=== PATIENT | female | born 1945 | race Caucasian/White ===

== ENCOUNTER → 2017-08-26 | Outpatient (CLI) | payer OTHER, MEDICARE ==
[~2017-08-26] MED LIST: ALT5 PO; CRG125 PO; CYM/30 PO; DYZ PO; GLIP-197 PO; KFL/250 PO; MULTCHW PO; OXYC-57 PO; PRLSR20 PO; ROSU20TA PO
== END | disposition home or self-care (01) ==
LOC: C.LABSPEC 17:23
PROVIDERS: ATTEND Podiatrist Foot & Ankle Surgery
DX: L97.509 Non-pressure chronic ulcer of other part of unspecified foot with unspecified severity (principal)

== ENCOUNTER → 2017-09-03 | Outpatient (CLI) | payer OTHER, MEDICARE ==
[~2017-09-03] MED LIST changes: +GADAVIST IV PRN
--- NOTE | 2017-09-03 09:59 | DIAGNOSTIC IMAGING REPORT ---
RIGHT FOREFOOT MRI WITH AND WITHOUT INTRAVENOUS CONTRAST HISTORY: Right foot pain. 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 COMPARISON STUDY: Right foot radiograph 05/24/2015. FINDINGS: There is metallic artifact obscuring the second toe. Metallic fusion hardware seen at the first metatarsal metatarsal joint. 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 There is also plantar subluxation of the proximal phalanx in relation to the first metatarsal of approximately 8 mm. This is likely chronic. No marrow or surrounding soft tissue edema to suggest an acute process. This results in proximal displacement of the sesamoid bones at the head of the first metatarsal. There is also mild osteoarthritis at the second MTP joint. There is also dorsal subluxation of the middle phalanx and relation to the proximal phalanx of the third toe of approximately 3 mm. Skin thickening and mild edema along the plantar surface of the second toe at the PIP joint. There is also a 5 mm T2 hyperintense focus within the skin at the plantar surface of the PIP joint. This could represent a small skin blisters/bursa or possibly an abscess. At the head of the proximal phalanx of the second toe there is marrow edema with subtle decreased T1 signal with faint enhancement. There is mild cortical regularity along the plantar surface of the head of the proximal phalanx of the second toe. No fractures identified within the forefoot. IMPRESSION: 1. Abnormal appearance to the head of the proximal phalanx of the third toe as described above with associated skin thickening/edema and a 5 mm soft tissue cystic focus along the plantar surface. Therefore, this raises the possibility of an early osteomyelitis of the proximal phalanx of the third toe. The 5 mm soft tissue cystic focus may represent a small skin blister/bursa or possibly an abscess. 2. There is 3 mm of dorsal subluxation at the PIP joint of the third toe and 8 mm of plantar subluxation at the interphalangeal joint of the first toe. This is likely chronic. No acute fractures identified. Electronically signed by: Nixon Mcleod M.D. 09/03/2017 9:58 AM Dictated Date/Time: 09/03/2017 9:47 AM
== END | disposition home or self-care (01) ==
LOC: C.MRI 07:52
PROVIDERS: ATTEND Podiatrist Foot & Ankle Surgery
DX: L03.115 Cellulitis of right lower limb (principal); L97.515 Non-pressure chronic ulcer of other part of right foot with muscle involvement without evidence of necrosis; S92.811A Other fracture of right foot, initial encounter for closed fracture; X58.XXXA Exposure to other specified factors, initial encounter; M79.9 Soft tissue disorder, unspecified; S93.144A Subluxation of metatarsophalangeal joint of right lesser toe(s), initial encounter; S93.141A Subluxation of metatarsophalangeal joint of right great toe, initial encounter

== ENCOUNTER 2023-09-23 12:18 | Inpatient (IN) ==
[2023-09-23] MEDS: SODIUM CHLORIDE 0.9% 1,000 ML IV STA (12:30)
--- NOTE | 2023-09-23 12:41 | Emergency Department Note ---
Impression & Plan Acute GI bleeding, Melena, Acute confusion, RAFAEL (acute kidney injury), Anemia requiring transfusions ED Provider Note HISTORY OF PRESENT ILLNESS: Patient is a 78-year-old female presenting with confusion. provides most of history. He reports that they just got back from traveling to [place] for a family wedding. States the patient has been progressively more confused over the last 10 days. Patient was recently admitted to the hospital and had a follow-up with her primary care provider today at [facility]. She was very confused at the clinic and was very pale and they sent her to the emergency department for further evaluation. Patient reports for the last 3 to 4 days she has had dark tarry stool. reports has been having diarrhea. Patient is alert but very confused and is not answering questions appropriately. is unsure if she is on a blood thinner. No reported fevers. No chest pain or shortness of breath. ROS: as above PHYSICAL EXAM: Constitutional: Patient appears in no acute distress. HENT: Head: Normocephalic and atraumatic. Eyes: EOMI, PERRL Mouth/Throat: Mucous membranes moist. Neck: Trachea midline. Neck supple. Cardiovascular: Tachycardic with regular rhythm. No murmurs, rubs or gallops. Intact distal pulses. Pulmonary/Chest: No respiratory distress. Breath sounds clear and equal bilaterally. No wheezes or rales. Abdominal: Abdomen soft, no tenderness, rebound or guarding. Rectal: Chaperoned by nursing staff. Asif melena on glove. Hemoccult positive. Musculoskeletal: No edema, tenderness or deformity noted. Skin: Warm and dry. No rash, erythema, pallor or cyanosis Psychiatric: Appropriate mood and affect for situation. Neurological: Alert, but confused to place and time. CN II-XII grossly intact, moving all extremities equally and fully. MDM: - Vitals signs showed hypotension and tachycardia. IV access obtained. Patient given 1L NS. - History obtained via patient's , given patient's confusion. History as above. - Chronic conditions affecting care: HTN; HLD; GERD; DM-2 - Differential diagnoses include, but are not limited to: bleeding gastric ulcer; gastritis; diverticular bleed; sepsis; UTI - Order placed for continuous cardiac monitoring. At this time, monitor showed rate of 100 bpm with normal sinus rhythm, per my interpretation. - External medical records reviewed. Gastroenterology visit note dated 01/22/2023 was reviewed. Patient does have a known history of gastric ulcers. She had an endoscopy in January 2023. She was diagnosed with PUD and erosive gastritis. - EKG interpreted by myself showed normal sinus rhythm. Rate 81 bpm. QT 420. No acute ischemic changes. - Given 40 mg IV protonix and 20 mg IV pepcid. - Laboratory workup interpreted by myself showed leukocytosis (WBC 17.49); anemia (Hgb 8.1 - was 13.0 five days ago); hypokalemia (K 3.2); elevated BUN (37); RAFAEL (Cr 1.16); hyperglycemia (glucose 255); normal procalcitonin; normal lipase - CXR negative for pneumonia, per my interpretation - Patient had a hemoglobin of 13.0 five days ago. Given her asif melena on examination, hypotension and 5 g hemoglobin drop, packed red blood cells were ordered. Patient was consented for blood. 3 units of packed red blood cells was ordered, with due to transfusion now. - Discussed case with gastroenterology on-call, Dr. Abad at 1341. Recommended medical optimization and plan for EGD tomorrow. - Discussion was had with rn case mgr about patient's case and need for admission - Hospitalist consulted for admission - Patient admitted to [facility] service for further evaluation and management. I have personally spent 64 minutes of critical care time in the direct management of this patient. This includes bedside care, interpretation of diagnostic studies, and testing, discussion with consultants, patient, and family members, and other required patient management activities. This 64 minutes is in excess of all separately billable procedures. ASSESSMENT AND PLAN: Diagnosis: upper GI bleed; melena; confusion; RAFAEL; anemia requiring transfusions Plan: Admit Past Med/Surg History Problem List (Updated 09/23/23 @ 13:47 by Alexa Mistry MD) Anemia requiring transfusions (Acute) RAFAEL (acute kidney injury) (Acute) Acute confusion (Acute) Melena (Acute) Acute GI bleeding (Acute) Decreased oral intake (Acute) Memory loss of unknown cause (Acute) Gastric ulcer Anemia Encounter for pre-operative examination Chronic pain syndrome Dyslipidemia HTN (hypertension) Type 2 diabetes mellitus GERD (gastroesophageal reflux disease) Medical History Anemia Back problem Colovesical fistula DM type 2 (diabetes mellitus, type 2) History of gout HLD (hyperlipidemia) HTN (hypertension) Obesity Poor historian Recurrent UTI Surgical History History of bowel resection History of History of colonoscopy with polypectomy History of hysterectomy Hx of cataract surgery Personal history of spine surgery Family History Mother Diabetes Father Heart disease Social History Smoking Status: Never smoker Second Hand Exposure: No; Do You Dip or Chew Tobacco: No; Hx Alcohol Use: No Hx Substance Use: No Preferred Language: Greenlandic Communication Ability: Effective Visual Impairment: No Limitations Hearing Ability: Hard of Hearing Obstetrical Anesthesiologist Required: No Beliefs That Will Affect Care: None marital status: Current Living Situation: Spouse How many Children do You have: 3 Feels Safe at Home: Yes Assistive Devices: Walker Allergies Allergies Allergy/AdvReac Type Severity Reaction Status Date / Time tramadol AdvReac Intermediate NAUSEA Verified 01/22/23 13:02 Home Meds Home Medications Medication Instructions Recorded Confirmed carvedilol 12.5 mg PO BID ##0 11/17/08 01/22/23 triamterene-hydrochlorothiazid 1 cap PO BID ##0 11/17/08 01/22/23 rosuvastatin 20 mg PO HS #0 tabs 01/24/12 01/22/23 MULTIPLE VITAMINS W/ MINERALS 1 tab PO QAM ##0 04/25/15 01/22/23 (CENTRUM SILVER) duloxetine 30 mg PO QAM #0 caps 04/25/15 01/22/23 glipizide 1 tab PO QAM #0 tabs 04/25/15 01/22/23 hydrocodone 5 mg-acetaminophen 325 1 tab PO Q8H PRN Pain 11/26/22 01/22/23 mg tablet Previous Rx's Medication Instructions Recorded pantoprazole 40 mg tablet,delayed 40 mg PO BID #180 tabs 07/21/23 release Results & Data (ED) Vital Signs Vital Signs - 24 hr 09/23/23 12:20 09/23/23 13:44 Temperature 36.8 C Temperature Source Temporal Artery Scan Pulse Rate 99 H 88 Respiratory Rate 16 Respiratory Effort / Characteristics Non-Labored Spontaneous Respiratory Depth Normal Blood Pressure 64/40 L Blood Pressure Mean 48 Pulse Oximetry 100 Oxygen Delivery Method Room Air Sepsis Recent Fever Within 48 Hours No Sepsis New/Unexplained Change in Mental Status N/A Sepsis Action Taken by Nursing No Action Required Laboratory Data 09/23/23 12:30 09/23/23 12:30 Lab Results 09/23/23 09/23/23 09/23/23 Range/Units 12:29 12:30 12:36 WBC 17.49 H (4.8-10.8) K/ul RBC 3.03 L (4.20-5.40) M/uL Hgb 8.1 L (12.0-16.0) g/dl POC Hgb 8.5 L (12.0-16.0) g/dl Hct 25.1 L (37.0-47.0) % POC Hct 25 L (37-47) % MCV 82.8 (80.0-100.0) fL MCH 26.7 (25.0-34.0) pg MCHC 32.3 (32.0-36.0) g/dL RDW Std Deviation 45.5 (36.4-46.3) fL RDW Coeff of Francisco 15.3 H (11.5-14.5) % Plt Count 574 H (130-400) K/uL MPV 9.8 (9.4-12.4) fL Immature Gran % (Auto) 0.9 % Neut % (Auto) 71.2 % Lymph % (Auto) 20.8 % [place] % (Auto) 6.5 % Eos % (Auto) 0.3 % Baso % (Auto) 0.3 % Neut # (Auto) 12.45 H (1.40-6.50) K/uL Lymph # (Auto) 3.64 H (1.20-3.40) K/uL [place] # (Auto) 1.13 H (0.11-0.59) K/uL Eos # (Auto) 0.06 (0.00-0.50) K/uL Baso # (Auto) 0.06 (0.00-0.20) K/uL Immature Gran # (Auto) 0.15 (0.01-0.20) K/uL PT 10.9 (9.0-12.0) Seconds INR 1.0 (0.9-1.1) POC Sodium 138 (135-144) mmol/L Sodium 138 (136-145) mmol/L POC Potassium 3.1 L (3.3-5.0) mmol/L Potassium 3.2 L (3.5-5.1) mmol/L POC Chloride 103 (101-112) mmol/L Chloride 102 (98-107) mmol/L Carbon Dioxide 26 (21-32) mmol/L POC Total CO2 24 (24-31) mmol/L Anion Gap 10 (3-11) POC Anion Gap 15.0 L (16-25) mmol/L POC BUN 30 H (7-18) mg/dl BUN 37 H (6-23) mg/dl Creatinine 1.16 (0.6-1.2) mg/dl POC Creatinine 1.1 (0.6-1.3) mg/dl Est Cr Clr Drug Dosing Not Reportable Est GFR ( Amer) 52.6 ml/min Est GFR (Non-Af Amer) 45.4 ml/min BUN/Creatinine Ratio 31.9 H (10-20) Glucose 255 H (70-99(Fasting)) mg/dl POC Glucose (other) 241 H (70-99) mg/dl Calcium 9.3 (8.6-10.3) mg/dl POC Ioniz Calcium Cele 1.18 (1.12-1.32) mmol/l Magnesium 1.8 (1.7-2.4) mg/dl Total Bilirubin 0.3 (0.2-1.0) mg/dl AST 13 (13-39) U/L ALT 9 (7-52) U/L Alkaline Phosphatase 21 L (34-104) U/L Troponin I High Sens 10.2 (0-14) pg/ml Total Protein 6.2 (6.0-8.3) gm/dl Albumin 3.9 (3.4-5.0) gm/dl Globulin 2.3 L (2.5-4.0) gm/dl Albumin/Globulin Ratio 1.7 (0.9-2) Lipase 57 (11-82) U/L Procalcitonin 0.03 (0-0.5) ng/ml Blood Type O Positive Antibody Screen POSITIVE A Crossmatch See Detail Administered Medications Discontinued Medications Sodium Chloride (Nss) 1,000 mls @ 999 mls/hr IV .Q1H1M STA Stop: 09/23/23 13:36 Last Admin: 09/23/23 12:30 Dose: 999 mls/hr Documented By: AM Famotidine (Pepcid 20mg Iv Push) 20 mg in 5 mls @ 2.5 mls/min IV NOW STA Stop: 09/23/23 12:38 Last Admin: 09/23/23 13:38 Dose: 2.5 mls/min Documented By: AM Imaging Data Radiologist's Impression: Chest X-Ray 09/23/23 12:36 XR chest 1V portable CLINICAL HISTORY: Chest pain, nonspecific TECHNIQUE: Single frontal radiograph of the chest was obtained. Comparison: Comparison is made to chest radiograph 11/20/2022 FINDINGS: No lines and tubes are seen. Calcified aortic knob is seen. The lungs are clear. No evidence of pleural effusion or pneumothorax. IMPRESSION: No acute chest disease. ACT 112: Negative or not required by law. Electronically signed by: Jimbo Crowe M.D. 09/23/2023 1:15 PM Discharge Plan Visit Data Chief Complaint: Altered Mental Status Stated Complaint: AMS ED Provider: Alexa Mistry Discharge Problem: Acute GI bleeding, Melena, Acute confusion, RAFAEL (acute kidney injury), Anemia requiring transfusions Forms Stand Alone Forms: My [facility] Prescriptions Prescriptions: No Action carvedilol 12.5 mg tablet 12.5 mg PO BID cilostazol 50 mg tablet 50 mg PO BID hydrocodone-acetaminophen 5-325 mg tablet 1 tab PO TID PRN (Reason: Severe Pain (Scale Score 7-10)) hydrochlorothiazide 25 mg tablet 25 mg PO DAILY ramipril 5 mg capsule 5 mg PO DAILY glipizide 5 mg tablet 5 mg PO DAILY rosuvastatin 20 mg tablet 20 mg PO DAILY duloxetine 60 mg capsule,delayed release(DR/EC) 60 mg PO DAILY Referrals Referrals: Jian Escalante MD [Primary Care Provider] -
[2023-09-23 12:49] LABS: iSTAT Creatinine 1.1 mg/dl (0.6-1.3); iSTAT Hemoglobin 8.5 g/dl (12.0-16.0); iSTAT Ionized Calcium 1.18 mmol/l (1.12-1.32); iSTAT Potassium 3.1 mmol/L (3.3-5.0)
[2023-09-23 13:04] LABS: Basophils # (auto) 0.06 K/uL (0.00-0.20); Basophils % (auto) 0.3 %; Eosinophils # (auto) 0.06 K/uL (0.00-0.50); Eosinophils % (auto) 0.3 %; Hematocrit (blood only) 25.1 % (37.0-47.0); Hemoglobin 8.1 g/dl (12.0-16.0); Immature Granulocytes # (auto) 0.15 K/uL (0.01-0.20); Immature Granulocytes % (auto) 0.9 %; Lymphocytes # (auto) 3.64 K/uL (1.20-3.40); Lymphocytes % (auto) 20.8 %; Mean Corpuscular Hemoglobin 26.7 pg (25.0-34.0); Mean Corpuscular Hgb Conc 32.3 g/dL (32.0-36.0); Mean Corpuscular Volume 82.8 fL (80.0-100.0); Mean Platelet Volume 9.8 fL (9.4-12.4); Monocytes # (auto) 1.13 K/uL (0.11-0.59); Monocytes % (auto) 6.5 %; Neutrophils # (auto) 12.45 K/uL (1.40-6.50); Neutrophils % (auto) 71.2 %; Platelet Count 574 K/uL (130-400); RDW Coefficient of Variation 15.3 % (11.5-14.5); RDW Standard Deviation 45.5 fL (36.4-46.3); Red Blood Count 3.03 M/uL (4.20-5.40); White Blood Count 17.49 K/ul (4.8-10.8)
[2023-09-23 13:06] LABS: Alanine Aminotransferase 9 U/L (7-52); Albumin Globulin Ratio 1.7 (0.9-2); Albumin Level 3.9 gm/dl (3.4-5.0); Alkaline Phosphatase 21 U/L (34-104); Anion Gap 10 (3-11); Aspartate Aminotransferase 13 U/L (13-39); BUN Creatinine Ratio 31.9 (10-20); Bilirubin,Total 0.3 mg/dl (0.2-1.0); Blood Urea Nitrogen 37 mg/dl (6-23); Calcium 9.3 mg/dl (8.6-10.3); Carbon Dioxide 26 mmol/L (21-32); Chloride 102 mmol/L (98-107); Est GFR (African American) 52.6 ml/min; Est GFR (Non-African American) 45.4 ml/min; Globulin 2.3 gm/dl (2.5-4.0); Glucose 255 mg/dl (70-99(Fasting)); Lipase 57 U/L (11-82); Magnesium 1.8 mg/dl (1.7-2.4); Potassium 3.2 mmol/L (3.5-5.1); Sodium 138 mmol/L (136-145); Total Protein 6.2 gm/dl (6.0-8.3)
[2023-09-23] MEDS ORDERED: SODIUM CHLORIDE 0.9% 250 ML IV PRN (13:08)
[2023-09-23 13:12] LABS: Troponin I High Sensitivity 10.2 pg/ml (0-14)
--- NOTE | 2023-09-23 13:17 | XRay Report ---
XR chest 1V portable CLINICAL HISTORY: Chest pain, nonspecific TECHNIQUE: Single frontal radiograph of the chest was obtained. Comparison: Comparison is made to chest radiograph 11/20/2022 FINDINGS: No lines and tubes are seen. Calcified aortic knob is seen. The lungs are clear. No evidence of pleur al effusion or pneumothorax. IMPRESSION: No acute chest disease. ACT 112: Negative or not required by law. Electronically signed by: Jimbo Crowe M.D. 09/23/2023 1:15 PM
[2023-09-23 13:27] LABS: Prothrombin Time 10.9 Seconds (9.0-12.0)
[2023-09-23] MEDS: FAMOTIDINE 20MG IV PUSH 20 MG/5 ML SYR IV STA (13:38)
--- NOTE | 2023-09-23 13:50 | Gastrointestinal Consultation ---
Date of Consultation September 23, 2023 Assessment & Plan (1) Acute GI bleeding: (2) Melena: Plan Patient is a 78 y.o. female with a history of gastric ulcer and GIB admitted with confusion, melena and acute blood loss anemia in the setting of discontinuation of PPI. 1. NPO for now. 2. Continue PPI ggt at 8 mg/hr. 3. EGD with Dr. Abad tomorrow for further evaluation in light of symptomatic anemia and history of PUD. 4. Continue supportive care with fluids and blood transfusion if needed per protocol. 5. Further recommendations will be made pending results of testing. Thank you for allowing us to participate in the care of this patient. If you have any questions or concerns, please do not hesitate to contact us. Supervising Physician Co-Signing Physician Notes Agree with LIS Keys as above Interviewed and examined patient and agree with above Abd: Soft, NT, ND, +BS Continue current therapy and supportive care Proceed with EGD tomorrow AM History of Present Illness Reason for Consultation: UGIB Requesting Physician: Sigrid Clinton PA-C Attending Physician: Dr. Mistry History of Present Illness Patient is a 78 y.o. female with a history of symptomatic anemia and melena status post EGD and colonoscopy in January of 2023. She was found to have 2 gastric, clean-based ulcers at that time. Patient was encouraged to remain on Pantoprazole 40 mg BID x 6 weeks, then daily thereafter. From review of records, it appears the PPI was discontinued months ago per her 's report due to confusion in regard to her medications. GI has been consulted after the patient presented to the ER with acute blood loss anemia, melena and confusion. Patient has just returned from a trip to [place], [place] for a wedding and had become weak. PCP had recommended ER evaluation. Mentation has improved. Hemoglobin on 09/17 was normal at 13 and on arrival, 8.1. Allergies Allergy/AdvReac Type Severity Reaction Status Date / Time tramadol AdvReac Intermediate NAUSEA Verified 09/23/23 14:01 metformin AdvReac Nausea Verified 09/23/23 14:02 Home Medications Medication Instructions Recorded Confirmed Type carvedilol 12.5 mg tablet 12.5 mg PO BID 09/23/23 09/23/23 History cilostazol 50 mg tablet 50 mg PO BID 09/23/23 09/23/23 History duloxetine 60 mg capsule,delayed 60 mg PO DAILY 09/23/23 09/23/23 History release glipizide 5 mg tablet 5 mg PO DAILY 09/23/23 09/23/23 History hydrochlorothiazide 25 mg tablet 25 mg PO DAILY 09/23/23 09/23/23 History hydrocodone 5 mg-acetaminophen 325 1 tab PO TID PRN Severe Pain 09/23/23 09/23/23 History mg tablet (Scale Score 7-10) ramipril 5 mg capsule 5 mg PO DAILY 09/23/23 09/23/23 History rosuvastatin 20 mg tablet 20 mg PO DAILY 09/23/23 09/23/23 History Patient History Medical History HTN (hypertension) History of gout Back problem DM type 2 (diabetes mellitus, type 2) Poor historian HLD (hyperlipidemia) Recurrent UTI Obesity Colovesical fistula hx Surgical History History of bowel resection sigmoid resection for a colo-vesical fistula per record History of colonoscopy with polypectomy History of hysterectomy History of Personal history of spine surgery Hx of cataract surgery Family History Mother Diabetes Father Heart disease Social History Smoking Status: Never smoker Second Hand Exposure: No; Do You Dip or Chew Tobacco: No; Hx Alcohol Use: No Hx Substance Use: No Preferred Language: Azerbaijani Communication Ability: Effective Visual Impairment: No Limitations Hearing Ability: Hard of Hearing Aeronautical Design Engineer Required: No Beliefs That Will Affect Care: None marital status: Current Living Situation: Spouse How many Children do You have: 3 Feels Safe at Home: Yes Assistive Devices: Walker Review of Systems Constitutional: as per Subjective / HPI Respiratory: no cough and no dyspnea Cardiovascular: no chest pain and no palpitations Gastrointestinal: as per Subjective / HPI Physical Exam Constitutional: WD/WN, vitals as above Respiratory: normal respiratory effort, lungs clear to auscultation Cardiovascular: RRR, no murmur, no edema Gastrointestinal (Abdomen): normal bowel sounds, soft, nontender, no hepatosplenomegaly Psychiatric: A+Ox3, euthymic affect Results & Data Vital Signs (Past 12 Hours) Vital Signs Temp Pulse Resp BP Pulse Ox O2 Del Method 09/23/23 13:44 88 09/23/23 12:20 36.8 C 99 H 16 64/40 L 100 Room Air Diagnostic Findings Laboratory Results WBC 17.49 K/ul (4.8-10.8) H 09/23/23 12:30 RBC 3.03 M/uL (4.20-5.40) L 09/23/23 12:30 Hgb 8.1 g/dl (12.0-16.0) L 09/23/23 12:30 POC Hgb 8.5 g/dl (12.0-16.0) L 09/23/23 12:36 Hct 25.1 % (37.0-47.0) L 09/23/23 12:30 POC Hct 25 % (37-47) L 09/23/23 12:36 MCV 82.8 fL (80.0-100.0) 09/23/23 12:30 MCH 26.7 pg (25.0-34.0) 09/23/23 12:30 MCHC 32.3 g/dL (32.0-36.0) 09/23/23 12:30 RDW Std Deviation 45.5 fL (36.4-46.3) 09/23/23 12:30 RDW Coeff of Francisco 15.3 % (11.5-14.5) H 09/23/23 12:30 Plt Count 574 K/uL (130-400) H 09/23/23 12:30 MPV 9.8 fL (9.4-12.4) 09/23/23 12:30 Immature Gran % (Auto) 0.9 % 09/23/23 12:30 Neut % (Auto) 71.2 % 09/23/23 12:30 Lymph % (Auto) 20.8 % 09/23/23 12:30 [place] % (Auto) 6.5 % 09/23/23 12:30 Eos % (Auto) 0.3 % 09/23/23 12:30 Baso % (Auto) 0.3 % 09/23/23 12:30 Neut # (Auto) 12.45 K/uL (1.40-6.50) H 09/23/23 12:30 Lymph # (Auto) 3.64 K/uL (1.20-3.40) H 09/23/23 12:30 [place] # (Auto) 1.13 K/uL (0.11-0.59) H 09/23/23 12:30 Eos # (Auto) 0.06 K/uL (0.00-0.50) 09/23/23 12:30 Baso # (Auto) 0.06 K/uL (0.00-0.20) 09/23/23 12:30 Immature Gran # (Auto) 0.15 K/uL (0.01-0.20) 09/23/23 12:30 PT 10.9 Seconds (9.0-12.0) 09/23/23 12:30 INR 1.0 (0.9-1.1) 09/23/23 12:30 POC Sodium 138 mmol/L (135-144) 09/23/23 12:36 Sodium 138 mmol/L (136-145) 09/23/23 12:30 POC Potassium 3.1 mmol/L (3.3-5.0) L 09/23/23 12:36 Potassium 3.2 mmol/L (3.5-5.1) L 09/23/23 12:30 POC Chloride 103 mmol/L (101-112) 09/23/23 12:36 Chloride 102 mmol/L (98-107) 09/23/23 12:30 Carbon Dioxide 26 mmol/L (21-32) 09/23/23 12:30 POC Total CO2 24 mmol/L (24-31) 09/23/23 12:36 Anion Gap 10 (3-11) 09/23/23 12:30 POC Anion Gap 15.0 mmol/L (16-25) L 09/23/23 12:36 POC BUN 30 mg/dl (7-18) H 09/23/23 12:36 BUN 37 mg/dl (6-23) H 09/23/23 12:30 Creatinine 1.16 mg/dl (0.6-1.2) 09/23/23 12:30 POC Creatinine 1.1 mg/dl (0.6-1.3) 09/23/23 12:36 Est Cr Clr Drug Dosing Not Reportable 09/23/23 12:30 Est GFR ( Amer) 52.6 ml/min 09/23/23 12:30 Est GFR (Non-Af Amer) 45.4 ml/min 09/23/23 12:30 BUN/Creatinine Ratio 31.9 (10-20) H 09/23/23 12:30 Glucose 255 mg/dl (70-99(Fasting)) H 09/23/23 12:30 POC Glucose (other) 241 mg/dl (70-99) H 09/23/23 12:36 Calcium 9.3 mg/dl (8.6-10.3) 09/23/23 12:30 POC Ioniz Calcium Cele 1.18 mmol/l (1.12-1.32) 09/23/23 12:36 Magnesium 1.8 mg/dl (1.7-2.4) 09/23/23 12:30 Total Bilirubin 0.3 mg/dl (0.2-1.0) 09/23/23 12:30 AST 13 U/L (13-39) 09/23/23 12:30 ALT 9 U/L (7-52) 09/23/23 12:30 Alkaline Phosphatase 21 U/L (34-104) L 09/23/23 12:30 Troponin I High Sens 10.2 pg/ml (0-14) 09/23/23 12:30 Total Protein 6.2 gm/dl (6.0-8.3) 09/23/23 12:30 Albumin 3.9 gm/dl (3.4-5.0) 09/23/23 12:30 Globulin 2.3 gm/dl (2.5-4.0) L 09/23/23 12:30 Albumin/Globulin Ratio 1.7 (0.9-2) 09/23/23 12:30 Lipase 57 U/L (11-82) 09/23/23 12:30 Procalcitonin 0.03 ng/ml (0-0.5) 09/23/23 12:30 Blood Type O Positive 09/23/23 12:29 Antibody Screen POSITIVE A 09/23/23 12:29 Crossmatch See Detail 09/23/23 12:29 Impressions Chest X-Ray 09/23/23 12:36 XR chest 1V portable CLINICAL HISTORY: Chest pain, nonspecific TECHNIQUE: Single frontal radiograph of the chest was obtained. Comparison: Comparison is made to chest radiograph 11/20/2022 FINDINGS: No lines and tubes are seen. Calcified aortic knob is seen. The lungs are clear. No evidence of pleural effusion or pneumothorax. IMPRESSION: No acute chest disease. ACT 112: Negative or not required by law. Electronically signed by: Jimbo Crowe M.D. 09/23/2023 1:15 PM PG Care Time/CCT Total # of Minutes Spent Total Time Spent with Patient: Total time spent is greater than 50% in coordination of care (as documented) at patient's floor/unit and/or counseling patient: Coding Level of Care Code 45527 INT INP/OBS CARE 3/75MIN Diagnoses Acute GI bleeding K92.2 Melena K92.1
--- NOTE | 2023-09-23 14:19 | History & Physical Report ---
Date of Service September 23, 2023 Assessment & Plan (1) Acute GI bleeding: (2) Melena: (3) Acute confusion: (4) Anemia requiring transfusions: (5) Type 2 diabetes mellitus: (6) HTN (hypertension): (7) Dyslipidemia: (8) Hypokalemia: Plan This is a 78 year old female Who has a significant past medical history of T2DM, HTN, HLD, GERD, bilateral lower extremity claudication, lumbar spinal stenosis, chronic pain syndrome who presents to ED secondary to referral of PCP in setting of increased confusion. Acute GI bleeding Melena Anemia requiring transfusion admit to tele Hemoglobin 8.1 today, was at 13 - 5 days ago In ED she was typed and crossed for 2 units, she will be transfused due to suspected blood loss Uncertain how long melena is been present Consult GI Keep n.p.o. PPI bolus and drip initiated in ED Plan for endoscopy tomorrow Repeat hemoglobin posttransfusion, cbc, cmp, mag in a.m. Intermittent underlying confusion This has been reported by family and has been ongoing for the last several weeks Previous urinalysis have been negative She does have elevated white blood cell count but I suspect this is likely reactive Question if underlying dementia She is not encephalopathic repeat UA anticipate it may improve with transfusion Hypokalemia replete HTN bp on lower side will hold TEAM PHYSICIAN meds including ramipril, HCTZ and coreg resume as able HLD chronic, stable Total Chol 300 09/09 on statin, will hold while NPO T2DM last a1c 8.5 in August currently on glipizide, will hold given age and risk of hypoglycemia she may benefit from januvia or injectable would discuss with PCP Lantus/novolog per protocol DVT ppx: SCDS FULL CODE PCP: Ava Dispo: Med tele Pt was seen and examined in collaboration with Dr. Knapp, please see addendum A total of 55 minutes was spent coordinating, documenting, and providing care for this patient excluding time spent in the performance of separately billed services. This included personally viewing all current laboratories and imaging studies, medication reconciliation, outpatient chart review, and discussion with specialists. History of Present Illness Chief Complaint: referred by PCP. Primary Care Provider: Jian Escalante MD This is a 78 year old female Who has a significant past medical history of T2DM, HTN, HLD, GERD, bilateral lower extremity claudication, lumbar spinal stenosis, chronic pain syndrome who presents to ED secondary to referral of PCP in setting of increased confusion. Her is at bedside who elicits majority of history. He reports her memory has been getting persistently worse. He reports 10 days ago they were in [place] and she was completely out of it. With the altitude it seemed even worse. She has not been eating and drinking well. She has a prior hx of UTI so family thought maybe that was contributing to her memory. reports he honestly didn't even know what she was to bed taking medication mckee so he called her PCP to obtain her medication list. For the last 10 days he has been doing her medications. He just realized she was to be taken pantoprazole and it appears she has not for the last 2 months. She was seen by PCP today who referred her to ER due to worsening memory loss and appearing very pale. Of significance patient was seen in ED on 09/18/2023 for similar complaints and increased confusion. Her urinalysis was negative for infection and head CT was negative. Her potassium was a bit low and therefore this was repleted. She was discharged home with . She had a ER follow-up with PCP today and was referred in the ED. Of significance patient did have a EGD and colonoscopy in January 2023. EGD revealed nonbleeding gastric ulcer and colonoscopy did reveal some polyps which were removed. She was since prescribed pantoprazole 40 mg twice daily with eventually it to be decreased to daily. She has been not been doing this for the last 2 months. Allergies Allergy/AdvReac Type Severity Reaction Status Date / Time tramadol AdvReac Intermediate NAUSEA Verified 09/23/23 14:01 metformin AdvReac Nausea Verified 09/23/23 14:02 Home Medications Medication Instructions Recorded Confirmed Type carvedilol 12.5 mg tablet 12.5 mg PO BID 09/23/23 09/23/23 History cilostazol 50 mg tablet 50 mg PO BID 09/23/23 09/23/23 History duloxetine 60 mg capsule,delayed 60 mg PO DAILY 09/23/23 09/23/23 History release glipizide 5 mg tablet 5 mg PO DAILY 09/23/23 09/23/23 History hydrochlorothiazide 25 mg tablet 25 mg PO DAILY 09/23/23 09/23/23 History hydrocodone 5 mg-acetaminophen 325 1 tab PO TID PRN Severe Pain 09/23/23 09/23/23 History mg tablet (Scale Score 7-10) ramipril 5 mg capsule 5 mg PO DAILY 09/23/23 09/23/23 History rosuvastatin 20 mg tablet 20 mg PO DAILY 09/23/23 09/23/23 History Past Med/Surg History Problem List (Updated 09/23/23 @ 17:49 by Sigrid Clinton PA-C) Hypokalemia Anemia requiring transfusions (Acute) RAFAEL (acute kidney injury) (Acute) Acute confusion (Acute) Melena (Acute) Acute GI bleeding (Acute) Decreased oral intake (Acute) Memory loss of unknown cause (Acute) Gastric ulcer Anemia Encounter for pre-operative examination Chronic pain syndrome Dyslipidemia HTN (hypertension) Type 2 diabetes mellitus GERD (gastroesophageal reflux disease) Medical History HTN (hypertension) History of gout Back problem DM type 2 (diabetes mellitus, type 2) Poor historian HLD (hyperlipidemia) Recurrent UTI Obesity Colovesical fistula hx Surgical History History of bowel resection sigmoid resection for a colo-vesical fistula per record History of colonoscopy with polypectomy History of hysterectomy History of Personal history of spine surgery Hx of cataract surgery Family History Mother Diabetes Father Heart disease Social History Smoking Status: Never smoker Second Hand Exposure: No; Do You Dip or Chew Tobacco: No; Hx Alcohol Use: No Hx Substance Use: No Preferred Language: Malay Communication Ability: Effective Visual Impairment: No Limitations Hearing Ability: Hard of Hearing Web Ui Developer Required: No Beliefs That Will Affect Care: None marital status: Current Living Situation: Spouse How many Children do You have: 3 Feels Safe at Home: Yes Assistive Devices: Walker Review of Systems Review of Systems: All systems reviewed & are unremarkable except as noted in HPI & below Physical Exam Physical Exam: please refer to Dr. Knapp addendum for physical exam findings. Results & Data Results & Data Vital Signs (Past 12 Hours) Vital Signs Temp Pulse Pulse Resp BP BP Pulse Ox 09/23/23 14:01 98 09/23/23 13:51 88 14 98 09/23/23 13:45 113/61 09/23/23 13:44 88 09/23/23 13:39 88 15 98 09/23/23 13:37 94/63 L 09/23/23 13:30 86 19 99 09/23/23 13:08 88 14 108/69 97 09/23/23 12:36 12 91/49 L 96 09/23/23 12:20 82 12 85/47 L 97 09/23/23 12:20 98 09/23/23 12:20 36.8 C 99 H 16 64/40 L 100 O2 Del Method O2 Flow Rate 09/23/23 14:01 Room Air 09/23/23 13:51 09/23/23 13:45 09/23/23 13:44 09/23/23 13:39 09/23/23 13:37 09/23/23 13:30 09/23/23 13:08 Room Air 09/23/23 12:36 09/23/23 12:20 09/23/23 12:20 Room Air 0 09/23/23 12:20 Room Air Diagnostic Findings Chest X-Ray 09/23/23 12:36 XR chest 1V portable CLINICAL HISTORY: Chest pain, nonspecific TECHNIQUE: Single frontal radiograph of the chest was obtained. Comparison: Comparison is made to chest radiograph 11/20/2022 FINDINGS: No lines and tubes are seen. Calcified aortic knob is seen. The lungs are clear. No evidence of pleural effusion or pneumothorax. IMPRESSION: No acute chest disease. ACT 112: Negative or not required by law. Electronically signed by: Jimbo Crowe M.D. 09/23/2023 1:15 PM Medications Administered Medication List Pantoprazole Sodium 40 mg/ (Dextrose) 100 mls @ 20 mls/hr IV Q5H MICKEY Stop: 10/23/23 13:44 Last Admin: 09/23/23 15:36 Dose: 8 mg/hr, 20 mls/hr Documented By: NAW Discontinued Medications Sodium Chloride (Nss) 1,000 mls @ 999 mls/hr IV .Q1H1M STA Stop: 09/23/23 13:36 Last Infusion: 09/23/23 13:53 Dose: Infused Documented By: Admin: 09/23/23 12:30 Dose: 999 mls/hr Documented By: AM Pantoprazole Sodium 40 mg/ (Syringe) 10 mls @ 5 mls/min IV NOW ONE Stop: 09/23/23 12:38 Last Admin: 09/23/23 15:33 Dose: 5 mls/min Documented By: OLLIE Famotidine (Pepcid 20mg Iv Push) 20 mg in 5 mls @ 2.5 mls/min IV NOW STA Stop: 09/23/23 12:38 Last Admin: 09/23/23 13:38 Dose: 2.5 mls/min Documented By: LYNNE COVID-19 Results Results COVID-19 Adm Lab Results: RBC 3.03 M/uL (4.20-5.40) L 09/23/23 WBC 17.49 K/ul (4.8-10.8) H 09/23/23 Hgb 8.1 g/dl (12.0-16.0) L 09/23/23 Hct 25.1 % (37.0-47.0) L 09/23/23 Plt Count 574 K/uL (130-400) H 09/23/23 Neutrophils (%) (Auto) 71.2 % 09/23/23 Lymphocytes (%) (Auto) 20.8 % 09/23/23 Monocytes # (Auto) 1.13 K/uL (0.11-0.59) H 09/23/23 Eosinophils # (Auto) 0.06 K/uL (0.00-0.50) 09/23/23 Immature Granulocyte % (Auto) 0.9 % 09/23/23 Neutrophils # (Auto) 12.45 K/uL (1.40-6.50) H 09/23/23 Lymphocytes # (Auto) 3.64 K/uL (1.20-3.40) H 09/23/23 Monocytes # (Auto) 1.13 K/uL (0.11-0.59) H 09/23/23 Eosinophils # (Auto) 0.06 K/uL (0.00-0.50) 09/23/23 Basophils # (Auto) 0.06 K/uL (0.00-0.20) 09/23/23 Immature Granulocyte # (Auto) 0.15 K/uL (0.01-0.20) 4 Na 138 mmol/L (136-145) 09/23/23 K 3.2 mmol/L (3.5-5.1) L 09/23/23 Cl 102 mmol/L (98-107) 09/23/23 CO2 26 mmol/L (21-32) 09/23/23 Anion Gap 10 (3-11) 09/23/23 BUN 37 mg/dl (6-23) H 09/23/23 Creatinine 1.16 mg/dl (0.6-1.2) 09/23/23 BUN/Creatinine Ratio 31.9 (10-20) H 09/23/23 Glucose Level 255 mg/dl (70-99(Fasting)) H 09/23/23 Ca 9.3 mg/dl (8.6-10.3) 09/23/23 Total Bilirubin 0.3 mg/dl (0.2-1.0) 09/23/23 AST/SGOT 13 U/L (13-39) 09/23/23 ALT/SGPT 9 U/L (7-52) 09/23/23 Alkaline Phosphatase 21 U/L (34-104) L 09/23/23 Total Protein 6.2 gm/dl (6.0-8.3) 09/23/23 Albumin 3.9 gm/dl (3.4-5.0) 09/23/23 Globulin 2.3 gm/dl (2.5-4.0) L 09/23/23 Albumin/Globulin Ratio 1.7 (0.9-2) 09/23/23 Procalcitonin 0.03 ng/ml (0-0.5) 09/23/23 INR 1.0 (0.9-1.1) 09/23/23 Chest X-Ray 09/23/23 Code Status & VTE Plan Code Status FULL CODE VTE Prophylaxis Plan VTE Prophylaxis will be ordered: Yes Supervising Physician Co-Signing Physician Notes I have seen and discussed the case with the collaborating advanced practitioner. I agree with the above H&P. I have reviewed and confirmed the patients medical history, the findings on physical examination, and the patients diagnosis and treatment plan with Mary Beth YOUNGBLOOD and agree with the information documented. In short, Ms. Amin is a 78 year old woman with T2DM, HTN, HLD, GERD, bilateral lower extremity claudication, lumbar spinal stenosis, chronic pain syndrome, prior UGIB who is admitted for acute on chronic anemia and acute encephalopathy likely secondary to anemia. Patient AO2-3. Reports ?1 week melena. Has not been taking pantoprazole. GENERAL APPEARANCE: AxOx2-3, pleasant, no distress HEENT: NC, AT. MMM. EOMI, conjunctival pallor oropharynx clear. NECK: Supple without lymphadenopathy. No stiffness or restricted ROM. HEART: Normal rate and regular rhythm, normal S1/S1, no m/r/g LUNGS: CTAB, moving air well. No crackles or wheezes are heard. ABDOMEN: Soft, nontender, nondistended with good bowel sounds heard. BACK: No CVAT, no obvious deformity. EXTREMITIES: Without cyanosis, clubbing or edema. NEUROLOGICAL: Grossly nonfocal. Alert and oriented, moving all 4 extremities. CN not formally tested but appear grossly intact. Skin: Warm and dry without any rash. : #UGIB #Acute on chronic anemia s/p 2 U PRBC NPO PPI drip GI consut -possible EGD in am Rest of plan as above I spent a total of35 minutes coordinating, documenting, and providing care for this patient excluding time spent in the performance of separately billed services. All of the aforementioned completed outside of collaborating with the assigned advanced practitioner for a full treatment plan. I have reviewed the advanced practitioner's documentation, and I agree with, and take responsibility for the plan of care
[2023-09-23] MEDS: PANTOprazole 40 MG in SYRINGE 0 ML IV ONE (15:33)
[2023-09-23] MEDS: PANTOprazole 40 MG in DEXTROSE 5% MINI-B 100 ML IV SCH (15:36)
[2023-09-23] MEDS ORDERED: DEXTROSE 50% 50 ML SYRINGE IV PRN (16:47)
[2023-09-23] MEDS ORDERED: GLUCOSE 40% GEL 15 GM TUBE PO PRN (16:47)
[2023-09-23] MEDS ORDERED: ONDANSETRON INJ 2 MG/ML 2 ML VIAL IV PRN (16:47)
[2023-09-23] MEDS ORDERED: CARBOHYDRATES FOR HYPOGLYCEMIA PO PRN (16:47)
[2023-09-23] MEDS ORDERED: GLUCAGON FOR INJ 1 MG VIAL SQ PRN (16:47)
[2023-09-23] MEDS ORDERED: ACETAMINOPHEN 325 MG TAB PO PRN (16:47)
[2023-09-23] MEDS ORDERED: GLUCOSE 10 TAB/TUBE PO PRN (16:47)
[2023-09-23] MEDS: POTASSIUM CHLORIDE / WTR 10 MEQ/100 ML PLCT IV SCH (18:30)
[2023-09-23] MEDS: INSULIN ASPART PER UNIT CHARGE SC SCH (18:30)
[2023-09-23 20:19] LABS: Appearance Urine Clear (Clear); Bilirubin Urine Negative (Negative); Blood Urine Negative (Negative); Color Urine Yellow; Glucose Urine UA Negative (Negative); Ketones Urine Negative (Negative); Leukocyte Esterase Urine Negative (Negative); Nitrite Urine Negative (Negative); Protein Urine Negative (Negative); Specific Gravity Urine 1.013 (1.000-1.030); Urobilinogen Urine Negative (Negative); pH Urine 5.5 (4.5-7.5)
[2023-09-23] MEDS: LANTUS PER UNIT CHARGE SQ SCH (20:57)
[2023-09-23] MEDS: OLANZapine 10 MG/2.1 ML SDV IM STA ×2 (21:58→23:47)
[2023-09-24 00:06] LABS: Hematocrit (blood only) 29.8 % (37.0-47.0); Hemoglobin 9.8 g/dl (12.0-16.0)
[2023-09-24] MEDS: LORazepam 1 MG/1 ML SYR ED Inj Use ONE (00:38)
[2023-09-24] MEDS: LORazepam 0.25 MG in SYRINGE 0.125 ML IV STA (01:00)
[2023-09-24] MEDS: LABETALOL HCL IV 5 MG/ML 20ML IV STA (01:11)
[2023-09-24 04:19] LABS: Basophils # (auto) 0.05 K/uL (0.00-0.20); Basophils % (auto) 0.3 %; Eosinophils # (auto) 0.14 K/uL (0.00-0.50); Eosinophils % (auto) 0.8 %; Hematocrit (blood only) 28.5 % (37.0-47.0); Hemoglobin 9.7 g/dl (12.0-16.0); Immature Granulocytes # (auto) 0.09 K/uL (0.01-0.20); Immature Granulocytes % (auto) 0.5 %; Lymphocytes # (auto) 4.75 K/uL (1.20-3.40); Lymphocytes % (auto) 28.3 %; Mean Corpuscular Hemoglobin 28.2 pg (25.0-34.0); Mean Corpuscular Volume 82.8 fL (80.0-100.0); Mean Platelet Volume 9.3 fL (9.4-12.4); Monocytes # (auto) 1.51 K/uL (0.11-0.59); Neutrophils # (auto) 10.27 K/uL (1.40-6.50); Neutrophils % (auto) 61.1 %; Platelet Count 457 K/uL (130-400); RDW Coefficient of Variation 14.7 % (11.5-14.5); RDW Standard Deviation 43.7 fL (36.4-46.3); Red Blood Count 3.44 M/uL (4.20-5.40); White Blood Count 16.81 K/ul (4.8-10.8)
[2023-09-24 07:21] LABS: Albumin Globulin Ratio 1.5 (0.9-2); Albumin Level 3.4 gm/dl (3.4-5.0); BUN Creatinine Ratio 23.3 (10-20); Bilirubin,Total 0.7 mg/dl (0.2-1.0); Calcium 8.9 mg/dl (8.6-10.3); Creatinine Clr Calc Pharmacy 49.8 ml/min; Est GFR (African American) 92.1 ml/min; Est GFR (Non-African American) 79.4 ml/min; Globulin 2.3 gm/dl (2.5-4.0); Magnesium 1.7 mg/dl (1.7-2.4); Potassium 3.2 mmol/L (3.5-5.1); Total Protein 5.7 gm/dl (6.0-8.3)
[2023-09-24] MEDS ORDERED: LABETALOL HCL IV 5 MG/ML 20ML IV PRN (07:57)
--- NOTE | 2023-09-24 08:15 | Anesthesiology Consultation ---
Date of Service September 24, 2023 Assessment & Plan Chart Review Chart Review: Acceptable Risk for Surgery, Patient NOT seen in Pre Admission Testing and temporary data entry clerk initiated Consults Requested none Proposed Anesthesia Anesthesia Type: MAC History Surgery Operation Date: 09/24/23 16:45 Proposed Procedures p Esophagogastroduodenoscopy Dr Pollo Davidson Case, DO Height/Weight Height: 4 ft 8 in Weight: 67.8 kg Allergies Allergy/AdvReac Type Severity Reaction Status Date / Time tramadol AdvReac Intermediate NAUSEA Verified 09/23/23 14:01 metformin AdvReac Nausea Verified 09/23/23 14:02 Medications Home Medications Medication Instructions Recorded Confirmed Last Taken carvedilol 12.5 mg tablet 12.5 mg PO BID 09/23/23 09/23/23 Unknown cilostazol 50 mg tablet 50 mg PO BID 09/23/23 09/23/23 Unknown duloxetine 60 mg capsule,delayed 60 mg PO DAILY 09/23/23 09/23/23 Unknown release glipizide 5 mg tablet 5 mg PO DAILY 09/23/23 09/23/23 Unknown hydrochlorothiazide 25 mg tablet 25 mg PO DAILY 09/23/23 09/23/23 Unknown hydrocodone 5 mg-acetaminophen 325 1 tab PO TID PRN Severe Pain 09/23/23 09/23/23 Unknown mg tablet (Scale Score 7-10) ramipril 5 mg capsule 5 mg PO DAILY 09/23/23 09/23/23 Unknown rosuvastatin 20 mg tablet 20 mg PO DAILY 09/23/23 09/23/23 Unknown Active Medications Generic Name Dose Route Start Last Admin Trade Name Freq PRN Reason Stop Dose Admin Pantoprazole Sodium 40 mg/ 100 mls @ 20 mls/hr 09/23/23 13:45 09/24/23 04:38 Dextrose IV 10/23/23 13:44 8 mg/hr Q5H MICKEY 20 mls/hr Administration 8 MG/HR Insulin Aspart 0 units 09/23/23 17:00 09/24/23 05:26 Insulin Aspart Per Unit Charge SC 10/23/23 16:59 Not Given Q6 MICKEY Insulin Glargine 0 units 09/23/23 21:00 09/23/23 20:57 Lantus Per Unit Charge SQ 10/23/23 20:59 Not Given BID [facility] Protocol Past Medical History Medical History HTN (hypertension) History of gout Back problem DM type 2 (diabetes mellitus, type 2) Poor historian HLD (hyperlipidemia) Recurrent UTI Obesity Colovesical fistula hx Past Family History Family History Mother Diabetes Father Heart disease Past Surgical History Surgical History History of bowel resection sigmoid resection for a colo-vesical fistula per record History of colonoscopy with polypectomy History of hysterectomy History of Personal history of spine surgery Hx of cataract surgery Social History Smoking Status: Never smoker Do You Dip or Chew Tobacco: No Hx Alcohol Use: No Hx Substance Use: No substance use type: does not use Physical Exam Vital Signs Last Vital Signs Temp 36.8 C 09/23/23 22:35 Pulse 100 H 09/24/23 07:12 Resp 14 09/24/23 06:03 BP 144/68 H 09/24/23 04:09 Pulse Ox 95 09/24/23 06:03 O2 Del Method Room Air 09/24/23 06:03 O2 Flow Rate 0 09/23/23 12:20 Testing Laboratory Results 09/24/23 03:57 09/24/23 06:19 PT 10.9 Seconds (9.0-12.0) 09/23/23 12:30 INR 1.0 (0.9-1.1) 09/23/23 12:30 Urine Color Yellow 09/23/23 Unknown Urine Appearance Clear (Clear) 09/23/23 Unknown Urine pH 5.5 (4.5-7.5) 09/23/23 Unknown Ur Specific [place] 1.013 (1.000-1.030) 09/23/23 Unknown Urine Protein Negative (Negative) 09/23/23 Unknown Urine Glucose (UA) Negative (Negative) 09/23/23 Unknown Urine Ketones Negative (Negative) 09/23/23 Unknown Urine Nitrite Negative (Negative) 09/23/23 Unknown Ur Leukocyte Esterase Negative (Negative) 09/23/23 Unknown Blood Type O Positive 09/23/23 12:29 Antibody Screen POSITIVE A 09/23/23 12:29 09/24/23 09/24/23 09/23/23 05:23 00:31 20:56 POC Glucose 124 H 167 H 121 H Electrocardiogram Date: 09/18/23 Test Reason : Blood Pressure : / mmHG Vent. Rate : 083 BPM Atrial Rate : 083 BPM P-R Int : 138 ms QRS Dur : 088 ms QT Int : 380 ms P-R-T Axes : 052 -33 126 degrees QTc Int : 446 ms Sinus rhythm Premature atrial complexes Left axis deviation Left ventricular hypertrophy with repolarization abnormality ( R in aVL , Centre product ) Abnormal ECG When compared with ECG of 20-NOV-2022 18:18, Premature atrial complexes are now Present Confirmed by Elias Beck ([id number]) on 09/20/2023 6:30:15 AM Chest X-Ray Date: 09/23/23 XR chest 1V portable CLINICAL HISTORY: Chest pain, nonspecific TECHNIQUE: Single frontal radiograph of the chest was obtained. Comparison: Comparison is made to chest radiograph 11/20/2022 FINDINGS: No lines and tubes are seen. Calcified aortic knob is seen. The lungs are clear. No evidence of pleural effusion or pneumothorax. IMPRESSION: No acute chest disease.
[2023-09-24] MEDS: SODIUM CHLORIDE 0.9% 500 ML IV SCH (08:29)
--- NOTE | 2023-09-24 08:38 | History & Physical Bridge Note ---
Date of Service September 24, 2023 History & Physical Bridge Note I have examined the patient, reviewed the History & Physical and in the interval since the performance of the History & Physical I have noted the following changes of clinical significance: Patient is confused this morning. Consent for EGD is being provided by her . H&H remains stable. Continues PPI ggt. PE: Patient is cooperative. Tachycardic. Regular rhythm. Lungs CTA bilaterally. Abdomen soft, normal bowel sounds. Soft mitt restraints in place. A/P: Patient is a 78 y.o. female with a history of gastric ulcer and GIB admitted with confusion, melena and acute blood loss anemia in the setting of discontinuation of PPI. -NPO. -Proceed with diagnostic EGD. -Continue PPI ggt. -Further recommendations pending results of testing. Supervising Physician Co-Signing Physician Notes Agree with LIS Keys as above Patient more confused than yesterday Abd: Soft, NT, ND, +BS Continue current therapy and supportive care Proceed with EGD now.
--- NOTE | 2023-09-24 09:50 | Electrocardiogram Report ---
Test Reason : Blood Pressure : / mmHG Vent. Rate : 081 BPM Atrial Rate : 081 BPM P-R Int : 150 ms QRS Dur : 086 ms QT Int : 420 ms P-R-T Axes : 041 -23 120 degrees QTc Int : 487 ms Normal sinus rhythm Left ventricular hypertrophy with repolarization abnormality Poor R wave progression, consider anterior PR vs. lead placement vs. LVH Nonspecific ST abnormality Abnormal ECG When compared with ECG of 18-SEP-2023 11:39, Premature atrial complexes are no longer Present Confirmed by Mukund Ortega ([id number]) on 09/24/2023 9:49:58 AM Referred By: Jian Escalante Confirmed By:Fermin Ortega
[2023-09-24] MEDS: LORazepam 0.5 MG in SYRINGE 0.25 ML IV ONE (09:52)
[2023-09-24] MEDS: LACTATED RINGER'S 1,000 ML IV ONE (10:01)
--- NOTE | 2023-09-24 10:37 | Anesthesiology Progress Note ---
Date of Service September 24, 2023 Anesthesia Post Procedure Vital Signs Vital Signs: Temp Pulse Pulse Resp BP BP Pulse Ox 09/24/23 09:31 93 H 14 137/74 98 09/24/23 09:22 89 14 125/79 97 09/24/23 09:08 87 14 94/53 L 93 09/24/23 08:40 37.1 C 92 H 16 162/72 H 99 09/24/23 07:12 100 H 09/24/23 06:03 108 H 14 95 09/24/23 05:24 107 H 25 H 96 09/24/23 04:21 88 19 90 09/24/23 04:09 107 H 28 H 144/68 H 96 09/24/23 04:00 97 H 14 94 09/24/23 03:00 100 H 22 96 09/24/23 02:12 100 H 23 94 09/24/23 01:18 114 H 17 93 09/24/23 01:00 115 H 24 130/74 93 09/24/23 00:06 127 H 28 H 100 09/23/23 23:42 174 H 09/23/23 23:06 94 H 22 09/23/23 22:35 36.8 C 103 H 20 137/97 97 09/23/23 21:45 36.9 C 103 H 18 169/76 H 09/23/23 21:15 36.8 C 105 H 22 132/78 09/23/23 21:00 36.8 C 100 H 18 158/84 H 98 09/23/23 20:40 36.6 C 108 H 20 170/106 H 96 09/23/23 19:54 96 H 21 93 09/23/23 19:21 96 H 17 95 09/23/23 18:45 96 H 14 09/23/23 18:42 106 H 25 H 09/23/23 18:18 98 H 22 09/23/23 18:06 94 H 13 09/23/23 18:00 124/60 09/23/23 17:45 19 09/23/23 17:33 107 H 23 09/23/23 17:15 36.7 C 101 H 18 106/69 98 09/23/23 17:00 92 H 16 111/58 L 09/23/23 16:45 101 H 39 H 98/55 L 09/23/23 16:45 36.7 C 98 H 18 98/55 L 98 09/23/23 16:30 36.8 C 91 H 18 91/55 L 96 09/23/23 16:11 36.7 C 86 15 88/53 L 97 09/23/23 15:45 107/53 L 09/23/23 15:00 96 H 18 101/47 L 95 09/23/23 14:01 98 09/23/23 13:51 88 14 98 09/23/23 13:45 113/61 09/23/23 13:44 88 09/23/23 13:39 88 15 98 09/23/23 13:37 94/63 L 09/23/23 13:30 86 19 99 09/23/23 13:08 88 14 108/69 97 09/23/23 12:36 12 91/49 L 96 09/23/23 12:20 82 12 85/47 L 97 09/23/23 12:20 98 09/23/23 12:20 36.8 C 99 H 16 64/40 L 100 O2 Del Method O2 Flow Rate 09/24/23 09:31 Room Air 09/24/23 09:22 Room Air 09/24/23 09:08 Room Air 09/24/23 08:40 Room Air 09/24/23 07:12 09/24/23 06:03 Room Air 09/24/23 05:24 09/24/23 04:21 09/24/23 04:09 Room Air 09/24/23 04:00 Room Air 09/24/23 03:00 Room Air 09/24/23 02:12 Room Air 09/24/23 01:18 09/24/23 01:00 Room Air 09/24/23 00:06 09/23/23 23:42 09/23/23 23:06 09/23/23 22:35 09/23/23 21:45 09/23/23 21:15 09/23/23 21:00 09/23/23 20:40 09/23/23 19:54 Nasal Cannula 09/23/23 19:21 09/23/23 18:45 09/23/23 18:42 09/23/23 18:18 09/23/23 18:06 09/23/23 18:00 09/23/23 17:45 09/23/23 17:33 09/23/23 17:15 09/23/23 17:00 09/23/23 16:45 09/23/23 16:45 09/23/23 16:30 09/23/23 16:11 09/23/23 15:45 09/23/23 15:00 09/23/23 14:01 Room Air 09/23/23 13:51 09/23/23 13:45 09/23/23 13:44 09/23/23 13:39 09/23/23 13:37 09/23/23 13:30 09/23/23 13:08 Room Air 09/23/23 12:36 09/23/23 12:20 09/23/23 12:20 Room Air 0 09/23/23 12:20 Room Air Transfer of Care Handoff Completed per policy Notes Mental Status: alert / awake / arousable and participated in evaluation Patient Amnestic to Procedure: Yes Nausea / Vomiting: adequately controlled Pain: adequately controlled Airway Patency, RR, SpO2: stable & adequate BP & HR: stable & adequate Hydration State: stable & adequate Anesthetic Complications: no major complications apparent
--- NOTE | 2023-09-24 11:00 | CT Scan Report ---
CT head/brain wo con CLINICAL HISTORY: 78 years-old Female with Altered Mental Status. Acutely altered mental status TECHNIQUE: Multiple axial CT images of the head were obtained without contrast. A dose lowering tech nique was utilized adhering to the principles of ALARA. CT DOSE: 547.75 mGy.cm COMPARISON: 09/18/2023 FINDINGS: No acute intracranial hemorrhage, midline shift, intracranial mass, hydrocephalus, territorial ischem ia or abnormal extra-axial collection. Involutional changes with white matter hypodensities suggestiv e of chronic microvascular ischemic disease. The calvarium is intact. Prior bilateral lens repair. The paranasal sinuses, mastoid air cells, and m iddle ear cavities are clear. IMPRESSION: No acute intracranial abnormality. ACT 112: Negative or not required by law. The above report was generated using voice recognition software. It may contain grammatical, syntax o r spelling errors. Electronically signed by: Kan Escobedo M.D. 09/24/2023 10:59 AM
[2023-09-24 11:28] LABS: Appearance Urine Clear (Clear); Bilirubin Urine Negative (Negative); Blood Urine Negative (Negative); Color Urine Yellow; Glucose Urine UA Negative (Negative); Ketones Urine Negative (Negative); Leukocyte Esterase Urine Negative (Negative); Nitrite Urine Negative (Negative); Protein Urine Negative (Negative); Specific Gravity Urine 1.007 (1.000-1.030); Urobilinogen Urine Negative (Negative); pH Urine 5.5 (4.5-7.5)
[2023-09-24] MEDS: POTASSIUM CHLORIDE / WTR 10 MEQ/100 ML PLCT IV SCH (11:54)
--- NOTE | 2023-09-24 13:27 | Neurology Consultation ---
Date of Consultation September 24, 2023 Assessment & Plan (1) Acute anoxic encephalopathy: Suspect this is related to acute blood loss anemia, and changes in the environment, hospital related encephalopathy with agitation. Recommend. Using Zyprexa 2.5 mg twice daily for now, can give an additional dose at night for agitation.. Continue duloxetine. At current dose. Can start donepezil 5 mg at bedtime Continue to reorient, Delirium precautions, Given lack of focality to her exam, MRI can be attempted when the patient is more coherent and is able to tolerate it, this can be done as an outpatient. Continue supportive care and (2) Memory loss of unknown cause: Will need a follow-up evaluation of the memory and cognition clinic as an outpatient. Recheck vitamin B12 and folate (3) Encephalopathy acute: Telehealth Consultation Telehealth Information Telehealth Information: I performed this visit using a real-time telehealth connection between my location and the patients location ([facility]). After connecting through interactive tele-video, patient was identified by name and date of and/or wristband check.Patient (or authorized healthcare bilingual sales representative) was informed that this was a telemedicine visit and it was being conducted confidentially over secure lines. My office door was closed and no one else was present in the room with me.Patient (or authorized healthcare bilingual sales representative) provided consent to proceed with the visit, expressed an understanding of privacy and security of the telemedicine visit, and gave permission to have a hospital bilingual sales representative in the room in order to assist with the visit and to conduct portions of the visit, as needed. I informed the patient (or authorized healthcare bilingual sales representative) that I reviewed their record and presented the opportunity for them to ask any questions regarding the visit today. The patient agreed to participate. History of Present Illness Reason for Consultation: confusion agitation Requesting Physician: Edil Enriquez MD Attending Physician: Edil Enriquez MD History of Present Illness Annie Amin is s a 78-year-old female patient with PMH of gastric ulcers, HTN, depression, DM, HLP, who has been evaluated in the memory and cognition clinic in 2019 for reports of occasional confusion and losing track of time. The patient is described by her to be fairly independent in her ADLs until recently, over the past 4 to 5 months he has been noticing occasional confusion. A month ago they left out of town to [place], where she was severely confused. After coming back she was not able to take care of her medications and he has been getting her medications not knowing that she should be on a proton pump inhibitor. He reports prior confusion about a year ago in the setting of a UTI. The patient was found to be anemic in ED. Received blood transfusion, underwent an EGD that showed ulcers. She is described by the nurse to be restless and agitated this morning, at night she needed a one-to-one sitter. Per the her confusion increased the second day after coming to the hospital, she is noted to be in mittens. The patient denies any headaches, she reports chronic knee pains, she denies any focal weakness or numbness. Allergies Allergy/AdvReac Type Severity Reaction Status Date / Time tramadol AdvReac Intermediate NAUSEA Verified 09/23/23 14:01 metformin AdvReac Nausea Verified 09/23/23 14:02 Home Medications Medication Instructions Recorded Confirmed Type carvedilol 12.5 mg tablet 12.5 mg PO BID 09/23/23 09/23/23 History cilostazol 50 mg tablet 50 mg PO BID 09/23/23 09/23/23 History duloxetine 60 mg capsule,delayed 60 mg PO DAILY 09/23/23 09/23/23 History release glipizide 5 mg tablet 5 mg PO DAILY 09/23/23 09/23/23 History hydrochlorothiazide 25 mg tablet 25 mg PO DAILY 09/23/23 09/23/23 History hydrocodone 5 mg-acetaminophen 325 1 tab PO TID PRN Severe Pain 09/23/23 09/23/23 History mg tablet (Scale Score 7-10) ramipril 5 mg capsule 5 mg PO DAILY 09/23/23 09/23/23 History rosuvastatin 20 mg tablet 20 mg PO DAILY 09/23/23 09/23/23 History Patient History Medical History HTN (hypertension) History of gout Back problem DM type 2 (diabetes mellitus, type 2) Poor historian HLD (hyperlipidemia) Recurrent UTI Obesity Colovesical fistula hx Surgical History History of bowel resection sigmoid resection for a colo-vesical fistula per record History of colonoscopy with polypectomy History of hysterectomy History of Personal history of spine surgery Hx of cataract surgery Family History Mother Diabetes Father Heart disease Social History Smoking Status: Never smoker Second Hand Exposure: No; Do You Dip or Chew Tobacco: No; Hx Alcohol Use: No Hx Substance Use: No Preferred Language: Spanish Communication Ability: Effective Visual Impairment: No Limitations Hearing Ability: Hard of Hearing Tracing Lathe Set Up Operator Required: No Beliefs That Will Affect Care: None marital status: Current Living Situation: Spouse How many Children do You have: 3 Feels Safe at Home: Yes Assistive Devices: Walker Review of Systems Unable to reliably obtain from the patient, negative except for the HPI per the . Physical Exam General Constitutional: Appearance normally developed Head and face: normocephalic and atraumatic Eyes: no ptosis, no anisocoria, and no dysconjugate gaze Respiratory: normal effort Cardiovascular: regular rhythm and regular rate Abdomen: non distended Skin: no rashes, lesions, or ulcers noted Psychiatric: normal judgement and insight, normal mood, and normal affect NEUROLOGIC EXAMINATION: Mental status :Oriented to self, knows her , does not know the nurse, does not know the time, she has difficulty recounting the events of this encounter, reports that she is confused, does not have a normal concentration, she is not aphasic and has a normal language Cranial Nerves: CN 2 - no visual defect on confrontation and pupils round, equal, reactive to light CN 3, 4, 6 - extra-ocular movements intact and no nystagmus CN 5 - facial sensation intact CN 7 - no facial asymmetry CN 8 - intact hearing CN 9, 10 - palate symmetric, normal gag CN 11 - good shoulder shrug CN 12 - tongue midline MOTOR: Strength was at least antigravity throughout, Pronator drift was absent and There were no abnormal movements SENSATION: intact and symmetric to pinprick, light touch, vibration and joint position GAIT: deferred COORDINATION:did not contribute REFLEXES: cannot assess over telemedicine Results & Data Vital Signs (Past 12 Hours) Vital Signs Temp Pulse Pulse Resp BP BP Pulse Ox 09/24/23 10:26 94 H 09/24/23 09:31 93 H 14 137/74 98 09/24/23 09:22 89 14 125/79 97 09/24/23 09:08 87 14 94/53 L 93 09/24/23 08:40 37.1 C 92 H 16 162/72 H 99 09/24/23 07:12 100 H 09/24/23 06:03 108 H 14 95 09/24/23 05:24 107 H 25 H 96 09/24/23 04:21 88 19 90 09/24/23 04:09 107 H 28 H 144/68 H 96 09/24/23 04:00 97 H 14 94 09/24/23 03:00 100 H 22 96 09/24/23 02:12 100 H 23 94 O2 Del Method 09/24/23 10:26 09/24/23 09:31 Room Air 09/24/23 09:22 Room Air 09/24/23 09:08 Room Air 09/24/23 08:40 Room Air 09/24/23 07:12 09/24/23 06:03 Room Air 09/24/23 05:24 09/24/23 04:21 09/24/23 04:09 Room Air 09/24/23 04:00 Room Air 09/24/23 03:00 Room Air 09/24/23 02:12 Room Air Laboratory Results Laboratory Results - last 24 hr 09/23/23 09/23/23 09/23/23 12:29 18:16 20:56 WBC RBC Hgb Hct MCV MCH MCHC RDW Std Deviation RDW Coeff of Francisco Plt Count MPV Immature Gran % (Auto) Neut % (Auto) Lymph % (Auto) Granite % (Auto) Eos % (Auto) Baso % (Auto) Neut # (Auto) Lymph # (Auto) Granite # (Auto) Eos # (Auto) Baso # (Auto) Immature Gran # (Auto) Sodium Potassium Chloride Carbon Dioxide Anion Gap BUN Creatinine Est Cr Clr Drug Dosing Est GFR ( Amer) Est GFR (Non-Af Amer) BUN/Creatinine Ratio Glucose POC Glucose 155 H 121 H Calcium Magnesium Total Bilirubin AST ALT Alkaline Phosphatase Total Protein Albumin Globulin Albumin/Globulin Ratio Urine Color Urine Appearance Urine pH Ur Specific [place] Urine Protein Urine Glucose (UA) Urine Ketones Urine Blood Urine Nitrite Urine Bilirubin Urine Urobilinogen Ur Leukocyte Esterase Blood Type O Positive Antibody Screen POSITIVE A Antibody Identification Anti-K Antibody ID Comment Antigen Identification K Antigen - NEGATIVE Crossmatch See Detail 09/23/23 09/23/23 09/24/23 22:50 Unknown 00:31 WBC RBC Hgb 9.8 L Hct 29.8 L MCV MCH MCHC RDW Std Deviation RDW Coeff of Francisco Plt Count MPV Immature Gran % (Auto) Neut % (Auto) Lymph % (Auto) Granite % (Auto) Eos % (Auto) Baso % (Auto) Neut # (Auto) Lymph # (Auto) Granite # (Auto) Eos # (Auto) Baso # (Auto) Immature Gran # (Auto) Sodium Potassium Chloride Carbon Dioxide Anion Gap BUN Creatinine Est Cr Clr Drug Dosing Est GFR ( Amer) Est GFR (Non-Af Amer) BUN/Creatinine Ratio Glucose POC Glucose 167 H Calcium Magnesium Total Bilirubin AST ALT Alkaline Phosphatase Total Protein Albumin Globulin Albumin/Globulin Ratio Urine Color Yellow Urine Appearance Clear Urine pH 5.5 Ur Specific [place] 1.013 Urine Protein Negative Urine Glucose (UA) Negative Urine Ketones Negative Urine Blood Negative Urine Nitrite Negative Urine Bilirubin Negative Urine Urobilinogen Negative Ur Leukocyte Esterase Negative Blood Type Antibody Screen Antibody Identification Antibody ID Comment Antigen Identification Crossmatch 09/24/23 09/24/23 09/24/23 03:57 05:23 06:19 WBC 16.81 H RBC 3.44 L Hgb 9.7 L Hct 28.5 L MCV 82.8 MCH 28.2 MCHC 34.0 RDW Std Deviation 43.7 RDW Coeff of Francisco 14.7 H Plt Count 457 H MPV 9.3 L Immature Gran % (Auto) 0.5 Neut % (Auto) 61.1 Lymph % (Auto) 28.3 Granite % (Auto) 9.0 Eos % (Auto) 0.8 Baso % (Auto) 0.3 Neut # (Auto) 10.27 H Lymph # (Auto) 4.75 H Granite # (Auto) 1.51 H Eos # (Auto) 0.14 Baso # (Auto) 0.05 Immature Gran # (Auto) 0.09 Sodium 143 Potassium 3.2 L Chloride 111 H Carbon Dioxide 24 Anion Gap 8 BUN 17 D Creatinine 0.73 D Est Cr Clr Drug Dosing 49.8 Est GFR ( Amer) 92.1 Est GFR (Non-Af Amer) 79.4 BUN/Creatinine Ratio 23.3 H Glucose 140 H POC Glucose 124 H Calcium 8.9 Magnesium 1.7 Total Bilirubin 0.7 AST 17 ALT 10 Alkaline Phosphatase 20 L Total Protein 5.7 L Albumin 3.4 Globulin 2.3 L Albumin/Globulin Ratio 1.5 Urine Color Urine Appearance Urine pH Ur Specific [place] Urine Protein Urine Glucose (UA) Urine Ketones Urine Blood Urine Nitrite Urine Bilirubin Urine Urobilinogen Ur Leukocyte Esterase Blood Type Antibody Screen Antibody Identification Antibody ID Comment Antigen Identification Crossmatch 09/24/23 09/24/23 10:35 11:57 WBC RBC Hgb Hct MCV MCH MCHC RDW Std Deviation RDW Coeff of Francisco Plt Count MPV Immature Gran % (Auto) Neut % (Auto) Lymph % (Auto) Granite % (Auto) Eos % (Auto) Baso % (Auto) Neut # (Auto) Lymph # (Auto) Granite # (Auto) Eos # (Auto) Baso # (Auto) Immature Gran # (Auto) Sodium Potassium Chloride Carbon Dioxide Anion Gap BUN Creatinine Est Cr Clr Drug Dosing Est GFR ( Amer) Est GFR (Non-Af Amer) BUN/Creatinine Ratio Glucose POC Glucose 139 H Calcium Magnesium Total Bilirubin AST ALT Alkaline Phosphatase Total Protein Albumin Globulin Albumin/Globulin Ratio Urine Color Yellow Urine Appearance Clear Urine pH 5.5 Ur Specific [place] 1.007 Urine Protein Negative Urine Glucose (UA) Negative Urine Ketones Negative Urine Blood Negative Urine Nitrite Negative Urine Bilirubin Negative Urine Urobilinogen Negative Ur Leukocyte Esterase Negative Blood Type Antibody Screen Antibody Identification Antibody ID Comment Antigen Identification Crossmatch Diagnostic Findings Head CT 09/24/23 08:11 CT head/brain wo con CLINICAL HISTORY: 78 years-old Female with Altered Mental Status. Acutely altered mental status TECHNIQUE: Multiple axial CT images of the head were obtained without contrast. A dose lowering technique was utilized adhering to the principles of ALARA. CT DOSE: 547.75 mGy.cm COMPARISON: 09/18/2023 FINDINGS: No acute intracranial hemorrhage, midline shift, intracranial mass, hydrocephalus, territorial ischemia or abnormal extra-axial collection. Involutional changes with white matter hypodensities suggestive of chronic microvascular ischemic disease. The calvarium is intact. Prior bilateral lens repair. The paranasal sinuses, mastoid air cells, and middle ear cavities are clear. IMPRESSION: No acute intracranial abnormality. ACT 112: Negative or not required by law. The above report was generated using voice recognition software. It may contain grammatical, syntax or spelling errors. Electronically signed by: Kan Escobedo M.D. 09/24/2023 10:59 AM Medications Administered Home Medications Medication Instructions Recorded Confirmed Last Taken carvedilol 12.5 mg tablet 12.5 mg PO BID 09/23/23 09/23/23 Unknown cilostazol 50 mg tablet 50 mg PO BID 09/23/23 09/23/23 Unknown duloxetine 60 mg capsule,delayed 60 mg PO DAILY 09/23/23 09/23/23 Unknown release glipizide 5 mg tablet 5 mg PO DAILY 09/23/23 09/23/23 Unknown hydrochlorothiazide 25 mg tablet 25 mg PO DAILY 09/23/23 09/23/23 Unknown hydrocodone 5 mg-acetaminophen 325 1 tab PO TID PRN Severe Pain 09/23/23 09/23/23 Unknown mg tablet (Scale Score 7-10) ramipril 5 mg capsule 5 mg PO DAILY 09/23/23 09/23/23 Unknown rosuvastatin 20 mg tablet 20 mg PO DAILY 09/23/23 09/23/23 Unknown Active Medications Generic Name Dose Route Start Last Admin Trade Name Freq PRN Reason Stop Dose Admin Pantoprazole Sodium 40 mg/ 100 mls @ 20 mls/hr 09/23/23 13:45 09/24/23 10:01 Dextrose IV 10/23/23 13:44 8 mg/hr Q5H MICKEY 20 mls/hr Administration 8 MG/HR Sodium Chloride 500 mls @ 15 mls/hr 09/24/23 07:30 09/24/23 08:29 Nss IV 09/25/23 07:29 15 mls/hr .Q24H MICKEY Administration Lactated Ringer's 1,000 mls @ 60 mls/hr 09/24/23 08:02 09/24/23 10:01 Lr IV 09/25/23 00:41 60 mls/hr .[id number] ONE Administration Insulin Aspart 0 units 09/23/23 17:00 09/24/23 13:05 Insulin Aspart Per Unit Charge SC 10/23/23 16:59 Not Given Q6 MICKEY Insulin Glargine 0 units 09/23/23 21:00 09/23/23 20:57 Lantus Per Unit Charge SQ 10/23/23 20:59 Not Given BID [facility] Protocol
[2023-09-24] MEDS: OLANZapine 10 MG/2.1 ML SDV IM PRN (13:37)
[2023-09-24 14:21] LABS: Base Excess VBG -0.1 mEq/L; HCO3 VBG 24 mmol/L; Oxygen Saturation VBG 73.6 %; PCO2 VBG 36 mmHg (38-50); PO2 VBG 41 mmHg; pH VBG 7.43 (7.36-7.41)
--- NOTE | 2023-09-24 19:18 | Hospitalist Progress Note ---
Date of Service September 24, 2023 Assessment & Plan (1) Acute GI bleeding: (2) Melena: (3) Acute confusion: (4) Anemia requiring transfusions: (5) Type 2 diabetes mellitus: (6) HTN (hypertension): (7) Dyslipidemia: (8) Hypokalemia: Plan This is a 78 year old female Who has a significant past medical history of T2DM, HTN, HLD, GERD, bilateral lower extremity claudication, lumbar spinal stenosis, chronic pain syndrome who presents to ED secondary to referral of PCP in setting of increased confusion. Acute GI bleeding Melena Acute blood loss anemia --S/P EGD: Normal esophagus, small hiatal hernia, gastritis characterized by erosions, nonbleeding gastric ulcers with no stigmata of bleeding. --S/P 2units PRBCs Continue IV Protonix Clear liquid diet today Appreciate GI input Follow-up pathology results Avoid anticoagulation Monitor H&H and transfuse as needed Intermittent underlying confusion This has been reported by family and has been ongoing for the last several weeks Possible acute anoxic encephalopathy --CT Head:No acute intracranial abnormality. --UA not suggestive of UTI --Blood cultures pending Normal TSH, B12 levels No hypercarbia on VBG Continue duloxetine Started on donepezil Reorient frequently to minimize delirium Appreciate neurology input Zyprexa as needed for agitation Will consider MRI brain events patient more cooperative Folate levels pending Hypokalemia replete and monitor Urinary retention English catheter placed for now Needs voiding trial as able HTN BP relatively low Hold HCTZ, lisinopril for now Continue Coreg Monitor BP HLD chronic, stable Total Chol 300 / Continue statin T2DM last a1c 8.5 in August currently on glipizide, will hold Lantus/novolog per protocol Monitor BGs DVT Px: SCDs Re: GI bleed Code Status FULL CODE Admission and Anticipated Discharge Date Admission Date: September 23, 2023 Subjective Patient is seen and examined at bedside Pleasantly confused Denies any chest pain, shortness of breath Reports having some epigastric discomfort Had EGD earlier today Poor historian Review of Systems Review of Systems: Other Physical Exam Physical Exam: Physical Exam: Vitals signs as noted above General Appearance:Moderately built and nourished, no apparent distress Head: normocephalic, Atraumatic Eyes: normal inspection, EOMI Neck: supple, Trachea midline Respiratory/Chest: Normal breath sounds, CTA, No accessory muscle use Cardiovascular: S1, S2, No murmur Abdomen/GI:Soft, Non tender, Bowel sounds present Extremities/Musculoskeletal:normal inspection, no edema Neurologic/Psych:AAOX1, grossly no focal neurological deficits, follows simple commands, pleasantly confused Skin: normal color, warm Results & Data Results & Data Vital Signs (Past 12 Hours) Vital Signs Temp Pulse Pulse Resp BP Pulse Ox O2 Del Method 09/24/23 15:50 36.9 C 118 H 19 152/75 H 96 Room Air 09/24/23 15:12 113 H 09/24/23 10:30 Room Air 09/24/23 10:26 94 H 09/24/23 09:31 93 H 14 137/74 98 Room Air 09/24/23 09:22 89 14 125/79 97 Room Air 09/24/23 09:08 87 14 94/53 L 93 Room Air 09/24/23 08:40 37.1 C 92 H 16 162/72 H 99 Room Air 09/24/23 07:12 100 H Laboratory Results Short CBC 09/23/23 09/24/23 Range/Units 22:50 03:57 WBC 16.81 H (4.8-10.8) K/ul Hgb 9.8 L 9.7 L (12.0-16.0) g/dl Hct 29.8 L 28.5 L (37.0-47.0) % Plt Count 457 H (130-400) K/uL BMP 09/24/23 09/24/23 06:19 14:12 Sodium 143 Potassium 3.2 L 3.6 Chloride 111 H Carbon Dioxide 24 BUN 17 D Creatinine 0.73 D Glucose 140 H Calcium 8.9 Liver Function 09/24/23 Range/Units 06:19 Total Bilirubin 0.7 (0.2-1.0) mg/dl AST 17 (13-39) U/L ALT 10 (7-52) U/L Alkaline Phosphatase 20 L (34-104) U/L Albumin 3.4 (3.4-5.0) gm/dl Urine 09/23/23 09/24/23 Range/Units Unknown 10:35 Urine Color Yellow Yellow Urine Appearance Clear Clear (Clear) Urine pH 5.5 5.5 (4.5-7.5) Ur Specific [place] 1.013 1.007 (1.000-1.030) Urine Protein Negative Negative (Negative) Urine Glucose (UA) Negative Negative (Negative)
[2023-09-24] MEDS: LIDOCAINE 2% 2 ML VIAL/AMP(20MG/ML) INFIL ONE (19:47)
[2023-09-24] MEDS: PROPOFOL IV EMULSION 10 MG/ML 20 ML VIAL IV ONE (19:48)
[2023-09-24 20:52] LABS: Hematocrit (blood only) 30.1 % (37.0-47.0); Hemoglobin 10.1 g/dl (12.0-16.0)
[2023-09-24] MEDS: cilostazoL 100 MG TAB PO SCH (21:53)
[2023-09-24] MEDS: ROSUVASTATIN CALCIUM 20 MG TAB PO SCH (21:54)
[2023-09-24] MEDS: MELATONIN 3 MG TAB PO PRN (21:54)
[2023-09-24] MEDS: INSULIN ASPART PER UNIT CHARGE SC SCH (21:55)
[2023-09-24] MEDS: DONEPEZIL HCL 5 MG TAB PO SCH (21:56)
[2023-09-25 06:59] LABS: Hematocrit (blood only) 29.3 % (37.0-47.0); Hemoglobin 9.5 g/dl (12.0-16.0); Mean Corpuscular Hemoglobin 27.4 pg (25.0-34.0); Mean Corpuscular Hgb Conc 32.4 g/dL (32.0-36.0); Mean Corpuscular Volume 84.4 fL (80.0-100.0); Mean Platelet Volume 9.3 fL (9.4-12.4); Platelet Count 468 K/uL (130-400); RDW Coefficient of Variation 15.7 % (11.5-14.5); Red Blood Count 3.47 M/uL (4.20-5.40); White Blood Count 13.01 K/ul (4.8-10.8)
[2023-09-25 07:22] LABS: BUN Creatinine Ratio 13.3 (10-20); Calcium 8.8 mg/dl (8.6-10.3); Creatinine Clr Calc Pharmacy 47.3 ml/min; Est GFR (African American) 89.1 ml/min; Est GFR (Non-African American) 76.9 ml/min; Magnesium 1.7 mg/dl (1.7-2.4); Potassium 3.6 mmol/L (3.5-5.1)
[2023-09-25] MEDS: DULoxetine HCL 60 MG CAP PO SCH (08:38)
[2023-09-25] MEDS ORDERED: ENALAPRIL MALEATE 10 MG TAB PO SCH (09:00)
--- NOTE | 2023-09-25 09:36 | Gastroenterology Progress Note ---
Date of Service September 25, 2023 Assessment & Plan (1) Acute GI bleeding: (2) Melena: (3) Gastric ulcer: Plan Patient is a 78 y.o. female with a history of gastric ulcer and GIB admitted with confusion, melena and acute blood loss anemia in the setting of discontinuation of PPI with findings of gastric ulcers. 1. Advance diet as tolerated. 2. Stop Protonix ggt. 3. Start Pantoprazole 40 mg BID x 6 weeks, then daily indefinitely. 4. Continue supportive care per primary team. Admission and Anticipated Discharge Date Admission Date: September 23, 2023 Subjective Patient is on a 1:1 observation. She is alert and oriented to person and place. Cooperative. Denies any abdominal pain. EGD with non-bleeding gastric ulcers and erosive gastritis. Continues PPI ggt. Review of Systems Constitutional: no problem reported Gastrointestinal: as per Subjective / HPI Physical Exam Constitutional: well developed and well nourished; no acute distress Respiratory: normal respiratory effort, lungs clear to auscultation Cardiovascular: Rate/Rhythm: regular rate and regular rhythm Gastrointestinal (Abdomen): Inspection/Auscultation: normal bowel sounds Percussion/Palpation: abdomen soft; abdomen nontender Psychiatric: Orientation: alert, oriented to person, oriented to place and cooperative Results & Data Results & Data Vital Signs (Past 12 Hours) Vital Signs Temp Pulse Pulse Resp BP Pulse Ox O2 Del Method 09/25/23 07:48 36.4 C L 94 H 19 141/91 H 98 Room Air 09/25/23 03:21 36.4 C L 83 18 121/59 L 93 Room Air 09/25/23 00:00 137/97 09/24/23 22:35 36.4 C L 96 H 20 157/97 H 94 Room Air 09/24/23 22:00 99 H Laboratory Results Abnormal lab results 09/24/23 09/24/23 09/24/23 Range/Units 11:57 14:12 16:23 WBC (4.8-10.8) K/ul RBC (4.20-5.40) M/uL Hgb (12.0-16.0) g/dl Hct (37.0-47.0) % RDW Std Deviation (36.4-46.3) fL RDW Coeff of Francisco (11.5-14.5) % Plt Count (130-400) K/uL MPV (9.4-12.4) fL VBG pH 7.43 H (7.36-7.41) VBG pCO2 36 L (38-50) mmHg Chloride (98-107) mmol/L Glucose (70-99(Fasting)) mg/dl POC Glucose 139 H 152 H (70-99) mg/dl 09/24/23 09/24/23 09/25/23 Range/Units 19:54 20:17 06:26 WBC 13.01 H (4.8-10.8) K/ul RBC 3.47 L (4.20-5.40) M/uL Hgb 10.1 L 9.5 L (12.0-16.0) g/dl Hct 30.1 L 29.3 L (37.0-47.0) % RDW Std Deviation 47.0 H (36.4-46.3) fL RDW Coeff of Francisco 15.7 H (11.5-14.5) % Plt Count 468 H (130-400) K/uL MPV 9.3 L (9.4-12.4) fL VBG pH (7.36-7.41) VBG pCO2 (38-50) mmHg Chloride 109 H (98-107) mmol/L Glucose 157 H (70-99(Fasting)) mg/dl POC Glucose 133 H (70-99) mg/dl 09/25/23 Range/Units 07:06 WBC (4.8-10.8) K/ul RBC (4.20-5.40) M/uL Hgb (12.0-16.0) g/dl Hct (37.0-47.0) % RDW Std Deviation (36.4-46.3) fL RDW Coeff of Francisco (11.5-14.5) % Plt Count (130-400) K/uL MPV (9.4-12.4) fL VBG pH (7.36-7.41) VBG pCO2 (38-50) mmHg Chloride (98-107) mmol/L Glucose (70-99(Fasting)) mg/dl POC Glucose 147 H (70-99) mg/dl PG Care Time/CCT Total # of Minutes Spent Total Time Spent with Patient: Total time spent is greater than 50% in coordination of care (as documented) at patient's floor/unit and/or counseling patient: Coding Level of Care Code 24735 SUB INP/OBS CARE 350MIN Diagnoses Acute GI bleeding K92.2 Melena K92.1 Gastric ulcer K25.9
[2023-09-25] MEDS: GADOBUTROL 65ML VIAL IV ONE (12:18)
--- NOTE | 2023-09-25 12:34 | Magnetic Resonance Report ---
MR brain wo/w con CLINICAL HISTORY: Altered mental status TECHNIQUE: Multiplanar and multisequence MR images of the brain were obtained prior to and following administration of gadolinium contrast. Comparison: Comparison is made to CT head 09/24/2023 FINDINGS: No abnormal restricted diffusion is identified. Foci of T2 and FLAIR hyperintensity are noted in the paraventricular areas consistent with chronic small vessel ischemic disease. Ex vacuo ventriculomegal y and sulcal enlargement is noted compatible with diffuse volume loss. No mass or abnormal enhancemen t is seen. There is no mass effect or midline shift. There is no evidence of acute intraparenchymal h emorrhage. No extra axial fluid collections are seen. The corpus callosum, pituitary gland, and cereb ellar tonsils appear grossly unremarkable. Flow voids of the major intracranial arterial vessels are identified. The imaged portions of the para nasal sinuses, mastoid air cells, and orbits are unremarkable. IMPRESSION: Chronic volume loss and age related white matter changes without evidence of acute abnormality. ACT 112: Negative or not required by law. Electronically signed by: Jimbo Crowe M.D. 09/25/2023 12:32 PM
--- NOTE | 2023-09-25 12:48 | GI REPORT ---
[facility] Patient: TRAY CASTILLO : 1945 Sex at : Female Age: 78 Years Procedure: Upper GI endoscopy Date: 09/24/2023 Attending Physician: DO Jolly Goodwin MD: Jian Escalante; Edil Enriquez Md Indications: - Melena - Acute post hemorrhagic anemia Medications: - Monitored Anesthesia Care Complications: - No immediate complications. Estimated Blood Loss: - Estimated blood loss: none. Procedure: - Prior to the procedure, a History and Physical was performed, and patient medications and allergies were reviewed. The patient's tolerance of previous anesthesia was also reviewed. The risks and benefits of the procedure and the sedation options and risks were discussed with the patient. All questions were answered, and informed consent was obtained. Prior Anticoagulants: The patient has taken no anticoagulant or antiplatelet agents. ASA Grade Assessment: III - A patient with severe systemic disease. After reviewing the risks and benefits, the patient was deemed in satisfactory condition to undergo the procedure. - The egd scope was introduced through the mouth and advanced to the second part of the duodenum. - The upper GI endoscopy was accomplished without difficulty. - The patient tolerated the procedure well. Findings: - The examined esophagus was normal. - A small hiatal hernia was present. - Localized severe inflammation characterized by erosions was found in the gastric antrum. Biopsies were taken with a cold forceps for histology. - Few non-bleeding cratered gastric ulcers with no stigmata of bleeding were found in the gastric antrum. The largest lesion was 5 mm in largest dimension. - The examined duodenum was normal. Impression: - Normal esophagus. - Small hiatal hernia. - Gastritis, characterized by erosions. Biopsied. - Non-bleeding gastric ulcers with no stigmata of bleeding. - Normal examined duodenum. Recommendation: - [facility]. - Clear liquid diet. - Continue present medications. - Await pathology results. Procedure Code(s): - 96757, Esophagogastroduodenoscopy, flexible, transoral; with biopsy, single or multiple Diagnosis Code(s): - K92.1, Melena (includes Hematochezia) - D62, Acute posthemorrhagic anemia - K44.9, Diaphragmatic hernia without obstruction or gangrene - K29.70, Gastritis, unspecified, without bleeding - K25.9, Gastric ulcer, unspecified as acute or chronic, without hemorrhage or perforation CPT(R) - 2023 copyright [employer]. All Rights Reserved. The CPT codes, CCI edits and ICD codes generated are intended as suggestions and were generated based on input data. These codes are preliminary and upon stage producer review may be revised to meet current compliance and payer requirements. The provider is responsible for the final determination of appropriate codes, and modifiers. Dr. Parker Case This document has been electronically signed. Note Initiated:09/24/2023 Note Completed:09/24/2023 9:08 AM \\[email or web address]\[email or web address]\Results\[email or web address]\[id number]
[2023-09-25] MEDS: carvediloL 12.5 MG TAB PO SCH (12:58)
[2023-09-25] MEDS: SODIUM CHLORIDE 0.9% 500 ML IV ONE (15:32)
--- NOTE | 2023-09-25 16:16 | Hospitalist Progress Note ---
Date of Service September 25, 2023 Assessment & Plan (1) Acute GI bleeding: (2) Melena: (3) Acute confusion: (4) Anemia requiring transfusions: (5) Type 2 diabetes mellitus: (6) HTN (hypertension): (7) Dyslipidemia: (8) Hypokalemia: Plan This is a 78 year old female Who has a significant past medical history of T2DM, HTN, HLD, GERD, bilateral lower extremity claudication, lumbar spinal stenosis, chronic pain syndrome who presents to ED secondary to referral of PCP in setting of increased confusion. Acute GI bleeding Melena Acute blood loss anemia --S/P EGD: Normal esophagus, small hiatal hernia, gastritis characterized by erosions, nonbleeding gastric ulcers with no stigmata of bleeding. --S/P 2units PRBCs --Pathology: Focal active gastritis, negative for H. pylori --Patient was not taking Protonix as prescribed likely due to forgetfulness Continue IV Protonix>> transition to Protonix 40 mg twice daily Advance diet as tolerated Appreciate GI input Avoid anticoagulation Monitor H&H and transfuse as needed Intermittent underlying confusion This has been reported by family and has been ongoing for the last several weeks Possible acute anoxic encephalopathy --CT Head:No acute intracranial abnormality. --MRI Brain:Chronic volume loss and age related white matter changes without evidence of acute abnormality. --UA not suggestive of UTI --Blood cultures: Negative to date Normal TSH, B12, [place] mental status slowly improving ia, Folate levels No hypercarbia on VBG Continue duloxetine Started on donepezil, melatonin Reorient frequently to minimize delirium Appreciate neurology input Zyprexa as needed for agitation Mental status slowly improving Hypokalemia replete and monitor Urinary retention English catheter placed for now Needs voiding trial as able HTN BP relatively low Hold HCTZ, lisinopril for now Continue Coreg with holding parameters Monitor BP HLD chronic, stable Total Chol 300 09/09 Continue statin T2DM last a1c 8.5 in August currently on glipizide, will hold Lantus/novolog per protocol Monitor BGs DVT Px: SCDs Re: GI bleed Code Status FULL CODE Disposition PT OT prior to discharge Admission and Anticipated Discharge Date Admission Date: September 23, 2023 Subjective Patient is seen and examined at bedside Slept better overnight Large brown BM today per RN Mental status better this afternoon Discussed with patient's family at bedside Patient states feeling tired but otherwise no complaints Denies any abdominal pain today Review of Systems Review of Systems: Other Physical Exam Physical Exam: Physical Exam: Vitals signs as noted above General Appearance:Moderately built and nourished, no apparent distress Head: normocephalic, Atraumatic Eyes: normal inspection, EOMI Neck: supple, Trachea midline Respiratory/Chest: Normal breath sounds, CTA, No accessory muscle use Cardiovascular: S1, S2, No murmur Abdomen/GI:Soft, Non tender, Bowel sounds present Extremities/Musculoskeletal:normal inspection, no edema Neurologic/Psych:AAOX1, grossly no focal neurological deficits, follows simple commands, pleasantly confused Skin: normal color, warm Results & Data Results & Data Vital Signs (Past 12 Hours) Vital Signs Temp Pulse Pulse Resp BP Pulse Ox O2 Del Method 09/25/23 15:02 36.5 C 80 18 87/52 L 97 Room Air 09/25/23 12:50 104 H 95/53 L 09/25/23 10:47 36.4 C L 83 15 109/59 L 96 Room Air 09/25/23 08:00 72 09/25/23 07:48 36.4 C L 94 H 19 141/91 H 98 Room Air Laboratory Results Short CBC 09/24/23 09/25/23 Range/Units 20:17 06:26 WBC 13.01 H (4.8-10.8) K/ul Hgb 10.1 L 9.5 L (12.0-16.0) g/dl Hct 30.1 L 29.3 L (37.0-47.0) % Plt Count 468 H (130-400) K/uL BMP 09/25/23 06:26 Sodium 142 Potassium 3.6 Chloride 109 H Carbon Dioxide 27 BUN 10 Creatinine 0.75 Glucose 157 H Calcium 8.8
[2023-09-25] MEDS ORDERED: carvediloL 12.5 MG TAB PO SCH (19:15)
[2023-09-25] MEDS: PANTOprazole 40 MG TAB PO SCH (21:13)
[2023-09-26] MEDS ORDERED: OLANZapine 10 MG/2.1 ML SDV IM PRN (04:37)
[2023-09-26] MEDS: OLANZapine 10 MG/2.1 ML SDV IM STA (04:42)
[2023-09-26] MEDS ORDERED: PROMETHAZINE HCL 6.25 MG in SODIUM CHLORIDE 0.9% 50 ML IV PRN (05:24)
[2023-09-26] MEDS: ZIPRASIDONE 20 MG/ML SDV IM STA (05:40)
[2023-09-26 06:20] LABS: Hematocrit (blood only) 30.1 % (37.0-47.0); Hemoglobin 9.8 g/dl (12.0-16.0); Mean Corpuscular Hemoglobin 27.9 pg (25.0-34.0); Mean Corpuscular Hgb Conc 32.6 g/dL (32.0-36.0); Mean Corpuscular Volume 85.8 fL (80.0-100.0); Mean Platelet Volume 9.3 fL (9.4-12.4); Platelet Count 495 K/uL (130-400); RDW Coefficient of Variation 15.3 % (11.5-14.5); RDW Standard Deviation 47.5 fL (36.4-46.3); Red Blood Count 3.51 M/uL (4.20-5.40); White Blood Count 14.56 K/ul (4.8-10.8)
[2023-09-26 06:35] LABS: BUN Creatinine Ratio 14.5 (10-20); Calcium 9.2 mg/dl (8.6-10.3); Creatinine Clr Calc Pharmacy 42.1 ml/min; Est GFR (African American) 78.8 ml/min; Magnesium 1.7 mg/dl (1.7-2.4); Potassium 3.5 mmol/L (3.5-5.1)
[2023-09-26 14:49] LABS: Appearance Urine Clear (Clear); Bacteria Urine Automated 1+ (None Seen); Bilirubin Urine Negative (Negative); Blood Urine 3+ (Negative); Color Urine Yellow; Epithelial Cell Urine Auto 0-2 /hpf (0-2); Glucose Urine UA Negative (Negative); Ketones Urine Negative (Negative); Leukocyte Esterase Urine 2+ (Negative); Nitrite Urine Negative (Negative); Protein Urine Negative (Negative); RBC Urine Automated 0-2 /hpf (0-2); Specific Gravity Urine 1.007 (1.000-1.030); Urobilinogen Urine Negative (Negative); WBC Urine Automated 21-50 /hpf (0-5); pH Urine 5.5 (4.5-7.5)
[2023-09-26 15:41] LABS: A calco-baum cmplx NotReported Not Detected (NotDetected); Bact fragilis Not Reported Not Detected (NotDetected); Blood Culture Id Panel PCR Panel Negative (NotDetected); C auris Not Reported Not Detected (NotDetected); Calbicans Not Reported Not Detected (NotDetected); Candida glabrata Not Reported Not Detected (NotDetected); Candida krusei Not Reported Not Detected (NotDetected); Cneoformans/gatti Not Reported Not Detected (NotDetected); Cparapsilosis Not Reported Not Detected (NotDetected); E cloacae compx Not Reported Not Detected (NotDetected); Efaecalis Not Reported Not Detected (NotDetected); Efaecium Not Reported Not Detected (NotDetected); Enterobacterales Not Reported Not Detected (NotDetected); Escherichia coli Not Reported Not Detected (NotDetected); H influenzae Not Reported Not Detected (NotDetected); K aerogenes Not Reported Not Detected (NotDetected); Koxytoca Not Reported Not Detected (NotDetected); Kpneumoniae grp Not Reported Not Detected (NotDetected); Lmonocyt Not Reported Not Detected (NotDetected); N meningitidis Not Reported Not Detected (NotDetected); P aeruginosa Not Reported Not Detected (NotDetected); Proteus spp Not Reported Not Detected (NotDetected); Salmonella spp Not Reported Not Detected (NotDetected); Smarcescens Not Reported Not Detected (NotDetected); Staph lugdunensis Not Reported Not Detected (NotDetected); Staph spp. Not Reported Not Detected (NotDetected); Staphaureus Not Reported Not Detected (NotDetected); Staphepi Not Reported Not Detected (NotDetected); Stenmaltophilia Not Reported Not Detected (NotDetected); Strep agal(GrpB) Not Reported Not Detected (NotDetected); Strep pneum Not Reported Not Detected (NotDetected); Strep pyog (GrpA) Not Reported Not Detected (NotDetected); Strep spp Not Reported Not Detected (NotDetected)
[2023-09-26] MEDS: cefTRIAXone SODIUM 1,000 MG/50 ML BAG IV SCH (16:34)
--- NOTE | 2023-09-26 16:53 | Hospitalist Progress Note ---
Date of Service September 26, 2023 Assessment & Plan (1) Acute GI bleeding: (2) Melena: (3) Acute confusion: (4) Anemia requiring transfusions: (5) Type 2 diabetes mellitus: (6) HTN (hypertension): (7) Dyslipidemia: (8) Hypokalemia: Plan This is a 78 year old female Who has a significant past medical history of T2DM, HTN, HLD, GERD, bilateral lower extremity claudication, lumbar spinal stenosis, chronic pain syndrome who presents to ED secondary to referral of PCP in setting of increased confusion. Acute GI bleeding Melena Acute blood loss anemia --S/P EGD: Normal esophagus, small hiatal hernia, gastritis characterized by erosions, nonbleeding gastric ulcers with no stigmata of bleeding. --S/P 2units PRBCs --Pathology: Focal active gastritis, negative for H. pylori --Patient was not taking Protonix as prescribed likely due to forgetfulness Continue IV Protonix>> transition to Protonix 40 mg twice daily Appreciate GI input Avoid anticoagulation Monitor H&H and transfuse as needed Hb stable Intermittent underlying confusion This has been reported by family and has been ongoing for the last several weeks Possible acute anoxic encephalopathy --CT Head:No acute intracranial abnormality. --MRI Brain:Chronic volume loss and age related white matter changes without evidence of acute abnormality. --Initial UA not suggestive of UTI --Blood cultures: Negative to date Normal TSH, B12, [place] mental status slowly improving ia, Folate levels No hypercarbia on VBG Continue duloxetine Started on donepezil, melatonin Reorient frequently to minimize delirium Appreciate neurology input Zyprexa as needed for agitation Mental status slowly improving Abnormal urine analysis R/O UTI Abnormal blood cultures: 04/17: Gram-positive bacilli ? Contamination Urine culture pending Will repeat blood cultures tomorrow Empirically started on Rocephin Hypokalemia replete and monitor Urinary retention Discontinue English catheter today Voiding trial Bladder scan as needed HTN BP Variable Hold HCTZ, lisinopril for now Continue Coreg Monitor BP HLD chronic, stable Total Chol 300 09/09 Continue statin T2DM last a1c 8.5 in August currently on glipizide, will hold Lantus/novolog per protocol Monitor BGs DVT Px: SCDs Re: GI bleed Code Status FULL CODE Disposition PT OT prior to discharge Admission and Anticipated Discharge Date Admission Date: September 23, 2023 Subjective Patient is seen and examined at bedside Intermittently confused per RN Poorly slept overnight Sitter at bedside Patient offers no new complaints today Abnormal urine culture noted today Patient denies any chest pain, dyspnea Review of Systems Review of Systems: All systems reviewed & are unremarkable except as noted in Subjective Physical Exam Physical Exam: Physical Exam: Vitals signs as noted above General Appearance:Moderately built and nourished, no apparent distress Head: normocephalic, Atraumatic Eyes: normal inspection, EOMI Neck: supple, Trachea midline Respiratory/Chest: Normal breath sounds, CTA, No accessory muscle use Cardiovascular: S1, S2, No murmur Abdomen/GI:Soft, Non tender, Bowel sounds present Extremities/Musculoskeletal:normal inspection, no edema Neurologic/Psych:AAOX1, grossly no focal neurological deficits, follows simple commands, pleasantly confused Skin: normal color, warm Results & Data Results & Data Vital Signs (Past 12 Hours) Vital Signs Temp Pulse Pulse Resp BP Pulse Ox O2 Del Method 09/26/23 15:33 90 17 127/52 L 94 Room Air 09/26/23 14:45 109 H 09/26/23 10:01 66 09/26/23 07:07 36.7 C 86 17 153/80 H 99 Room Air Laboratory Results Short CBC 09/26/23 Range/Units 05:15 WBC 14.56 H (4.8-10.8) K/ul Hgb 9.8 L (12.0-16.0) g/dl Hct 30.1 L (37.0-47.0) % Plt Count 495 H (130-400) K/uL BMP 09/26/23 05:15 Sodium 145 Potassium 3.5 Chloride 112 H Carbon Dioxide 25 BUN 12 Creatinine 0.83 Glucose 162 H Calcium 9.2 Urine 09/26/23 Range/Units 13:28 Urine Color Yellow Urine Appearance Clear (Clear) Urine pH 5.5 (4.5-7.5) Ur Specific [place] 1.007 (1.000-1.030) Urine Protein Negative (Negative) Urine Glucose (UA) Negative (Negative)
[2023-09-27 06:46] LABS: Mean Corpuscular Hemoglobin 27.6 pg (25.0-34.0); Mean Corpuscular Hgb Conc 32.1 g/dL (32.0-36.0); Mean Corpuscular Volume 85.9 fL (80.0-100.0); Mean Platelet Volume 9.1 fL (9.4-12.4); Platelet Count 502 K/uL (130-400); RDW Coefficient of Variation 15.3 % (11.5-14.5); RDW Standard Deviation 47.8 fL (36.4-46.3); Red Blood Count 3.26 M/uL (4.20-5.40); White Blood Count 13.91 K/ul (4.8-10.8)
[2023-09-27 07:14] LABS: BUN Creatinine Ratio 16.8 (10-20); Calcium 9.3 mg/dl (8.6-10.3); Creatinine Clr Calc Pharmacy 36.7 ml/min; Est GFR (Non-African American) 57.8 ml/min; Potassium 3.5 mmol/L (3.5-5.1)
--- NOTE | 2023-09-27 14:28 | Hospitalist Progress Note ---
Date of Service September 27, 2023 Assessment & Plan (1) Acute GI bleeding: (2) Melena: (3) Acute confusion: (4) Anemia requiring transfusions: (5) Type 2 diabetes mellitus: (6) HTN (hypertension): (7) Dyslipidemia: (8) Hypokalemia: Plan This is a 78 year old female Who has a significant past medical history of T2DM, HTN, HLD, GERD, bilateral lower extremity claudication, lumbar spinal stenosis, chronic pain syndrome who presents to ED secondary to referral of PCP in setting of increased confusion. Acute GI bleeding Melena Acute blood loss anemia --S/P EGD: Normal esophagus, small hiatal hernia, gastritis characterized by erosions, nonbleeding gastric ulcers with no stigmata of bleeding. --S/P 2units PRBCs --Pathology: Focal active gastritis, negative for H. pylori --Patient was not taking Protonix as prescribed likely due to forgetfulness Continue IV Protonix>> transition to Protonix 40 mg twice daily Appreciate GI input Avoid anticoagulation Monitor H&H and transfuse as needed Intermittent underlying confusion This has been reported by family and has been ongoing for the last several weeks Possible acute anoxic encephalopathy --CT Head:No acute intracranial abnormality. --MRI Brain:Chronic volume loss and age related white matter changes without evidence of acute abnormality. --Initial UA not suggestive of UTI --Blood cultures: Negative to date Normal TSH, B12, [place] mental status slowly improving ia, Folate levels No hypercarbia on VBG Continue duloxetine Started on donepezil, melatonin Reorient frequently to minimize delirium Appreciate neurology input Zyprexa as needed for agitation Mental status slowly improving Abnormal urine analysis R/O UTI Abnormal blood cultures: 04/17: Bacillus species likely Contamination Blood PCR negative Urine culture growing gram-negative MRSA Repeat blood cultures pending Continue IV Rocephin for now Hypokalemia replete and monitor Urinary retention continue voiding trial Bladder scan as needed Monitor HTN BP Variable Hold HCTZ, lisinopril for now Continue Coreg Monitor BP HLD chronic, stable Total Chol 300 09/09 Continue statin T2DM last a1c 8.5 in August currently on glipizide, will hold Lantus/novolog per protocol Monitor BGs DVT Px: SCDs Re: GI bleed Code Status FULL CODE Disposition PT OT prior to discharge Admission and Anticipated Discharge Date Admission Date: September 23, 2023 Subjective Patient is seen and examined at bedside Drowsy during my encounter Slept better overnight Sitter at bedside No bleeding issues as per staff Denies any chest pain, dyspnea, abd pain Offers no other complaints Review of Systems Review of Systems: All systems reviewed & are unremarkable except as noted in Subjective Physical Exam Physical Exam: Physical Exam: Vitals signs as noted above General Appearance:Moderately built and nourished, no apparent distress Head: normocephalic, Atraumatic Eyes: normal inspection, EOMI Neck: supple, Trachea midline Respiratory/Chest: Normal breath sounds, CTA, No accessory muscle use Cardiovascular: S1, S2, No murmur Abdomen/GI:Soft, Non tender, Bowel sounds present Extremities/Musculoskeletal:normal inspection, no edema Neurologic/Psych:AAOX1, grossly no focal neurological deficits, follows simple commands Skin: normal color, warm Results & Data Results & Data Vital Signs (Past 12 Hours) Vital Signs Temp Pulse Pulse Resp BP Pulse Ox O2 Del Method 09/27/23 11:01 36.6 C 62 14 110/60 91 Room Air 09/27/23 08:00 36.5 C 09/27/23 07:13 72 17 111/52 L 93 Room Air 09/27/23 07:00 74 Laboratory Results Short CBC 09/27/23 Range/Units 06:15 WBC 13.91 H (4.8-10.8) K/ul Hgb 9.0 L (12.0-16.0) g/dl Hct 28.0 L (37.0-47.0) % Plt Count 502 H (130-400) K/uL BMP 09/27/23 06:15 Sodium 142 Potassium 3.5 Chloride 108 H Carbon Dioxide 26 BUN 16 Creatinine 0.95 Glucose 160 H Calcium 9.3 Urine 09/26/23 Range/Units 13:28 Urine Color Yellow Urine Appearance Clear (Clear) Urine pH 5.5 (4.5-7.5) Ur Specific [place] 1.007 (1.000-1.030) Urine Protein Negative (Negative) Urine Glucose (UA) Negative (Negative)
[2023-09-28 06:29] LABS: Hematocrit (blood only) 26.1 % (37.0-47.0); Hemoglobin 8.5 g/dl (12.0-16.0); Mean Corpuscular Hemoglobin 27.4 pg (25.0-34.0); Mean Corpuscular Hgb Conc 32.6 g/dL (32.0-36.0); Mean Corpuscular Volume 84.2 fL (80.0-100.0); Mean Platelet Volume 9.4 fL (9.4-12.4); Platelet Count 486 K/uL (130-400); RDW Coefficient of Variation 14.9 % (11.5-14.5); RDW Standard Deviation 45.3 fL (36.4-46.3); White Blood Count 11.17 K/ul (4.8-10.8)
[2023-09-28 06:44] LABS: BUN Creatinine Ratio 20.5 (10-20); Calcium 8.7 mg/dl (8.6-10.3); Creatinine Clr Calc Pharmacy 47.9 ml/min; Est GFR (African American) 92.1 ml/min; Est GFR (Non-African American) 79.4 ml/min; Potassium 3.3 mmol/L (3.5-5.1)
[2023-09-28] MEDS: POTASSIUM CHLORIDE CRTAB 20 MEQ TABCR PO ONE (10:30)
--- NOTE | 2023-09-28 14:31 | Hospitalist Progress Note ---
Date of Service September 28, 2023 Assessment & Plan (1) Acute GI bleeding: (2) Melena: (3) Acute confusion: (4) Anemia requiring transfusions: (5) Type 2 diabetes mellitus: (6) HTN (hypertension): (7) Dyslipidemia: (8) Hypokalemia: Plan This is a 78 year old female Who has a significant past medical history of T2DM, HTN, HLD, GERD, bilateral lower extremity claudication, lumbar spinal stenosis, chronic pain syndrome who presents to ED secondary to referral of PCP in setting of increased confusion. Acute GI bleeding Melena Acute blood loss anemia --S/P EGD: Normal esophagus, small hiatal hernia, gastritis characterized by erosions, nonbleeding gastric ulcers with no stigmata of bleeding. --S/P 2units PRBCs --Pathology: Focal active gastritis, negative for H. pylori --Patient was not taking Protonix as prescribed likely due to forgetfulness Continue IV Protonix>> transition to Protonix 40 mg twice daily Appreciate GI input Avoid anticoagulation Monitor H&H and transfuse as needed Hb 8.5 today Acute metabolic Encephalopathy ? Anoxic Encephalopathy UTI Reported by family and has been ongoing for the last several weeks DD: Dementia --CT Head:No acute intracranial abnormality. --MRI Brain:Chronic volume loss and age related white matter changes without evidence of acute abnormality. --Initial UA not suggestive of UTI --Blood cultures: Negative to date Normal TSH, B12, [place] mental status slowly improving ia, Folate levels No hypercarbia on VBG Continue duloxetine Started on donepezil, melatonin Reorient frequently to minimize delirium Appreciate neurology input Zyprexa as needed for agitation Mental status continues to improve Continue treatment for UTI UTI Urine culture growing E. coli Blood cultures negative to date Continue Rocephin Hypokalemia replete and monitor Urinary retention continue voiding trial Bladder scan as needed Monitor HTN BP Variable Hold HCTZ, ROMANA for now Continue Coreg Monitor BP HLD chronic, stable Total Chol 300 09/09 Continue statin T2DM last a1c 8.5 in August currently on glipizide, will hold Lantus/novolog per protocol Monitor BGs DVT Px: SCDs Re: GI bleed Code Status FULL CODE Disposition PT OT prior to discharge Admission and Anticipated Discharge Date Admission Date: September 23, 2023 Subjective Patient is seen and examined at bedside More alert, awake today Discussed with patient's family at bedside Patient offers no new complaints Mental status seem near baseline Denies any chest pain, dyspnea, abd pain Review of Systems Review of Systems: All systems reviewed & are unremarkable except as noted in Subjective Physical Exam Physical Exam: Physical Exam: Vitals signs as noted above General Appearance:Moderately built and nourished, no apparent distress Head: normocephalic, Atraumatic Eyes: normal inspection, EOMI Neck: supple, Trachea midline Respiratory/Chest: Normal breath sounds, CTA, No accessory muscle use Cardiovascular: S1, S2, No murmur Abdomen/GI:Soft, Non tender, Bowel sounds present Extremities/Musculoskeletal:normal inspection, no edema Neurologic/Psych:AAOX1, grossly no focal neurological deficits, follows simple commands Skin: normal color, warm Results & Data Results & Data Laboratory Results Short CBC 09/28/23 Range/Units 05:31 WBC 11.17 H (4.8-10.8) K/ul Hgb 8.5 L (12.0-16.0) g/dl Hct 26.1 L (37.0-47.0) % Plt Count 486 H (130-400) K/uL BMP 09/28/23 05:31 Sodium 142 Potassium 3.3 L Chloride 111 H Carbon Dioxide 24 BUN 15 Creatinine 0.73 Glucose 139 H Calcium 8.7
[2023-09-29 06:24] LABS: Hematocrit (blood only) 25.4 % (37.0-47.0); Hemoglobin 8.2 g/dl (12.0-16.0)
[2023-09-29] MEDS: POTASSIUM CHLORIDE CRTAB 20 MEQ TABCR PO ONE (08:01)
[2023-09-29] MEDS: CEFDINIR 300 MG CAP PO SCH (10:30)
[2023-09-29] MEDS: hydroCHLOROthiazide 25 MG TAB PO SCH (10:30)
--- NOTE | 2023-09-29 16:22 | Hospitalist Progress Note ---
Date of Service September 29, 2023 Assessment & Plan (1) Acute GI bleeding: (2) Melena: (3) Acute confusion: (4) Anemia requiring transfusions: (5) Type 2 diabetes mellitus: (6) HTN (hypertension): (7) Dyslipidemia: (8) Hypokalemia: Plan This is a 78 year old female Who has a significant past medical history of T2DM, HTN, HLD, GERD, bilateral lower extremity claudication, lumbar spinal stenosis, chronic pain syndrome who presents to ED secondary to referral of PCP in setting of increased confusion. Acute GI bleeding Melena Acute blood loss anemia --S/P EGD: Normal esophagus, small hiatal hernia, gastritis characterized by erosions, nonbleeding gastric ulcers with no stigmata of bleeding. --S/P 2units PRBCs --Pathology: Focal active gastritis, negative for H. pylori --Patient was not taking Protonix as prescribed likely due to forgetfulness Continue IV Protonix>> transition to Protonix 40 mg twice daily Appreciate GI input Avoid anticoagulation Transfuse PRBCs as needed Hb 8.2 today Noted downward trend in hemoglobin Will consider CT abdomen if hemoglobin continues to drop No obvious bleeding issues currently Monitor CBC Acute metabolic Encephalopathy Likely multifactorial ? Anoxic Encephalopathy UTI Reported by family and has been ongoing for the last several weeks DD: Dementia --CT Head:No acute intracranial abnormality. --MRI Brain:Chronic volume loss and age related white matter changes without evidence of acute abnormality. --Initial UA not suggestive of UTI --Blood cultures: Negative to date Normal TSH, B12, [place] mental status slowly improving ia, Folate levels No hypercarbia on VBG Continue duloxetine Started on donepezil, melatonin Reorient frequently to minimize delirium Appreciate neurology input Zyprexa as needed for agitation Mental status continues to improve Continue treatment for UTI UTI Urine culture growing E. coli Blood cultures negative to date Continue Rocephin>> transition to cefdinir Hypokalemia replete and monitor Urinary retention continue voiding trial Bladder scan as needed Monitor HTN BP Variable hold ROMANA for now Continue Coreg Monitor BP HLD chronic, stable Total Chol 300 09/09 Continue statin T2DM last a1c 8.5 in August currently on glipizide, will hold Lantus/novolog per protocol Monitor BGs DVT Px: SCDs Re: GI bleed Code Status FULL CODE Disposition PT OT prior to discharge Admission and Anticipated Discharge Date Admission Date: September 23, 2023 Subjective Patient is seen and examined at bedside Offers no new complaints Sitter at bedside Denies any bleeding issues Mental status seem to be back to baseline Denies any chest pain, dyspnea, abd pain Review of Systems Review of Systems: All systems reviewed & are unremarkable except as noted in Subjective Physical Exam Physical Exam: Physical Exam: Vitals signs as noted above General Appearance:Moderately built and nourished, no apparent distress Head: normocephalic, Atraumatic Eyes: normal inspection, EOMI Neck: supple, Trachea midline Respiratory/Chest: Normal breath sounds, CTA, No accessory muscle use Cardiovascular: S1, S2, No murmur Abdomen/GI:Soft, Non tender, Bowel sounds present Extremities/Musculoskeletal:normal inspection, no edema Neurologic/Psych:AAOX1, grossly no focal neurological deficits, follows simple commands Skin: normal color, warm Results & Data Results & Data Vital Signs (Past 12 Hours) Vital Signs Temp Pulse Pulse Resp BP Pulse Ox O2 Del Method 09/29/23 14:32 36.6 C 76 20 123/77 97 Room Air 09/29/23 10:47 36.7 C 75 16 122/66 95 Room Air 09/29/23 07:20 36.7 C 69 18 125/69 97 Room Air 09/29/23 07:00 90 Laboratory Results Short CBC 09/29/23 Range/Units 05:58 Hgb 8.2 L (12.0-16.0) g/dl Hct 25.4 L (37.0-47.0) %
[2023-09-30 05:59] LABS: Hemoglobin 8.9 g/dl (12.0-16.0); Mean Corpuscular Hemoglobin 27.5 pg (25.0-34.0); Mean Corpuscular Volume 83.3 fL (80.0-100.0); Platelet Count 531 K/uL (130-400); RDW Coefficient of Variation 14.5 % (11.5-14.5); RDW Standard Deviation 43.9 fL (36.4-46.3); Red Blood Count 3.24 M/uL (4.20-5.40); White Blood Count 12.19 K/ul (4.8-10.8)
[2023-09-30 06:15] LABS: Calcium 8.8 mg/dl (8.6-10.3); Creatinine Clr Calc Pharmacy 50.9 ml/min; Est GFR (African American) 96.9 ml/min; Est GFR (Non-African American) 83.6 ml/min; Potassium 3.5 mmol/L (3.5-5.1)
--- NOTE | 2023-09-30 12:11 | Hospitalist Progress Note ---
Date of Service September 30, 2023 Assessment & Plan (1) Acute GI bleeding: (2) Melena: (3) Acute confusion: (4) Anemia requiring transfusions: (5) Type 2 diabetes mellitus: (6) HTN (hypertension): (7) Dyslipidemia: (8) Hypokalemia: Plan This is a 78 year old female Who has a significant past medical history of T2DM, HTN, HLD, GERD, bilateral lower extremity claudication, lumbar spinal stenosis, chronic pain syndrome who presents to ED secondary to referral of PCP in setting of increased confusion. Acute GI bleeding Melena Acute blood loss anemia --S/P EGD: Normal esophagus, small hiatal hernia, gastritis characterized by erosions, nonbleeding gastric ulcers with no stigmata of bleeding. --S/P 2units PRBCs --Pathology: Focal active gastritis, negative for H. pylori --Patient was not taking Protonix as prescribed likely due to forgetfulness Continue IV Protonix>> transition to Protonix 40 mg twice daily Appreciate GI input Avoid anticoagulation Transfuse PRBCs as needed Hb 8.9 today Advised to follow-up with GI on discharge Plan to be discharged home today Acute metabolic Encephalopathy Likely multifactorial ? Anoxic Encephalopathy UTI Reported by family and has been ongoing for the last several weeks DD: Dementia --CT Head:No acute intracranial abnormality. --MRI Brain:Chronic volume loss and age related white matter changes without evidence of acute abnormality. --Initial UA not suggestive of UTI --Blood cultures: Negative to date Normal TSH, B12, [place]y mental status slowly improving ia, Folate levels No hypercarbia on VBG Continue duloxetine Started on donepezil, melatonin Reorient frequently to minimize delirium Appreciate neurology input Zyprexa as needed for agitation Mental status continues to improve Continue treatment for UTI UTI Urine culture growing E. coli Blood cultures negative to date Continue Rocephin>> transition to cefdinir Continue current antibiotic to complete the course Hypokalemia replete and monitor Urinary retention continue voiding trial Bladder scan as needed Monitor HTN BP Variable hold ROMANA for now Continue Coreg Monitor BP HLD chronic, stable Total Chol 300 09/09 Continue statin T2DM last a1c 8.5 in August currently on glipizide, will hold Lantus/novolog per protocol Monitor BGs DVT Px: SCDs Re: GI bleed Code Status FULL CODE Disposition Home with home health Admission and Anticipated Discharge Date Admission Date: September 23, 2023 Subjective Patient is seen and examined at bedside Doing well today Denies any bleeding issues Denies any chest pain, dyspnea, abd pain Discussed with patient's family at bedside Plan to be discharged home today Review of Systems Review of Systems: All systems reviewed & are unremarkable except as noted in Subjective Physical Exam Physical Exam: Physical Exam: Vitals signs as noted above General Appearance:Moderately built and nourished, no apparent distress Head: normocephalic, Atraumatic Eyes: normal inspection, EOMI Neck: supple, Trachea midline Respiratory/Chest: Normal breath sounds, CTA, No accessory muscle use Cardiovascular: S1, S2, No murmur Abdomen/GI:Soft, Non tender, Bowel sounds present Extremities/Musculoskeletal:normal inspection, no edema Neurologic/Psych:AAOX1, grossly no focal neurological deficits, follows simple commands Skin: normal color, warm Results & Data Results & Data Vital Signs (Past 12 Hours) Vital Signs Temp Pulse Resp BP Pulse Ox O2 Del Method 09/30/23 11:10 36.4 C L 78 16 125/60 97 Room Air 09/30/23 07:06 36.8 C 84 18 134/83 95 Room Air 09/30/23 03:07 36.6 C 82 16 145/76 H 94 Room Air Laboratory Results Short CBC 09/30/23 Range/Units 05:23 WBC 12.19 H (4.8-10.8) K/ul Hgb 8.9 L (12.0-16.0) g/dl Hct 27.0 L (37.0-47.0) % Plt Count 531 H (130-400) K/uL BMP 09/30/23 05:23 Sodium 139 Potassium 3.5 Chloride 106 Carbon Dioxide 27 BUN 14 Creatinine 0.70 Glucose 159 H Calcium 8.8
--- NOTE | 2023-09-30 12:19 | Discharge Summary ---
Date of Service September 30, 2023 Admission HPI Per Admitting Provider This is a 78 year old female Who has a significant past medical history of T2DM, HTN, HLD, GERD, bilateral lower extremity claudication, lumbar spinal stenosis, chronic pain syndrome who presents to ED secondary to referral of PCP in setting of increased confusion. Her is at bedside who elicits majority of history. He reports her memory has been getting persistently worse. He reports 10 days ago they were in [place] and she was completely out of it. With the altitude it seemed even worse. She has not been eating and drinking well. She has a prior hx of UTI so family thought maybe that was contributing to her memory. reports he honestly didn't even know what she was to bed taking medication mckee so he called her PCP to obtain her medication list. For the last 10 days he has been doing her medica tions. He just realized she was to be taken pantoprazole and it appears she has not for the last 2 months. She was seen by PCP today who referred her to ER due to worsening memory loss and appearing very pale. Of significance patient was seen in ED on 09/18/2023 for similar complaints and increased confusion. Her urinalysis was negative for infection and head CT was negative. Her potassium was a bit low and therefore this was repleted. She was discharged home with . She had a ER follow-up with PCP today and was referred in the ED. Of significance patient did have a EGD and colonoscopy in January 2023. EGD revealed nonbleeding gastric ulcer and colonoscopy did reveal some polyps which were removed. She was since prescribed pantoprazole 40 mg twice daily with eventually it to be decreased to daily. She has been not been doing this for the last 2 months. Admission Exam Per Admitting Provider GENERAL APPEARANCE: AxOx2-3, pleasant, no distress HEENT: NC, AT. MMM. EOMI, conjunctival pallor oropharynx clear. NECK: Supple without lymphadenopathy. No stiffness or restricted ROM. HEART: Normal rate and regular rhythm, normal S1/S1, no m/r/g LUNGS: CTAB, moving air well. No crackles or wheezes are heard. ABDOMEN: Soft, nontender, nondistended with good bowel sounds heard. BACK: No CVAT, no obvious deformity. EXTREMITIES: Without cyanosis, clubbing or edema. NEUROLOGICAL: Grossly nonfocal. Alert and oriented, moving all 4 extremities. CN not formally tested but appear grossly intact. Skin: Warm and dry without any rash. : Principal Diagnosis Acute GI bleeding Acute blood loss anemia Acute metabolic Encephalopathy Urinary tract infection Discharge Data Allergies Allergy/AdvReac Type Severity Reaction Status Date / Time tramadol AdvReac Intermediate NAUSEA Verified 09/23/23 14:01 metformin AdvReac Nausea Verified 09/23/23 14:02 Consultations 09/23/23 13:41 ED Decision to Admit Stat 09/23/23 13:44 Consult Gastroenterology Routine 09/23/23 13:47 Consult Gastroenterology Routine 09/24/23 10:49 Consult Neurology Routine Procedures Performed Operation Date: 09/24/23 16:45 Actual Procedures p EGD Biopsy Cytology - Keith Davidson Case, DO Ordered Studies 09/24/23 08:11 CT head/brain wo con Urgent 09/25/23 10:18 MRI Brain [MR brain wo/w con] Urgent Laboratory Results WBC 12.19 K/ul (4.8-10.8) H 09/30/23 05:23 RBC 3.24 M/uL (4.20-5.40) L 09/30/23 05:23 Hgb 8.9 g/dl (12.0-16.0) L 09/30/23 05:23 POC Hgb 8.5 g/dl (12.0-16.0) L 09/23/23 12:36 Hct 27.0 % (37.0-47.0) L 09/30/23 05:23 POC Hct 25 % (37-47) L 09/23/23 12:36 MCV 83.3 fL (80.0-100.0) 09/30/23 05:23 MCH 27.5 pg (25.0-34.0) 09/30/23 05:23 MCHC 33.0 g/dL (32.0-36.0) 09/30/23 05:23 RDW Std Deviation 43.9 fL (36.4-46.3) 09/30/23 05:23 RDW Coeff of [place] 14.5 % (11.5-14.5) 09/30/23 05:23 Plt Count 531 K/uL (130-400) H 09/30/23 05:23 MPV 9.0 fL (9.4-12.4) L 09/30/23 05:23 Immature Gran % (Auto) 0.5 % 09/24/23 03:57 Neut % (Auto) 61.1 % 09/24/23 03:57 Lymph % (Auto) 28.3 % 09/24/23 03:57 [place] % (Auto) 9.0 % 09/24/23 03:57 Eos % (Auto) 0.8 % 09/24/23 03:57 Baso % (Auto) 0.3 % 09/24/23 03:57 Neut # (Auto) 10.27 K/uL (1.40-6.50) H 09/24/23 03:57 Lymph # (Auto) 4.75 K/uL (1.20-3.40) H 09/24/23 03:57 [place] # (Auto) 1.51 K/uL (0.11-0.59) H 09/24/23 03:57 Eos # (Auto) 0.14 K/uL (0.00-0.50) 09/24/23 03:57 Baso # (Auto) 0.05 K/uL (0.00-0.20) 09/24/23 03:57 Immature Gran # (Auto) 0.09 K/uL (0.01-0.20) 09/24/23 03:57 PT 10.9 Seconds (9.0-12.0) 09/23/23 12:30 INR 1.0 (0.9-1.1) 09/23/23 12:30 VBG pH 7.43 (7.36-7.41) H 09/24/23 14:12 VBG pCO2 36 mmHg (38-50) L 09/24/23 14:12 VBG pO2 41 mmHg 09/24/23 14:12 VBG HCO3 24 mmol/L 09/24/23 14:12 VBG O2 Saturation 73.6 % 09/24/23 14:12 VBG Base Excess -0.1 mEq/L 09/24/23 14:12 POC Sodium 138 mmol/L (135-144) 09/23/23 12:36 Sodium 139 mmol/L (136-145) 09/30/23 05:23 POC Potassium 3.1 mmol/L (3.3-5.0) L 09/23/23 12:36 Potassium 3.5 mmol/L (3.5-5.1) 09/30/23 05:23 POC Chloride 103 mmol/L (101-112) 09/23/23 12:36 Chloride 106 mmol/L (98-107) 09/30/23 05:23 Carbon Dioxide 27 mmol/L (21-32) 09/30/23 05:23 POC Total CO2 24 mmol/L (24-31) 09/23/23 12:36 Anion Gap 6 (3-11) 09/30/23 05:23 POC Anion Gap 15.0 mmol/L (16-25) L 09/23/23 12:36 POC BUN 30 mg/dl (7-18) H 09/23/23 12:36 BUN 14 mg/dl (6-23) 09/30/23 05:23 Creatinine 0.70 mg/dl (0.6-1.2) 09/30/23 05:23 POC Creatinine 1.1 mg/dl (0.6-1.3) 09/23/23 12:36 Est Cr Clr Drug Dosing 50.9 ml/min 09/30/23 05:23 Est GFR ( Amer) 96.9 ml/min 09/30/23 05:23 Est GFR (Non-Af Amer) 83.6 ml/min 09/30/23 05:23 BUN/Creatinine Ratio 20.0 (10-20) 09/30/23 05:23 Glucose 159 mg/dl (70-99(Fasting)) H 09/30/23 05:23 POC Glucose 146 mg/dl (70-99) H 09/30/23 11:29 POC Glucose (other) 241 mg/dl (70-99) H 09/23/23 12:36 Calcium 8.8 mg/dl (8.6-10.3) 09/30/23 05:23 POC Ioniz Calcium Cele 1.18 mmol/l (1.12-1.32) 09/23/23 12:36 Magnesium 1.7 mg/dl (1.7-2.4) 09/26/23 05:15 Total Bilirubin 0.7 mg/dl (0.2-1.0) 09/24/23 06:19 AST 17 U/L (13-39) 09/24/23 06:19 ALT 10 U/L (7-52) 09/24/23 06:19 Alkaline Phosphatase 20 U/L (34-104) L 09/24/23 06:19 Ammonia 22.0 umol/L (18-72) 09/24/23 14:12 Troponin I High Sens 10.2 pg/ml (0-14) 09/23/23 12:30 Total Protein 5.7 gm/dl (6.0-8.3) L 09/24/23 06:19 Albumin 3.4 gm/dl (3.4-5.0) 09/24/23 06:19 Globulin 2.3 gm/dl (2.5-4.0) L 09/24/23 06:19 Albumin/Globulin Ratio 1.5 (0.9-2) 09/24/23 06:19 Lipase 57 U/L (11-82) 09/23/23 12:30 Vitamin B12 400 pg/ml (180-914) 09/24/23 14:12 Folate 20.37 ng/ml (>5.38) 09/25/23 06:26 Procalcitonin 0.03 ng/ml (0-0.5) 09/23/23 12:30 Urine Color Yellow 09/26/23 13:28 Urine Appearance Clear (Clear) 09/26/23 13:28 Urine pH 5.5 (4.5-7.5) 09/26/23 13:28 Ur Specific [place] 1.007 (1.000-1.030) 09/26/23 13:28 Urine Protein Negative (Negative) 09/26/23 13:28 Urine Glucose (UA) Negative (Negative) 09/26/23 13:28 Urine Ketones Negative (Negative) 09/26/23 13:28 Urine Blood 3+ (Negative) H 09/26/23 13:28 Urine Nitrite Negative (Negative) 09/26/23 13:28 Urine Bilirubin Negative (Negative) 09/26/23 13:28 Urine Urobilinogen Negative (Negative) 09/26/23 13:28 Ur Leukocyte Esterase 2+ (Negative) H 09/26/23 13:28 Urine WBC (Auto) 21-50 /hpf (0-5) H 09/26/23 13:28 Urine RBC (Auto) 0-2 /hpf (0-2) 09/26/23 13:28 U Hyaline Cast (Auto) 3-5 /lpf (0-2) H 09/26/23 13:28 U Epithel Cells (Auto) 0-2 /hpf (0-2) 09/26/23 13:28 Urine Bacteria (Auto) 1+ (None Seen) H 09/26/23 13:28 Bld Cult ID Panel PCR PCR Panel Negative (NotDetected) 09/24/23 11:46 Blood Type O Positive 09/23/23 12:29 Antibody Screen POSITIVE A 09/23/23 12:29 Antibody Identification Anti-K 09/23/23 12:29 Antibody ID Comment 09/23/23 12:29 Antigen Identification K Antigen - NEGATIVE 09/23/23 12:29 Crossmatch See Detail 09/23/23 12:29 Impressions Chest X-Ray 09/23/23 12:36 XR chest 1V portable CLINICAL HISTORY: Chest pain, nonspecific TECHNIQUE: Single frontal radiograph of the chest was obtained. Comparison: Comparison is made to chest radiograph 11/20/2022 FINDINGS: No lines and tubes are seen. Calcified aortic knob is seen. The lungs are clear. No evidence of pleural effusion or pneumothorax. IMPRESSION: No acute chest disease. ACT 112: Negative or not required by law. Electronically signed by: Jimbo Crowe M.D. 09/23/2023 1:[address] 09/24/23 08:11 CT head/brain wo con CLINICAL HISTORY: 78 years-old Female with Altered Mental Status. Acutely altered mental status TECHNIQUE: Multiple axial CT images of the head were obtained without contrast. A dose lowering technique was utilized adhering to the principles of ALARA. CT DOSE: 547.75 mGy.cm COMPARISON: 09/18/2023 FINDINGS: No acute intracranial hemorrhage, midline shift, intracranial mass, hydrocephalus, territorial ischemia or abnormal extra-axial collection. Involutional changes with white matter hypodensities suggestive of chronic microvascular ischemic disease. The calvarium is intact. Prior bilateral lens repair. The paranasal sinuses, mastoid air cells, and middle ear cavities are clear. IMPRESSION: No acute intracranial abnormality. ACT 112: Negative or not required by law. The above report was generated using voice recognition software. It may contain grammatical, syntax or spelling errors. Electronically signed by: Kan Escobedo M.D. 09/24/2023 10:59 AM Brain MRI 09/25/23 10:18 MR brain wo/w con CLINICAL HISTORY: Altered mental status TECHNIQUE: Multiplanar and multisequence MR images of the brain were obtained prior to and following administration of gadolinium contrast. Comparison: Comparison is made to CT head 09/24/2023 FINDINGS: No abnormal restricted diffusion is identified. Foci of T2 and FLAIR hyperintensity are noted in the paraventricular areas consistent with chronic small vessel ischemic disease. Ex vacuo ventriculomegaly and sulcal enlargement is noted compatible with diffuse volume loss. No mass or abnormal enhancement is seen. There is no mass effect or midline shift. There is no evidence of acute intraparenchymal hemorrhage. No extra axial fluid collections are seen. The corpus callosum, pituitary gland, and cerebellar tonsils appear grossly unremarkable. Flow voids of the major intracranial arterial vessels are identified. The imaged portions of the paranasal sinuses, mastoid air cells, and orbits are unremarkable. IMPRESSION: Chronic volume loss and age related white matter changes without evidence of acute abnormality. ACT 112: Negative or not required by law. Electronically signed by: Jimbo Crowe M.D. 09/25/2023 12:32 PM Hospital Course (1) Acute GI bleeding: (2) Melena: (3) Acute confusion: (4) Anemia requiring transfusions: (5) Type 2 diabetes mellitus: (6) HTN (hypertension): (7) Dyslipidemia: (8) Hypokalemia: Plan This is a 78 year old female Who has a significant past medical history of T2DM, HTN, HLD, GERD, bilateral lower extremity claudication, lumbar spinal stenosis, chronic pain syndrome who presents to ED secondary to referral of PCP in setting of increased confusion. Acute GI bleeding Melena Acute blood loss anemia --S/P EGD: Normal esophagus, small hiatal hernia, gastritis characterized by erosions, nonbleeding gastric ulcers with no stigmata of bleeding. --S/P 2units PRBCs --Pathology: Focal active gastritis, negative for H. pylori --Patient was not taking Protonix as prescribed likely due to forgetfulness Continue IV Protonix>> transition to Protonix 40 mg twice daily Appreciate GI input Avoid anticoagulation Transfuse PRBCs as needed Hb 8.9 today Advised to follow-up with GI on discharge Plan to be discharged home today Acute metabolic Encephalopathy Likely multifactorial ? Anoxic Encephalopathy UTI Reported by family and has been ongoing for the last several weeks DD: Dementia --CT Head:No acute intracranial abnormality. --MRI Brain:Chronic volume loss and age related white matter changes without evidence of acute abnormality. --Initial UA not suggestive of UTI --Blood cultures: Negative to date Normal TSH, B12, Adan mental status slowly improving ia, Folate levels No hypercarbia on VBG Continue duloxetine Started on donepezil, melatonin Reorient frequently to minimize delirium Appreciate neurology input Zyprexa as needed for agitation Mental status continues to improve Continue treatment for UTI UTI Urine culture growing E. coli Blood cultures negative to date Continue Rocephin>> transition to cefdinir Continue current antibiotic to complete the course Hypokalemia replete and monitor Urinary retention continue voiding trial Bladder scan as needed Monitor HTN BP Variable hold ROMANA for now Continue Coreg Monitor BP HLD chronic, stable Total Chol 300 09/09 Continue statin T2DM last a1c 8.5 in August currently on glipizide, will hold Lantus/novolog per protocol Monitor BGs DVT Px: SCDs Re: GI bleed Code Status FULL CODE Disposition Home with home health Total Time Total Time Spent Total Time Spent (In Minutes): 50 minutes Discharge Plan Discharge Items Patient Disposition: Home - Home Health Services Reason For Visit: GIB Discharge Diagnosis: Acute GI bleeding Acute blood loss anemia Acute metabolic Encephalopathy Urinary tract infection Activity: Per Instructions section Exercise/Sports: Gradually increase as tolerated Non-emergency contact: Primary Care Provider and Hospital Insurance Representative Call non-emergency contact if: you have any medication questions, your symptoms worsen, your pain is concerning for you and you have a fever Follow-up/Referrals: Jian Escalante MD [Primary Care Provider] - Diet: Carb Consistent or DM2 Addtl Attending Provider Instructions: IF YOU EXPERIENCE ANY OF THE FOLLOWING SYMPTOMS AFTER YOUR PROCEDURE CALL YOUR PRIMARY CARE PHYSICIAN IMMEDIATELY OR SEEK MEDICAL ATTENTION AT YOUR NEAREST EMERGENCY ROOM: 1. SEVERE abdominal pain or bloating 2. FEVER greater than 101.1 degrees within 24 hours after the procedure 3. LARGE AMOUNTS OF BLEEDING greater than 2-3 tablespoons. If you had a polyp/s removed or have hemorrhoids, a small amount of blood from the rectum is to be expected. 4. A localized irritation of the vein may occur at the site of the IV injection. Hot moist packs to the vein applied 4-6 times per day may reduce pain and irritation. A tender lump may develop and remain for several weeks to several months, but goes away eventually. If the area continues to be painful or becomes red and hot to the touch, please contact your primary care provider. For routine questions call [facility] at [phone]. * Avoid the use of alcohol and sedatives for 24 hours. Addtl Social Media Content Manager Provider Instructions: Follow-up with your primary care physician Dr. Escalante in 1 week Follow-up with your ammonia nitrate operator Dr. Abad in 4 to 6 weeks Follow-up with your neurologist Dr. Shayne Duncan in 3-4 weels --- Complete the antibiotic course cefdinir as prescribed for urinary tract infection -- Monitor your blood pressure regularly at home and discuss with your physician for further adjustment of medications as needed Seek immediate medical attention if your symptoms reoccur or worsen Please take all medications as instructed on discharge list below. Please call if you have any questions or problems. You can reach a [facility] hospitalist on duty at [facility] 24 hours a day by calling [phone] Pending Studies at Discharge: No Stand-Alone Forms: My [facility], Smoking Cessation Medications and DC Order Prescriptions: New donepezil 5 mg Tablet 5 mg PO HS Qty: 30 0RF pantoprazole 40 mg Tablet,Delayed Release (Dr/Ec) 40 mg PO BID Qty: 60 1RF cefdinir 300 mg Capsule 300 mg PO BID Qty: 5 0RF Continued carvedilol 12.5 mg tablet 12.5 mg PO BID cilostazol 50 mg tablet 50 mg PO BID hydrochlorothiazide 25 mg tablet 25 mg PO DAILY glipizide 5 mg tablet 5 mg PO DAILY rosuvastatin 20 mg tablet 20 mg PO DAILY duloxetine 60 mg capsule,delayed release(DR/EC) 60 mg PO DAILY Held ramipril 5 mg capsule 5 mg PO DAILY Hold Instructions: Hold until further recommendations from your primary care physician Discontinued hydrocodone-acetaminophen 5-325 mg tablet 1 tab PO TID PRN (Reason: Severe Pain (Scale Score 7-10)) Discharge Orders: Discharge Order (Routine); Ordered 09/30/23 Ordered By: Edil Enriquez Admission Data Admit Date/Time: 09/23/23 13:42 Attending Provider: Edil Enriquez Admit Provider: Marina Knapp Primary Care Provider: Ava,Jian J. Other Providers: Keith Abad; Marina Knapp; Renetta Chapman; Phan Francois; Renetta Ricks; Estevan Zarco; Rakan Pereyra; Vitor Sanchez; Jian Perea; Luba Silva; Fady Pratt; Jose Norwood; Angelita Chase; Mykel Victor; Franchesca Gregg; Sada Fowler; Jian Sanchez; [facility],Home Care Fax
== END 2023-09-30 13:25 | disposition home health service (06) | DRG 377 ==
LOC: ED 12:18 → EDINP 13:42 → SUATTDRO 13:42 → 2E 16:44

== ENCOUNTER 2024-07-14 20:52 | Inpatient (IN) ==
--- NOTE | 2024-07-14 21:37 | Emergency Department Note ---
Impression & Plan Acute confusion ED Provider Note Provider: Grabiel Mueller MD CHIEF COMPLAINT: Altered mental status HISTORY OF PRESENT ILLNESS: Patient is a 79-year-old female past medical history of hypertension, type 2 diabetes, chronic pain, GI bleeds presenting here today with a sudden change in mentation just before 8 PM at home. Was eating and then all of a sudden started to eat with her hands according to family. Almost passed out but did not lose consciousness. No falls. Did have a fall somewhat recently by report with some healing bruising. Has a history of UTIs. Patient self not a great historian family provides additional history. Patient herself thinks it is in the 1970s. She states to me that milk goes and cereal. Does not have slurred speech. Family states that she had a period of confusion a bit similar last summer maybe with a GI bleed possibly requiring transfusion. No recent new meds. Did fall on Friday by family's reports but had imaging due to some left abdominal bruising with primary care that was reassuring. Not on pain meds currently. PAST MEDICAL HISTORY: As noted above MEDICATIONS: Reviewed home medications not on anticoagulants. SOCIAL HISTORY: Resides at home with PHYSICAL EXAM: GENERAL: alert and oriented in no acute distress on stretcher Head: normocephalic and atraumatic EYES: No injection, discharge or icterus. EOMI. NECK: Trachea midline. ENT: Mucous membranes pink and moist. LUNGS: Airway patent. No retractions. Breath sounds clear HEART: Regular rate and rhythm. Mild left chest wall tenderness ABDOMEN: Soft with a slight amount of tenderness to the left abdomen over an area of contusion without guarding. SKIN: Acyanotic, warm, dry, without rashes EXTREMITIES: Without swelling, tenderness or deformity NEUROLOGICAL: No focal deficits moving all extremities but not a good historian and somewhat confused at times. No aphasia. No facial droop or slurred speech. Normal strength and tone in the extremities. Sensation to gross touch normal. EK bpm. Normal sinus rhythm. Left axis. No PVC or PAC. No acute ST segment elevation with some LVH changes and QTc 467. CONTINUOUS CARDIAC MONITORING: was ordered and showed a heart rate of 80s to 90s bpm in normal sinus rhythm GCS 15. Patient's laboratory studies and imaging reviewed. Differential includes Infection, dehydration, metabolic abnormality, hypo/hyperglycemia, electrolyte disturbance, anemia, hypoxia, cardiac sources, intracerebral event, toxicologic, neurologic, traumatic injury, as well as other pathologies. IMPRESSION/MEDICAL DECISION MAKING: Nonfocal on exam. No slurred speech. Does not seem like CVA. CT of the head ordered and did have a recent fall. Not on high risk anticoagulants. Daughters likely provide good amount additional history. She seems just groggy and forgetful and confused in a nonfocal manner. Blood work here without significant anemia. Borderline leukocytosis. Electrolytes without severe abnormality other magnesium 1.6. No significant renal dysfunction. Previously reported to seeing PCP regarding the fall and head imaging. Bit of abdominal wall bruising not severely diffusely tender and I doubt occult intra-abdominal bleeding. Especially in light of the CBC. Also does not seem related to the acute confusion that started suddenly this evening. Straight cath UA ordered to exclude this is etiology. Little bit of reproducible left-sided chest pain without significant rib fractures. Chest x-ray ordered. No troponin elevation and doubt cardiac injury. CK not elevated. No reported drug or alcohol use. Urinalysis without signs of infection. Respiratory viral panel negative. CT of the head again was completed without acute findings noted by report. Patient resting comfortably easily arousable. Discussed with daughters given that she still altered I do not of a clear explanation needs come in for further workup and evaluation. Hospitalist team was consulted. DIAGNOSIS: Acute confusion DISPOSITION: Hospitalist will evaluate Patient was agreeable with this plan. Past Med/Surg History Problem List (Updated 07/14/24 @ 23:22 by Grabiel Mueller M.D.) Acute confusion (Acute) Encephalopathy acute Acute anoxic encephalopathy Hypokalemia Anemia requiring transfusions (Acute) RAFAEL (acute kidney injury) (Acute) Acute confusion (Acute) Melena (Acute) Acute GI bleeding (Acute) Gastric ulcer Anemia Encounter for pre-operative examination Chronic pain syndrome Dyslipidemia HTN (hypertension) Type 2 diabetes mellitus GERD (gastroesophageal reflux disease) Medical History HTN (hypertension) History of gout Back problem DM type 2 (diabetes mellitus, type 2) Poor historian HLD (hyperlipidemia) Recurrent UTI Obesity Colovesical fistula hx Surgical History History of bowel resection sigmoid resection for a colo-vesical fistula per record History of colonoscopy with polypectomy History of hysterectomy History of Personal history of spine surgery Hx of cataract surgery Family History Mother Diabetes Father Heart disease Social History Smoking Status: Unknown if ever smoked Second Hand Exposure: No; Do You Dip or Chew Tobacco: No; Hx Alcohol Use: No Hx Substance Use: No Preferred Language: Czech Communication Ability: Impaired Visual Impairment: No Limitations Hearing Ability: Hard of Hearing Asset Management Analyst Required: No Beliefs That Will Affect Care: None marital status: Current Living Situation: Spouse How many Children do You have: 3 Feels Safe at Home: Yes Assistive Devices: Walker Allergies Allergies Allergy/AdvReac Type Severity Reaction Status Date / Time metformin AdvReac Intermediate NAUSEA/VOMI Verified 07/14/24 23:00 TING tramadol AdvReac Intermediate NAUSEA/VOMI Verified 07/14/24 23:00 TING Home Meds Home Medications Medication Instructions Recorded Confirmed carvedilol 12.5 mg tablet 12.5 mg PO BID 09/23/23 07/14/24 cilostazol 50 mg tablet 50 mg PO BID 09/23/23 07/14/24 duloxetine 60 mg capsule,delayed 60 mg PO DAILY 09/23/23 07/14/24 release glipizide 5 mg tablet 5 mg PO DAILY 09/23/23 07/14/24 hydrochlorothiazide 25 mg tablet 25 mg PO DAILY 09/23/23 07/14/24 rosuvastatin 20 mg tablet 20 mg PO DAILY 09/23/23 07/14/24 doxycycline monohydrate 100 mg 100 mg PO DAILY 07/14/24 07/14/24 capsule ferrous sulfate 325 mg (65 mg 325 mg PO BID 07/14/24 07/14/24 iron) tablet potassium chloride 20 mEq 20 meq PO BID 07/14/24 07/14/24 tablet,extended release(part/cryst) Previous Rx's Medication Instructions Recorded donepezil 5 mg tablet 5 mg PO HS #30 tabs 09/30/23 pantoprazole 40 mg tablet,delayed 40 mg PO BID #60 tabs 09/30/23 release Results & Data (ED) Vital Signs Vital Signs - 24 hr 07/14/24 20:57 07/14/24 21:23 07/14/24 22:00 Temperature 36.8 C Temperature Source Oral Pulse Rate 91 H 94 H Pulse Rate [Apical] 94 H Pulse Rhythm Regular Pulse Strength Normal Respiratory Rate 18 16 Respiratory Effort / Characteristics Non-Labored Spontaneous Respiratory Depth Normal Respiratory Pattern Regular Blood Pressure 157/100 H Blood Pressure [Right Arm] 162/98 H Blood Pressure Mean 119 Blood Pressure Mean [Right Arm] 119 Pulse Oximetry 93 93 Oxygen Delivery Method Room Air Room Air Sepsis Recent Fever Within 48 Hours No Sepsis New/Unexplained Change in Mental Status Yes Sepsis Action Taken by Nursing No Action Required 07/14/24 22:00 Temperature Temperature Source Pulse Rate Pulse Rate [Apical] Pulse Rhythm Pulse Strength Respiratory Rate Respiratory Effort / Characteristics Respiratory Depth Respiratory Pattern Blood Pressure Blood Pressure [Right Arm] Blood Pressure Mean Blood Pressure Mean [Right Arm] Pulse Oximetry 93 Oxygen Delivery Method Room Air Sepsis Recent Fever Within 48 Hours Sepsis New/Unexplained Change in Mental Status Sepsis Action Taken by Nursing Laboratory Data 07/14/24 21:09 07/14/24 21:09 Lab Results 07/14/24 07/14/24 07/14/24 Range/Units 21:09 21:59 22:10 WBC 11.07 H (4.8-10.8) K/ul RBC 5.06 (4.20-5.40) M/uL Hgb 15.9 (12.0-16.0) g/dl Hct 45.9 (37.0-47.0) % MCV 90.7 (80.0-100.0) fL MCH 31.4 (25.0-34.0) pg MCHC 34.6 (32.0-36.0) g/dL RDW Std Deviation 43.9 (36.4-46.3) fL RDW Coeff of [place] 13.2 (11.5-14.5) % Plt Count 284 (130-400) K/uL MPV 9.3 L (9.4-12.4) fL Immature Gran % (Auto) 0.4 % Neut % (Auto) 60.5 % Lymph % (Auto) 29.9 % [place] % (Auto) 7.5 % Eos % (Auto) 1.4 % Baso % (Auto) 0.3 % Neut # (Auto) 6.71 H (1.40-6.50) K/uL Lymph # (Auto) 3.31 (1.20-3.40) K/uL [place] # (Auto) 0.83 H (0.11-0.59) K/uL Eos # (Auto) 0.15 (0.00-0.50) K/uL Baso # (Auto) 0.03 (0.00-0.20) K/uL Immature Gran # (Auto) 0.04 (0.01-0.20) K/uL PT 10.4 (9.0-12.0) Seconds INR 1.0 (0.9-1.1) Sodium 139 (136-145) mmol/L Potassium 3.5 (3.5-5.1) mmol/L Chloride 100 (98-107) mmol/L Carbon Dioxide 32 (21-32) mmol/L Anion Gap 7 (3-11) BUN 12 (6-23) mg/dl Creatinine 0.69 (0.6-1.2) mg/dl Est Cr Clr Drug Dosing 60.5 ml/min eGFR 88.78 BUN/Creatinine Ratio 17.4 (10-20) Glucose 204 H (70-99(Fasting)) mg/dl Calcium 9.9 (8.6-10.3) mg/dl Magnesium 1.6 L (1.7-2.4) mg/dl Total Bilirubin 0.7 (0.2-1.0) mg/dl AST 19 (13-39) U/L ALT 28 (7-52) U/L Alkaline Phosphatase 30 L (34-104) U/L Total Creatine Kinase 42 (26-192) U/L Troponin I High Sens 10.3 (0-14) pg/ml Total Protein 7.2 (6.0-8.3) gm/dl Albumin 4.4 (3.4-5.0) gm/dl Globulin 2.8 (2.5-4.0) gm/dl Albumin/Globulin Ratio 1.6 (0.9-2) TSH 5.202 H (0.300-4.500) uIu/ml Free T4 0.81 (0.61-1.60) ng/dl Urine Color Yellow Urine Appearance Clear (Clear) Urine pH 5.5 (4.5-7.5) Ur Specific [place] 1.018 (1.000-1.030) Urine Protein Negative (Negative) Urine Glucose (UA) 1+ H (Negative) Urine Ketones Negative (Negative) Urine Blood Negative (Negative) Urine Nitrite Negative (Negative) Urine Bilirubin Negative (Negative) Urine Urobilinogen Negative (Negative) Ur Leukocyte Esterase Negative (Negative) Adenovirus (PCR) Not Detected (NotDetected) B. pertussis DNA (PCR) Not Detected (NotDetected) B.parapertussis DNA PCR Not Detected (NotDetected) C. pneumoniae DNA (PCR) Not Detected (NotDetected) Coronavirus OC43 (PCR) Not Detected (NotDetected) Coronavirus HKU1 (PCR) Not Detected (NotDetected) Coronavirus 229E (PCR) Not Detected (NotDetected) SARS-CoV-2 (PCR) Not Detected (NotDetected) Coronavirus NL63 (PCR) Not Detected (NotDetected) Human Metapneumovir PCR Not Detected (NotDetected) Influenza Type A (PCR) Not Detected (NotDetected) Influenza Type B (PCR) Not Detected (NotDetected) M. pneumoniae (PCR) Not Detected (NotDetected) Parainfluenza 1 (PCR) Not Detected (NotDetected) Parainfluenza 2 (PCR) Not Detected (NotDetected) Parainfluenza 3 (PCR) Not Detected (NotDetected) Parainfluenza 4 (PCR) Not Detected (NotDetected) RSV (PCR) Not Detected (NotDetected) Entero/Rhino (PCR) Not Detected (NotDetected) Administered Medications Discontinued Medications Magnesium Sulfate/Dextrose (Magnesium Sulfate / D5w) 1 gm in 100 mls @ 100 mls/hr IV NOW STA Stop: 07/14/24 22:52 Last Admin: 07/14/24 22:07 Dose: 100 mls/hr Documented By: AN Imaging Data Radiologist's Impression: Head CT 07/14/24 21:15 Exam(s): CT HEAD Without Contrast EXAM: CT Head Without Intravenous Contrast CLINICAL HISTORY: Reason for exam: ams. TECHNIQUE: Axial computed tomography images of the head/brain without intravenous contrast. CTDI is 37.69 mGy and DLP is 546.36 mGy-cm. Automated exposure control was utilized for the study. A dose lowering technique was utilized adhering to the principles of ALARA. COMPARISON: Prior brain MRI from October 24, 2024. FINDINGS: Brain: Unremarkable. No hemorrhage. Moderate nonspecific white matter changes. No edema. Ventricles: Moderate ventriculomegaly. Bones/joints: Unremarkable. No acute fracture. Soft tissues: Unremarkable. Sinuses: Unremarkable as visualized. No acute sinusitis. Mastoid air cells: Unremarkable as visualized. No mastoid effusion. IMPRESSION: No evidence of acute intracranial pathology. Electronically signed by: Kristi Samson MD 07/15/24 00:07 AM Discharge Plan Visit Data Chief Complaint: Altered Mental Status Stated Complaint: ams ED Provider: Grabiel Mueller Discharge Problem: Acute confusion Patient Disposition: Being Evaluated by Hospitalist Discharge Instructions Interventions: ED Discharge Assessment Last Done: 07/14/24 23:50
[2024-07-14 21:39] LABS: Basophils # (auto) 0.03 K/uL (0.00-0.20); Basophils % (auto) 0.3 %; Eosinophils # (auto) 0.15 K/uL (0.00-0.50); Eosinophils % (auto) 1.4 %; Hematocrit (blood only) 45.9 % (37.0-47.0); Hemoglobin 15.9 g/dl (12.0-16.0); Immature Granulocytes # (auto) 0.04 K/uL (0.01-0.20); Immature Granulocytes % (auto) 0.4 %; Lymphocytes # (auto) 3.31 K/uL (1.20-3.40); Lymphocytes % (auto) 29.9 %; Mean Corpuscular Hemoglobin 31.4 pg (25.0-34.0); Mean Corpuscular Hgb Conc 34.6 g/dL (32.0-36.0); Mean Corpuscular Volume 90.7 fL (80.0-100.0); Mean Platelet Volume 9.3 fL (9.4-12.4); Monocytes # (auto) 0.83 K/uL (0.11-0.59); Monocytes % (auto) 7.5 %; Neutrophils # (auto) 6.71 K/uL (1.40-6.50); Neutrophils % (auto) 60.5 %; Platelet Count 284 K/uL (130-400); RDW Coefficient of Variation 13.2 % (11.5-14.5); RDW Standard Deviation 43.9 fL (36.4-46.3); Red Blood Count 5.06 M/uL (4.20-5.40); White Blood Count 11.07 K/ul (4.8-10.8)
[2024-07-14 21:43] LABS: Albumin Globulin Ratio 1.6 (0.9-2); Albumin Level 4.4 gm/dl (3.4-5.0); BUN Creatinine Ratio 17.4 (10-20); Bilirubin,Total 0.7 mg/dl (0.2-1.0); Calcium 9.9 mg/dl (8.6-10.3); Creatinine Clr Calc Pharmacy 60.5 ml/min; Globulin 2.8 gm/dl (2.5-4.0); Magnesium 1.6 mg/dl (1.7-2.4); Potassium 3.5 mmol/L (3.5-5.1); Total Protein 7.2 gm/dl (6.0-8.3)
[2024-07-14 21:51] LABS: Troponin I High Sensitivity 10.3 pg/ml (0-14)
[2024-07-14 22:00] LABS: Thyroid Stimulating Hormone 5.202 uIu/ml (0.300-4.500)
[2024-07-14 22:01] LABS: Prothrombin Time 10.4 Seconds (9.0-12.0)
[2024-07-14] MEDS: MAGNESIUM SULFATE / D5W 1 GM/100 ML BAG IV STA (22:07)
[2024-07-14 22:14] LABS: Appearance Urine Clear (Clear); Bilirubin Urine Negative (Negative); Blood Urine Negative (Negative); Color Urine Yellow; Glucose Urine UA 1+ (Negative); Ketones Urine Negative (Negative); Leukocyte Esterase Urine Negative (Negative); Nitrite Urine Negative (Negative); Protein Urine Negative (Negative); Specific Gravity Urine 1.018 (1.000-1.030); Urobilinogen Urine Negative (Negative); pH Urine 5.5 (4.5-7.5)
[2024-07-14 22:36] LABS: T4 Free Thyroxine 0.81 ng/dl (0.61-1.60)
[2024-07-14 23:07] LABS: Adenovirus PCR Not Detected (NotDetected); Bordetella parapertussis PCR Not Detected (NotDetected); Bordetella pertussis PCR Not Detected (NotDetected); Chlamydia pneumoniae PCR Not Detected (NotDetected); Coronavirus 229E PCR Not Detected (NotDetected); Coronavirus CoV-2 (COVID19)PCR Not Detected (NotDetected); Coronavirus HKU1 PCR Not Detected (NotDetected); Coronavirus NL63 PCR Not Detected (NotDetected); Coronavirus OC43PCR Not Detected (NotDetected); Human Metapneumovirus PCR Not Detected (NotDetected); Influenza A PCR Not Detected (NotDetected); Influenza B PCR Not Detected (NotDetected); Mycoplasma pneumoniae PCR Not Detected (NotDetected); Parainfluenza Virus 1 PCR Not Detected (NotDetected); Parainfluenza Virus 2 PCR Not Detected (NotDetected); Parainfluenza Virus 3 PCR Not Detected (NotDetected); Parainfluenza Virus 4 PCR Not Detected (NotDetected); Respiratory Syncytial VirusPCR Not Detected (NotDetected); Rhinovirus/Enterovirus PCR Not Detected (NotDetected)
--- NOTE | 2024-07-14 23:34 | History & Physical Report ---
Date of Service July 14, 2024 Assessment & Plan (1) TIA (transient ischemic attack): Plan: TIA Presenting as strange behavior, transient slurred speech, dyspraxia, confusion History dementia hypertension, elevated secondary to above hyperlipidemia, on statin Rx hx claudication on cilostazol GERD, on PPI DM2 on oral medications, reasonable control as of recent hemoglobin A1c 7.15 March 2024 Facial sores from patient skin picking as per daughter on extended doxycycline Rx. polymyalgia rheumatica as per records, not currently on steroid Rx Iron supplement for anemia post confinement for UGIB last year, anemia resolved OBS Admit to medical telemetry Neurochecks MRI/MRA brain, carotid Dopplers, TTE for stroke workup Aspirin for secondary stroke prevention, permissive hypertension until stroke ruled out Continue statin Rx Neurology consult contingent on workup results Update lipid profile and hemoglobin A1c Basal bolus insulin, ISS BG goal 1 10-1 40, carb count coverage Stop home iron supplement on discharge. DVT prophylaxis per Lovenox subcu. Full code Patient family requesting updates providers. Mr. Rosales Zimmerman (), contact #[phone] Ms. Melina Avila (daughter), contact #[phone]. Text document was generated using [employer] voice recognition software. It may contain grammatical or spelling errors. Kindly contact undersigned for clarification of any documentation item in question. History of Present Illness Chief Complaint: I do not know as per patient Acting strangely as per family Primary Care Provider: Jian Escalante MD History obtained from patient, family, and records. Limited history from patient secondary to dementia. Medical history significant for hypertension, hyperlipidemia, claudication on cilostazol, GERD, DM2 on oral medications, dementia, polymyalgia rheumatic as per records, chronic pain. Last confinement September 2023 for UGIB attributed to gastritis and nonbleeding gastric ulcers on EGD. Hemoglobin 8.9 at time of discharge. Patient discharged on Protonix and iron home medications. Patient seen at PCP's last week for recurrent falls at home while ambulating. Facial trauma resulting from fall. Outpatient CT head negative for bleed. Patient daughter visiting from [place] mentioned rib fractures from fall. Patient /caregiver currently out of town visiting family in [place]. Last night around 8 PM, patient noted to be acting strangely by her daughter. Patient gave daughter two forks for her to eat with. Patient later started eating beans with her hands which daughter found unusual. Patient started scooping food with her right hand. Patient overshooting her mouth with spoon as per daughter. Transient slurred speech noted at home and patient eyes noted to be heavy. Patient denies headache, chest pain, SOB, or cough symptoms. Patient brought to ER for evaluation. Patient has no recollection of events. Medical History as above Surgical History : section, back surgery, hammertoe/foot surgery, hysterectomy, bowel surgery, bladder fistula repair, cataract surgery Family History : Heart disease Personal/Social history : Non-smoker, no EtOH intake, retired livery car driver Allergies Allergy/AdvReac Type Severity Reaction Status Date / Time metformin AdvReac Intermediate NAUSEA/VOMI Verified 07/14/24 23:00 TING tramadol AdvReac Intermediate NAUSEA/VOMI Verified 07/14/24 23:00 TING Home Medications Medication Instructions Recorded Confirmed Type carvedilol 12.5 mg tablet 12.5 mg PO BID 09/23/23 07/14/24 History cilostazol 50 mg tablet 50 mg PO BID 09/23/23 07/14/24 History duloxetine 60 mg capsule,delayed 60 mg PO DAILY 09/23/23 07/14/24 History release glipizide 5 mg tablet 5 mg PO DAILY 09/23/23 07/14/24 History hydrochlorothiazide 25 mg tablet 25 mg PO DAILY 09/23/23 07/14/24 History rosuvastatin 20 mg tablet 20 mg PO DAILY 09/23/23 07/14/24 History donepezil 5 mg tablet 5 mg PO HS #30 tabs 09/30/23 07/14/24 Rx pantoprazole 40 mg tablet,delayed 40 mg PO BID #60 tabs 09/30/23 07/14/24 Rx release doxycycline monohydrate 100 mg 100 mg PO DAILY 07/14/24 07/14/24 History capsule ferrous sulfate 325 mg (65 mg 325 mg PO BID 07/14/24 07/14/24 History iron) tablet potassium chloride 20 mEq 20 meq PO BID 07/14/24 07/14/24 History tablet,extended release(part/cryst) Past Med/Surg History Problem List (Updated 07/15/24 @ 03:29 by Perry Taylor MD) TIA (transient ischemic attack) Acute confusion (Acute) Encephalopathy acute Acute anoxic encephalopathy Hypokalemia Anemia requiring transfusions (Acute) RAFAEL (acute kidney injury) (Acute) Acute confusion (Acute) Melena (Acute) Acute GI bleeding (Acute) Gastric ulcer Anemia Encounter for pre-operative examination Chronic pain syndrome Dyslipidemia HTN (hypertension) Type 2 diabetes mellitus GERD (gastroesophageal reflux disease) Medical History HTN (hypertension) History of gout Back problem DM type 2 (diabetes mellitus, type 2) Poor historian HLD (hyperlipidemia) Recurrent UTI Obesity Colovesical fistula hx Surgical History History of bowel resection sigmoid resection for a colo-vesical fistula per record History of colonoscopy with polypectomy History of hysterectomy History of Personal history of spine surgery Hx of cataract surgery Family History Mother Diabetes Father Heart disease Social History Smoking Status: Never smoker Second Hand Exposure: No; Do You Dip or Chew Tobacco: No; Hx Alcohol Use: Yes Hx Substance Use: No Preferred Language: Lao Communication Ability: Effective Visual Impairment: No Limitations Hearing Ability: Hard of Hearing Producer Director Required: No Beliefs That Will Affect Care: None marital status: Current Living Situation: Spouse How many Children do You have: 3 Feels Safe at Home: Yes Safety Concerns: Feels Safe At This Time Assistive Devices: Denture - Lower and Walker Review of Systems Review of Systems: Could not be reliably obtained secondary to dementia Physical Exam Physical Exam: GENERAL: Demented, comfortable, obese, no respiratory distress SKIN: Normal color, warm HEENT: Healing ulcerated wounds over face, pink palpebral conjunctivae, no ptosis, dry buccal mucosa NECK : Supple, no tenderness CHEST : CTA, no tenderness HEART : RRR, no obvious murmurs ABDOMEN: Some distention, nontender EXTREMITIES : No LE swelling/tenderness, palpable pulses, no other conspicuous deformities noted NEUROLOGIC : Demented, no facial asymmetry, MMTs BUE/BLE 4/5, gait and stance not assessed Results & Data Results & Data Vital Signs (Past 12 Hours) Vital Signs Temp Pulse Pulse Resp BP BP Pulse Ox 07/14/24 22:00 93 07/14/24 22:00 94 H 16 162/98 H 93 07/14/24 21:23 94 H 07/14/24 20:57 36.8 C 91 H 18 157/100 H 93 O2 Del Method 07/14/24 22:00 Room Air 07/14/24 22:00 Room Air 07/14/24 21:23 07/14/24 20:57 Room Air Laboratory Results Laboratory Results WBC 11.07 K/ul (4.8-10.8) H 07/14/24 21:09 RBC 5.06 M/uL (4.20-5.40) 07/14/24 21:09 Hgb 15.9 g/dl (12.0-16.0) 07/14/24 21:09 Hct 45.9 % (37.0-47.0) 07/14/24 21:09 MCV 90.7 fL (80.0-100.0) 07/14/24 21:09 MCH 31.4 pg (25.0-34.0) 07/14/24 21:09 MCHC 34.6 g/dL (32.0-36.0) 07/14/24 21:09 RDW Std Deviation 43.9 fL (36.4-46.3) 07/14/24 21:09 RDW Coeff of [place] 13.2 % (11.5-14.5) 07/14/24 21:09 Plt Count 284 K/uL (130-400) 07/14/24 21:09 MPV 9.3 fL (9.4-12.4) L 07/14/24 21:09 Immature Gran % (Auto) 0.4 % 07/14/24 21:09 Neut % (Auto) 60.5 % 07/14/24 21:09 Lymph % (Auto) 29.9 % 07/14/24 21:09 [place] % (Auto) 7.5 % 07/14/24 21:09 Eos % (Auto) 1.4 % 07/14/24 21:09 Baso % (Auto) 0.3 % 07/14/24 21:09 Neut # (Auto) 6.71 K/uL (1.40-6.50) H 07/14/24 21:09 Lymph # (Auto) 3.31 K/uL (1.20-3.40) 07/14/24 21:09 [place] # (Auto) 0.83 K/uL (0.11-0.59) H 07/14/24 21:09 Eos # (Auto) 0.15 K/uL (0.00-0.50) 07/14/24 21:09 Baso # (Auto) 0.03 K/uL (0.00-0.20) 07/14/24 21:09 Immature Gran # (Auto) 0.04 K/uL (0.01-0.20) 07/14/24 21:09 PT 10.4 Seconds (9.0-12.0) 07/14/24 21:09 INR 1.0 (0.9-1.1) 07/14/24 21:09 Sodium 139 mmol/L (136-145) 07/14/24 21:09 Potassium 3.5 mmol/L (3.5-5.1) 07/14/24 21:09 Chloride 100 mmol/L (98-107) 07/14/24 21:09 Carbon Dioxide 32 mmol/L (21-32) 07/14/24 21:09 Anion Gap 7 (3-11) 07/14/24 21:09 BUN 12 mg/dl (6-23) 07/14/24 21:09 Creatinine 0.69 mg/dl (0.6-1.2) 07/14/24 21:09 Est Cr Clr Drug Dosing 60.5 ml/min 07/14/24 21:09 eGFR 88.78 07/14/24 21:09 BUN/Creatinine Ratio 17.4 (10-20) 07/14/24 21:09 Glucose 204 mg/dl (70-99(Fasting)) H 07/14/24 21:09 Calcium 9.9 mg/dl (8.6-10.3) 07/14/24 21:09 Magnesium 1.6 mg/dl (1.7-2.4) L 07/14/24 21:09 Total Bilirubin 0.7 mg/dl (0.2-1.0) 07/14/24 21:09 AST 19 U/L (13-39) 07/14/24 21:09 ALT 28 U/L (7-52) 07/14/24 21:09 Alkaline Phosphatase 30 U/L (34-104) L 07/14/24 21:09 Total Creatine Kinase 42 U/L (26-192) 07/14/24 21:09 Troponin I High Sens 10.3 pg/ml (0-14) 07/14/24 21:09 Total Protein 7.2 gm/dl (6.0-8.3) 07/14/24 21:09 Albumin 4.4 gm/dl (3.4-5.0) 07/14/24 21:09 Globulin 2.8 gm/dl (2.5-4.0) 07/14/24 21:09 Albumin/Globulin Ratio 1.6 (0.9-2) 07/14/24 21:09 TSH 5.202 uIu/ml (0.300-4.500) H 07/14/24 21:09 Free T4 0.81 ng/dl (0.61-1.60) 07/14/24 21:09 Urine Color Yellow 07/14/24 21:59 Urine Appearance Clear (Clear) 07/14/24 21:59 Urine pH 5.5 (4.5-7.5) 07/14/24 21:59 Ur Specific [place] 1.018 (1.000-1.030) 07/14/24 21:59 Urine Protein Negative (Negative) 07/14/24 21:59 Urine Glucose (UA) 1+ (Negative) H 07/14/24 21:59 Urine Ketones Negative (Negative) 07/14/24 21:59 Urine Blood Negative (Negative) 07/14/24 21:59 Urine Nitrite Negative (Negative) 07/14/24 21:59 Urine Bilirubin Negative (Negative) 07/14/24 21:59 Urine Urobilinogen Negative (Negative) 07/14/24 21:59 Ur Leukocyte Esterase Negative (Negative) 07/14/24 21:59 Adenovirus (PCR) Not Detected (NotDetected) 07/14/24 22:10 B. pertussis DNA (PCR) Not Detected (NotDetected) 07/14/24 22:10 B.parapertussis DNA PCR Not Detected (NotDetected) 07/14/24 22:10 C. pneumoniae DNA (PCR) Not Detected (NotDetected) 07/14/24 22:10 Coronavirus OC43 (PCR) Not Detected (NotDetected) 07/14/24 22:10 Coronavirus HKU1 (PCR) Not Detected (NotDetected) 07/14/24 22:10 Coronavirus 229E (PCR) Not Detected (NotDetected) 07/14/24 22:10 SARS-CoV-2 (PCR) Not Detected (NotDetected) 07/14/24 22:10 Coronavirus NL63 (PCR) Not Detected (NotDetected) 07/14/24 22:10 Human Metapneumovir PCR Not Detected (NotDetected) 07/14/24 22:10 Influenza Type A (PCR) Not Detected (NotDetected) 07/14/24 22:10 Influenza Type B (PCR) Not Detected (NotDetected) 07/14/24 22:10 M. pneumoniae (PCR) Not Detected (NotDetected) 07/14/24 22:10 Parainfluenza 1 (PCR) Not Detected (NotDetected) 07/14/24 22:10 Parainfluenza 2 (PCR) Not Detected (NotDetected) 07/14/24 22:10 Parainfluenza 3 (PCR) Not Detected (NotDetected) 07/14/24 22:10 Parainfluenza 4 (PCR) Not Detected (NotDetected) 07/14/24 22:10 RSV (PCR) Not Detected (NotDetected) 07/14/24 22:10 Entero/Rhino (PCR) Not Detected (NotDetected) 07/14/24 22:10 CT head: No evidence of acute intracranial pathology. Diagnostic Findings EKG as per my interpretation :Rate 100, NSR, LAD, LAFB, LVH, no ischemia
[2024-07-14] MEDS ORDERED: GLUCOSE 40% GEL 15 GM TUBE PO PRN (23:50)
[2024-07-14] MEDS ORDERED: GLUCAGON FOR INJ 1 MG VIAL SQ PRN (23:50)
[2024-07-14] MEDS ORDERED: CARBOHYDRATES FOR HYPOGLYCEMIA PO PRN (23:50)
[2024-07-14] MEDS ORDERED: GLUCOSE 10 TAB/TUBE PO PRN (23:50)
[2024-07-14] MEDS ORDERED: DEXTROSE 50% 50 ML SYRINGE IV PRN (23:50)
[2024-07-15] MEDS ORDERED: PHARMACIST DISCHARGE MED REC CONSULT PRN (00:03)
[2024-07-15] MEDS ORDERED: PROMETHAZINE 6.25 MG/50.25 ML BAG IV PRN (00:04)
--- NOTE | 2024-07-15 00:08 | CT Scan Report ---
Exam(s): CT HEAD Without Contrast EXAM: CT Head Without Intravenous Contrast CLINICAL HISTORY: Reason for exam: ams. TECHNIQUE: Axial computed tomography images of the head/brain without intravenous contrast. CTDI is 37.69 mGy and DLP is 546.36 mGy-cm. Automated exposure control was utilized for the study. A dose lowering technique was utilized adhering to the principles of ALARA. COMPARISON: Prior brain MRI from October 24, 2024. FINDINGS: Brain: Unremarkable. No hemorrhage. Moderate nonspecific white matter changes. No edema. Ventricles: Moderate ventriculomegaly. Bones/joints: Unremarkable. No acute fracture. Soft tissues: Unremarkable. Sinuses: Unremarkable as visualized. No acute sinusitis. Mastoid air cells: Unremarkable as visualized. No mastoid effusion. IMPRESSION: No evidence of acute intracranial pathology. Electronically signed by: Kristi Samson MD 07/15/24 00:07 AM
[2024-07-15] MEDS: INSULIN ASPART PER UNIT CHARGE SC SCH (00:29)
--- NOTE | 2024-07-15 00:37 | XRay Report ---
Exam(s): XR CXR 1 VIEW EXAM: XR Chest, 1 View CLINICAL HISTORY: Reason for exam: ams. TECHNIQUE: Frontal view of the chest. COMPARISON: No relevant prior studies available. FINDINGS: Lungs: Moderate to heavy peribronchial thickening of the central lower lobe bronchi with small patchy opacities at the lung bases. Pleural space: Unremarkable. No pneumothorax. Heart: Unremarkable. No cardiomegaly. Mediastinum: Unremarkable. Normal mediastinal contour. Bones/joints: Unremarkable. No acute fracture. IMPRESSION: Bronchitis with bilateral lower lobe infiltrates. Communications: Verify Receipt Electronically signed by: Kristi Samson MD 07/15/24 00:36 AM
[2024-07-15] MEDS: ASPIRIN CHEW 324 MG PO STA (00:57)
[2024-07-15] MEDS: NSS + 20MEQ KCL 20 MEQ/1,000 ML BAG IV STA (01:57)
--- NOTE | 2024-07-15 03:14 | Magnetic Resonance Report ---
EXAM: MR angio head wo con CLINICAL HISTORY: tia TECHNIQUE: 3-D [id number] imaging of the intracranial circulation was performed without intravenous contrast. COMPARISON: none FINDINGS: There is good opacification of the distal portions of the internal carotid arteries which appear widely patent. There is good opacification of the anterior and middle cerebral artery distributions bilaterally. There is no MRA evidence of intracranial aneurysm or stenosis within the resolution limits of the study. Limited evaluation of the posterior circulation demonstrates patency of the distal vertebral arteries and the basilar artery with visualization of the posterior cerebral arteries bilaterally. Hypoplastic V4 segment of right vertebral artery. IMPRESSION: 1. Essentially unremarkable intracranial MRA Electronically signed by Darrin Hare 07-15-2024 03:13 AM
--- NOTE | 2024-07-15 03:21 | Magnetic Resonance Report ---
EXAM: MR brain wo con CLINICAL HISTORY: tia TECHNIQUE: Multisequential and multiplanar images of the brain were submitted for review without contrast. COMPARISON: MR, 09/25/2023 11:00:30 FRENCH FOLDER FINDINGS: Generalized parenchymal atrophy is appreciated. Scattered foci of increased T2/FLAIR signal abnormality are identified within the bilateral periventricular and subcortical white matter, and are most commonly associated with chronic small vessel ischemic disease. No focal parenchymal lesions are seen. No intracranial hemorrhage, mass effect, midline shift, extra-axial collection, or hydrocephalus is identified. Ventricles, sulci, and basal cisterns are symmetric and normal in size and configuration. Diffusion-weighted sequences show no evidence of acute ischemic infarction. Midline structures including the pituitary gland, corpus callosum, pineal region, and brainstem are unremarkable. The craniovertebral junction is within normal limits. No calvarial abnormalities are identified. The paranasal sinuses and mastoid air cells are clear. Orbital structures are unremarkable. Appropriate flow voids are present in the visualized intracranial vessels. IMPRESSION: 1. No acute ischemia, space occupying mass, or other acute intracranial pathology is demonstrated. 2. Chronic small vessel ischemic disease. 3. Diffuse cerebral atrophy. 4. No interval change. Electronically signed by Darrin Hare 07-15-2024 03:21 AM
[2024-07-15 04:57] LABS: Basophils # (auto) 0.05 K/uL (0.00-0.20); Basophils % (auto) 0.5 %; Eosinophils # (auto) 0.21 K/uL (0.00-0.50); Eosinophils % (auto) 1.9 %; Hematocrit (blood only) 38.9 % (37.0-47.0); Hemoglobin 13.8 g/dl (12.0-16.0); Immature Granulocytes # (auto) 0.04 K/uL (0.01-0.20); Immature Granulocytes % (auto) 0.4 %; Lymphocytes # (auto) 3.39 K/uL (1.20-3.40); Lymphocytes % (auto) 30.9 %; Mean Corpuscular Hgb Conc 35.5 g/dL (32.0-36.0); Mean Corpuscular Volume 90.3 fL (80.0-100.0); Mean Platelet Volume 8.9 fL (9.4-12.4); Monocytes # (auto) 1.13 K/uL (0.11-0.59); Monocytes % (auto) 10.3 %; Neutrophils # (auto) 6.15 K/uL (1.40-6.50); Platelet Count 250 K/uL (130-400); RDW Coefficient of Variation 13.2 % (11.5-14.5); RDW Standard Deviation 43.7 fL (36.4-46.3); Red Blood Count 4.31 M/uL (4.20-5.40); White Blood Count 10.97 K/ul (4.8-10.8)
[2024-07-15 05:14] LABS: BUN Creatinine Ratio 15.9 (10-20); Chol HDL Ratio 2.6 (0-5); Creatinine Clr Calc Pharmacy 54.3 ml/min; Magnesium 1.8 mg/dl (1.7-2.4); Potassium 3.4 mmol/L (3.5-5.1)
[2024-07-15 07:46] LABS: Estimated Average Glucose 194 mg/dl; Hemoglobin A1C 8.4 % (4.5-5.6)
[2024-07-15] MEDS: cilostazoL 100 MG TAB PO SCH (08:42)
[2024-07-15] MEDS: ENOXAPARIN INJ 40 MG/0.4 ML SYR SQ SCH (08:42)
[2024-07-15] MEDS: carvediloL 6.25 MG TAB PO SCH (08:43)
[2024-07-15] MEDS: DULoxetine HCL 60 MG CAP PO SCH (08:43)
[2024-07-15] MEDS: PANTOprazole 40 MG TAB PO SCH (08:43)
[2024-07-15] MEDS: DOXYCYCLINE HYCLATE 100 MG CAP PO SCH (08:43)
[2024-07-15] MEDS: ROSUVASTATIN CALCIUM 20 MG TAB PO SCH (08:43)
--- OUTSIDE RECORDS SUMMARY | 2024-07-15 08:53 | External Medical Summary ---
Author Name Unknown Address Unknown Organization [id number]:[facility] [place] - [address] [address] Laboratory Report Ordering Provider Test Date Status JEFRY,DURA 07/05/2024 12:21:27 Final Normal: <30 mg/g creatinine< br/>High: 30-300 mg/g creatinine
Very High: >300 mg/g creatinine
Nephrotic: >2200 mg/g creatinine Observation Date Value Abnormality Reference (Units ) Status Albumin, Urine 07/05/2024 12:21:27 <1.20 (mg/dL) Final Creatinine, Urine 07/05/2024 12:21:27 93 (mg/dL) Final Albumin/Creatinine [Mass Ratio] in Urine 07/05/2024 12:21:27 <13 <30 (mg/g Creat) Final Performing Location [facility] [place] - [address] [place] [address]
--- OUTSIDE RECORDS SUMMARY | 2024-07-15 08:53 | External Medical Summary | Summary of Care ---
Author Name Unknown Organization [facility] Address [address] [place] [address] Phone [phone] Care Team Providers Care Excavation Laborer Name Role Phone Jian Escalante MD Primary Care Provider [phone] Reason for Visit * Reason Onset Date Comments Follow Up 07/01/2024 Encounter Details Date Type Department Care Team ([facility] Contact Info) Description 07/01/2024 Telephone Family Practice [facility] [address] [place] [address] Leda Baez DO [address] [place] [facility] [place] [address] Follow Up Allergies Active Allergy Reactions Criticality Noted Date Comments Metformin Nausea/vomiting 11/14/2011 Tramadol Nausea/vomiting 11/14/2011 documented as of this encounter (statuses as of 07/07/2024) Medications Glucose Blood (ONETOUCH ULTRA BLUE) STRP Test blood sugars once daily as needed. Dx E11.9 50 Strip 11 0 Active Cilostazol 50 MG Oral Tablet (Pletal) Take 1 Tablet by mouth in the morning and 1 Tablet before bedtime. 180 Tablet 3 4 Active Ferrous Sulfate 325 (65 Fe) MG Oral Tablet (Feosol) Take 1 Tablet by mouth in the morning and 1 Tablet before bedtime. 60 Tablet 11 4 Active Donepezil HCl 5 MG Oral Tablet (Aricept) Take 1 Tablet by mouth at bedtime. 90 Tablet 3 4 Active metroNIDAZOLE 0.75 % External Cream (MetroCream)Reta cations:Perioral dermatitis Apply thin layer to face twice daily 45 g 1 4 Active Pantoprazole Sodium 40 MG Oral Tablet Delayed Release (Protonix) Take 1 Tablet by mouth in the morning. 90 Tablet 3 4 Active Doxycycline Monohydrate 100 MG Oral CapsuleIndicatio ns:Facial rash Take 1 capsule twice daily for 1 month, then decrease to once daily for a month, then stop. 60 Capsule 1 5 Active Carvedilol 12.5 MG Oral Tablet (Coreg)Indicatio ns:HTN, goal below 140/80 TAKE 1 TABLET BY MOUTH IN THE MORNING AND BEFORE BEDTIME 180 Tablet 1 5 Active glipiZIDE 5 MG Oral Tablet (Glucotrol) TAKE 1 TABLET BY MOUTH EVERY DAY IN THE MORNING 90 Tablet 1 5 Active DULoxetine HCl 60 MG Oral Capsule Delayed Release Particles (Cymbalta) Take 1 Capsule by mouth in the morning. Every morning.. 90 Capsule 1 5 Active hydroCHLOROthiaz bev 25 MG Oral Tablet (Hydrodiuril) TAKE 1 TABLET BY MOUTH IN THE MORNING. 90 Tablet 1 5 07/06/19 25 Discontinu ed(Refill) Rosuvastatin Calcium 20 MG Oral Tablet (Crestor)Indicat ions:Dyslipidemi a, goal LDL below 100 TAKE 1 TABLET BY MOUTH IN THE MORNING. IN THE MORNING.. 90 Tablet 1 5 07/06/19 25 Discontinu ed(Refill) documented as of this encounter (statuses as of 07/07/2024) Active Problems Problem Noted Date Diagnosed Date Multiple gastric ulcers 03/15/2024 Mild dementia 10/03/2023 Claudication of both lower extremities 3 Chronic pain syndrome 01/30/2022 Obesity, Class I, BMI 30.0-34.9 (see actual BMI) 07/27/2021 Gastroesophageal reflux disease without esophagi tis 01/31/2021 Spinal stenosis of lumbar re gion with neurogenic claudication 09/30/2017 HTN, goal below 130/80 09/25/2015 Overview: Per HTN Protocol MEDICATION USE AGREEMENT 09/29/2012 Overview (01/05/2015): Managed by [facility]AN[employer]. To view the Medication Usage Agreement, go to Action, Patient Files. Signed 05/17/14 Angela Adan. Dyslipidemia 11/06/2011 Type 2 diabetes mellitus wit h hemoglobin A1c goal of less than 8.0% 11/06/2011 Overview (08/08/2015): ICD-10 update of inactive term documented as of this encounter (statuses as of 07/07/2024) Resolved Problems Problem Noted Date Diagnosed Date Resolved Date Type 2 diabetes mellitus wit h stage 3a chronic kidney disease, without long-term current use of insulin 07/29/2020 08/24/2020 Diabetes mellitus with stage 3 chronic kidney disease 05/25/2018 01/31/2021 Overview: Per CKD protocol #1 Bilateral low back pain without sciatica 12/01/2014 05/25/2018 Backache, unspecified 04/27/20132016 HTN, goal below 140/80 11/06/201109/27 Overview: Per HTN Protocol Intestinovesical fistula 12/01/200805/2011 Long-term current use of steroids 06/14/2008 11/14/2011 BRUIT 04/12/2008 11/28/2011 History of polymyalgia rheumatica 03/17/2008 07/29/2020 documented as of this encounter (statuses as of 07/07/2024) Immunizations Name Administration Dates Next Due COVID-19 mRNA, LNP-s, No Pre serve, 2-Dose Series (Moderna) 05/16/2020,04/18/2020 COVID-19, mRNA, LNP-s, PF, B ooster, 100mcg/0.5mg (Moderna) 02/07/2021 Pneumococcal Conjugate Vacc, 13 Valent (Prevnar) 03/26/2016 Pneumococcal Polysaccharide PPV23 (Pneumovax) ,03/17/2008 Season Influenza, Quad, PF, Adjuvanted, 65+ Yrs, IM (FLUAD) 01/24/2020 Seasonal Influenza Vac., MDV, IM, 0.5 mL (Fluzon e) 01/15/2013,03/17/2008 Seasonal Influenza, PF, 6 M & above, IM , (FluLaval or Fluzone) 01/06/2018,03/28/2017 Seasonal Influenza, Quadrivalent Hd (Fluzone Hd) 01/30/2022,01/31/2021 Seasonal Influenza, Quadrivalent, No Preserve, I M 03/26/2016,05/02/2015 Seasonal Influenza, Trivalen t, Adjuvanted, 65+ YRS, PF, (Fluad) 02/23/2019 TDAP (age 10 and older)(Boostrix) 05/02/2015 Zoster Vaccine Recombinant (Shingrix) 03/20/2022 documented as of this encounter Social History Tobacco Use Types Packs/Day Years Used Date Smoking Tobacco: Never Smokeless Tobacco: Never Alcohol Use Standard Drinks/Week Comments No 0 (1 standard drink = 0.6 oz pur e alcohol) PHQ-2 Answer Date Recorded PHQ Adult Total Score 1 10/24/2020 Hunger Vital Sign Answer Date Recorded Within the past 12 months, y ou worried that your food would run out before you got the money to buy more. Never true 11/25/19 22 Within the past 12 months, t he food you bought just didn't last and you didn't have money to get more. Never true 11/24/2021 Comments No Sex and Gender Information Value Date Recorded Sex Assigned at Female 11/24/2021 2:26 PM EDT Legal Sex Female 5:48 AM EST Gender Identity Female 11/24/2021 2:26 PM EDT Sexual Orientation Straight 11/24/2021 2: 26 PM EDT Occupation Industry Job Start Date Job End Date [employer] K[employer] Not on file Not on file Not on file documented as of this encounter Miscellaneous Notes * Telephone Encounter - Mragarita Cole LPN - 07/05/2024 10:44 AM EDT Addressed in another encounter * Telephone Encounter - Jian Escalante MD - 07/01/2024 7:12 PM EDT Just have them follow up with me. * Telephone Encounter - Leda Baez DO - 07/01/2024 11:35 AM EDT Please call - patient came here to speak about depression. Currently on cymbalta 2 factors - concerned about sleeping a lot which has been occurring for years. Also recently the patient did not want to go visit granddaughter. Because of these events questioning whether or not to change her antidepressant. declines to see psychiatry/therapy. would like you to offer your opinion on whether or not to change the patients antidepressant. Did advise it would be a good idea for annie to participate in a daily activity/routine that could prevent her from sleeping in bed/watching TV all day. documented in this encounter Plan of Treatment Upcoming Encounters Date Type Department Care Team (Late st Contact Info) Description 02/11/2025 9:00 AM EDT Office Visit Neurology [facility] [address] [place] [address] Charlotte Malave DO [address] [place] [address] Health Maintenance Due Date Last Done Comments Adult Wellness Visit 10/24/2021 10/24/2020 Depression Screening 10/24/2021 10/24/2020 Zoster Vaccines (2 of 2) 05/15/2022 03/20/2022 Diabetic Foot Exam 03/12/2024 03/12/2023, 0 10/24/2020, 02/23/2019, Additional history exists COVID-19 Vaccine ( season) 2024 02/21/2024, 02/11/2023, 02/07/2021, Additional history exists HbA1c 09/13/2024 03/15/2024, 05/2 12/2023, 03/12/2023, Additional history exists Diabetic Eye Exam 11/01/2024 10/20/2019, , 02/13/2012 Postponed from 10/19/2020 (Acute Illness) Colonoscopy 01/15/2025 01/15/2023, 09/12, 10/01/2019, Additional history exists DTap/Tdap Vaccines (2 - Td or Tdap) 05/02/2025 05/02/2015 GFR 07/01/2025 07/01/2024, 08/13, 09/04/2022, Additional history exists Albumin/Creatinine Ratio 07/05/2025 025, 09/10/2023, 01/24/2022, Additional history exists DXA Scan 11/21/2026 11/22/2019, 05/2012, 10/13/2012, Additional history exists Pneumococcal Vaccine: 50+ Years Completed 07/03/2017, 03/26/2016, 03/17/2008 RETIRED - COLONOSCOPY-EVERY 2 YRS AGES 18-100 Discontinued 01/15/2023, 10/01/2019, 10/01/2019, Additional history exists Influenza Vaccine (FLU shot) Completed 02/21/2024, 02/21/2024, 02/11/2023, Additional history exists HPV (Gardasil) Vaccine Aged Out No lo nger eligible based on patient's age to complete this topic Hepatitis B Vaccine Aged Out No longe r eligible based on patient's age to complete this topic MENINGOCOCCAL (MENACTRA/MENVEO) Aged Out No longer eligible based on patient's age to complete this topic Meningitis B Vaccine (Bexsero/Trumemba) Aged Out No longer eligible based on patient's age to complete this topic documented as of this encounter Medical Devices Implanted Type Area Project Admin Device Identifier Shelf Expiration Date Model / Serial / Lot Lens Intraoc 22.0 - [id number] - [id number] Implanted:Qty: 1 on 06/02/2018 by Wili Farmer MD at OR [facility] Right: Eye [employer] 12/12/2022 [id number] / [id number] / [id number] documented as of this encounter Visit Diagnoses Diagnosis Mild dementia without behavioral disturbance, psychotic disturbance, mood disturbance, or anxiety, unspecified dementia type (HCC)- Primary Mild episode of recurrent major depressive disorder (HCC) documented in this encounter Care Teams Excavation Laborer Relationship Specialty Start Date End Date Jian Escalante MD [address] [address] PCP - General Family Medicine 07/29/20 documented as of this encounter
--- OUTSIDE RECORDS SUMMARY | 2024-07-15 08:53 | External Medical Summary | Summary of Care ---
Author Name Unknown Organization [facility] Address [address] [place] [address] Phone [phone] Care Team Providers Care Bistro Server Name Role Phone Jian Escalante MD Primary Care Provider [phone] Reason for Visit * Reason Onset Date Comments Follow Up 07/13/2024 Encounter Details Date Type Department Care Team ([facility] Contact Info) Description 07/13/2024 Telephone Dermatology, [facility] [address] [place] [facility] [address] [address] Lita Villanueva PA-C [address] [place] [address] [address] Follow Up Allergies Active Allergy Reactions Criticality Noted Date Comments Metformin Nausea/vomiting 11/14/2011 Tramadol Nausea/vomiting 11/14/2011 documented as of this encounter (statuses as of 07/14/2024) Medications Glucose Blood (23andMeTOUCH ULTRA BLUE) STRP Test blood sugars once [...] Every morning.. 90 Capsule 1 5 Active Potassium Chloride Fara ER 20 MEQ Oral Tablet Extended Release Take 1 Tablet by mouth in the morning and 1 Tablet before bedtime. 60 Tablet 11 5 Active hydroCHLOROthiaz bev 25 MG Oral Tablet (Hydrodiuril) Take 1 Tablet by mouth in the morning. In the morning.. 90 Tablet 3 5 Active Rosuvastatin Calcium 20 MG Oral Tablet (Crestor)Indicat ions:Dyslipidemi a, goal LDL below 100 Take 1 Tablet by mouth in the morning. In the morning.. 90 Tablet 1 5 Active documented as of this encounter (statuses as of 07/14/2024) Active Problems Problem Noted Date Diagnosed Date [...] USE AGREEMENT 09/29/2012 Overview (01/05/2015): Managed by maría elena. To view the Medication Usage Agreement, go to Action, Patient Files. Signed 05/17/14 [address] Dyslipidemia 11/06/2011 Type 2 diabetes mellitus wit h hemoglobin A1c goal of less than 8.0% 11/06/2011 Overview (08/08/2015): ICD-10 update of inactive term documented as of this encounter (statuses as of 07/14/2024) Resolved Problems Problem Noted Date Diagnosed Date [...] as of this encounter (statuses as of 07/14/2024) Immunizations Name Administration Dates Next Due COVID-19 [...] encounter Miscellaneous Notes * Telephone Encounter - Fina Plata MED ASSIST - 07/13/2024 4:18 PM EDT Spoke to patient. Rash has improved with doxy and pt continues to use metrocream. Will call if she has any flareups. * Telephone Encounter - Desiree Sanchez LPN - 07/13/2024 10:46 AM EDT Message left for patient to return call to let us know how she is doing. Transfer to [facility]. * Telephone Encounter - Lita Villanueva PA-C - 07/13/2024 7:59 AM EDT Please call patient to check in to see how she is doing with the facial rash since her last visit 6weeks ago- restarted DCN and Metrocream. documented in this encounter Plan of Treatment Upcoming Encounters Date Type Department Care Team (Late st Contact Info) Description 10/12/2024 4:00 PM EDT Office Visit Family Practice [facility] [address] [place] [address] Jian Escalante MD [address] [address] 02/11/2025 9:00 AM EDT Office [facility] [address] [facility] [address] [facility] Malave, DO [address] [facility] [address] Health Maintenance Due Date Last Done Comments Adult Wellness Visit 10/24/2021 10/24/2020 Depression Screening 10/24/2021 10/24/2020 Zoster Vaccines (2 of 2) 05/15/2022 03/20/2022 Diabetic Foot Exam 03/12/2024 03/12/2023, 0 10/24/2020, 02/23/2019, Additional history exists COVID-19 Vaccine ( season) 2024 02/21/2024, 02/11/2023, 02/07/2021, Additional history exists HbA1c 09/13/2024 03/15/2024, 08/13, 03/12/2023, Additional history exists Diabetic Eye Exam 11/01/2024 10/20/2019, , 02/13/2012 Postponed from 10/19/2020 (Acute Illness) Colonoscopy 01/15/2025 01/15/2023, 09/12, 10/01/2019, Additional history exists DTap/Tdap Vaccines (2 - Td or Tdap) 05/02/2025 05/02/2015 GFR 07/01/2025 07/01/2024, 08/13, 09/04/2022, Additional history exists Albumin/Creatinine Ratio 07/05/2025 025, 09/10/2023, 01/24/2022, Additional history exists DXA Scan 11/21/2026 11/22/2019, 0705/2012, 10/13/2012, Additional history exists Pneumococcal Vaccine: 50+ [...] this encounter Medical Devices Implanted Type Area Buildings And Grounds Supervisor Device Identifier Shelf Expiration Date Model / Serial / Lot Lens Intraoc 22.0 - [id number] - [id number] Implanted:Qty: 1 on 06/02/2018 by Wili Farmer MD at OR [facility] Right: Eye [employer] 12/12/2022 [id number] / [id number] / [id number] documented as of this encounter Care Teams Bistro Server Relationship Specialty Start Date End Date Jian Escalante MD [address] [place] [address] PCP - General Family Medicine 07/29/20 documented as of this encounter
--- OUTSIDE RECORDS SUMMARY | 2024-07-15 08:53 | External Medical Summary | Summary of Care ---
Author Name Unknown Organization [facility] Address [address] [place] [address] Phone [phone] Care Team Providers Care Drawing In Hand Name Role Phone Jian Escalante MD Primary Care Provider [phone] Reason for Visit * Reason Comments Outpatient Testing Encounter Details Date Type Department Care Team ([facility] st Contact Info) Description 07/05/2024 12:20 PM EDT Laboratory Laboratory, [facility] [address] [place] [address] [place], Specimen Drop Off [facility] [address] [place] [address] Arrived Allergies Active Allergy Reactions Criticality Noted Date Comments Metformin Nausea/vomiting 11/14/2011 Tramadol Nausea/vomiting 11/14/2011 documented as of this encounter (statuses as of 07/05/2024) Medications Glucose Blood (TellagenceTOUCH ULTRA BLUE) STRP Test blood sugars once [...] as of this encounter (statuses as of 07/05/2024) Active Problems Problem Noted Date Diagnosed Date [...] go to Action, Patient Files. Signed 05/17/14 [facility] [address] Dyslipidemia 11/06/2011 Type 2 diabetes mellitus wit h hemoglobin A1c goal of less than 8.0% 11/06/2011 Overview (08/08/2015): ICD-10 update of inactive term documented as of this encounter (statuses as of 07/05/2024) Resolved Problems Problem Noted Date Diagnosed Date [...] as of this encounter (statuses as of 07/05/2024) Immunizations Name Administration Dates Next Due COVID-19 [...] on file documented as of this encounter Plan of Treatment Upcoming Encounters Date Type Department Care Team (Late st Contact Info) Description 02/11/2025 9:00 AM EDT Office Visit Neurology [facility] [place] [address] [facility] [place] [address] Charlotte Malave, DO [address] [facility] [address] Health Maintenance Due Date Last Done Comments Adult Wellness Visit 10/24/2021 10/24/2020 Depression Screening 10/24/2021 10/24/2020 Zoster Vaccines (2 of 2) 05/15/2022 03/20/2022 Diabetic Foot Exam 03/12/2024 03/12/2023, 0 10/24/2020, 02/23/2019, Additional history exists COVID-19 Vaccine ( season) 2024 02/21/2024, 02/11/2023, 02/07/2021, Additional history exists Albumin/Creatinine Ratio 09/09/2024 025, 09/10/2023, 01/24/2022, Additional history exists HbA1c 09/13/2024 03/15/2024, 08/13, 03/12/2023, Additional history exists Diabetic Eye Exam 11/01/2024 10/20/2019, , 02/13/2012 Postponed from 10/19/2020 (Acute Illness) Colonoscopy 01/15/2025 01/15/2023, 09/12, 10/01/2019, Additional history exists DTap/Tdap Vaccines (2 - Td or Tdap) 05/02/2025 05/02/2015 GFR 07/01/2025 07/01/2024, 08/13, 09/04/2022, Additional history exists DXA Scan 11/21/2026 11/22/2019, [...] this encounter Medical Devices Implanted Type Area Harbor Pilot Device Identifier Shelf Expiration Date Model / Serial / Lot Lens Intraoc 22.0 - [id number] - [id number] Implanted:Qty: 1 on 06/02/2018 by Wili Farmer MD at [facility] Right: Eye [employer] 12/12/2022 [id number] / [id number] / [id number] documented as of this encounter Care Teams Drawing In Hand Relationship Specialty Start Date End Date Jian Escalante MD [address] [facility] [place] [address] PCP - General Family Medicine 07/29/20 documented as of this encounter
--- OUTSIDE RECORDS SUMMARY | 2024-07-15 08:53 | External Medical Summary | Summary of Care ---
Author Name Unknown Organization [facility] Address [address] [place] [address] Phone [phone] Care Team Providers Care Rags Laborer Name Role Phone Jian Escalante MD Primary Care Provider [phone] Encounter Details Date Type Department Care Team ([facility] Contact Info) Description 07/12/2024 Telephone Family Practice [facility] [address] [facility] [place] [facility] [place] [address] Lucretia Pride CRNP [address] [facility] [address] Allergies Active Allergy Reactions Criticality Noted Date Comments Metformin Nausea/vomiting 11/14/2011 Tramadol Nausea/vomiting 11/14/2011 documented as of this encounter (statuses as of 07/13/2024) Medications Glucose Blood (ONETOUCH ULTRA BLUE) STRP [...] as of this encounter (statuses as of 07/13/2024) Active Problems Problem Noted Date Diagnosed Date [...] USE AGREEMENT 09/29/2012 Overview (01/05/2015): Managed by [employer]. To view the Medication Usage Agreement, go to Action, Patient Files. Signed 05/17/[address] Dyslipidemia 11/06/2011 Type 2 diabetes mellitus wit h hemoglobin A1c goal of less than 8.0% 11/06/2011 Overview (08/08/2015): ICD-10 update of inactive term documented as of this encounter (statuses as of 07/13/2024) Resolved Problems Problem Noted Date Diagnosed Date [...] as of this encounter (statuses as of 07/13/2024) Immunizations Name Administration Dates Next Due COVID-19 [...] encounter Miscellaneous Notes * Telephone Encounter - Milagro Wells LPN - 07/13/2024 8:43 AM EDT Called pts -- gave message below, voiced understanding * Telephone Encounter - Lucretia Pride CRNP - 07/12/2024 7:12 PM EDT Please call patient or that her head CT was normal. documented in this encounter Plan of Treatment Upcoming Encounters Date Type Department Care Team (Late st Contact Info) Description 10/12/2024 4:00 PM EDT Office Visit Family Practice [facility] [address] [place] [address] Jian Escalante MD [address] [place] [address] 02/11/2025 9:00 AM EDT Office Visit [facility] [address] [facility] [id number] Charlotte Malave, DO [address] [facility] [place] [id number] Health Maintenance Due Date Last Done Comments [...] Additional history exists DXA Scan 11/21/2026 11/22/2019, 07/05/2012, 10/13/2012, Additional history exists Pneumococcal Vaccine: 50+ [...] this encounter Medical Devices Implanted Type Area Draw Tender Device Identifier Shelf Expiration Date Model / Serial / Lot Lens Intraoc 22.0 - [id number] - [id number] Implanted:Qty: 1 on 06/02/2018 by Wili Farmer MD at OR [facility] Right: Eye [employer]OM[employer] 12/12/2022 [id number] / [id number] / [id number] documented as of this encounter Care Teams Rags Laborer Relationship Specialty Start Date End Date Jian Escalante MD [address] [place] [address] PCP - General Family Medicine 07/29/20 documented as of this encounter
--- OUTSIDE RECORDS SUMMARY | 2024-07-15 08:53 | External Medical Summary | Summary of Care ---
Author Name Unknown Organization [facility] Address [address] [place] [address] Phone [phone] Care Team Providers Care Tube Pusher Name Role Phone Jian Escalante MD Primary Care Provider [phone] Reason for Visit * Reason Onset Date Comments Follow Up 07/13/2024 Encounter Details Date Type Department Care Team ([facility] Contact Info) Description 07/13/2024 Telephone Dermatology, Isauro Eaton [address] [place] [facility] [address] [place] [address] [address] Lita Villanueva PA-C [address] [place] [address] [address] Follow Up Allergies Active Allergy Reactions Criticality Noted Date Comments Metformin Nausea/vomiting 11/14/2011 Tramadol Nausea/vomiting 11/14/2011 documented as of this encounter (statuses as of 07/13/2024) Medications Glucose Blood (NanoMedex PharmaceuticalsTOUCH ULTRA BLUE) STRP Test blood sugars once [...] encounter Miscellaneous Notes * Telephone Encounter - Lita Villanueva PA-C [...] 4:00 PM EDT Office Visit Family Practice [facility] [address] [place] [address] Jian Escalante MD [address] [place] [address] 02/11/2025 9:00 AM EDT Office Visit Neurology [facility] [address] [place] [address] Charlotte Malave, [address] [facility] [address] Health Maintenance Due Date Last Done Comments [...] this encounter Medical Devices Implanted Type Area Animal Tech Device Identifier Shelf Expiration Date Model / Serial / Lot Lens Intraoc 22.0 - [id number] - [id number] Implanted:Qty: 1 on 06/02/2018 by Wili Farmer MD at OR [facility] Right: Eye [employer]OM[employer] 12/12/2022 [id number] / [id number] / [id number] documented as of this encounter Care Teams Tube Pusher Relationship Specialty Start Date End Date Jian Escalante MD [address] [facility] [place] [address] PCP - General Family Medicine 07/29/20 documented as of this encounter
--- OUTSIDE RECORDS SUMMARY | 2024-07-15 08:53 | External Medical Summary | Summary of Care ---
Author Name Unknown Organization [facility] Address [address] [place] [address] Phone [phone] Care Team Providers Care Full Stack Php Developer Name Role Phone Jian Escalante MD Primary Care Provider [phone] [phone] Reason for Referral * Precert (Within 10 days (routine)) - Authorized Specialty Diagnoses / Procedures Referred By Contac t Referred To Contact Radiology Diagnoses Fall, initial encounter Procedures CT HEAD/BRAIN WO CONTRAST CT HEAD/BRAIN WO CONTRAST Lucretia Pride CRNP [address] [place] [address] Phone: tel: fax: Referral ID Status Reason Start Date Expiration Date V isits Requested Visits Authorized [id number] Authorized 07/12/2024 [id number] Reason for Visit * Reason Comments Acute Fell twice yesterday , bruises on nose, stomach/ribs, knee. Has fallen many times but has never gotten injured. Encounter Details Date Type Department Care Team ([facility] Contact Info) Description 07/12/2024 10:20 AM EDT Office Visit Family Practice [facility] [address] [place] [address] Lucretia Pride CRNP [address] [place] [address] Fall, initial encounter*; Claudication of both lower extremities (HCC); Memory loss; Chronic pain syndrome Allergies Active Allergy Reactions Criticality Noted Date Comments Metformin Nausea/vomiting 11/14/2011 Tramadol Nausea/vomiting 11/14/2011 documented as of this encounter (statuses as of 07/12/2024) Medications Glucose Blood (PostSharp TechnologiesUCH ULTRA BLUE) STRP Test blood sugars once [...] in the morning. Every morning.. 90 Capsule 5 Active Potassium Chloride Fara ER 20 [...] as of this encounter (statuses as of 07/12/2024) Active Problems Problem Noted Date Diagnosed Date [...] to Action, Patient Files. Signed 05/17/14 [facility] Dyslipidemia 11/06/2011 Type 2 diabetes mellitus wit h hemoglobin A1c goal of less than 8.0% 11/06/2011 Overview (08/08/2015): ICD-10 update of inactive term documented as of this encounter (statuses as of 07/12/2024) Resolved Problems Problem Noted Date Diagnosed Date [...] as of this encounter (statuses as of 07/12/2024) Immunizations Name Administration Dates Next Due COVID-19 [...] on file documented as of this encounter Last Filed Vital Signs Vital Sign Reading Time Taken Comments Blood Pressure 124/76 07/12/2024 10:09 AM EDT Pulse 78 07/12/2024 10:09 AM EDT Temperature - - Respiratory Rate - - Oxygen Saturation 92% 07/12/2024 10: 09 AM EDT Inhaled Oxygen Concentration - - Weight 67.1 kg (147 lb 14.4 oz) 025 10:09 AM EDT Height 144.8 cm (4' 9") 07/12/2024 10:0 9 AM EDT Body Mass Index 32.01 07/12/2024 10:09 AM EDT documented in this encounter Progress Notes * Lucretia Pride CRNP - 07/12/2024 11:06 AM EDT Images from the original note were not included. Subjective Annie Amin is a 79 year old female that presents for acute. History of Present Illness The patient, with a history of frequent falls, presents with her after two falls the previous day. The first fall [facility] while she was trying to straighten an area rug. She bent over and fell face- first onto the flat surface, with no attempt to break the fall with her arms. This resulted in a facial injury. The second fall happened later in the day when she was leaving her daughter's house. She fell down two steps, resulting in a bruise on her side. The patient's reports that she has fallen many times over the years, but the falls have never beenserious. She reports pain on her side where the bruise is, but no other pain. She denies any chest pain or shortness of breath, double vision, or headache. Objective BP 124/76 (BP Site: Left Arm, BP Position: Sitting, BP Cuff Size: Regular) | Pulse 78 | Ht 4' 9" (1.448 m) | Wt 147 lb 14.4 oz (67.1 kg) | SpO2 92% | BMI 32.01 kg/m² | BSA 1.64 m² Physical Exam SKIN: Bruise on side, tender to touch. Open area on side with bleeding. Physical Exam Constitutional: Appearance: Normal appearance. HENT: Head: Normocephalic. Cardiovascular: Rate and Rhythm: Normal rate and regular rhythm. Pulmonary: Effort: Pulmonary effort is normal. Breath sounds: Normal breath sounds. Musculoskeletal: Cervical back: Neck supple. Skin: General: Skin is warm. Findings: Bruising present. Comments: Small skin tear on right knee Neurological: Mental Status: She is alert. Mental status is at baseline. Psychiatric: Mood and Affect: Mood normal. Results Assessment and Plan Assessment & Plan 1. Fall, initial encounter (Primary) - CT HEAD/BRAIN WO CONTRAST 2. Claudication of both lower extremities (HCC) On cilostazol 3. Memory loss Aricept 4. Chronic pain syndrome Managed by pcp Wrap-Up Follow Up: Return in about 3 months (around 10/11/2024) for follow up with Ava . | For: follow up with Ava Text in this note was generated using an [employer] documentation service. I discussed the use of a device to record and summarize our discussion today. All persons present during the encounter consented to its use. documented in this encounter Nursing Notes * Mercedes Pagan CMA - 07/12/2024 10:09 AM EDT The patient has been properly identified by confirmation of name and date of . Chief Complaint Patient presents with Acute Fell twice yesterday, bruises on nose, stomach/ribs, knee. Has fallen many times but has never gotten injured. documented in this encounter Plan of Treatment Upcoming Encounters Date Type Department Care Team (Late st Contact Info) Description 10/12/2024 4:00 PM EDT Office Visit [address] [place] [address] Jian Escalante MD [address] [place] [address] 02/11/2025 9:00 AM EDT Office Visit Neurology [facility] [place] [address] [facility] [address] Charlotte Malave, DO [address] [facility] [address] Health Maintenance Due Date Last Done Comments [...] Additional history exists DXA Scan 11/21/2026 11/22/2019, 07/0 05/2012, 10/13/2012, Additional history exists Pneumococcal Vaccine: [...] this encounter Medical Devices Implanted Type Area Peanut Salter Device Identifier Shelf Expiration Date Model / Serial / Lot Lens Intraoc 22.0 - [id number] - [id number] Implanted:Qty: 1 on 06/02/2018 by Wili Farmer MD at OR [facility] Right: Eye [employer]OM[employer] 12/12/2022 [id number] / [id number] / [id number] documented as of this encounter Procedures Procedure Name Priority Date/Time Associated Diagnosis Comments CT HEAD/BRAIN WO CONTRAST STAT 07/12/2024 1:08 PM EDT Fall, initial encounter documented in this encounter Results * CT HEAD/BRAIN WO CONTRAST (07/12/2024 1:08 PM EDT) Anatomical Region Laterality Modality Head Computed Tomogra phy 07/12/2024 1:51 PM EDT Narrative 07/12/2024 1:48 PM EDT EXAM: CT BRAIN WITHOUT CONTRAST HISTORY: Fall on face, on cilostazol COMPARISON: CT head dated 01/27/2024 TECHNIQUE: CT brain without contrast was performed. FINDINGS: Ventricles and sulci are symmetric, but enlarged. There is no acute hemorrhage or space-occupying lesion. No mass effect or midline shift. The avalos-white differentiation is maintained. There is no CT evidence of acute large vascular territory infarct. Patchy periventricular and subcortical white matter hypodensities are nonspecific but likely the sequela chronic microvascular ischemic change. No extra-axial collection is identified. The visualized paranasal sinuses are clear. The mastoid air cells are clear bilaterally. The calvarium is intact. IMPRESSION: No CT evidence of acute intracranial abnormality. Procedure Note Matheus Solo MD - 07/12/2024 EXAM: CT BRAIN WITHOUT CONTRAST HISTORY: Fall on face, on cilostazol COMPARISON: CT head dated 01/27/2024 TECHNIQUE: CT brain without contrast was performed. FINDINGS: Ventricles and sulci are symmetric, but enlarged. There is no acutehemorrhage or space-occupying lesion. No mass effect or midline shift.The avalos-white differentiation is maintained. There is no CT evidence ofacute large vascular territory infarct. Patchy periventricular andsubcortical white matter hypodensities are nonspecific but likely thesequela chronic microvascular ischemic change. No extra-axial collectionis identified. The visualized paranasal sinuses are clear. The mastoid air cells areclear bilaterally. The calvarium is intact. IMPRESSION: No CT evidence of acute intracranial abnormality. Lucretia HAYS RAD CT Final Result documented in this encounter Visit Diagnoses Diagnosis Fall, initial encounter- Primary Claudication of both lower extremities (HCC) Memory loss Chronic pain syndrome documented in this encounter Care Teams Full Stack Php Developer Relationship Specialty Start Date End Date Jian Escalante MD [address] [place] [address] PCP - General Family Medicine 07/29/20 documented as of this encounter
--- OUTSIDE RECORDS SUMMARY | 2024-07-15 08:53 | External Medical Summary | Summary of Care ---
Author Name Unknown Organization [facility] Address [address] [place] [address] Phone [phone] Care Team Providers Care Chemical Etch Operator Name Role Phone Jian Escalante MD Primary Care Provider [phone] [phone] Encounter Details Date Type Department Care Team ([facility] st Contact Info) Description 07/02/2024 Refill Family Practice [facility] [address] [place] [place] [address] Jian Escalante MD [address] [place] [facility] [place] [address] Low blood potassium*; Dyslipidemia, goal LDL below 100 Allergies Active Allergy Reactions Criticality Noted Date Comments Metformin Nausea/vomiting 11/14/2011 Tramadol Nausea/vomiting 11/14/2011 documented as of this encounter (statuses as of 07/05/2024) Medications Glucose Blood (ONETOUCH ULTRA BLUE) STRP [...] the morning.. 90 Tablet 1 5 Active hydroCHLOROthiaz bev 25 MG [...] dementia 10/03/2023 Claudication of both lower extremities Chronic pain syndrome 01/30/2022 Obesity, Class I, BMI 30.0-34.9 (see actual BMI) 07/27/2021 Gastroesophageal reflux disease without esophagi tis 01/31/2021 Spinal stenosis of lumbar re gion with neurogenic claudication 09/30/2017 HTN, goal below 130/80 09/25/2015 Overview: Per HTN Protocol MEDICATION USE AGREEMENT 09/29/2012 Overview (01/05/2015): Managed by [employer]. To view the Medication Usage Agreement, go to Action, Patient Files. Signed 05/17/14 Angela Amaro Dyslipidemia 11/06/2011 Type 2 diabetes mellitus [...] encounter Miscellaneous Notes * Telephone Encounter - Margarita Cole LPN - 07/05/2024 10:42 AM EDT Called and spoke with pts , aware of message Pt does need 2 refill, pended. Scheduling, please assist pt with appt for follow up with PCP to discuss possible med change * Telephone Encounter - Jian Escalante MD - 07/02/2024 8:47 AM EDT Start potassium chloride. Sent to pharmacy. Repeat blood work in 1 week. Orders placed. documented in this encounter Plan of Treatment Upcoming Encounters Date Type Department Care Team (Late st Contact Info) Description 02/11/2025 9:00 AM EDT Office Visit Neurology [facility] [address] [place] [address] Charlotte Malave, DO [address] [place] [address] Scheduled Orders Name Type Priority Associated Diagnoses Orde r Schedule BASIC METABOLIC PANEL Lab Routine Low blood potassium Expected: 07/02/2024 (Approximate), Expires: 07/02/2025 Health Maintenance Due Date Last Done Comments Adult Wellness Visit 10/24/2021 10/24/2020 Depression Screening 10/24/2021 10/24/2020 Zoster Vaccines (2 of 2) 05/15/2022 03/20/2022 Diabetic Foot Exam 03/12/2024 03/12/2023, 0 10/24/2020, 02/23/2019, Additional history exists COVID-19 Vaccine ( season) 2024 02/21/2024, 02/11/2023, 02/07/2021, Additional history exists Albumin/Creatinine Ratio 09/09/202407/05/2 025, 09/10/2023, 01/24/2022, Additional history exists HbA1c [...] this encounter Medical Devices Implanted Type Area Repeater Chief Device Identifier Shelf Expiration Date Model / Serial / Lot Lens Intraoc 22.0 - [id number] - [id number] Implanted:Qty: 1 on 06/02/2018 by Wili Farmer MD at OR [facility] Right: Eye [employer]OMB 12/12/2022 [id number] / [id number] / [id number] documented as of this encounter Visit Diagnoses Diagnosis Low blood potassium- Primary Hypopotassemia Dyslipidemia, goal LDL below 100 Other and unspecified hyperlipidemia documented in this encounter Care Teams Chemical Etch Operator Relationship Specialty Start Date End Date Jian Escalante MD [address] [place] [address] PCP - General Family Medicine 07/29/20 documented as of this encounter
--- OUTSIDE RECORDS SUMMARY | 2024-07-15 08:53 | External Medical Summary | Summary of Care ---
Author Name Unknown Organization [facility] Address [address] [place] [address] Phone [phone] Care Team Providers Care Grill Attendant Name Role Phone Jian Escalante MD Primary Care Provider [phone] [phone] Reason for Visit * Reason Onset Date Comments Follow Up 07/13/2024 Encounter Details Date Type Department Care Team ([facility] Contact Info) Description 07/13/2024 Telephone Dermatology, Isauro [place] [address] [place] [facility] [address] [place] [address] [address] Lita Villanueva PA-C [address] [place] [address] [address] Follow Up Allergies Active Allergy Reactions Criticality Noted Date Comments Metformin Nausea/vomiting 11/14/2011 Tramadol Nausea/vomiting 11/14/2011 documented as of this encounter (statuses as of 07/13/2024) Medications Glucose Blood (FAB BAGTOUCH ULTRA BLUE) STRP Test blood sugars once [...] encounter Miscellaneous Notes * Telephone Encounter - Desiree Sanchez LPN - 07/13/2024 10:46 AM EDT Message left for patient to return call to let us know how she is doing. Transfer to [facility]. * Telephone Encounter - Lita Villanueva PA-C [...] 10/12/2024 4:00 PM EDT Office Visit Family [facility] [address] [place] [address] Jian Escalante MD [address] [place] [address] 02/11/2025 9:00 AM EDT Office Visit Neurology [facility] [address] [facility] [address] Charlotte Malave, DO [address] [place] [facility] [address] Health Maintenance Due Date Last Done Comments [...] this encounter Medical Devices Implanted Type Area Armature [employer] Device Identifier Shelf Expiration Date Model / Serial / Lot Lens Intraoc 22.0 - [id number] - [id number] Implanted:Qty: 1 on 06/02/2018 by Wili Farmer MD at OR [facility] Right: Eye BAUSCH [employer] LOMB 12/12/2022 [id number] / [id number] / [id number] documented as of this encounter Care Teams Grill Attendant Relationship Specialty Start Date End Date Jian Escalante MD [address] [place] [address] PCP - General Family Medicine 07/29/20 documented as of this encounter
--- OUTSIDE RECORDS SUMMARY | 2024-07-15 08:54 | External Medical Summary | Summary of Care ---
Author Name Unknown Organization [facility] Address [address] [place] [address] Phone [phone] Care Team Providers Care Ward Nurse Name Role Phone Jian Escalante MD Primary Care Provider [phone] Reason for Visit * Reason Comments Outpatient Testing Encounter Details Date Type Department Care Team ([facility] st Contact Info) Description 07/01/2024 11:50 AM EDT Laboratory Laboratory, [facility] [address] [place] [address] [facility] [address] [place] [address] [email or web address] Other*[id number]; Type 2 diabetes mellitus with hemoglobin A1c goal of less than 8.0% ([facility]); HTN, goal below 130/80; Abnormal CBC; Mild dementia without behavioral disturbance, psychotic disturbance, mood disturbance, or anxiety, unspecified dementia type ([facility]) Allergies Active Allergy Reactions Criticality Noted Date Comments Metformin Nausea/vomiting 11/14/2011 Tramadol Nausea/vomiting 11/14/2011 documented as of this encounter (statuses as of 07/01/2024) Medications Glucose Blood ([employer] CorpTOUCH ULTRA BLUE) STRP Test blood sugars once [...] IN THE MORNING. 90 Tablet 1 5 Active Rosuvastatin Calcium 20 MG Oral Tablet (Crestor)Indicat ions:Dyslipidemi a, goal LDL below 100 TAKE 1 TABLET BY MOUTH IN THE MORNING. IN THE MORNING.. 90 Tablet 1 5 Active documented as of this encounter (statuses as of 07/01/2024) Active Problems Problem Noted Date Diagnosed Date [...] Action, Patient Files. Signed 05/17/[address] [facility] [address] Dyslipidemia 11/06/2011 Type 2 diabetes mellitus wit h hemoglobin A1c goal of less than 8.0% 11/06/2011 Overview (08/08/2015): ICD-10 update of inactive term documented as of this encounter (statuses as of 07/01/2024) Resolved Problems Problem Noted Date Diagnosed Date [...] as of this encounter (statuses as of 07/01/2024) Immunizations Name Administration Dates Next Due COVID-19 [...] AM EDT Office Visit Neurology Jayce Pope [place] [address] [place] [address] Charlotte Malave, DO [address] [place] [address] Pending Results Name Type Priority Associated Diagnoses Date /Time MYCODE SUBSEQUENT ADULT Lab Routine [employer] Other*[id number] 07/01/2024 11:59 AM EDT URINALYSIS, REFLEX TO CULTURE (NOT FOR NEUTROPENIC PATIENTS) Lab Routine Mild dementia without behavioral disturbance, psychotic disturbance, mood disturbance, or anxiety, unspecified dementia type (HCC) Abnormal CBC 07/01/2024 11:59 AM EDT MYCODE SST1 Lab Routine [employer] Other*[id number] 07/01/2024 11:59 AM EDT MYCODE SST2 Lab Routine [employer] Other*[id number] 07/01/2024 11:59 AM EDT Scheduled Orders Name Type Priority Associated Diagnoses Orde r Schedule URINALYSIS, REFLEX TO CULTURE Lab Routine Mild dementia without behavioral disturbance, psychotic disturbance, mood disturbance, or anxiety, unspecified dementia type (HCC) Abnormal CBC Ordered: 07/01/2024 Health Maintenance Due Date Last Done Comments Adult Wellness Visit 10/24/2021 10/24/2020 Depression Screening 10/24/2021 10/24/2020 Zoster Vaccines (2 of 2) 05/15/2022 03/20/2022 Diabetic Foot Exam 03/12/2024 03/12/2023, 0 10/24/2020, 02/23/2019, Additional history exists COVID-19 Vaccine ( season) 2024 02/21/2024, 02/11/2023, 02/07/2021, Additional history exists Albumin/Creatinine Ratio 09/09/2024 024, 01/24/2022, 07/05/2017, Additional history exists HbA1c 09/13/2024 03/15/2024, 0512/2023, 03/12/2023, Additional history exists Diabetic Eye Exam [...] this encounter Medical Devices Implanted Type Area Access Spec Device Identifier Shelf Expiration Date Model / Serial / Lot Lens Intraoc 22.0 - [id number] - [id number] Implanted:Qty: 1 on 06/02/2018 by Wili Farmer MD at OR [facility] Right: Eye [employer] 12/12/2022 [id number] / [id number] / [id number] documented as of this encounter Procedures Procedure Name Priority Date/Time Associated Diagnosis Comments URINALYSIS, REFLEX TO CULTURE (CUP ONLY) Routine 07/01/2024 11:59 AM EDT Mild dementia without behavioral disturbance, psychotic disturbance, mood disturbance, or anxiety, unspecified dementia type (HCC) Abnormal CBC DIFFERENTIAL, AUTOMATED Routine 07/01/2024 11:59 AM EDT Abnormal CBC COMPREHENSIVE METABOLIC PANEL Routine 07/01/2024 11:59 AM EDT Type 2 diabetes mellitus with hemoglobin A1c goal of less than 8.0% (HCC) HTN, goal below 130/80 CBC Routine 07/01/2024 11:59 AM EDT Abnormal CBC CBC Routine 07/01/2024 11:59 AM EDT Abnormal CBC documented in this encounter Results * URINALYSIS, REFLEX TO CULTURE (CUP ONLY) (07/01/2024 11:59 AM EDT) Urinalysis, Reflex to Culture Specimen Specimen collected and received 07/01/2024 1:01 PM EDT [facility] Urine Urine specimen obtained by clean catch procedure / Unknown Non-blood Collection / Unknown 07/01/2024 11:59 AM EDT 07/01/2024 11:59 AM EDT us Leda Baez DO LAB URINE ORDERABLES Final Result Performing Organization Address City/State/[facility] Co de Phone Number LABORATORY [place] [address] [place] [address] * (ABNORMAL) DIFFERENTIAL, AUTOMATED (07/01/2024 11:59 AM EDT) WBC 14.06(H) 4.00 - 10.80 K/uL 07/01/2024 12:33 PM EDT LABORATORY [place] [facility]10 Neutrophils % 65.6 40.0 - 75.0 % 07/01/2024 12:33 PM EDT LABORATORY [place] [facility]10 Lymphocytes % 26.2 18.0 - 42.0 % 07/01/2024 12:33 PM EDT LAB[facility]ATORY [place] [facility]10 Monocytes % 7.5 1.0 - 11.0 % 07/01/2024 12:33 PM EDT LABORATORY [place] [facility]10 Eosinophils % 0.6 0.0 - 6.0 % 07/01/2024 12:33 PM EDT LABORATORY [place] [facility]10 Basophils % 0.1 0.0 - 2.0 % 07/01/2024 12:33 PM EDT LABORATORY [place] [facility]10 Absolute Neutrophils 9.21(H) 1.80 - 7.70 K/uL 07/01/2024 12:33 PM EDT LABORATORY [place] [facility]10 Absolute Lymphocytes 3.69 1.00 - 4.80 K/ul 07/01/2024 12:33 PM EDT LABORATORY [place] [facility]10 Absolute Monocytes 1.05 0.00 - 1.10 K/uL 07/01/2024 12:33 PM EDT LABORATORY [place] [facility]10 Absolute Eosinophils 0.09 0.00 - 0.70 K/uL 07/01/2024 12:33 PM EDT LABORATORY [place] [facility]10 Absolute Basophils 0.02 0.00 - 0.20 K/uL 07/01/2024 12:33 PM EDT LABORATORY [place] [facility]10 Blood Venous blood specimen / Unknown Venipuncture / Unknown 07/01/2024 11:59 AM EDT 07/01/2024 11:59 AM EDT Leda Baez DO LAB BLOOD ORDERABLES Final Result LABORATORY [place] [facility] [place] [address] * (ABNORMAL) CBC (07/01/2024 11:59 AM EDT) WBC 14.06(H) 4.00 - 10.80 K/uL 07/01/2024 12:33 PM EDT LABORATORY [place] 57[facility]10 RBC 5.01 3.85 - 5.15 M/uL 07/01/2024 12:33 PM EDT [facility] HGB 16.1(H) 12.0 - 15.3 g/dL 07/01/2024 12:33 PM EDT [facility] HCT 45.6(H) 36.0 - 45.2 % 07/01/2024 12:33 PM EDT [facility] MCV 91.0 81.5 - 97.5 fL 07/01/2024 12:33 PM EDT LABORATORY [place] 57[facility]10 MCH 32.1 27.0 - 34.0 pg 07/01/2024 12:33 PM EDT LABORATORY [place] 57[facility]10 MCHC 35.3 32.0 - 36.0 g/dL 07/01/2024 12:33 PM EDT LABORATORY [place] 5710 RDW 13.6 11.5 - 15.5 % 07/01/2024 12:33 PM EDT LABORATORY [place] 57-10 PLT 343 140 - 400 K/uL 07/01/2024 12:33 PM EDT LABORATORY [place] 5710 MPV 9.6 6.6 - 11.1 fL 07/01/2024 12:33 PM EDT LAB[facility]ORY [place] [facility] Blood Venous blood specimen / Unknown Venipuncture / Unknown 07/01/2024 11:59 AM EDT 07/01/2024 11:59 AM EDT us Leda Baez DO LAB BLOOD ORDERABLES Final Result LABORATORY [place] [address] [address] [place] [address] * (ABNORMAL) COMPREHENSIVE METABOLIC PANEL (07/01/2024 11:59 AM EDT) BUN 14 6 - 20 mg/dL 07/01/2024 1:22 PM EDT LAB[facility]ATORY [place] [facility] CREATININE 0.9 0.5 - 1.0 mg/dL 07/01/2024 1:22 PM EDT LABORATORY [place] 5710 EGFR 68 >=60 mL/min 07/01/2024 1:22 PM EDT LABORATORY [place] 5710 Comment:eGFR is calculated b ased on the CKD-EPI 2020 equation. SODIUM 140 135 - 146 mmol/L 07/01/2024 1:22 PM EDT LABORATORY [place] 57-10 POTASSIUM 3.0(L) 3.5 - 5.1 mmol/L 07/01/2024 1:22 PM EDT LABORATORY [place] [facility]10 CHLORIDE 96(L) 98 - 107 mmol/L 07/01/2024 1:22 PM EDT LABORATORY [place] 5710 CO2 27 22 - 32 mmol/L 07/01/2024 1:22 PM EDT LABORATORY [place] [facility]10 ANION GAP 17(H) 7 - 15 mmol/L 07/01/2024 1:22 PM EDT LABORATORY [place] [facility]10 GLUCOSE 281(H) 70 - 120 mg/dL 07/01/2024 1:22 PM EDT LABORATORY [place] [facility]10 Albumin 4.3 3.8 - 5.0 g/dL 07/01/2024 1:22 PM EDT LABORATORY [place] [facility]10 AST 34 10 - 35 U/L 07/01/2024 1:22 PM EDT LABORATORY [place] [facility]10 Alkaline Phosphatase 40 35 - 130 U/L 07/01/2024 1:22 PM EDT LABORATORY [place] [facility]10 Bilirubin, Total 0.5 <=1.2 mg/dL 07/01/2024 1:22 PM EDT LABORATORY [place] [facility]10 CALCIUM 10.4(H) 8.4 - 10.2 mg/dL 07/01/2024 1:22 PM EDT LAB[facility]ATORY [place] [facility]10 Protein 6.8 6.0 - 8.3 g/dL 07/01/2024 1:22 PM EDT LABORATORY [place] [facility]10 ALT 43(H) 10 - 35 U/L 07/01/2024 1:22 PM EDT LABORATORY [place] [facility]10 Blood Venous blood specimen / Unknown Venipuncture / Unknown 07/01/2024 11:59 AM EDT 07/01/2024 11:59 AM EDT us Zayda Buckner [facility] LAB BLOOD ORDERABLES Final Resul t LABORATORY [place] [facility] [place] [address] documented in this encounter Visit Diagnoses Diagnosis MyCode Research Other*[id number] Type 2 diabetes mellitus with hemoglobin A1c goal of less than 8.0% (HCC) HTN, goal below 130/80 Unspecified essential hypertension Abnormal CBC Other abnormal blood chemistry Mild dementia without behavioral disturbance, psychotic disturbance, mood disturbance, or anxiety, unspecified dementia type (HCC) documented in this encounter Care Teams Ward Nurse Relationship Specialty Start Date End Date Jian Escalante MD [address] [place] [address] PCP - General Family Medicine 07/29/20 documented as of this encounter
--- OUTSIDE RECORDS SUMMARY | 2024-07-15 08:54 | External Medical Summary | Summary of Care ---
Author Name Unknown Organization [facility] Address [address] [place] [address] Phone [phone] Care Team Providers Care Mails Supervisor Name Role Phone Jian Escalante MD Primary Care Provider [phone] Reason for Visit * Reason Comments Outpatient Testing Encounter Details Date Type Department Care Team ([facility] st Contact Info) Description 07/01/2024 11:50 AM EDT Laboratory Laboratory, [facility] [address] [place] [address] [facility] [address] [place] [address] [employer] Other*[id number]; Type 2 diabetes mellitus with hemoglobin A1c goal of less than 8.0% ([facility]); HTN, goal below 130/80; Abnormal CBC; Mild dementia without behavioral disturbance, psychotic disturbance, mood disturbance, or anxiety, unspecified dementia type ([facility]) Allergies Active Allergy Reactions Criticality Noted Date Comments Metformin Nausea/vomiting 11/14/2011 Tramadol Nausea/vomiting 11/14/2011 documented as of this encounter (statuses as of 07/01/2024) Medications Glucose Blood (hotelsmap.comTOUCH ULTRA BLUE) STRP Test blood sugars once [...] AM EDT Office Visit Neurology Jayce Pope [place] [address] [facility] [address] Charlotte Malave, DO [address] [place] [address] Pending Results Name Type Priority Associated Diagnoses Date /Time MYCODE SUBSEQUENT ADULT Lab Routine MyCode Research Other*[id number] 07/01/2024 11:59 AM EDT URINALYSIS, REFLEX TO CULTURE (NOT FOR NEUTROPENIC PATIENTS) Lab Routine Mild dementia without behavioral disturbance, psychotic disturbance, mood disturbance, or anxiety, unspecified dementia type (HCC) Abnormal CBC 07/01/2024 11:59 AM EDT MYCODE SST1 Lab Routine [employer] Other*[id number] 07/01/2024 11:59 AM EDT MYCODE SST2 Lab Routine [employer] Other*[id number] 07/01/2024 11:59 AM EDT Scheduled Orders Name [...] this encounter Medical Devices Implanted Type Area Lemon Grower Device Identifier Shelf Expiration Date Model / Serial / Lot Lens Intraoc 22.0 - [id number] - [id number] Implanted:Qty: 1 on 06/02/2018 by Wili Farmer MD at OR [facility] Right: Eye [employer] 12/12/2022 [id number] / [id number] / [id number] documented as of this encounter Procedures Procedure [...] and received 07/01/2024 1:01 PM EDT [facility] Urine Urine specimen obtained by clean catch procedure / Unknown Non-blood Collection / Unknown 07/01/2024 11:59 AM EDT 07/01/2024 11:59 AM EDT us Leda Baez DO LAB URINE ORDERABLES Final Result Performing Organization Address City/State/[facility] Co de Phone Number LABORATORY [place] [address] [place] [address] * (ABNORMAL) DIFFERENTIAL, AUTOMATED (07/01/2024 11:59 AM [...] DO LAB BLOOD ORDERABLES Final Result LABORATORY [place] [address] [place] [address] * (ABNORMAL) CBC (07/01/2024 11:59 AM EDT) WBC 14.06(H) 4.00 - 10.80 K/uL 07/01/2024 12:33 PM EDT LABORATORY [place] [facility]10 RBC 5.01 3.85 - 5.15 M/uL 07/01/2024 12:33 PM EDT [facility] HGB 16.1(H) 12.0 - 15.3 g/dL 07/01/2024 12:33 PM EDT [facility] HCT 45.6(H) 36.0 - 45.2 % 07/01/2024 12:33 PM EDT [facility] MCV 91.0 81.5 - 97.5 fL 07/01/2024 12:33 PM EDT LABORATORY [place] 57-10 MCH 32.1 27.0 - 34.0 pg 07/01/2024 12:33 PM EDT LABORATORY [place] 57-10 MCHC 35.3 32.0 - 36.0 g/dL 07/01/2024 12:33 PM EDT LABORATORY [place] 5710 RDW 13.6 11.5 - 15.5 % 07/01/2024 12:33 PM EDT LABORATORY [place] 57-10 PLT 343 140 - 400 K/uL 07/01/2024 12:33 PM EDT LABORATORY [place] 5710 MPV 9.6 6.6 - 11.1 fL 07/01/2024 12:33 PM EDT LAB[facility]ORY [place] [facility] Blood Venous blood specimen / Unknown Venipuncture / Unknown 07/01/2024 11:59 AM EDT 07/01/2024 11:59 AM EDT us Leda Baez DO LAB BLOOD ORDERABLES Final Result LABORATORY [place] [address] [address] [place] [address] * (ABNORMAL) COMPREHENSIVE METABOLIC PANEL (07/01/2024 11:59 AM EDT) BUN 14 6 - 20 mg/dL 07/01/2024 1:22 PM EDT LABORATORY [place] [facility] CREATININE 0.9 0.5 - 1.0 mg/dL 07/01/2024 1:22 PM EDT LABORATORY [place] 5710 EGFR 68 >=60 mL/min 07/01/2024 1:22 PM EDT LABORATORY [place] 5710 Comment:eGFR is calculated b ased on the CKD-EPI 2020 equation. SODIUM 140 135 - 146 mmol/L 07/01/2024 1:22 PM EDT LABORATORY [place] [facility]-10 POTASSIUM 3.0(L) 3.5 - 5.1 mmol/L 07/01/2024 1:22 PM EDT LABORATORY [place] 57[facility]10 CHLORIDE 96(L) 98 - 107 mmol/L 07/01/2024 1:22 PM EDT LABORATORY [place] 5710 CO2 27 22 - 32 mmol/L [...] 07/01/2024 11:59 AM EDT us Zayda Buckner [facility] LAB BLOOD ORDERABLES Final Resul t LABORATORY [place] [facility] [place] [address] documented in this encounter Visit Diagnoses Diagnosis MyCode Research Other*[id number] Type 2 diabetes mellitus with hemoglobin A1c goal of less than 8.0% (HCC) HTN, goal below 130/80 Unspecified essential hypertension Abnormal CBC Other abnormal blood chemistry Mild dementia without behavioral disturbance, psychotic disturbance, mood disturbance, or anxiety, unspecified dementia type (HCC) documented in this encounter Care Teams Mails Supervisor Relationship Specialty Start Date End Date Jian Escalante MD [address] [place] [address] PCP - General Family Medicine 07/29/20 documented as of this encounter
--- OUTSIDE RECORDS SUMMARY | 2024-07-15 08:54 | External Medical Summary | Summary of Care ---
Author Name Unknown Organization [facility] Address [address] [place] [address] Phone [phone] Care Team Providers Care Outbound Telemarketer Name Role Phone Jian Escalante MD Primary Care Provider [phone] Reason for Visit * Reason Comments Outpatient Testing Encounter Details Date Type Department Care Team ([facility] st Contact Info) Description 07/01/2024 11:50 AM EDT Laboratory Laboratory, [facility] [address] [place] [address] [facility] [address] [place] [address] [employer] Other*[id number]; Type 2 diabetes mellitus with hemoglobin A1c goal of less than 8.0% ([facility]); HTN, goal below 130/80; Abnormal CBC; Mild dementia without behavioral disturbance, psychotic disturbance, mood disturbance, or anxiety, unspecified dementia type ([facility]) Allergies Active Allergy Reactions Criticality Noted Date Comments Metformin Nausea/vomiting 11/14/2011 Tramadol Nausea/vomiting 11/14/2011 documented as of this encounter (statuses as of 07/01/2024) Medications Glucose Blood ([employer] TechnologyTOUCH ULTRA BLUE) STRP Test blood sugars once [...] AM EDT Office Visit Neurology Jayce Pope [place] 200 [place] [address] Charlotte Malave, DO [address] [place] [address] Pending Results Name Type Priority Associated Diagnoses Date /Time MYCODE SUBSEQUENT ADULT Lab Routine My[employer] Research Other*[id number] 07/01/2024 11:59 AM EDT URINALYSIS, REFLEX TO CULTURE (NOT FOR NEUTROPENIC PATIENTS) Lab Routine Mild dementia without behavioral disturbance, psychotic disturbance, mood disturbance, or anxiety, unspecified dementia type (HCC) Abnormal CBC 07/01/2024 11:59 AM EDT MYCODE SST1 Lab Routine [employer] Other*[id number] 07/01/2024 11:59 AM EDT MYCODE SST2 Lab Routine [employer] Other*[id number] 07/01/2024 11:59 AM EDT Scheduled Orders Name [...] this encounter Medical Devices Implanted Type Area Human Service Technician Device Identifier Shelf Expiration Date Model / Serial / Lot Lens Intraoc 22.0 - [id number] - [id number] Implanted:Qty: 1 on 06/02/2018 by Wili Farmer MD at OR [facility] Right: Eye [employer] 12/12/2022 [id number] / [id number] / [id number] documented as of this encounter Procedures Procedure [...] and received 07/01/2024 1:01 PM EDT [facility] Urine Urine specimen obtained by clean catch procedure / Unknown Non-blood Collection / Unknown 07/01/2024 11:59 AM EDT 07/01/2024 11:59 AM EDT us Leda Baez DO LAB URINE ORDERABLES Final Result Performing Organization Address City/State/[facility] Co de Phone Number LABORATORY [place] [address] [place] [address] * (ABNORMAL) DIFFERENTIAL, AUTOMATED (07/01/2024 11:59 AM [...] DO LAB BLOOD ORDERABLES Final Result LABORATORY [place] [facility] [place] [address] * (ABNORMAL) CBC (07/01/2024 11:59 AM EDT) WBC 14.06(H) 4.00 - 10.80 K/uL 07/01/2024 12:33 PM EDT LABORATORY [place] 57-10 RBC 5.01 3.85 - 5.15 M/uL 07/01/2024 12:33 PM EDT [facility] HGB 16.1(H) 12.0 - 15.3 g/dL 07/01/2024 12:33 PM EDT [facility] HCT 45.6(H) 36.0 - 45.2 % 07/01/2024 12:33 PM EDT [facility] MCV 91.0 81.5 - 97.5 fL 07/01/2024 12:33 PM EDT LABORATORY [place] [facility]10 MCH 32.1 27.0 - 34.0 pg 07/01/2024 12:33 PM EDT LABORATORY [place] [facility]10 MCHC 35.3 32.0 - 36.0 g/dL 07/01/2024 12:33 PM EDT LABORATORY [place] 5710 RDW 13.6 11.5 - 15.5 % 07/01/2024 12:33 PM EDT LABORATORY [place] [facility]10 PLT 343 140 - 400 K/uL 07/01/2024 12:33 PM EDT LABORATORY [place] 5710 MPV 9.6 6.6 - 11.1 fL 07/01/2024 12:33 PM EDT LABORATORY [place] [facility] Blood Venous blood specimen / Unknown Venipuncture / Unknown 07/01/2024 11:59 AM EDT 07/01/2024 11:59 AM EDT us Leda Baez DO LAB BLOOD ORDERABLES Final Result LABORATORY [place] [address] [address] [place] [address] * (ABNORMAL) COMPREHENSIVE METABOLIC PANEL (07/01/2024 11:59 AM EDT) BUN 14 6 - 20 mg/dL 07/01/2024 1:22 PM EDT LABORATORY [place] [facility] CREATININE 0.9 0.5 - 1.0 mg/dL 07/01/2024 1:22 PM EDT LABORATORY [place] 5710 EGFR 68 >=60 mL/min 07/01/2024 1:22 PM EDT LABORATORY [place] 5710 Comment:eGFR is calculated b ased on the CKD-EPI 2020 equation. SODIUM 140 135 - 146 mmol/L 07/01/2024 1:22 PM EDT LABORATORY [place] 57-10 POTASSIUM 3.0(L) 3.5 - 5.1 mmol/L 07/01/2024 1:22 PM EDT LABORATORY [place] 57-10 CHLORIDE 96(L) 98 - 107 mmol/L 07/01/2024 1:22 PM EDT LABORATORY [place] 5710 CO2 27 22 - 32 mmol/L [...] 07/01/2024 11:59 AM EDT us Zayda Buckner [facility] LAB BLOOD ORDERABLES Final Resul t LABORATORY [place] [facility] [place] [address] documented in this encounter Visit Diagnoses Diagnosis MyCode Research Other*[id number] Type 2 diabetes mellitus with hemoglobin A1c goal of less than 8.0% (HCC) HTN, goal below 130/80 Unspecified essential hypertension Abnormal CBC Other abnormal blood chemistry Mild dementia without behavioral disturbance, psychotic disturbance, mood disturbance, or anxiety, unspecified dementia type (HCC) documented in this encounter Care Teams Outbound Telemarketer Relationship Specialty Start Date End Date Jian Escalante MD [address] [place] [address] PCP - General Family Medicine 07/29/20 documented as of this encounter
--- OUTSIDE RECORDS SUMMARY | 2024-07-15 08:54 | External Medical Summary ---
Author Name Unknown Address Unknown Organization K0G:LABORATORY [place] [address] [place] [address] Laboratory Report Ordering Provider Test Date Status CANDELARIA GARNICA 07/05/2024 12:21:27 Final Observation Date Value Abnormality Reference (Units ) Status Color of Urine by Auto 07/05/2024 12:21:27 Yellow Light Yellow, Yellow, Dark Yellow Final Clarity, Urine 07/05/2024 12:21:27 Clear Clear Final Glucose [Mass/volume] in Urine by Automated test strip 07/05/2024 12:21:27 100 Abnormal Negative (mg/dL) Final Bilirubin.total [Presence] in Urine by Automated test strip 07/05/2024 12:21:27 Negative Negative Final Ketones [Mass/volume] in Urine by Automated test strip 07/05/2024 12:21:27 Negative Negative (mg/dL) Final Specific gravity, Urine 07/05/2024 12:21:27 >=1.030 1.003-1.030 Final Hemoglobin [Presence] in Urine by Automated test strip 07/05/2024 12:21:27 Negative Negative Final pH, Urine 07/05/2024 12:21:27 5.5 5.0-7.5 (Units) Final Protein [Mass/volume] in Urine by Automated test strip 07/05/2024 12:21:27 Negative Negative (mg/dL) Final Urobilinogen [Mass/volume] in Urine by Automated test strip 07/05/2024 12:21:27 0.2 0.2, 1.0 (mg/dL) Final Nitrite [Presence] in Urine by Automated test strip 07/05/2024 12:21:27 Negative Negative Final Leukocyte esterase [Presence] in Urine by Automated test strip 07/05/2024 12:21:27 Negative Negative Final RBC, Urine 07/05/2024 12:21:27 0-2 0-2 (/HPF) Final WBC, Urine 07/05/2024 12:21:27 0-2 0-2 (/HPF) Final Bacteria [#/area] in Urine sediment by Microscopy high power field 07/05/2024 12:21:27 0-25 0-25 (/HPF) Final CULTURE, URINE - [facility] 07/05/2024 12:21:27 Final Culture not indicated by uri nalysis results\X09\ Performing Location LABORATORY [place] [facility] [facility] [address]
--- OUTSIDE RECORDS SUMMARY | 2024-07-15 08:54 | External Medical Summary | Summary of Care ---
Author Name Unknown Organization [facility] Address [address] [place] [address] Phone [phone] Care Team Providers Care Grounds Maintenance Manager Name Role Phone Jian Escalante MD Primary Care Provider [phone] [phone] Reason for Visit * Reason Comments Outpatient Testing Encounter Details Date Type Department Care Team ([facility] st Contact Info) Description 07/01/2024 11:50 AM EDT Laboratory Laboratory, [facility] [address] [place] [address] [facility] [address] [place] [address] [employer] Other*[id number]; Type 2 diabetes mellitus with hemoglobin A1c goal of less than 8.0% ([facility]); HTN, goal below 130/80; Abnormal CBC; Mild dementia without behavioral disturbance, psychotic disturbance, mood disturbance, or anxiety, unspecified dementia type ([facility]) Allergies Active Allergy Reactions Criticality Noted Date Comments Metformin Nausea/vomiting 11/14/2011 Tramadol Nausea/vomiting 11/14/2011 documented as of this encounter (statuses as of 07/01/2024) Medications Glucose Blood (BoxbeTOUCH ULTRA BLUE) STRP Test blood sugars once [...] AM EDT Office Visit Neurology Jayce Pope [place] [address] [facility] [place] [facility] [place] [address] Chralotte Malave, DO [address] [place] [address] Pending Results Name Type Priority Associated Diagnoses Date /Time MYCODE SUBSEQUENT ADULT Lab Routine MyCode Research Other*[id number] 07/01/2024 11:59 AM EDT URINALYSIS, REFLEX TO CULTURE (NOT FOR NEUTROPENIC PATIENTS) Lab Routine Mild dementia without behavioral disturbance, psychotic disturbance, mood disturbance, or anxiety, unspecified dementia type (HCC) Abnormal CBC 07/01/2024 11:59 AM EDT MYCODE SST1 Lab Routine [employer] Other*[id number] 07/01/2024 11:59 AM EDT MYCODE SST2 Lab Routine [employer] Other*[id number] 07/01/2024 11:59 AM EDT Scheduled Orders Name [...] this encounter Medical Devices Implanted Type Area Yeast Cake Cutter Device Identifier Shelf Expiration Date Model / Serial / Lot Lens Intraoc 22.0 - [id number] - [id number] Implanted:Qty: 1 on 06/02/2018 by Wili Farmer MD at OR [facility] Right: Eye [employer] 12/12/2022 [id number] / [id number] / [id number] documented as of this encounter Procedures Procedure [...] URINE ORDERABLES Final Result Performing Organization Address City/State/[facility] Co de Phone Number [facility]ATORY [place] [address] [place] [address] * (ABNORMAL) DIFFERENTIAL, AUTOMATED (07/01/2024 11:59 AM [...] DO LAB BLOOD ORDERABLES Final Result [facility] [place] [address] [place] [address] * (ABNORMAL) CBC (07/01/2024 11:59 AM EDT) WBC 14.06(H) 4.00 - 10.80 K/uL 07/01/2024 12:33 PM EDT [facility] [place] 57-10 RBC 5.01 3.85 - 5.15 M/uL 07/01/2024 12:33 PM EDT [facility] HGB 16.1(H) 12.0 - 15.3 g/dL 07/01/2024 12:33 PM EDT [facility] HCT 45.6(H) 36.0 - 45.2 % 07/01/2024 12:33 PM EDT [facility] MCV 91.0 81.5 - 97.5 fL 07/01/2024 12:33 PM EDT LAB[facility] [place] 57-10 MCH 32.1 27.0 - 34.0 pg 07/01/2024 12:33 PM EDT LAB[facility] [place] 57-10 MCHC 35.3 32.0 - 36.0 g/dL 07/01/2024 12:33 PM EDT [facility] [place] 5710 RDW 13.6 11.5 - 15.5 % 07/01/2024 12:33 PM EDT LAB[facility] [place] 57-10 PLT 343 140 - 400 K/uL 07/01/2024 12:33 PM EDT [facility] [place] 5710 MPV 9.6 6.6 - 11.1 fL 07/01/2024 12:33 PM EDT [facility] [place] [facility] Blood Venous blood specimen / Unknown Venipuncture / Unknown 07/01/2024 11:59 AM EDT 07/01/2024 11:59 AM EDT us Leda Baez DO LAB BLOOD ORDERABLES Final Result LAB[facility]ATORY [place] [address] [address] [place] [address] * (ABNORMAL) COMPREHENSIVE METABOLIC PANEL (07/01/2024 11:59 AM EDT) BUN 14 6 - 20 mg/dL 07/01/2024 1:22 PM EDT [facility] [place] [facility] CREATININE 0.9 0.5 - 1.0 mg/dL 07/01/2024 1:22 PM EDT LAB[facility] [place] 5710 EGFR 68 >=60 mL/min 07/01/2024 1:22 PM EDT LAB[facility] [place] 5710 Comment:eGFR is calculated b ased on the CKD-EPI 2020 equation. SODIUM 140 135 - 146 mmol/L 07/01/2024 1:22 PM EDT LAB[facility] [place] 57-10 POTASSIUM 3.0(L) 3.5 - 5.1 mmol/L 07/01/2024 1:22 PM EDT LAB[facility] [place] 57-10 CHLORIDE 96(L) 98 - 107 mmol/L 07/01/2024 1:22 PM EDT LAB[facility] [place] 5710 CO2 27 22 - 32 mmol/L [...] 07/01/2024 11:59 AM EDT us Zayda Buckner [facility] LAB BLOOD ORDERABLES Final Resul t LABORATORY [place] [address] [place] [address] documented in this encounter Visit Diagnoses Diagnosis MyCode Research Other*[id number] Type 2 diabetes mellitus with hemoglobin A1c goal of less than 8.0% (HCC) HTN, goal below 130/80 Unspecified essential hypertension Abnormal CBC Other abnormal blood chemistry Mild dementia without behavioral disturbance, psychotic disturbance, mood disturbance, or anxiety, unspecified dementia type (HCC) documented in this encounter Care Teams Grounds Maintenance Manager Relationship Specialty Start Date End Date Jian Escalante MD [address] [place] [address] PCP - General Family Medicine 07/29/20 documented as of this encounter
--- OUTSIDE RECORDS SUMMARY | 2024-07-15 08:55 | External Medical Summary | Summary of Care ---
Author Name Unknown Organization [facility] Address [address] [place] [address] Phone [phone] Care Team Providers Care Log Feeder Name Role Phone Jian Escalante MD Primary Care Provider [phone] Reason for Visit * Reason Comments Outpatient Testing Encounter Details Date Type Department Care Team ([facility] st Contact Info) Description 07/01/2024 11:50 AM EDT Laboratory Laboratory, [facility] [address] [place] [address] [facility] [address] [place] [address] [employer] Other*[id number]; Type 2 diabetes mellitus with hemoglobin A1c goal of less than 8.0% ([facility]); HTN, goal below 130/80; Abnormal CBC; Mild dementia without behavioral disturbance, psychotic disturbance, mood disturbance, or anxiety, unspecified dementia type ([facility]) Allergies Active Allergy Reactions Criticality Noted Date Comments Metformin Nausea/vomiting 11/14/2011 Tramadol Nausea/vomiting 11/14/2011 documented as of this encounter (statuses as of 07/01/2024) Medications Glucose Blood (Penthera PartnersTOUCH ULTRA BLUE) STRP Test blood sugars once [...] AM EDT Office Visit Neurology Jayce Pope [place] 200 [facility] [place] [address] Charlotte Malave, DO [address] [place] [address] Pending Results Name Type Priority Associated Diagnoses Date /Time MYCODE SUBSEQUENT ADULT Lab Routine MyCode Research Other*[id number] 07/01/2024 11:59 AM EDT URINALYSIS, REFLEX TO CULTURE (NOT FOR NEUTROPENIC PATIENTS) Lab Routine Mild dementia without behavioral disturbance, psychotic disturbance, mood disturbance, or anxiety, unspecified dementia type (HCC) Abnormal CBC 07/01/2024 11:59 AM EDT MYCODE SST1 Lab Routine [employer] Other*[id number] 07/01/2024 11:59 AM EDT MYCODE SST2 Lab Routine [employer] Other*[id number] 07/01/2024 11:59 AM EDT Scheduled Orders Name [...] this encounter Medical Devices Implanted Type Area Field Servicer Device Identifier Shelf Expiration Date Model / Serial / Lot Lens Intraoc 22.0 - [id number] - [id number] Implanted:Qty: 1 on 06/02/2018 by Wili Farmer MD at OR [facility] Right: Eye [employer] 12/12/2022 [id number] / [id number] / [id number] documented as of this encounter Procedures Procedure [...] and received 07/01/2024 1:01 PM EDT [facility] Urine Urine specimen obtained by clean catch procedure / Unknown Non-blood Collection / Unknown 07/01/2024 11:59 AM EDT 07/01/2024 11:59 AM EDT us Leda Baez DO LAB URINE ORDERABLES Final Result Performing Organization Address City/State/[place] Co de Phone Number [facility] [place] [address] [place] [address] * (ABNORMAL) DIFFERENTIAL, AUTOMATED (07/01/2024 11:59 AM [...] DO LAB BLOOD ORDERABLES Final Result [facility] [place] [address] [place] [address] * (ABNORMAL) CBC (07/01/2024 11:59 AM EDT) WBC 14.06(H) 4.00 - 10.80 K/uL 07/01/2024 12:33 PM EDT [facility] [place] 57-10 RBC 5.01 3.85 - 5.15 M/uL 07/01/2024 12:33 PM EDT [facility] HGB 16.1(H) 12.0 - 15.3 g/dL 07/01/2024 12:33 PM EDT [facility] HCT 45.6(H) 36.0 - 45.2 % 07/01/2024 12:33 PM EDT [facility] MCV 91.0 81.5 - 97.5 fL 07/01/2024 12:33 PM EDT LAB[facility] [place] 57-10 MCH 32.1 27.0 - 34.0 pg 07/01/2024 12:33 PM EDT LAB[facility] [place] 57-10 MCHC 35.3 32.0 - 36.0 g/dL 07/01/2024 12:33 PM EDT LAB[facility]ORY [place] 5710 RDW 13.6 11.5 - 15.5 % 07/01/2024 12:33 PM EDT LAB[facility]ATORY [place] 57-10 PLT 343 140 - 400 K/uL 07/01/2024 12:33 PM EDT LAB[facility] [place] 5710 MPV 9.6 6.6 - 11.1 fL 07/01/2024 12:33 PM EDT [facility] [place] [facility] Blood Venous blood specimen / Unknown Venipuncture / Unknown 07/01/2024 11:59 AM EDT 07/01/2024 11:59 AM EDT us Leda Baez DO LAB BLOOD ORDERABLES Final Result LABORATORY [place] [address] [address] [place] [address] * (ABNORMAL) COMPREHENSIVE METABOLIC PANEL (07/01/2024 11:59 AM EDT) BUN 14 6 - 20 mg/dL 07/01/2024 1:22 PM EDT [facility] [place] [facility] CREATININE 0.9 0.5 - 1.0 mg/dL 07/01/2024 1:22 PM EDT LAB[facility]ORY [place] 5710 EGFR 68 >=60 mL/min 07/01/2024 1:22 PM EDT LAB[facility]ORY [place] 5710 Comment:eGFR is calculated b ased on the CKD-EPI 2020 equation. SODIUM 140 135 - 146 mmol/L 07/01/2024 1:22 PM EDT LAB[facility] [place] 57-10 POTASSIUM 3.0(L) 3.5 - 5.1 mmol/L 07/01/2024 1:22 PM EDT LAB[facility] [place] 57-10 CHLORIDE 96(L) 98 - 107 mmol/L 07/01/2024 1:22 PM EDT LAB[facility] [place] 5710 CO2 27 22 - 32 mmol/L [...] 07/01/2024 11:59 AM EDT us Zayda Buckner [facility] LAB BLOOD ORDERABLES Final Resul t LABORATORY [place] [address] [place] [address] documented in this encounter Visit Diagnoses Diagnosis MyCode Research Other*[id number] Type 2 diabetes mellitus with hemoglobin A1c goal of less than 8.0% (HCC) HTN, goal below 130/80 Unspecified essential hypertension Abnormal CBC Other abnormal blood chemistry Mild dementia without behavioral disturbance, psychotic disturbance, mood disturbance, or anxiety, unspecified dementia type (HCC) documented in this encounter Care Teams Log Feeder Relationship Specialty Start Date End Date Jian Escalante MD [address] [place] [address] PCP - General Family Medicine 07/29/20 documented as of this encounter
--- OUTSIDE RECORDS SUMMARY | 2024-07-15 08:55 | External Medical Summary | Summary of Care ---
Author Name Unknown Organization [facility] Address [address] [place] [address] Phone [phone] Care Team Providers Care Fast Food Assistant Restaurant Manager Name Role Phone Jain Escalante MD Primary Care Provider [phone] [phone] Reason for Visit * Reason Onset Date Comments Test Results 07/01/2024 Encounter Details Date Type Department Care Team ([facility] Contact Info) Description 07/01/2024 Telephone Family Practice [facility] [address] [place] [address] Leda Baez DO [address] [facility] [place] [id number] Test Results Allergies Active Allergy Reactions Criticality Noted Date Comments Metformin Nausea/vomiting 11/14/2011 Tramadol Nausea/vomiting 11/14/2011 documented as of this encounter (statuses as of 07/01/2024) Medications Glucose Blood (ONETOUCH ULTRA BLUE) STRP [...] Action, Patient Files. Signed 05/17/14 [facility] [address] Dyslipidemia 11/06/2011 Type 2 [...] encounter Miscellaneous Notes * Telephone Encounter - Amber Diaz LPN - 07/01/2024 2:00 PM EDT Called and informed of test results and to repeat labs in a month. Will inform him of finalresults on urine tests once done. * Telephone Encounter - Leda Baez DO - 07/01/2024 1:02 PM EDT Please call Wbc remains elevated Will await urine studies But would recommend repeat blood test in 1 month Thank you documented in this encounter Plan of Treatment Upcoming Encounters Date Type Department Care Team (Late st Contact Info) Description 02/11/2025 9:00 AM EDT Office Visit Neurology Jayce Pope [place] [address] [place] [address] [place] Malave DO [address] [facility] [address] Scheduled Orders Name Type Priority Associated Diagnoses Orde r Schedule CBC WITH WBC DIFFERENTIAL Lab Routine Leukocytosis, unspecified type Expected: 08/01/2024 (Approximate), Expires: 07/01/2025 Health Maintenance Due Date Last Done Comments Adult Wellness Visit 10/24/2021 10/24/2020 Depression Screening 10/24/2021 10/24/2020 Zoster Vaccines (2 of 2) 05/15/2022 03/20/2022 Diabetic Foot Exam 03/12/2024 03/12/2023, 0 10/24/2020, 02/23/2019, Additional history exists COVID-19 Vaccine ( season) 2024 02/21/2024, 02/11/2023, 02/07/2021, Additional history exists Albumin/Creatinine Ratio 09/09/2024 024, 01/24/2022, 07/05/2017, Additional history exists HbA1c 09/13/2024 03/15/2024, 052 12/2023, 03/12/2023, Additional history exists Diabetic Eye [...] this encounter Medical Devices Implanted Type Area Engine Lathe Set Up Operator Device Identifier Shelf Expiration Date Model / Serial / Lot Lens Intraoc 22.0 - [id number] - [id number] Implanted:Qty: 1 on 06/02/2018 by Wili Farmer MD at OR [facility] Right: Eye [employer] 12/12/2022 [id number] / [id number] / [id number] documented as of this encounter Visit Diagnoses Diagnosis Leukocytosis, unspecified type- Primary documented in this encounter Care Teams Fast Food Assistant Restaurant Manager Relationship Specialty Start Date End Date Jian Esclaante MD [address] [facility] [place] [address] PCP - General Family Medicine 07/29/20 documented as of this encounter
--- OUTSIDE RECORDS SUMMARY | 2024-07-15 08:55 | External Medical Summary | Summary of Care ---
Author Name Unknown Organization [facility] Address [address] [place] [address] Phone [phone] Care Team Providers Care Manager Travel Name Role Phone Jian Escalante MD Primary Care Provider [phone] [phone] Reason for Visit * Reason Comments Outpatient Testing Encounter Details Date Type Department Care Team ([facility] st Contact Info) Description 07/01/2024 11:50 AM EDT Laboratory Laboratory, [facility] [address] [place] [address] [facility] [address] [place] [address] [employer] Other*[id number]; Type 2 diabetes mellitus with hemoglobin A1c goal of less than 8.0% ([facility]); HTN, goal below 130/80; Abnormal CBC; Mild dementia without behavioral disturbance, psychotic disturbance, mood disturbance, or anxiety, unspecified dementia type ([facility]) Allergies Active Allergy Reactions Criticality Noted Date Comments Metformin Nausea/vomiting 11/14/2011 Tramadol Nausea/vomiting 11/14/2011 documented as of this encounter (statuses as of 07/01/2024) Medications Glucose Blood (KeyLemonTOUCH ULTRA BLUE) STRP Test blood sugars once [...] AM EDT Office Visit Neurology Jayce Pope [place] 200 [place] [address] Charlotte Malave, DO [address] [place] [address] Pending Results Name Type Priority Associated Diagnoses Date /Time MYCODE SUBSEQUENT ADULT Lab Routine MyCode Research Other*[id number] 07/01/2024 11:59 AM EDT URINALYSIS, REFLEX TO CULTURE (NOT FOR NEUTROPENIC PATIENTS) Lab Routine Mild dementia without behavioral disturbance, psychotic disturbance, mood disturbance, or anxiety, unspecified dementia type (HCC) Abnormal CBC 07/01/2024 11:59 AM EDT MYCODE SST1 Lab Routine [employer] Other*[id number] 07/01/2024 11:59 AM EDT MYCODE SST2 Lab Routine My[employer] Research Other*[id number] 07/01/2024 11:59 AM EDT Scheduled Orders Name [...] this encounter Medical Devices Implanted Type Area Catalogue Clerk Device Identifier Shelf Expiration Date Model / Serial / Lot Lens Intraoc 22.0 - [id number] - [id number] Implanted:Qty: 1 on 06/02/2018 by Wili Farmer MD at OR [facility] Right: Eye [employer] 12/12/2022 [id number] / [id number] documented as of this encounter Procedures Procedure [...] and received 07/01/2024 1:01 PM EDT [facility] Urine Urine specimen obtained by clean catch procedure / Unknown Non-blood Collection / Unknown 07/01/2024 11:59 AM EDT 07/01/2024 11:59 AM EDT us Leda Baez DO LAB URINE ORDERABLES Final Result Performing Organization Address City/State/[facility] Co de Phone Number LABORATORY [place] [address] [place] [address] * (ABNORMAL) DIFFERENTIAL, AUTOMATED (07/01/2024 11:59 AM [...] DO LAB BLOOD ORDERABLES Final Result LABORATORY [place] [address] [place] [address] * (ABNORMAL) CBC (07/01/2024 11:59 AM EDT) WBC 14.06(H) 4.00 - 10.80 K/uL 07/01/2024 12:33 PM EDT LABORATORY [place] 57-10 RBC 5.01 3.85 - 5.15 M/uL 07/01/2024 12:33 PM EDT [facility] HGB 16.1(H) 12.0 - 15.3 g/dL 07/01/2024 12:33 PM EDT [facility]10 HCT 45.6(H) 36.0 - 45.2 % 07/01/2024 12:33 PM EDT [facility] MCV 91.0 81.5 - 97.5 fL 07/01/2024 12:33 PM EDT LABORATORY [place] 57-10 MCH 32.1 27.0 - 34.0 pg 07/01/2024 12:33 PM EDT LABORATORY [place] 57-10 MCHC 35.3 32.0 - 36.0 g/dL 07/01/2024 12:33 PM EDT LABORATORY [place] 5710 RDW 13.6 11.5 - 15.5 % 07/01/2024 12:33 PM EDT LABORATORY [place] 57-10 PLT 343 140 - 400 K/uL 07/01/2024 12:33 PM EDT LABORATORY [place] 5710 MPV 9.6 6.6 - 11.1 fL 07/01/2024 12:33 PM EDT LABORATORY [place] 57[facility] Blood Venous blood specimen / Unknown Venipuncture / Unknown 07/01/2024 11:59 AM EDT 07/01/2024 11:59 AM EDT us Leda Baez DO LAB BLOOD ORDERABLES Final Result LABORATORY [place] [address] [address] [place] [address] * (ABNORMAL) COMPREHENSIVE METABOLIC PANEL (07/01/2024 11:59 AM EDT) BUN 14 6 - 20 mg/dL 07/01/2024 1:22 PM EDT LAB[facility]ORY [place] [facility] CREATININE 0.9 0.5 - 1.0 mg/dL 07/01/2024 1:22 PM EDT LABORATORY [place] 5710 EGFR 68 >=60 mL/min 07/01/2024 1:22 PM EDT LABORATORY [place] 5710 Comment:eGFR is calculated b ased on the CKD-EPI 2020 equation. SODIUM 140 135 - 146 mmol/L 07/01/2024 1:22 PM EDT LABORATORY [place] 57-10 POTASSIUM 3.0(L) 3.5 - 5.1 mmol/L 07/01/2024 1:22 PM EDT LABORATORY [place] 57-10 CHLORIDE 96(L) 98 - 107 mmol/L 07/01/2024 1:22 PM EDT LABORATORY [place] 5710 CO2 27 22 - 32 mmol/L [...] 07/01/2024 11:59 AM EDT us Zayda Buckner [facility] LAB BLOOD ORDERABLES Final Resul t LABORATORY [place] [address] [place] [address] documented in this encounter Visit Diagnoses Diagnosis MyCode Research Other*[id number] Type 2 diabetes mellitus with hemoglobin A1c goal of less than 8.0% (HCC) HTN, goal below 130/80 Unspecified essential hypertension Abnormal CBC Other abnormal blood chemistry Mild dementia without behavioral disturbance, psychotic disturbance, mood disturbance, or anxiety, unspecified dementia type (HCC) documented in this encounter Care Teams Manager Travel Relationship Specialty Start Date End Date Jian Escalante MD [address] [place] [address] PCP - General Family Medicine 07/29/20 documented as of this encounter
--- OUTSIDE RECORDS SUMMARY | 2024-07-15 08:55 | External Medical Summary | Summary of Care ---
Author Name Unknown Organization [facility] Address [address] [place] [address] Phone [phone] Care Team Providers Care Powder Coater Name Role Phone Jian Escalante MD Primary Care Provider [phone] Reason for Visit * Reason Comments Outpatient Testing Encounter Details Date Type Department Care Team ([facility] st Contact Info) Description 07/01/2024 11:50 AM EDT Laboratory Laboratory, [facility] [address] [place] [address] [facility] [address] [place] [address] [employer] Other*[id number]; Type 2 diabetes mellitus with hemoglobin A1c goal of less than 8.0% ([facility]); HTN, goal below 130/80; Abnormal CBC; Mild dementia without behavioral disturbance, psychotic disturbance, mood disturbance, or anxiety, unspecified dementia type ([facility]) Allergies Active Allergy Reactions Criticality Noted Date Comments Metformin Nausea/vomiting 11/14/2011 Tramadol Nausea/vomiting 11/14/2011 documented as of this encounter (statuses as of 07/01/2024) Medications Glucose Blood (SafelloTOUCH ULTRA BLUE) STRP Test blood sugars once [...] AM EDT Office Visit Neurology Jayce Pope [place] [address] [place] [address] Charlotte Malave, DO [address] [place] [address] Pending Results Name Type Priority Associated Diagnoses Date /Time MYCODE SUBSEQUENT ADULT Lab Routine [employer] Other*[id number] 07/01/2024 11:59 AM EDT URINALYSIS, REFLEX TO CULTURE (NOT FOR NEUTROPENIC PATIENTS) Lab Routine Mild dementia without behavioral disturbance, psychotic disturbance, mood disturbance, or anxiety, unspecified dementia type (HCC) Abnormal CBC 07/01/2024 11:59 AM EDT MYCODE SST1 Lab Routine [employer] Other*[id number] 07/01/2024 11:59 AM EDT MYCODE SST2 Lab Routine [employer] Other*[id number] 07/01/2024 11:59 AM EDT Scheduled Orders Name [...] this encounter Medical Devices Implanted Type Area Race Starter Device Identifier Shelf Expiration Date Model / Serial / Lot Lens Intraoc 22.0 - [id number] - [id number] Implanted:Qty: 1 on 06/02/2018 by Wili Farmer MD at OR [facility] [address] Right: Eye [employer] 12/12/2022 [id number] / [id number] / [id number] documented as of this encounter Procedures Procedure [...] and received 07/01/2024 1:01 PM EDT [facility] Urine Urine specimen obtained by clean catch procedure / Unknown Non-blood Collection / Unknown 07/01/2024 11:59 AM EDT 07/01/2024 11:59 AM EDT us Leda Baez DO LAB URINE ORDERABLES Final Result Performing Organization Address City/State/[facility] Co de Phone Number LABORATORY [place] [address] [place] [address] * (ABNORMAL) DIFFERENTIAL, AUTOMATED (07/01/2024 11:59 AM [...] DO LAB BLOOD ORDERABLES Final Result LABORATORY [place] [facility] [place] [address] * (ABNORMAL) CBC (07/01/2024 11:59 AM EDT) WBC 14.06(H) 4.00 - 10.80 K/uL 07/01/2024 12:33 PM EDT LABORATORY [place] 57-10 RBC 5.01 3.85 - 5.15 M/uL 07/01/2024 12:33 PM EDT [facility] HGB 16.1(H) 12.0 - 15.3 g/dL 07/01/2024 12:33 PM EDT [facility] HCT 45.6(H) 36.0 - 45.2 % 07/01/2024 12:33 PM EDT [facility] MCV 91.0 81.5 - 97.5 fL 07/01/2024 12:33 PM EDT LABORATORY [place] 57[facility]10 MCH 32.1 27.0 - 34.0 pg 07/01/2024 12:33 PM EDT LABORATORY [place] 57-10 MCHC 35.3 32.0 - 36.0 g/dL 07/01/2024 12:33 PM EDT LABORATORY [place] 5710 RDW 13.6 11.5 - 15.5 % 07/01/2024 12:33 PM EDT LABORATORY [place] 57-10 PLT 343 140 - 400 K/uL 07/01/2024 12:33 PM EDT LAB[facility]ORY [place] 5710 MPV 9.6 6.6 - 11.1 fL 07/01/2024 12:33 PM EDT LAB[facility]ORY [place] [facility] Blood Venous blood specimen / Unknown Venipuncture / Unknown 07/01/2024 11:59 AM EDT 07/01/2024 11:59 AM EDT us Leda Baez DO LAB BLOOD ORDERABLES Final Result LABORATORY [place] [address] [address] [place] [address] * (ABNORMAL) COMPREHENSIVE METABOLIC PANEL (07/01/2024 11:59 AM EDT) BUN 14 6 - 20 mg/dL 07/01/2024 1:22 PM EDT LAB[facility]ORY [place] [facility] CREATININE 0.9 0.5 - 1.0 mg/dL 07/01/2024 1:22 PM EDT LAB[facility]ATORY [place] 5710 EGFR 68 >=60 mL/min 07/01/2024 1:22 PM EDT LABORATORY [place] 5710 Comment:eGFR is calculated b ased on the CKD-EPI 2020 equation. SODIUM 140 135 - 146 mmol/L 07/01/2024 1:22 PM EDT LABORATORY [place] 57-10 POTASSIUM 3.0(L) 3.5 - 5.1 mmol/L 07/01/2024 1:22 PM EDT LABORATORY [place] 57-10 CHLORIDE 96(L) 98 - 107 mmol/L 07/01/2024 1:22 PM EDT LAB[facility]ATORY [place] 5710 CO2 27 22 - 32 mmol/L [...] 07/01/2024 11:59 AM EDT us Zayda Buckner [facility] LAB BLOOD ORDERABLES Final Resul t LABORATORY [place] [facility] [place] [address] documented in this encounter Visit Diagnoses Diagnosis MyCode Research Other*[id number] Type 2 diabetes mellitus with hemoglobin A1c goal of less than 8.0% (HCC) HTN, goal below 130/80 Unspecified essential hypertension Abnormal CBC Other abnormal blood chemistry Mild dementia without behavioral disturbance, psychotic disturbance, mood disturbance, or anxiety, unspecified dementia type (HCC) documented in this encounter Care Teams Powder Coater Relationship Specialty Start Date End Date Jian Escalante MD [address] [place] [address] PCP - General Family Medicine 07/29/20 documented as of this encounter
--- OUTSIDE RECORDS SUMMARY | 2024-07-15 08:55 | External Medical Summary | Summary of Care ---
Author Name Unknown Organization [facility] Address [address] [place] [address] Phone [phone] Care Team Providers Care Orthopedic Specialist Name Role Phone Jian Escalante MD Primary Care Provider [phone] Reason for Visit * Reason Comments Outpatient Testing Encounter Details Date Type Department Care Team ([facility] st Contact Info) Description 07/01/2024 11:50 AM EDT Laboratory Laboratory, [facility] [address] [place] [address] [facility] [address] [place] [address] [employer] Other*[id number]; Type 2 diabetes mellitus with hemoglobin A1c goal of less than 8.0% ([facility]); HTN, goal below 130/80; Abnormal CBC; Mild dementia without behavioral disturbance, psychotic disturbance, mood disturbance, or anxiety, unspecified dementia type ([facility]) Allergies Active Allergy Reactions Criticality Noted Date Comments Metformin Nausea/vomiting 11/14/2011 Tramadol Nausea/vomiting 11/14/2011 documented as of this encounter (statuses as of 07/01/2024) Medications Glucose Blood (ScoopshotTOUCH ULTRA BLUE) STRP Test blood sugars once [...] AM EDT Office Visit Neurology Jayce Pope [place] [address] [place] [address] Charlotte Malave, DO [address] [place] [address] Pending Results Name Type Priority Associated Diagnoses Date /Time MYCODE SUBSEQUENT ADULT Lab Routine MyCode Research Other*[id number] 07/01/2024 11:59 AM EDT URINALYSIS, REFLEX TO CULTURE (NOT FOR NEUTROPENIC PATIENTS) Lab Routine Mild dementia without behavioral disturbance, psychotic disturbance, mood disturbance, or anxiety, unspecified dementia type (HCC) Abnormal CBC 07/01/2024 11:59 AM EDT MYCODE SST1 Lab Routine MyCode [employer] Other*[id number] 07/01/2024 11:59 AM EDT MYCODE SST2 Lab Routine MyCode [employer] Other*[id number] 07/01/2024 11:59 AM EDT Scheduled Orders Name [...] this encounter Medical Devices Implanted Type Area General Pediatrician Device Identifier Shelf Expiration Date Model / Serial / Lot Lens Intraoc 22.0 - [id number] - [id number] Implanted:Qty: 1 on 06/02/2018 by Wili Farmer MD at OR [facility] Right: Eye [employer] 12/12/2022 [id number] / [id number] / [id number] documented as of this encounter Procedures Procedure [...] URINE ORDERABLES Final Result Performing Organization Address City/State/[facility] Co de Phone Number LABORATORY [place] [address] [place] [address] * (ABNORMAL) DIFFERENTIAL, AUTOMATED (07/01/2024 11:59 AM [...] 11:59 AM EDT 07/01/2024 11:59 AM EDT eLda Baez DO LAB BLOOD ORDERABLES Final Result LABORATORY [place] [facility] [place] [address] * (ABNORMAL) CBC (07/01/2024 11:59 AM EDT) WBC 14.06(H) 4.00 - 10.80 K/uL 07/01/2024 12:33 PM EDT LABORATORY [place] 57-10 RBC 5.01 3.85 - 5.15 M/uL 07/01/2024 12:33 PM EDT [facility] HGB 16.1(H) 12.0 - 15.3 g/dL 07/01/2024 12:33 PM EDT [facility] HCT 45.6(H) 36.0 - 45.2 % 07/01/2024 12:33 PM EDT [facility] MCV 91.0 81.5 - 97.5 fL 07/01/2024 12:33 PM EDT LABORATORY [place] 57-10 MCH 32.1 27.0 - 34.0 pg 07/01/2024 12:33 PM EDT LABORATORY [place] 57-10 MCHC 35.3 32.0 - 36.0 g/dL 07/01/2024 12:33 PM EDT LABORATORY [place] 5710 RDW 13.6 11.5 - 15.5 % 07/01/2024 12:33 PM EDT LABORATORY [place] 57-10 PLT 343 140 - 400 K/uL 07/01/2024 12:33 PM EDT LABORATORY [place] 5710 MPV 9.6 6.6 - 11.1 fL 07/01/2024 12:33 PM EDT LABORATORY [place] [facility] Blood Venous blood specimen / Unknown Venipuncture / Unknown 07/01/2024 11:59 AM EDT 07/01/2024 11:59 AM EDT us Leda Baez DO LAB BLOOD ORDERABLES Final Result LABORATORY [place] [address] [address] [place] [address] * (ABNORMAL) COMPREHENSIVE METABOLIC PANEL (07/01/2024 11:59 AM EDT) BUN 14 6 - 20 mg/dL 07/01/2024 1:22 PM EDT LABORATORY [place] [facility] CREATININE 0.9 0.5 - 1.0 mg/dL 07/01/2024 1:22 PM EDT LABORATORY [place] 5710 EGFR 68 >=60 mL/min 07/01/2024 1:22 PM EDT LABORATORY [place] 5710 Comment:eGFR is calculated b ased on the CKD-EPI 2020 equation. SODIUM 140 135 - 146 mmol/L 07/01/2024 1:22 PM EDT LABORATORY [place] 57-10 POTASSIUM 3.0(L) 3.5 - 5.1 mmol/L 07/01/2024 1:22 PM EDT LABORATORY [place] 57-10 CHLORIDE 96(L) 98 - 107 mmol/L 07/01/2024 1:22 PM EDT LABORATORY [place] 5710 CO2 27 22 - 32 mmol/L [...] 11:59 AM EDT us Zayda Buckner [facility] LAB BLOOD ORDERABLES Final Resul t LABORATORY [place] [facility] [place] [address] documented in this encounter Visit Diagnoses Diagnosis MyCode Research Other*[id number] Type 2 diabetes mellitus with hemoglobin A1c goal of less than 8.0% (HCC) HTN, goal below 130/80 Unspecified essential hypertension Abnormal CBC Other abnormal blood chemistry Mild dementia without behavioral disturbance, psychotic disturbance, mood disturbance, or anxiety, unspecified dementia type (HCC) documented in this encounter Care Teams Orthopedic Specialist Relationship Specialty Start Date End Date Jian Escalante MD [address] [address] PCP - General Family Medicine 07/29/20 documented as of this encounter
--- OUTSIDE RECORDS SUMMARY | 2024-07-15 08:55 | External Medical Summary | Summary of Care ---
Author Name Unknown Organization [facility] Address [address] [place] [address] Phone [phone] Care Team Providers Care Cable Wirer Name Role Phone Jian Escalante MD Primary Care Provider [phone] [phone] Reason for Visit * Reason Comments Outpatient Testing Encounter Details Date Type Department Care Team ([facility] st Contact Info) Description 07/01/2024 11:50 AM EDT Laboratory Laboratory, [facility] [address] [place] [address] [facility] [address] [place] [address] [employer] Other*[id number]; Type 2 diabetes mellitus with hemoglobin A1c goal of less than 8.0% ([facility]); HTN, goal below 130/80; Abnormal CBC; Mild dementia without behavioral disturbance, psychotic disturbance, mood disturbance, or anxiety, unspecified dementia type ([facility]) Allergies Active Allergy Reactions Criticality Noted Date Comments Metformin Nausea/vomiting 11/14/2011 Tramadol Nausea/vomiting 11/14/2011 documented as of this encounter (statuses as of 07/01/2024) Medications Glucose Blood (Electronic Compliance SolutionsTOUCH ULTRA BLUE) STRP Test blood sugars once [...] AM EDT Office Visit Neurology Jayce Pope [place] [address] [place] [address] Charlotte Malave, DO [address] [place] [address] Pending Results Name Type Priority Associated Diagnoses Date /Time MYCODE SUBSEQUENT ADULT Lab Routine MyCode Research Other*[id number] 07/01/2024 11:59 AM EDT URINALYSIS, REFLEX TO CULTURE (NOT FOR NEUTROPENIC PATIENTS) Lab Routine Mild dementia without behavioral disturbance, psychotic disturbance, mood disturbance, or anxiety, unspecified dementia type (HCC) Abnormal CBC 07/01/2024 11:59 AM EDT MYCODE SST1 Lab Routine MyCode Research Other*[id number] 07/01/2024 11:59 AM EDT MYCODE SST2 Lab Routine MyCode Research Other*[id number] 07/01/2024 11:59 AM EDT Scheduled Orders Name [...] this encounter Medical Devices Implanted Type Area Housekeeping Lead Device Identifier Shelf Expiration Date Model / Serial / Lot Lens Intraoc 22.0 - [id number] - [id number] Implanted:Qty: 1 on 06/02/2018 by Wili Farmer MD at OR [facility] Right: Eye [employer] 12/12/2022 [id number] / [id number] / [id number] documented as of this encounter Procedures Procedure [...] URINE ORDERABLES Final Result Performing Organization Address City/State/[facility] Co de Phone Number LABORATORY [place] [address] [place] [address] * (ABNORMAL) DIFFERENTIAL, AUTOMATED (07/01/2024 11:59 AM [...] DO LAB BLOOD ORDERABLES Final Result LAB[facility]ATORY [place] [facility] [place] [address] * (ABNORMAL) CBC (07/01/2024 11:59 AM EDT) WBC 14.06(H) 4.00 - 10.80 K/uL 07/01/2024 12:33 PM EDT LABORATORY [place] [facility]-10 RBC 5.01 3.85 - 5.15 M/uL 07/01/2024 12:33 PM EDT [facility] HGB 16.1(H) 12.0 - 15.3 g/dL 07/01/2024 12:33 PM EDT [facility] HCT 45.6(H) 36.0 - 45.2 % 07/01/2024 12:33 PM EDT [facility] MCV 91.0 81.5 - 97.5 fL 07/01/2024 12:33 PM EDT LABORATORY [place] 57-10 MCH 32.1 27.0 - 34.0 pg 07/01/2024 12:33 PM EDT LAB[facility]ATORY [place] 57-10 MCHC 35.3 32.0 - 36.0 g/dL 07/01/2024 12:33 PM EDT LAB[facility]ORY [place] 5710 RDW 13.6 11.5 - 15.5 % 07/01/2024 12:33 PM EDT LAB[facility]ATORY [place] 57-10 PLT 343 140 - 400 K/uL 07/01/2024 12:33 PM EDT LAB[facility]ATORY [place] 5710 MPV 9.6 6.6 - 11.1 fL 07/01/2024 12:33 PM EDT [facility] [place] Blood Venous blood specimen / Unknown Venipuncture / Unknown 07/01/2024 11:59 AM EDT 07/01/2024 11:59 AM EDT us Leda Baez DO LAB BLOOD ORDERABLES Final Result LABORATORY [place] [address] [address] [place] [address] * (ABNORMAL) COMPREHENSIVE METABOLIC PANEL (07/01/2024 11:59 AM EDT) BUN 14 6 - 20 mg/dL 07/01/2024 1:22 PM EDT [facility] [place] [facility] CREATININE 0.9 0.5 - 1.0 mg/dL 07/01/2024 1:22 PM EDT LABORATORY [place] 5710 EGFR 68 >=60 mL/min 07/01/2024 1:22 PM EDT LAB[facility]ATORY [place] 5710 Comment:eGFR is calculated b ased on the CKD-EPI 2020 equation. SODIUM 140 135 - 146 mmol/L 07/01/2024 1:22 PM EDT LAB[facility]ATORY [place] 57-10 POTASSIUM 3.0(L) 3.5 - 5.1 mmol/L 07/01/2024 1:22 PM EDT LAB[facility]ATORY [place] 57-10 CHLORIDE 96(L) 98 - 107 mmol/L 07/01/2024 1:22 PM EDT LAB[facility]ATORY [place] 5710 CO2 27 22 - 32 mmol/L [...] 07/01/2024 11:59 AM EDT us Zayda Buckner [facility] LAB BLOOD ORDERABLES Final Resul t LABORATORY [place] [facility] [place] [address] documented in this encounter Visit Diagnoses Diagnosis MyCode Research Other*[id number] Type 2 diabetes mellitus with hemoglobin A1c goal of less than 8.0% (HCC) HTN, goal below 130/80 Unspecified essential hypertension Abnormal CBC Other abnormal blood chemistry Mild dementia without behavioral disturbance, psychotic disturbance, mood disturbance, or anxiety, unspecified dementia type (HCC) documented in this encounter Care Teams Cable Wirer Relationship Specialty Start Date End Date Jian Escalante MD [address] [place] [address] PCP - General Family Medicine 07/29/20 documented as of this encounter
--- OUTSIDE RECORDS SUMMARY | 2024-07-15 08:56 | External Medical Summary | Summary of Care ---
Author Name Unknown Organization [facility] Address [address] [place] [address] Phone [phone] Care Team Providers Care Cable Armorer Operator Name Role Phone Jian Escalante MD Primary Care Provider [phone] [phone] Reason for Visit * Reason Comments Outpatient Testing Encounter Details Date Type Department Care Team ([facility] st Contact Info) Description 07/01/2024 11:50 AM EDT Laboratory Laboratory, [facility] [address] [place] [address] [facility] [address] [place] [address] [employer] Other*[id number]; Type 2 diabetes mellitus with hemoglobin A1c [...] (statuses as of 07/01/2024) Medications Glucose Blood (CoAxiaTOUCH ULTRA BLUE) STRP Test blood sugars once [...] AM EDT Office Visit Neurology Jayce Pope [place] [address] [place] [address] Charlotte Malave, DO [address] [place] [address] Pending Results Name Type Priority Associated Diagnoses Date /Time MYCODE SUBSEQUENT ADULT Lab Routine MyCode Research Other*[id number] 07/01/2024 11:59 AM EDT URINALYSIS, REFLEX TO CULTURE (NOT FOR NEUTROPENIC PATIENTS) Lab Routine Mild dementia without behavioral disturbance, psychotic disturbance, mood disturbance, or anxiety, unspecified dementia type (HCC) Abnormal CBC 07/01/2024 11:59 AM EDT MYCODE SST1 Lab Routine [employer] Other*[id number] 07/01/2024 11:59 AM EDT MYCODE SST2 Lab Routine [employer] Other*[id number] 07/01/2024 11:59 AM EDT Scheduled Orders Name [...] this encounter Medical Devices Implanted Type Area External Grinder Tool Device Identifier Shelf Expiration Date Model / Serial / Lot Lens Intraoc 22.0 - [id number] - [id number] Implanted:Qty: 1 on 06/02/2018 by Wili Farmer MD at OR [facility] Right: Eye [employer] 12/12/2022 [id number] / [id number] / [id number] documented as of this encounter Procedures Procedure [...] URINE ORDERABLES Final Result Performing Organization Address City/State/[facility] Co de Phone Number LABORATORY [place] [address] [place] [address] * (ABNORMAL) DIFFERENTIAL, AUTOMATED (07/01/2024 11:59 AM [...] DO LAB BLOOD ORDERABLES Final Result LABORATORY [place] [facility] [place] [address] * (ABNORMAL) CBC (07/01/2024 11:59 AM EDT) WBC 14.06(H) 4.00 - 10.80 K/uL 07/01/2024 12:33 PM EDT LABORATORY [place] [facility]-10 RBC 5.01 3.85 - 5.15 M/uL 07/01/2024 12:33 PM EDT [facility] HGB 16.1(H) 12.0 - 15.3 g/dL 07/01/2024 12:33 PM EDT [facility] HCT 45.6(H) 36.0 - 45.2 % 07/01/2024 12:33 PM EDT [facility] MCV 91.0 81.5 - 97.5 fL 07/01/2024 12:33 PM EDT LABORATORY [place] 57-10 MCH 32.1 27.0 - 34.0 pg 07/01/2024 12:33 PM EDT LABORATORY [place] 57-10 MCHC 35.3 32.0 - 36.0 g/dL 07/01/2024 12:33 PM EDT LABORATORY [place] 5710 RDW 13.6 11.5 - 15.5 % 07/01/2024 12:33 PM EDT LABORATORY [place] 57-10 PLT 343 140 - 400 K/uL 07/01/2024 12:33 PM EDT LABORATORY [place] 5710 MPV 9.6 6.6 - 11.1 fL 07/01/2024 12:33 PM EDT LAB[facility]ORY [facility] Blood Venous blood specimen / Unknown Venipuncture / Unknown 07/01/2024 11:59 AM EDT 07/01/2024 11:59 AM EDT us Leda Baez DO LAB BLOOD ORDERABLES Final Result LABORATORY [place] [address] [address] [place] [address] * (ABNORMAL) COMPREHENSIVE METABOLIC PANEL (07/01/2024 11:59 AM EDT) BUN 14 6 - 20 mg/dL 07/01/2024 1:22 PM EDT [facility] CREATININE 0.9 0.5 - 1.0 mg/dL 07/01/2024 1:22 PM EDT LABORATORY [place] 5710 EGFR 68 >=60 mL/min 07/01/2024 1:22 PM EDT LABORATORY [place] 5710 Comment:eGFR is calculated b ased on the CKD-EPI 2020 equation. SODIUM 140 135 - 146 mmol/L 07/01/2024 1:22 PM EDT LABORATORY [place] 57-10 POTASSIUM 3.0(L) 3.5 - 5.1 mmol/L 07/01/2024 1:22 PM EDT LABORATORY [place] 57-10 CHLORIDE 96(L) 98 - 107 mmol/L 07/01/2024 1:22 PM EDT LABORATORY [place] 5710 CO2 27 22 - 32 mmol/L [...] 07/01/2024 11:59 AM EDT us Zayda Buckner [facility] LAB BLOOD ORDERABLES Final Resul t LABORATORY [place] [facility] [place] [address] documented in this encounter Visit Diagnoses Diagnosis My[employer] Research Other*[id number] Type 2 diabetes mellitus with hemoglobin A1c goal of less than 8.0% (HCC) HTN, goal below 130/80 Unspecified essential hypertension Abnormal CBC Other abnormal blood chemistry Mild dementia without behavioral disturbance, psychotic disturbance, mood disturbance, or anxiety, unspecified dementia type (HCC) documented in this encounter Care Teams Cable Armorer Operator Relationship Specialty Start Date End Date Jian Escalante MD [address] [place] [address] PCP - General Family Medicine 07/29/20 documented as of this encounter
--- OUTSIDE RECORDS SUMMARY | 2024-07-15 08:56 | External Medical Summary ---
Author Name Unknown Address Unknown Organization K01:LAB[facility]ATORY [facility] [address] [place] [address] Laboratory Report Ordering Provider Test Date Status HALEY RIOS 07/01/2024 11:59:19 Final Observation Date Value Abnormality Reference (Units ) Status MYCODE SPECIMEN-SST 07/01/2024 11:59:19 Freezing of extracted DNA, whole blood and/or serum. Final Performing Location LAB[facility]ORY [facility] [address] [place] [address]
--- OUTSIDE RECORDS SUMMARY | 2024-07-15 08:56 | External Medical Summary ---
Author Name Unknown Address Unknown Organization K01:LABORATORY [facility] [place] - [address] [place] [address] Laboratory Report Ordering Provider Test Date Status HALEY RIOS 07/01/2024 11:59:19 Final Observation Date Value Abnormality Reference (Units ) Status MYCODE SPECIMEN-SST 07/01/2024 11:59:19 Freezing of extracted DNA, whole blood and/or serum. Final Performing Location LABORATORY [facility] [place] - [address] [place] [address]
--- OUTSIDE RECORDS SUMMARY | 2024-07-15 08:56 | External Medical Summary | Summary of Care ---
Author Name Unknown Organization [facility] Address [address] [place] [address] Phone [phone] Care Team Providers Care Ortho Assistant Name Role Phone Jian Escalante MD Primary Care Provider [phone] Reason for Visit * Reason Comments Outpatient Testing Encounter Details Date Type Department Care Team ([facility] st Contact Info) Description 07/01/2024 11:50 AM EDT Laboratory Laboratory, [facility] [address] [place] [address] [facility] [address] [place] [address] [employer] Other*[id number]; Type 2 diabetes mellitus with hemoglobin A1c goal of less than 8.0% ([facility]); HTN, goal below 130/80; Abnormal CBC; Mild dementia without behavioral disturbance, psychotic disturbance, mood disturbance, or anxiety, unspecified dementia type ([facility]) Allergies Active Allergy Reactions Criticality Noted Date Comments Metformin Nausea/vomiting 11/14/2011 Tramadol Nausea/vomiting 11/14/2011 documented as of this encounter (statuses as of 07/01/2024) Medications Glucose Blood ([employer]bon[employer] SolutionsTOUCH ULTRA BLUE) STRP Test blood sugars [...] AM EDT Office Visit Neurology Jayce Pope [place] [address] [place] [address] Charlotte Malave, DO [address] [place] [address] Pending Results Name Type Priority Associated Diagnoses Date /Time MYCODE SUBSEQUENT ADULT Lab Routine [employer] Other*[id number] 07/01/2024 11:59 AM EDT URINALYSIS, REFLEX TO CULTURE (NOT FOR NEUTROPENIC PATIENTS) Lab Routine Mild dementia without behavioral disturbance, psychotic disturbance, mood disturbance, or anxiety, unspecified dementia type (HCC) Abnormal CBC 07/01/2024 11:59 AM EDT MYCODE SST1 Lab Routine [employer] Other*[id number] 07/01/2024 11:59 AM EDT MYCODE SST2 Lab Routine [employer] Other*[id number] 07/01/2024 11:59 AM EDT Scheduled Orders Name [...] this encounter Medical Devices Implanted Type Area Pipe Production Worker Device Identifier Shelf Expiration Date Model / Serial / Lot Lens Intraoc 22.0 - [id number] - [id number] Implanted:Qty: 1 on 06/02/2018 by Wili Farmer MD at OR [facility] Right: Eye [employer] 12/12/2022 [id number] / [id number] / [id number] documented as of this encounter Procedures Procedure [...] and received 07/01/2024 1:01 PM EDT [facility] Urine Urine specimen obtained by clean catch procedure / Unknown Non-blood Collection / Unknown 07/01/2024 11:59 AM EDT 07/01/2024 11:59 AM EDT us Leda Baez DO LAB URINE ORDERABLES Final Result Performing Organization Address City/State/[facility] Co de Phone Number LABORATORY [place] [address] [place] [address] * (ABNORMAL) DIFFERENTIAL, AUTOMATED (07/01/2024 11:59 AM [...] DO LAB BLOOD ORDERABLES Final Result LAB[facility]ATORY [place] [facility] [place] [address] * (ABNORMAL) CBC (07/01/2024 11:59 AM EDT) WBC 14.06(H) 4.00 - 10.80 K/uL 07/01/2024 12:33 PM EDT LAB[facility] [place] 57-10 RBC 5.01 3.85 - 5.15 M/uL 07/01/2024 12:33 PM EDT [facility] HGB 16.1(H) 12.0 - 15.3 g/dL 07/01/2024 12:33 PM EDT [facility] HCT 45.6(H) 36.0 - 45.2 % 07/01/2024 12:33 PM EDT [facility] MCV 91.0 81.5 - 97.5 fL 07/01/2024 12:33 PM EDT LAB[facility] [place] 57-10 MCH 32.1 27.0 - 34.0 pg 07/01/2024 12:33 PM EDT LAB[facility] [place] 57-10 MCHC 35.3 32.0 - 36.0 g/dL 07/01/2024 12:33 PM EDT LAB[facility] [place] 5710 RDW 13.6 11.5 - 15.5 % 07/01/2024 12:33 PM EDT LAB[facility]ORY [place] 57-10 PLT 343 140 - 400 K/uL 07/01/2024 12:33 PM EDT [facility] [place] 5710 MPV 9.6 6.6 - 11.1 fL 07/01/2024 12:33 PM EDT [facility] [place] [facility] Blood Venous blood specimen / Unknown Venipuncture / Unknown 07/01/2024 11:59 AM EDT 07/01/2024 11:59 AM EDT us Leda Baez DO LAB BLOOD ORDERABLES Final Result LABORATORY [place] [address] [address] [place] [address] * (ABNORMAL) COMPREHENSIVE METABOLIC PANEL (07/01/2024 11:59 AM EDT) BUN 14 6 - 20 mg/dL 07/01/2024 1:22 PM EDT [facility] [place] [facility] CREATININE 0.9 0.5 - 1.0 mg/dL 07/01/2024 1:22 PM EDT LAB[facility]ATORY [place] 5710 EGFR 68 >=60 mL/min 07/01/2024 1:22 PM EDT [facility] [place] 5710 Comment:eGFR is calculated b ased on the CKD-EPI 2020 equation. SODIUM 140 135 - 146 mmol/L 07/01/2024 1:22 PM EDT LAB[facility] [place] 57-10 POTASSIUM 3.0(L) 3.5 - 5.1 mmol/L 07/01/2024 1:22 PM EDT LAB[facility] [place] 57-10 CHLORIDE 96(L) 98 - 107 mmol/L 07/01/2024 1:22 PM EDT LAB[facility] [place] 5710 CO2 27 22 - 32 mmol/L [...] AM EDT us Zayda Buckner [facility] LAB BLOOD ORDERABLES Final Resul t LABORATORY [place] [facility] [place] [address] documented in this encounter Visit Diagnoses Diagnosis [employer] Other*[id number] Type 2 diabetes mellitus with hemoglobin A1c goal of less than 8.0% (HCC) HTN, goal below 130/80 Unspecified essential hypertension Abnormal CBC Other abnormal blood chemistry Mild dementia without behavioral disturbance, psychotic disturbance, mood disturbance, or anxiety, unspecified dementia type (HCC) documented in this encounter Care Teams Ortho Assistant Relationship Specialty Start Date End Date Jian Escalante MD [address] [place] [place] [address] PCP - General Family Medicine 07/29/20 documented as of this encounter
--- OUTSIDE RECORDS SUMMARY | 2024-07-15 08:56 | External Medical Summary | Summary of Care ---
Author Name Unknown Organization [facility] Address [address] [place] [address] Phone [phone] Care Team Providers Care Painter Apprentice Name Role Phone Jian Escalante MD Primary Care Provider [phone] Reason for Visit * Reason Comments Outpatient Testing Encounter Details Date Type Department Care Team ([facility] st Contact Info) Description 07/01/2024 11:50 AM EDT Laboratory Laboratory, [facility] [address] [place] [address] [facility] [address] [place] [address] [employer] Other*[id number]; Type 2 diabetes mellitus with hemoglobin A1c goal of less than 8.0% ([facility]); HTN, goal below 130/80; Abnormal CBC; Mild dementia without behavioral disturbance, psychotic disturbance, mood disturbance, or anxiety, unspecified dementia type ([facility]) Allergies Active Allergy Reactions Criticality Noted Date Comments Metformin Nausea/vomiting 11/14/2011 Tramadol Nausea/vomiting 11/14/2011 documented as of this encounter (statuses as of 07/01/2024) Medications Glucose Blood ([employer] DevicesTOUCH ULTRA BLUE) STRP Test blood sugars once [...] AM EDT Office Visit Neurology Jayce Pope [place] [address] [place] [address] Charlotte Malave, DO [address] [place] [address] Pending Results Name Type Priority Associated Diagnoses Date /Time MYCODE SUBSEQUENT ADULT Lab Routine [employer] Other*[id number] 07/01/2024 11:59 AM EDT URINALYSIS, REFLEX TO CULTURE (NOT FOR NEUTROPENIC PATIENTS) Lab Routine Mild dementia without behavioral disturbance, psychotic disturbance, mood disturbance, or anxiety, unspecified dementia type (HCC) Abnormal CBC 07/01/2024 11:59 AM EDT MYCODE SST1 Lab Routine [employer] Other*[id number] 07/01/2024 11:59 AM EDT MYCODE SST2 Lab Routine [employer] Other*[id number] 07/01/2024 11:59 AM EDT Scheduled Orders Name [...] this encounter Medical Devices Implanted Type Area Correctional Probation Officer Device Identifier Shelf Expiration Date Model / Serial / Lot Lens Intraoc 22.0 - [id number] - [id number] Implanted:Qty: 1 on 06/02/2018 by Wili Farmer MD at OR [facility] Right: Eye [employer] 12/12/2022 [id number] / [id number] / [id number] documented as of this encounter Procedures Procedure [...] and received 07/01/2024 1:01 PM EDT [facility] Urine Urine specimen obtained by clean catch procedure / Unknown Non-blood Collection / Unknown 07/01/2024 11:59 AM EDT 07/01/2024 11:59 AM EDT us Leda Baez DO LAB URINE ORDERABLES Final Result Performing Organization Address City/State/[facility] Co de Phone Number LAB[facility]ATORY [place] [address] [place] [address] * (ABNORMAL) DIFFERENTIAL, AUTOMATED (07/01/2024 11:59 AM [...] DO LAB BLOOD ORDERABLES Final Result [facility] [place] [facility] [place] [address] * (ABNORMAL) CBC (07/01/2024 11:59 AM EDT) WBC 14.06(H) 4.00 - 10.80 K/uL 07/01/2024 12:33 PM EDT LAB[facility] [place] [facility]10 RBC 5.01 3.85 - 5.15 M/uL 07/01/2024 12:33 PM EDT [facility] HGB 16.1(H) 12.0 - 15.3 g/dL 07/01/2024 12:33 PM EDT [facility] HCT 45.6(H) 36.0 - 45.2 % 07/01/2024 12:33 PM EDT [facility] MCV 91.0 81.5 - 97.5 fL 07/01/2024 12:33 PM EDT LAB[facility]ORY [place] [facility]10 MCH 32.1 27.0 - 34.0 pg 07/01/2024 12:33 PM EDT LAB[facility]ORY [place] [facility]10 MCHC 35.3 32.0 - 36.0 g/dL 07/01/2024 12:33 PM EDT LAB[facility]ATORY [place] 5710 RDW 13.6 11.5 - 15.5 % 07/01/2024 12:33 PM EDT LAB[facility]ORY [place] [facility]10 PLT 343 140 - 400 K/uL 07/01/2024 12:33 PM EDT LAB[facility]ORY [place] 5710 MPV 9.6 6.6 - 11.1 fL 07/01/2024 12:33 PM EDT [facility] [place] [facility] Blood Venous blood specimen / Unknown Venipuncture / Unknown 07/01/2024 11:59 AM EDT 07/01/2024 11:59 AM EDT us Leda Baez DO LAB BLOOD ORDERABLES Final Result LABORATORY [place] [address] [address] [place] [address] * (ABNORMAL) COMPREHENSIVE METABOLIC PANEL (07/01/2024 11:59 AM EDT) BUN 14 6 - 20 mg/dL 07/01/2024 1:22 PM EDT LAB[facility]ORY [place] 57[facility] CREATININE 0.9 0.5 - 1.0 mg/dL 07/01/2024 1:22 PM EDT LAB[facility]ATORY [place] 5710 EGFR 68 >=60 mL/min 07/01/2024 1:22 PM EDT LAB[facility] [place] 5710 Comment:eGFR is calculated b ased on the CKD-EPI 2020 equation. SODIUM 140 135 - 146 mmol/L 07/01/2024 1:22 PM EDT LAB[facility]ORY [place] [facility]10 POTASSIUM 3.0(L) 3.5 - 5.1 mmol/L 07/01/2024 1:22 PM EDT LAB[facility] [place] [facility]10 CHLORIDE 96(L) 98 - 107 mmol/L 07/01/2024 1:22 PM EDT LAB[facility] [place] 5710 CO2 27 22 - 32 mmol/L [...] 07/01/2024 11:59 AM EDT us Zayda Buckner [facility] LAB BLOOD ORDERABLES Final Resul t LABORATORY [place] [facility] [place] [address] documented in this encounter Visit Diagnoses Diagnosis [employer] Other*[id number] Type 2 diabetes mellitus with hemoglobin A1c goal of less than 8.0% (HCC) HTN, goal below 130/80 Unspecified essential hypertension Abnormal CBC Other abnormal blood chemistry Mild dementia without behavioral disturbance, psychotic disturbance, mood disturbance, or anxiety, unspecified dementia type (HCC) documented in this encounter Care Teams Painter Apprentice Relationship Specialty Start Date End Date Jian Escalante MD [address] [place] [address] PCP - General Family Medicine 07/29/20 documented as of this encounter
--- OUTSIDE RECORDS SUMMARY | 2024-07-15 08:56 | External Medical Summary ---
Author Name Unknown Address Unknown Organization [facility]ATORY [place] [address] [place] [address] Laboratory Report Ordering Provider Test Date Status JEFRY,DURA 07/01/2024 11:59:19 Final Observation Date Value Abnormality Reference (Units ) Status BUN 07/01/2024 11:59:19 14 6-20 (mg/dL) Final Creatinine 07/01/2024 11:59:19 0.9 0.5-1.0 (mg/dL) Final Glomerular filtration rate/1.73 sq M.predicted [Volume Rate/Area] in Serum, Plasma or Blood by Creatinine-based formula (CKD-EPI) 07/01/2024 11:59:19 68 >=60 (mL/min) Final eGFR is calculated based on the CKD-EPI 2020 equation. Sodium 07/01/2024 11:59:19 140 135-146 (m mol/L) Final Potassium 07/01/2024 11:59:19 3.0 Below low normal 3.5 -5.1 (mmol/L) Final Cl 07/01/2024 11:59:19 96 Below low normal 98- 107 (mmol/L) Final CO2 07/01/2024 11:59:19 27 22-32 (mmo l/L) Final Anion gap 07/01/2024 11:59:19 17 Above high normal 7- 15 (mmol/L) Final Glucose 07/01/2024 11:59:19 281 Above high normal 70 -120 (mg/dL) Final Albumin 07/01/2024 11:59:19 4.3 3.8-5.0 (g /dL) Final AST (Aspartate aminotransferase) 07/01/2024 11:59:19 34 10-35 (U/L) Fin al Alk Phos 07/01/2024 11:59:19 40 35-130 (U/ L) Final Bilirubin, Total 07/01/2024 11:59:19 0.5 <=1 .2 (mg/dL) Final Calcium 07/01/2024 11:59:19 10.4 Above high normal 8. 4-10.2 (mg/dL) Final Protein 07/01/2024 11:59:19 6.8 6.0-8.3 (g /dL) Final ALT (Alanine aminotransferase) 07/01/2024 11:59:19 43 Above high normal 10-35 (U/L) Final Performing Location LABORATORY [place] [facility] [facility] [address]
--- OUTSIDE RECORDS SUMMARY | 2024-07-15 08:56 | External Medical Summary | Summary of Care ---
Author Name Unknown Organization [facility] Address [address] [place] [address] Phone [phone] Care Team Providers Care Acid Patroller Name Role Phone Jian Escalante MD Primary Care Provider [phone] Reason for Visit * Reason Comments Acute Pt hete for possible depression, is sleeping a lot more than usual and not sure if could be med related. Has some dementia issues as well, they have noticed less activity with her and this is not her normal self . Encounter Details Date Type Department Care Team ([facility] Contact Info) Description 07/01/2024 11:20 AM EDT Office Visit [facility] [address] [facility] [address] Leda Wang DO [address] [place] [id number] Mild dementia without behavioral disturbance, psychotic disturbance, mood disturbance, or anxiety, unspecified dementia type (HCC)*; Type 2 diabetes mellitus with hemoglobin A1c goal of less than 8.0% (HCC); Mild episode of recurrent major depressive disorder (HCC); Abnormal CBC Allergies Active Allergy Reactions Criticality Noted Date [...] THE MORNING.. 90 Tablet 1 5 Active HYDROcodone-Acet aminophen 5-325 MG Oral TabletIndication s:Spinal stenosis of lumbar region without neurogenic claudication Take 1 Tablet by mouth 3 times a day as needed for Pain, Severe. 90 Tablet 4 07/02/19 25 Discontinu ed(Medicat ion List Clean Up) documented as of this encounter (statuses as [...] USE AGREEMENT 09/29/2012 Overview (01/05/2015): Managed by [facility]. To view the Medication Usage Agreement, go [...] Date Smoking Tobacco: Never Smokeless Tobacco: Never Tobacco Cessation:Counseling Given: Not Answered Alcohol Use Standard Drinks/Week Comments No 0 [...] Sign Reading Time Taken Comments Blood Pressure 140/78 07/01/2024 11:22 AM EDT Pulse 115 07/01/2024 11:22 AM EDT Temperature 37.1 °C (98.8 °F) 07/01/2024 11:22 AM E DT Respiratory Rate 16 07/01/2024 11:22 AM EDT Oxygen Saturation - - Inhaled Oxygen Concentration - - Weight 65.3 kg (144 lb) 07/01/2024 11:22 AM EDT Height - - Body Mass Index 31.16 04/05/2024 1:30 PM EST documented in this encounter Progress Notes * Leda Wang, - 07/01/2024 11:27 AM EDT Subjective: Annie Amin is a 79 year old female. Chief Complaint Patient presents with Acute Pt hete for possible depression, is sleeping a lot more than usual and not sure if could be med related. Has some dementia issues as well, they have noticed less activity with her and this is not hernormal self . There are no exam notes on file for this visit. HPI: This is a 79 year old female with PMHx as below presents with acute illness Daily activity is eating, watching TV and napping Recently had bfast with granddaughter - annie did not want to go. feels this is different from her normal self. concerned with lack of activity and change in the above. Currently taking cymbalta Pmhx dementia and DM - on glipizide and aricept Health Maintenance Due Topic Date Due Diabetic Eye Exam 10/19/2020 Depression Screening 10/24/2021 Adult Wellness Visit 10/24/2021 Zoster Vaccines (2 of 2) 05/15/2022 Diabetic Foot Exam 03/12/2024 Albumin/Creatinine Ratio 09/09/2024 Patient Active Problem List Diagnosis Dyslipidemia Type 2 diabetes mellitus with hemoglobin A1c goal of less than 8.0% (HCC) MEDICATION USE AGREEMENT HTN, goal below 130/80 Spinal stenosis of lumbar region with neurogenic claudication Gastroesophageal reflux disease without esophagitis Obesity, Class I, BMI 30.0-34.9 (see actual BMI) Chronic pain syndrome Claudication of both lower extremities (HCC) Mild dementia (HCC) Multiple gastric ulcers Current Outpatient Medications Medication Sig Dispense Refill Glucose Blood (Innate PharmaUCH ULTRA BLUE) STRP Test blood sugars once daily as needed. Dx E11.9 50 Strip 11 Cilostazol 50 MG Oral Tablet (Pletal) Take 1 Tablet by mouth in the morning and 1 Tablet before bedtime. 180 Tablet 3 Ferrous Sulfate 325 (65 Fe) MG Oral Tablet (Feosol) Take 1 Tablet by mouth in the morning and 1 Tablet before bedtime. 60 Tablet 11 Donepezil HCl 5 MG Oral Tablet (Aricept) Take 1 Tablet by mouth at bedtime. 90 Tablet 3 metroNIDAZOLE 0.75 % External Cream (MetroCream) Apply thin layer to face twice daily 45 g 1 Pantoprazole Sodium 40 MG Oral Tablet Delayed Release (Protonix) Take 1 Tablet by mouth in the morning. 90 Tablet 3 Doxycycline Monohydrate 100 MG Oral Capsule Take 1 capsule twice daily for 1 month, then decrease to once daily for a month, then stop. 60 Capsule 1 Carvedilol 12.5 MG Oral Tablet (Coreg) TAKE 1 TABLET BY MOUTH IN THE MORNING AND BEFORE BEDTIME 180Tablet 1 glipiZIDE 5 MG Oral Tablet (Glucotrol) TAKE 1 TABLET BY MOUTH EVERY DAY IN THE MORNING 90 Tablet 1 DULoxetine HCl 60 MG Oral Capsule Delayed Release Particles (Cymbalta) Take 1 Capsule by mouth in the morning. Every morning.. 90 Capsule 1 hydroCHLOROthiazide 25 MG Oral Tablet (Hydrodiuril) TAKE 1 TABLET BY MOUTH IN THE MORNING. 90 Tablet 1 Rosuvastatin Calcium 20 MG Oral Tablet (Crestor) TAKE 1 TABLET BY MOUTH IN THE MORNING. IN THE MORNING.. 90 Tablet 1 No current facility-administered medications for this visit. Past Medical History: Diagnosis Date Chronic pain syndrome 01/30/2022 Chronic Steroid Use 06/14/2008 issue resolved Dyslipidemia 11/06/2011 Gastroesophageal reflux disease without esophagitis 01/31/2021 HTN, goal below 130/80 09/25/2015 Per HTN Protocol HTN, goal below 140/90 Hypertension, benign INFORMATION enlarged heart INFORMATION pre ulcer Mild dementia (HCC) 10/03/2023 Multiple gastric ulcers 03/15/2024 Obesity, Class I, BMI 30.0-34.9 (see actual BMI) 07/27/2021 [address] bermudez. Spinal stenosis of lumbar region with neurogenic claudication 09/30/2017 Type 2 diabetes mellitus with hemoglobin A1c goal of less than 8.0% ([facility]) 11/06/2011 ICD-10 update of inactive term Past Surgical History: Procedure Laterality Date DELIVERY 1969, 1970, 1973 X 3 COLONOSCOPY W/ BIOPSY (RECTUM) 10/07/08 diverticulosis COLONOSCOPY, DIAGNOSTIC (RECTUM) 12/08/2009 divertic COLONOSCOPY, DIAGNOSTIC (RECTUM) 10/01/2019 distal descending scattered diverticulosis/patent end to side colo-colonic anastomosis/internal hemorrhoids/biopsies show hyperplastic and adenomatous changes/recall 2-3 years depending health status/COLONOSCOPY FLEXIBLE PROXIMAL DIAGNOSTIC performed by Kait Lewis MD at ENDOSCOPY [facility] INFORMATION 05/2007 Spinal Stenosis INFORMATION 02/2012 spine surgery --Dr. Tijerina INFORMATION Right 05/24/2015 hammertoe repair and foot surgery LAP;W/HYSTERECTOMY 1994 Hysterectomy Complete OTHER 11/17/08 exploratory laparotomy, lysis of adhesions, sigmoid colectomy with primary anastomosis: proctoscopy: repair of bladder fistula 11/17/08, [facility], Dr. Robb REMOVE CATARACT, INSERT LENS PROSTH Right 06/02/2018 right EXTRACAPSULAR CATARACT REMOVAL WITH INTRAOCULAR LENS performed by Wili Farmer MD at OR [facility] SPINE SURGERY PROCEDURE NEC 2007 spinal stenosis, Dr. Tijerina UOC TOTAL ABD HYSTERECTOMY W/WO REMOVAL OF TUBE(S) early 40s Review of patient's allergies indicates: Allergen Reactions Metformin Nausea/vomiting Tramadol Nausea/vomiting Family History Problem Relation Name Age of Onset Alcohol and Other Disorders Associated Mother Diabetes Mother Arthritis Mother Heart Disorder Father Cancer No significant family history Thyroid Disorder No significant family history Stroke No significant family history Family Status Relation Status Mo at age 84 old age Fa at age 61 heart disease Sis Alive Raissa Alive Raissa Alive Raissa Alive No history (Not Specified) Social History Socioeconomic History Marital status: Spouse name: Rommel Number of children: 3 Years of education: Not on file Highest education level: Not on file Occupational History Occupation: [employer] Employer: [employer] Tobacco Use Smoking status: Never Smokeless tobacco: Never Vaping Use Vaping status: Never Used Substance and Sexual Activity Alcohol use: No Drug use: No Sexual activity: Yes Partners: Male Other Topics Concern Service Not Asked Blood Transfusions Not Asked Caffeine Concern Not Asked Occupational Exposure Not Asked Hobby Hazards Not Asked Sleep Concern Not Asked Stress Concern Not Asked Weight Concern Not Asked Special Diet Not Asked Back Care Not Asked Exercise Not Asked Bike Helmet Not Asked Seat Belt Yes Self-Exams Not Asked Social History Narrative Not on file Social Needs Financial Resource Strain: Not on file Food Insecurity: No Food Insecurity (11/24/2021) Hunger Vital Sign Worried About Running Out of Food in the Last Year: Never true Ran Out of Food in the Last Year: Never true Transportation Needs: Not on file Social Connections: Not on file Housing Stability: Not on file Review of Systems: As per HPI all other ROS negative. Wt Readings from Last 3 Encounters: 07/01/24 144 lb (65.3 kg) 04/05/24 146 lb (66.2 kg) 03/15/24 146 lb (66.2 kg) Results for orders placed or performed in visit on 04/09/24 ECHO, COMPLETE (2D), TRANS-THORACIC Result Value Ref Range LEFT VENTRICULAR EJECTION FRACTION 60 % OBJECTIVE: Physical Exam: BP 140/78 | Pulse 115 | Temp 98.8 °F (37.1 °C) (Tympanic) | Resp 16 | Wt 144 lb (65.3 kg) | BMI 31.16 kg/m² | BSA 1.62 m² General: alert, healthy, and no distress Mild dementia without behavioral disturbance, psychotic disturbance, mood disturbance, or anxiety, unspecified dementia type (HCC) Type 2 diabetes mellitus with hemoglobin A1c goal of less than 8.0% (HCC) Will have pt communicate with PCP Follow Up: Return if symptoms worsen or fail to improve. Leda Wang DO documented in this encounter Plan of Treatment Upcoming Encounters Date Type Department Care Team (Late st Contact Info) Description 02/11/2025 9:00 AM EDT Office Visit Neurology Jayce Pope [place] [address] [facility], [place] [address] Charlotte Malave DO [address] [facility] [place] [address] Pending Results Name Type Priority Associated Diagnoses Date /Time URINALYSIS, REFLEX TO CULTURE (NOT FOR NEUTROPENIC PATIENTS) Lab Routine Mild dementia without behavioral disturbance, psychotic disturbance, mood disturbance, or anxiety, unspecified dementia type (HCC) Abnormal CBC 07/01/2024 11:59 AM EDT Scheduled Orders Name Type Priority Associated Diagnoses Orde r Schedule URINALYSIS, REFLEX TO CULTURE (NOT FOR NEUTROPENIC PATIENTS) Lab Routine Mild dementia without behavioral disturbance, psychotic disturbance, mood disturbance, or anxiety, unspecified dementia type (HCC) Abnormal CBC Expected: 07/01/2024, Expires: 07/01/2025 Health Maintenance Due Date Last Done Comments Adult Wellness Visit 10/24/2021 10/24/2020 Depression Screening 10/24/2021 10/24/2020 Zoster Vaccines (2 of 2) 05/15/2022 03/20/2022 Diabetic Foot Exam 03/12/2024 03/12/2023, 0 10/24/2020, 02/23/2019, Additional history exists COVID-19 Vaccine ( season) 2024 02/21/2024, 02/11/2023, 02/07/2021, Additional history exists Albumin/Creatinine Ratio 09/09/2024 024, 01/24/2022, 07/05/2017, Additional history exists HbA1c 09/13/2024 03/15/2024, 08/13, [...] this encounter Medical Devices Implanted Type Area Automation Design Engineer Device Identifier Shelf Expiration Date Model / Serial / Lot Lens Intraoc 22.0 - [id number] - [id number] Implanted:Qty: 1 on 06/02/2018 by Wili Farmer MD at OR [facility] Right: Eye [employer] 12/12/2022 [id number] / [id number] / [id number] documented as of this encounter Visit Diagnoses Diagnosis Mild dementia without behavioral disturbance, psychotic disturbance, mood disturbance, or anxiety, unspecified dementia type (HCC)- Primary Type 2 diabetes mellitus with hemoglobin A1c goal of less than 8.0% (HCC) Mild episode of recurrent major depressive disorder (HCC) Abnormal CBC Other abnormal blood chemistry documented in this encounter Care Teams Acid Patroller Relationship Specialty Start Date End Date Jian Escalante MD [address] [id number] PCP - General Family Medicine 07/29/20 documented as of this encounter"
--- OUTSIDE RECORDS SUMMARY | 2024-07-15 08:56 | External Medical Summary ---
Author Name Unknown Address Unknown Organization K0G:[facility] [address] [place] [id number] Laboratory Report Ordering Provider Test Date Status CANDELARIA GARNICA 07/01/2024 11:59:19 Final Observation Date Value Abnormality Reference (Units ) Status SYNC LEUKOCYTES IN BLOOD BY AUTOMATED COUNT 07/01/2024 11:59:19 14.06 Above high normal 4.00-10.80 (K/uL) Final Segs 07/01/2024 11:59:19 65.6 40.0-75.0 (%) Final Lymphs % 07/01/2024 11:59:19 26.2 18.0-42.0 (%) Final Monos 07/01/2024 11:59:19 7.5 1.0-11.0 (%) Final Eosinophils 07/01/2024 11:59:19 0.6 0.0-6.0 (%) Final Basos 07/01/2024 11:59:19 0.1 0.0-2.0 (%) Final Absolute Segs 07/01/2024 11:59:19 9.21 Above high normal 1.80-7.70 (K/uL) Final Lymphs, absolute 07/01/2024 11:59:19 3.69 1.00-4.80 (K/ul) Final Monos, Abs 07/01/2024 11:59:19 1.05 0.00-1.10 (K/uL) Final Eos, Abs 07/01/2024 11:59:19 0.09 0.00-0.70 (K/uL) Final Basos, Abs 07/01/2024 11:59:19 0.02 0.00-0.20 (K/uL) Final Performing Location [facility] [address] [place] [id number]
--- OUTSIDE RECORDS SUMMARY | 2024-07-15 08:56 | External Medical Summary ---
Author Name Unknown Address Unknown Organization K0[facility] [place] [address] [place] [id number] Laboratory Report Ordering Provider Test Date Status CANDELARIA GARNICA 07/01/2024 11:59:19 Final Observation Date Value Abnormality Reference (Units ) Status WBC, Total 07/01/2024 11:59:19 14.06 Above high normal 4 .00-10.80 (K/uL) Final RBC 07/01/2024 11:59:19 5.01 3.85-5.15 (M/uL) Final Hemoglobin 07/01/2024 11:59:19 16.1 Above high normal 1 2.0-15.3 (g/dL) Final HCT 07/01/2024 11:59:19 45.6 Above high normal 36 .0-45.2 (%) Final MCV 07/01/2024 11:59:19 91.0 81.5-97.5 (fL) Final MCH 07/01/2024 11:59:19 32.1 27.0-34.0 (pg) Final MCHC 07/01/2024 11:59:19 35.3 32.0-36.0 (g/dL) Final RDW 07/01/2024 11:59:19 13.6 11.5-15.5 (%) Final Platelets 07/01/2024 11:59:19 343 140-400 (K /uL) Final MPV 07/01/2024 11:59:19 9.6 6.6-11.1 ( fL) Final Performing Location [facility] [place] [address] [place] [id number]
--- OUTSIDE RECORDS SUMMARY | 2024-07-15 08:56 | External Medical Summary | Summary of Care ---
Author Name Unknown Organization [facility] Address [address] [place] [address] Phone [phone] Care Team Providers Care Kennel Manager Name Role Phone Jian Escalante MD Primary Care Provider [phone] Reason for Visit * Reason Comments Outpatient Testing Encounter Details Date Type Department Care Team ([facility] st Contact Info) Description 07/01/2024 11:50 AM EDT Laboratory Laboratory, [facility] [address] [place] [address] [facility] [address] [place] [address] eSNF Other*[id number]; Type 2 diabetes mellitus with hemoglobin A1c goal of less than 8.0% ([facility]); HTN, goal below 130/80; Abnormal CBC; Mild dementia without behavioral disturbance, psychotic disturbance, mood disturbance, or anxiety, unspecified dementia type ([facility]) Allergies Active Allergy Reactions Criticality Noted Date Comments Metformin Nausea/vomiting 11/14/2011 Tramadol Nausea/vomiting 11/14/2011 documented as of this encounter (statuses as of 07/01/2024) Medications Glucose Blood (Mass FidelityTOUCH ULTRA BLUE) STRP Test blood sugars once [...] AM EDT Office Visit Neurology Jayce Pope [place] [address] [facility] [place] [address] Charlotte Malave, DO [address] [place] [address] Pending Results Name Type Priority Associated Diagnoses Date /Time MYCODE SUBSEQUENT ADULT Lab Routine MyCode Research Other*[id number] 07/01/2024 11:59 AM EDT URINALYSIS, REFLEX TO CULTURE (NOT FOR NEUTROPENIC PATIENTS) Lab Routine Mild dementia without behavioral disturbance, psychotic disturbance, mood disturbance, or anxiety, unspecified dementia type (HCC) Abnormal CBC 07/01/2024 11:59 AM EDT MYCODE SST1 Lab Routine [employer] Other*[id number] 07/01/2024 11:59 AM EDT MYCODE SST2 Lab Routine [employer] Other*[id number] 07/01/2024 11:59 AM EDT Scheduled Orders Name [...] this encounter Medical Devices Implanted Type Area Oracle Distribution Consultant Device Identifier Shelf Expiration Date Model / Serial / Lot Lens Intraoc 22.0 - [id number] - [id number] Implanted:Qty: 1 on 06/02/2018 by Wili Farmer MD at OR [facility] Right: Eye [employer] 12/12/2022 [id number] / [id number] / [id number] documented as of this encounter Procedures Procedure [...] and received 07/01/2024 1:01 PM EDT [facility] Urine Urine specimen obtained by clean catch procedure / Unknown Non-blood Collection / Unknown 07/01/2024 11:59 AM EDT 07/01/2024 11:59 AM EDT us Leda Baez DO LAB URINE ORDERABLES Final Result Performing Organization Address City/State/[facility] Co de Phone Number [facility] [place] [address] [place] [address] * (ABNORMAL) DIFFERENTIAL, AUTOMATED (07/01/2024 11:59 AM [...] 11:59 AM EDT 07/01/2024 11:59 AM EDT Lead Baez DO LAB BLOOD ORDERABLES Final Result [facility] [address] [place] [address] * (ABNORMAL) CBC (07/01/2024 11:59 AM EDT) WBC 14.06(H) 4.00 - 10.80 K/uL 07/01/2024 12:33 PM EDT [facility] [place] [address] RBC 5.01 3.85 - 5.15 M/uL 07/01/2024 12:33 PM EDT [facility] HGB 16.1(H) 12.0 - 15.3 g/dL 07/01/2024 12:33 PM EDT [facility] HCT 45.6(H) 36.0 - 45.2 % 07/01/2024 12:33 PM EDT [facility] MCV 91.0 81.5 - 97.5 fL 07/01/2024 12:33 PM EDT [facility] [place] [address] MCH 32.1 27.0 - 34.0 pg 07/01/2024 12:33 PM EDT [facility] [place] [address] MCHC 35.3 32.0 - 36.0 g/dL 07/01/2024 12:33 PM EDT [facility] [place] [address] RDW 13.6 11.5 - 15.5 % 07/01/2024 12:33 PM EDT [facility] [place] [address] PLT 343 140 - 400 K/uL 07/01/2024 12:33 PM EDT [facility] [place] [address] MPV 9.6 6.6 - 11.1 fL 07/01/2024 12:33 PM EDT [facility] Blood Venous blood specimen / Unknown Venipuncture / Unknown 07/01/2024 11:59 AM EDT 07/01/2024 11:59 AM EDT us Leda Baez DO LAB BLOOD ORDERABLES Final Result [facility]ORY [place] [address] [address] [place] [address] * (ABNORMAL) COMPREHENSIVE METABOLIC PANEL (07/01/2024 11:59 AM EDT) BUN 14 6 - 20 mg/dL 07/01/2024 1:22 PM EDT [facility] [place] CREATININE 0.9 0.5 - 1.0 mg/dL 07/01/2024 1:22 PM EDT [facility] [place] [address] EGFR 68 >=60 mL/min 07/01/2024 1:22 PM EDT [facility] [place] [address] Comment:eGFR is calculated b ased on the CKD-EPI 2020 equation. SODIUM 140 135 - 146 mmol/L 07/01/2024 1:22 PM EDT [facility] [place] [address] POTASSIUM 3.0(L) 3.5 - 5.1 mmol/L 07/01/2024 1:22 PM EDT [facility] [place] [address] CHLORIDE 96(L) 98 - 107 mmol/L 07/01/2024 1:22 PM EDT [facility] [place] [address] CO2 27 22 - 32 mmol/L [...] 07/01/2024 11:59 AM EDT us Zayda Buck[facility] LAB BLOOD ORDERABLES Final Resul t LAB[facility] [place] [address] [place] [place] [address] documented in this encounter Visit Diagnoses Diagnosis MyCode Research Other*[id number] Type 2 diabetes mellitus with hemoglobin A1c goal of less than 8.0% (HCC) HTN, goal below 130/80 Unspecified essential hypertension Abnormal CBC Other abnormal blood chemistry Mild dementia without behavioral disturbance, psychotic disturbance, mood disturbance, or anxiety, unspecified dementia type (HCC) documented in this encounter Care Teams Kennel Manager Relationship Specialty Start Date End Date Jian Escalante MD [address] [place] [address] PCP - General Family Medicine 07/29/20 documented as of this encounter
--- OUTSIDE RECORDS SUMMARY | 2024-07-15 08:57 | External Medical Summary | Summary of Care ---
Author Name Unknown Organization [facility] Address [address] [place] [address] Phone [phone] Care Team Providers Care Athletic Turf Worker Name Role Phone Skyla Rowland MD Primary Care Provider [phone] [phone] Reason for Visit * Reason Comments eRx-Medication Refill Encounter Details Date Type Department Care Team ([facility] st Contact Info) Description 06/30/2024 Refill Family Practice [facility] [address] [facility] [place] [address] Skyla Rowland MD [address] [facility] [address] Dyslipidemia, goal LDL below 100 Allergies Active Allergy Reactions Criticality Noted Date Comments Metformin Nausea/vomiting 11/14/2011 Tramadol Nausea/vomiting 11/14/2011 documented as of this encounter (statuses as of 06/30/2024) Medications Glucose Blood (ONETOUCH ULTRA BLUE) STRP Test blood sugars once daily as needed. Dx E11.9 50 Strip 11 09/07/19 20 Active Cilostazol 50 MG Oral Tablet (Pletal) Take 1 Tablet by mouth in the morning and 1 Tablet before bedtime. 180 Tablet 3 08/06/19 24 Active HYDROcodone-Acet aminophen 5-325 MG Oral TabletIndication s:Spinal stenosis of lumbar region without neurogenic claudication Take 1 Tablet by mouth 3 times a day as needed for Pain, Severe. 90 Tablet 08/07/19 24 Active Ferrous Sulfate 325 (65 Fe) MG Oral Tablet (Feosol) Take 1 Tablet by mouth in the morning and 1 Tablet before bedtime. 60 Tablet 11 10/05/19 24 Active Donepezil HCl 5 MG Oral Tablet (Aricept) Take 1 Tablet by mouth at bedtime. 90 Tablet 3 10/28/19 24 Active metroNIDAZOLE 0.75 % External Cream (MetroCream)Reta cations:Perioral dermatitis Apply thin layer to face twice daily 45 g 1 01/01/20 24 Active Pantoprazole Sodium 40 MG Oral Tablet Delayed Release (Protonix) Take 1 Tablet by mouth in the morning. 90 Tablet 3 02/25/20 24 Active Doxycycline Monohydrate 100 MG Oral CapsuleIndicatio ns:Facial rash Take 1 capsule twice daily for 1 month, then decrease to once daily for a month, then stop. 60 Capsule 1 06/01/19 25 Active Carvedilol 12.5 MG Oral Tablet (Coreg)Indicatio ns:HTN, goal below 140/80 TAKE 1 TABLET BY MOUTH IN THE MORNING AND BEFORE BEDTIME 180 Tablet 1 06/04/19 25 Active glipiZIDE 5 MG Oral Tablet (Glucotrol) TAKE 1 TABLET BY MOUTH EVERY DAY IN THE MORNING 90 Tablet 1 06/10/19 25 Active DULoxetine HCl 60 MG Oral Capsule Delayed Release Particles (Cymbalta) Take 1 Capsule by mouth in the morning. Every morning.. 90 Capsule 1 06/26/19 25 Active hydroCHLOROthiaz bev 25 MG Oral Tablet (Hydrodiuril) TAKE 1 TABLET BY MOUTH IN THE MORNING. 90 Tablet 1 07/01/19 25 Active Rosuvastatin Calcium 20 MG Oral Tablet (Crestor)Indicat ions:Dyslipidemi a, goal LDL below 100 TAKE 1 TABLET BY MOUTH IN THE MORNING. IN THE MORNING.. 90 Tablet 1 07/01/19 25 Active Rosuvastatin Calcium 20 MG Oral Tablet (Crestor)Indicat ions:Dyslipidemi a, goal LDL below 100 TAKE 1 TABLET BY MOUTH IN THE MORNING. IN THE MORNING.. 90 Tablet 1 11/03/19 24 025 Discontinued hydroCHLOROthiaz bev 25 MG Oral Tablet (Hydrodiuril) TAKE 1 TABLET BY MOUTH IN THE MORNING. 90 Tablet 1 11/03/19 24 025 Discontinued documented as of this encounter (statuses as of 06/30/2024) Active Problems Problem Noted Date Diagnosed Date [...] USE AGREEMENT 09/29/2012 Overview (01/05/2015): Managed by [employer]. To view the Medication Usage Agreement, go to Action, Patient Files. Signed 05/17/14 Angela Amaro Dyslipidemia 11/06/2011 Type 2 diabetes mellitus wit h hemoglobin A1c goal of less than 8.0% 11/06/2011 Overview (08/08/2015): ICD-10 update of inactive term documented as of this encounter (statuses as of 06/30/2024) Resolved Problems Problem Noted Date Diagnosed Date [...] as of this encounter (statuses as of 06/30/2024) Immunizations Name Administration Dates Next Due COVID-19 [...] encounter Miscellaneous Notes * Telephone Encounter - Elif Ellis [facility] - 06/30/2024 3:35 PM EDTSigned Prescriptions: Disp Refills hydroCHLOROthiazide 25 MG Oral Tablet (Hyd*90 Tab*1 Sig: TAKE 1 TABLET BY MOUTH IN THE MORNING.Authorizing Provider: SKYLA ROWLAND User: NATTY ELLIS Rosuvastatin Calcium 20 MG Oral Tablet (Cr*90 Tab*1 Sig: TAKE 1 TABLET BY MOUTH IN THE MORNING. IN THE MORNING..Authorizing Provider: SKYLA ROWLAND User: ELIF ELLIS documented in this encounter Plan of Treatment Upcoming Encounters Date Type Department Care Team (Late st Contact Info) Description 07/01/2024 11:20 AM EDT Office Visit Family [facility] [address] Leda Baez [facility] [address] 02/11/2025 9:00 AM EDT Office Visit Neurology [facility] [address] [place], [place] [address] Charlotte Malave DO [address] [place] [address] Health Maintenance Due Date Last Done Comments Diabetic Eye Exam 10/19/2020 10/20/2019, , 02/13/2012 Adult Wellness Visit 10/24/2021 10/24/2020 Depression Screening 10/24/2021 10/24/2020 Zoster Vaccines (2 of 2) 05/15/2022 03/20/2022 Diabetic Foot Exam 03/12/2024 03/12/2023, 0 10/24/2020, 02/23/2019, Additional history exists COVID-19 Vaccine ( season) 2024 02/21/2024, 02/11/2023, 02/07/2021, Additional history exists Albumin/Creatinine Ratio 09/09/2024 024, 01/24/2022, 07/05/2017, Additional history exists GFR 09/09/2024 09/10/2023, 08/13, 01/24/2022, Additional history exists HbA1c 09/13/2024 03/15/2024, 08/13, 03/12/2023, Additional history exists Colonoscopy 01/15/2025 01/15/2023, 09/12, 10/01/2019, Additional history exists DTap/Tdap Vaccines (2 - Td or Tdap) 05/02/2025 05/02/2015 DXA Scan 11/21/2026 11/22/2019, 07/0 05/2012, 10/13/2012, [...] this encounter Medical Devices Implanted Type Area Chemists Device Identifier Shelf Expiration Date Model / Serial / Lot Lens Intraoc 22.0 - [id number] - [id number] Implanted:Qty: 1 on 06/02/2018 by Wili Farmer MD at OR [facility] Right: Eye [employer] 12/12/2022 [id number] / [id number] documented as of this encounter Visit Diagnoses Diagnosis Dyslipidemia, goal LDL below 100 Other and unspecified hyperlipidemia documented in this encounter Care Teams Athletic Turf Worker Relationship Specialty Start Date End Date Skyla Rowland MD [address] [place] [address] PCP - General Family Medicine 07/29/20 documented as of this encounter
--- OUTSIDE RECORDS SUMMARY | 2024-07-15 08:57 | External Medical Summary | Summary of Care ---
Author Name Unknown Organization [facility] Address [address] [place] [address] Phone [phone] Care Team Providers Care Security Solutions Architect Name Role Phone Jian Escalante MD Primary Care Provider [phone] Reason for Visit * Reason Onset Date Comments Pharmacy Questions 06/28/2024 Encounter Details Date Type Department Care Team ([facility] Contact Info) Description 06/28/2024 Telephone Family Practice [facility] [address] [place] [place] [address] Jian Escalante MD [address] [facility] [place] [id number] Pharmacy Questions Allergies Active Allergy Reactions Criticality Noted Date Comments Metformin Nausea/vomiting 11/14/2011 Tramadol Nausea/vomiting 11/14/2011 documented as of this encounter (statuses as of 06/28/2024) Medications Glucose Blood (ONETOUCH ULTRA BLUE) STRP Test blood sugars once daily as needed. Dx E11.9 50 Strip 11 0 Active Cilostazol 50 MG Oral Tablet (Pletal) Take 1 Tablet by mouth in the morning and 1 Tablet before bedtime. 180 Tablet 3 4 Active HYDROcodone-Aceta minophen 5-325 MG Oral TabletIndications :Spinal stenosis of lumbar region without neurogenic claudication Take 1 Tablet by mouth 3 times a day as needed for Pain, Severe. 90 Tablet 4 Active Ferrous Sulfate 325 (65 Fe) MG Oral Tablet (Feosol) Take 1 Tablet by mouth in the morning and 1 Tablet before bedtime. 60 Tablet 11 4 Active Donepezil HCl 5 MG Oral Tablet (Aricept) Take 1 Tablet by mouth at bedtime. 90 Tablet 3 4 Active Rosuvastatin Calcium 20 MG Oral Tablet (Crestor)Indicati ons:Dyslipidemia, goal LDL below 100 TAKE 1 TABLET BY MOUTH IN THE MORNING. IN THE MORNING.. 90 Tablet 1 4 Active hydroCHLOROthiazi de 25 MG Oral Tablet (Hydrodiuril) TAKE 1 TABLET BY MOUTH IN THE MORNING. 90 Tablet 1 4 Active metroNIDAZOLE 0.75 % External Cream (MetroCream)Indic ations:Perioral dermatitis Apply thin layer to face twice daily 45 g 1 4 Active Pantoprazole Sodium 40 MG Oral Tablet Delayed Release (Protonix) Take 1 Tablet by mouth in the morning. 90 Tablet 3 4 Active Doxycycline Monohydrate 100 MG Oral CapsuleIndication s:Facial rash Take 1 capsule twice daily for 1 month, then decrease to once daily for a month, then stop. 60 Capsule 1 5 Active Carvedilol 12.5 MG Oral Tablet (Coreg)Indication s:HTN, goal below 140/80 TAKE 1 TABLET BY [...] Every morning.. 90 Capsule 1 5 Active documented as of this encounter (statuses as of 06/28/2024) Active Problems Problem Noted Date Diagnosed Date [...] as of this encounter (statuses as of 06/28/2024) Resolved Problems Problem Noted Date Diagnosed Date [...] as of this encounter (statuses as of 06/28/2024) Immunizations Name Administration Dates Next Due COVID-19 [...] encounter Miscellaneous Notes * Telephone Encounter - Gustavo Reynaga, aviation ordnance officer - 06/28/2024 12:00 PM EDT Pt EC called to clarify directions for Duloxetine. Thank you, Gustavo Reynaga [facility] [address] [place] [address], [address] [place] [address] MC [id number] 06/28/2024, 12:04 PM documented in this encounter Plan of Treatment Upcoming Encounters Date Type Department Care Team (Late st Contact Info) Description 02/11/2025 9:00 AM EDT Office Visit Neurology Jayce Pope [place] [address] [place] [address] Charlotte Malave, DO [address] [place] [address] Health Maintenance Due Date Last Done Comments [...] 01/24/2022, Additional history exists HbA1c 09/13/2024 03/15/2024, 052 12/2023, 03/12/2023, Additional history exists Colonoscopy 01/15/2025 01/15/2023, 0612/2019, 10/01/2019, Additional history exists DTap/Tdap Vaccines (2 [...] this encounter Medical Devices Implanted Type Area Rehab/Pre Vocational Counselor Device Identifier Shelf Expiration Date Model / Serial / Lot Lens Intraoc 22.0 - [id number] - [id number] Implanted:Qty: 1 on 06/02/2018 by Wili Farmer MD at OR [facility] Right: Eye [employer] 12/12/2022 [id number] / [id number] / [id number] documented as of this encounter Care Teams Security Solutions Architect Relationship Specialty Start Date End Date Jian Escalante MD 132 [facility] [place] [address] PCP - General Family Medicine 07/29/20 documented as of this encounter
--- OUTSIDE RECORDS SUMMARY | 2024-07-15 08:57 | External Medical Summary | Summary of Care ---
Author Name Unknown Organization [facility] Address [address] [place] [address] Phone [phone] Care Team Providers Care Pourer Buggy Ladle Name Role Phone Jian Escalante MD Primary Care Provider [phone] Reason for Visit * Reason Onset Date Comments Test Results 03/17/2024 Encounter Details Date Type Department Care Team ([facility] Contact Info) Description 03/17/2024 Telephone Family Practice [facility] [address] [place] [facility] [place] [address] Jian Escalante MD [address] [facility] [place] [id number] Test Results Allergies Active Allergy Reactions Criticality Noted Date Comments Metformin Nausea/vomiting 11/14/2011 Tramadol Nausea/vomiting 11/14/2011 documented as of this encounter (statuses as of 06/17/2024) Medications Glucose Blood (ONETOUCH ULTRA BLUE) STRP [...] bedtime. 90 Tablet 3 10/28/19 24 Active DULoxetine HCl 60 MG Oral Capsule Delayed Release Particles (Cymbalta) TAKE 1 CAPSULE BY MOUTH EVERY MORNING 90 Capsule 1 11/03/19 24 Active Rosuvastatin Calcium 20 MG Oral Tablet (Crestor)Indicat ions:Dyslipidemi a, goal LDL below 100 TAKE 1 TABLET BY MOUTH IN THE MORNING. IN THE MORNING.. 90 Tablet 1 11/03/19 24 Active hydroCHLOROthiaz bev 25 MG Oral Tablet (Hydrodiuril) TAKE 1 TABLET BY MOUTH IN THE MORNING. 90 Tablet 1 11/03/19 24 Active metroNIDAZOLE 0.75 % External Cream (MetroCream)Reta cations:Perioral dermatitis Apply thin layer to face twice daily 45 g 1 01/01/20 24 Active Pantoprazole Sodium 40 MG Oral Tablet Delayed Release (Protonix) Take 1 Tablet by mouth in the morning. 90 Tablet 3 02/25/20 24 Active Carvedilol 12.5 MG Oral Tablet (Coreg)Indicatio ns:HTN, goal below 140/80 TAKE 1 TABLET BY MOUTH IN THE MORNING AND BEFORE BEDTIME 180 Tablet 1 11/03/19 24 025 Discontinued glipiZIDE 5 MG Oral Tablet (Glucotrol) TAKE 1 TABLET BY MOUTH EVERY DAY IN THE MORNING 90 Tablet 1 11/03/19 24 025 Discontinued Ciprofloxacin HCl 250 MG Oral Tablet (Cipro) Take 1 Tablet by mouth in the morning and 1 Tablet before bedtime. Do all this for 3 days. 6 Tablet 03/18/20 24 024 documented as of this encounter (statuses as of 06/17/2024) Active Problems Problem Noted Date Diagnosed Date [...] to Action, Patient Files. Signed 05/17/[address] Dyslipidemia 11/06/2011 Type 2 diabetes mellitus wit h hemoglobin A1c goal of less than 8.0% 11/06/2011 Overview (08/08/2015): ICD-10 update of inactive term documented as of this encounter (statuses as of 06/17/2024) Resolved Problems Problem Noted Date Diagnosed Date [...] as of this encounter (statuses as of 06/17/2024) Immunizations Name Administration Dates Next Due COVID-19 [...] Telephone Encounter - Margarita Cole LPN - 03/19/2024 9:31 AM EST Called and spoke with Rosales, pt . Aware * Telephone Encounter - Jian Escalante MD - 03/18/2024 3:30 PM EST Labs look stable. A1c 7.2%. No med changes needed. Awaiting urine culture but sent in antibiotics based o last culture. * Telephone Encounter - Gifty Funk OSA - 03/17/2024 8:52 AM EST Who is Requesting Test Results: Patient's spouse Rosales Primary Care Provider : Jian Escalante MD Tests Results Requested : blood work Date of Test : 03.15.24 Location of Test: [facility] Ordering Provider: Dr. Escalante Patient has been made aware that the turnaround time for test results are typically as follows: Laboratory results = within 2-3 days ([facility]), 3-5 days (Non[facility], ie[facility]) Urine Cultures = within 2-3 days depending on growth within the culture Pathology results (biopsy results/PAP) = 1-2 weeks Radiology results = about 1 week Cologuard results = within 2 weeks from the shipment date COVID testing = about 24 hours documented in this encounter Plan of Treatment Upcoming Encounters Date Type Department Care Team (Late st Contact Info) Description 02/11/2025 9:00 AM EDT Office Visit Neurology Jayce Pope [place] [address] [facility] [place] [address] Charlotte Malave, DO [address] [place] [address] Health Maintenance Due Date Last Done Comments [...] Tdap) 05/02/2025 05/02/2015 DXA Scan 11/21/2026 11/22/2019, 05/2012, 10/13/2012, Additional [...] this encounter Medical Devices Implanted Type Area Instrumental Musician Device Identifier Shelf Expiration Date Model / Serial / Lot Lens Intraoc 22.0 - [id number] - [id number] Implanted:Qty: 1 on 06/02/2018 by Wili Farmer MD at OR [facility] Right: Eye [employer] 12/12/2022 [id number] / [id number] / [id number] documented as of this encounter Care Teams Pourer Buggy Ladle Relationship Specialty Start Date End Date Jian Escalante MD [address] [place] [address] PCP - General Family Medicine 07/29/20 documented as of this encounter
--- OUTSIDE RECORDS SUMMARY | 2024-07-15 08:57 | External Medical Summary | Summary of Care ---
Author Name Unknown Organization [facility] Address [address] [place] [address] Phone [phone] Care Team Providers Care Early Childhood Services Coordinator Name Role Phone Jian Escalante MD Primary Care Provider [phone] Reason for Visit * Reason Onset Date Comments Health Maintenance 06/04/2024 Encounter Details Date Type Department Care Team ([facility] st Contact Info) Description 06/04/2024 Telephone Family Practice [facility] [address] [facility] [place] [address] Jian Escalante MD [address] [facility] [place] [id number] Health Maintenance Allergies Active Allergy Reactions Criticality Noted Date Comments Metformin Nausea/vomiting 11/14/2011 Tramadol Nausea/vomiting 11/14/2011 documented as of this encounter (statuses as of 06/04/2024) Medications Glucose Blood (ONETOUCH ULTRA BLUE) STRP [...] at bedtime. 90 Tablet 3 4 Active Carvedilol 12.5 MG Oral Tablet (Coreg)Indication s:HTN, goal below 140/80 TAKE 1 TABLET BY MOUTH IN THE MORNING AND BEFORE BEDTIME 180 Tablet 1 4 Active DULoxetine HCl 60 MG Oral Capsule Delayed Release Particles (Cymbalta) TAKE 1 CAPSULE BY MOUTH EVERY MORNING 90 Capsule 1 4 Active glipiZIDE 5 MG Oral Tablet (Glucotrol) TAKE 1 TABLET BY MOUTH EVERY DAY IN THE MORNING 90 Tablet 1 4 Active Rosuvastatin Calcium 20 MG Oral [...] then stop. 60 Capsule 1 5 Active documented as of this encounter (statuses as of 06/04/2024) Active Problems Problem Noted Date Diagnosed Date [...] Patient Files. Signed 05/17/14 Angela Huynh [address] . Dyslipidemia 11/06/2011 Type 2 diabetes mellitus wit h hemoglobin A1c goal of less than 8.0% 11/06/2011 Overview (08/08/2015): ICD-10 update of inactive term documented as of this encounter (statuses as of 06/04/2024) Resolved Problems Problem Noted Date Diagnosed Date [...] as of this encounter (statuses as of 06/04/2024) Immunizations Name Administration Dates Next Due COVID-19 [...] encounter Miscellaneous Notes * Telephone Encounter - Margot Saldana LPN - 06/04/2024 10:07 AM EST Care Gaps Comprehensive Care Outreach Last Office/Telemedicine Visit: 04/05/2024 (in office), 05/15/2020 (telemedicine) Next Office Visit: Visit date not found Hemoglobin AIC Results: Lab Results Component Value Date/Time HEMOGLOBIN A1C - [facility] 7.2 (H) 03/15/2024 10:36 AM HEMOGLOBIN A1C - [facility] 8.5 (H) 09/10/2023 12:33 PM HEMOGLOBIN A1C - [facility] 8.5 (H) 03/12/2023 09:51 AM HEMOGLOBIN A1C - [facility] 6.6 (H) 10/20/2019 09:05 AM HEMOGLOBIN A1C - [facility] 6.9 (H) 05/23/2018 02:44 PM HEMOGLOBIN A1C - [facility] 6.1 07/05/2017 09:21 AM BP Readings from Last 1 Encounters: 04/05/24 120/72 Reviewed Health Maintenance below: Health Maintenance Topic Date Due Diabetic Eye Exam 10/19/2020 Depression Screening 10/24/2021 Adult Wellness Visit 10/24/2021 Zoster Vaccines (2 of 2) 05/15/2022 Diabetic Foot Exam 03/12/2024 COVID-19 Vaccine ( season) 2024 Albumin/Creatinine Ratio 09/09/2024 GFR 09/09/2024 HbA1c 09/13/2024 Ov 6 month Labs spring eye Care Gap Outreach Action Taken: Left message documented in this encounter Plan of Treatment Upcoming Encounters Date Type Department Care Team (Late st Contact Info) Description 08/30/2024 1:00 PM EDT Office Visit Orthopaedics [facility] [address] [place] [phone] Thanh Gonsales, DO [address] [place] [phone] 02/11/2025 9:00 AM EDT Office Visit Neurology [facility] [address] [facility] [place] [address] Charlotte Malave DO [address] [place] [address] Health Maintenance Due Date Last Done Comments [...] Tdap) 05/02/2025 05/02/2015 DXA Scan 11/21/2026 11/22/2019, 0705/2012, 10/13/2012, Additional [...] this encounter Medical Devices Implanted Type Area Marketing Outreach Coordinator Device Identifier Shelf Expiration Date Model / Serial / Lot Lens Intraoc 22.0 - [id number] - [id number] Implanted:Qty: 1 on 06/02/2018 by Wili Farmer MD at OR [facility] Right: Eye [employer] 12/12/2022 [id number] / [id number] / [id number] documented as of this encounter Care Teams Early Childhood Services Coordinator Relationship Specialty Start Date End Date Jian Escalante MD [address] [place] [address] PCP - General Family Medicine 07/29/20 documented as of this encounter
--- OUTSIDE RECORDS SUMMARY | 2024-07-15 08:57 | External Medical Summary | Summary of Care ---
Author Name Unknown Organization [facility] Address [address] [place] [address] Phone [phone] Care Team Providers Care Social Service Manager Name Role Phone Jian Escalante MD Primary Care Provider [phone] Encounter Details Date Type Department Care Team ([facility] Contact Info) Description 06/29/2024 Orders Only PATIENT PORTAL DO NOT DELETE THIS DEPT USED BY [place] [id number] Allergies Active Allergy Reactions Criticality Noted Date Comments Metformin Nausea/vomiting 11/14/2011 Tramadol Nausea/vomiting 11/14/2011 documented as of this encounter (statuses as of 06/29/2024) Medications Glucose Blood (ONETOUCH ULTRA BLUE) STRP [...] as of this encounter (statuses as of 06/29/2024) Active Problems Problem Noted Date Diagnosed Date [...] USE AGREEMENT 09/29/2012 Overview (01/05/2015): Managed by [employer]. To view the Medication Usage Agreement, go to Action, Patient Files. Signed 05/17/[address] Dyslipidemia 11/06/2011 Type 2 diabetes mellitus wit h hemoglobin A1c goal of less than 8.0% 11/06/2011 Overview (08/08/2015): ICD-10 update of inactive term documented as of this encounter (statuses as of 06/29/2024) Resolved Problems Problem Noted Date Diagnosed Date [...] as of this encounter (statuses as of 06/29/2024) Immunizations Name Administration Dates Next Due COVID-19 [...] AM EDT Office Visit Neurology Jayce Pope [place] [address] [facility] [place], [place] [address] Charlotte Malave, DO [address] [facility] [place] [address] Health Maintenance Due Date Last Done Comments Diabetic Eye Exam 10/19/2020 10/20/2019, , 02/13/2012 Adult Wellness Visit 10/24/2021 10/24/2020 Depression Screening 10/24/2021 10/24/2020 Zoster Vaccines (2 of 2) 05/15/2022 03/20/2022 Diabetic Foot Exam 03/12/2024 03/12/2023, 0 10/24/2020, 02/23/2019, Additional history exists COVID-19 Vaccine (2023- season) 2024 02/21/2024, 02/11/2023, 02/07/2021, Additional history [...] this encounter Medical Devices Implanted Type Area Medicaid Eligibility Specialist Device Identifier Shelf Expiration Date Model / Serial / Lot Lens Intraoc 22.0 - [id number] - [id number] Implanted:Qty: 1 on 06/02/2018 by Wili Farmer MD at OR [facility] Right: Eye [employer] 12/12/2022 [id number] / [id number] / [id number] documented as of this encounter Care Teams Social Service Manager Relationship Specialty Start Date End Date Jian Escalante MD [address] [place] [address] PCP - General Family Medicine 07/29/20 documented as of this encounter
--- OUTSIDE RECORDS SUMMARY | 2024-07-15 08:57 | External Medical Summary | Summary of Care ---
Author Name Unknown Organization [facility] Address [address] [place] [address] Phone [phone] Care Team Providers Care Aircraft Worker Name Role Phone Skyla Rowland MD Primary Care Provider [phone] Reason for Visit * Reason Onset Date Comments Medication Refill 06/23/2024 Encounter Details Date Type Department Care Team ([facility] st Contact Info) Description 06/23/2024 Refill Family Practice [facility] [address] [place] [id number] Skyla Rowland MD [address] [facility] [place] [id number] Type 2 diabetes mellitus with hemoglobin A1c goal of less than 8.0% ([facility])*; HTN, goal below 130/80 Allergies Active Allergy Reactions Criticality Noted Date Comments Metformin Nausea/vomiting 11/14/2011 Tramadol Nausea/vomiting 11/14/2011 documented as of this encounter (statuses as of 06/25/2024) Medications Glucose Blood (ONETOUCH ULTRA BLUE) STRP Test blood sugars once daily as needed. Dx E11.9 50 Strip 11 0 Active Cilostazol 50 MG Oral Tablet (Pletal) Take 1 Tablet by mouth in the morning and 1 Tablet before bedtime. 180 Tablet 3 4 Active HYDROcodone-Acet aminophen 5-325 MG Oral TabletIndication [...] THE MORNING.. 90 Tablet 1 4 Active hydroCHLOROthiaz bev 25 MG Oral Tablet [...] Every morning.. 90 Capsule 1 5 Active DULoxetine HCl 60 MG Oral Capsule Delayed Release Particles (Cymbalta) TAKE 1 CAPSULE BY MOUTH EVERY MORNING 90 Capsule 1 4 06/24/19 25 Discontinu ed(Refill) documented as of this encounter (statuses as of 06/25/2024) Active Problems Problem Noted Date Diagnosed Date [...] Patient Files. Signed 05/17/14 [facility] Adan. Dyslipidemia 11/06/2011 Type 2 diabetes mellitus wit h hemoglobin A1c goal of less than 8.0% 11/06/2011 Overview (08/08/2015): ICD-10 update of inactive term documented as of this encounter (statuses as of 06/25/2024) Resolved Problems Problem Noted Date Diagnosed Date [...] as of this encounter (statuses as of 06/25/2024) Immunizations Name Administration Dates Next Due COVID-19 [...] encounter Miscellaneous Notes * Telephone Encounter - Jefry Mccullough RP - 06/25/2024 7:51 AM EDTSigned Prescriptions: Disp Refills DULoxetine HCl 60 MG Oral Capsule Delayed *90 Cap*1 Sig: Take 1 Capsule by mouth in the morning. Every morning..Authorizing Provider: SKYLA ROWLAND User: JEFRY MCCULLOUGH * Telephone Encounter - Leanne Yancey CPhT - 06/23/2024 2:51 PM EDT Did you pend patient's preferred pharmacy and medication before forwarding?yes Pharmacy: [id number] [address] [place] [address] Pending Prescriptions: Disp Refills DULoxetine HCl 60 MG Oral Capsule Delayed*90 Cap*1 Sig: Take 1 Capsule by mouth in the morning. Every morning.. Last Visit: 04/05/2024 (in office), 05/15/2020 (telemedicine) Next Visit: Visit date not found If no future appointments scheduled, and last appointment is greater than a year ago, please schedule patient for a follow-up appointment Last date the medication was ordered: 11/03/2023 Is this request for a controlled substance?No Urine Drug Screen: Results for orders placed or performed in visit on 04/05/21 PAIN MANAGEMENT DRUG PANEL, URINE W/ INTERPRETATION Result Value Pain Management Interpretation Based on the medication information provided: The presence of hydrocodone, dihydrocodeine and hydromorphone is CONSISTENT with hydrocodone use. Amphetamines Screen, U Negative Benzodiazepines Screen, U Negative Cannabinoids Screen, U Negative Cocaine Metabolite Screen, U Negative Hydrocodone Screen, U Refer to confirmation results (A) Methadone Metabolite Screen, U Negative Morphine/Codeine Screen, U Refer to confirmation results (A) Oxycodone Screen, U Refer to confirmation results (A) Specimen Validity Interpretation Normal Creatinine, U 78 Narrative Cutoff Concentrations: Drug Level Amphetamines 500 ng/mL Benzodiazepines 100 ng/mL Cannabinoids 50 ng/mL Cocaine Metabolite 150 ng/mL Hydrocodone / Hydromorphone 300 ng/mL Methadone Metabolite 100 ng/mL Morphine / Codeine 300 ng/mL Oxycodone / Oxymorphone 100 ng/mL Screening results are presumptive and can only be used for medical purposes. Confirmatory testing is available upon request. Results for orders placed or performed in visit on 10/19/15 TOX SCREEN, URINE, W/ CONFIRMATION Result Value Amphetamine Screen, U NEGATIVE Barbiturates Screen, U NEGATIVE Benzodiazepines Screen, U NEGATIVE Cannabinoids Screen, U NEGATIVE Cocaine Metabolite Screen, U NEGATIVE Morphine/Codeine Screen, U NEGATIVE Methadone Metabolite Screen, U NEGATIVE Oxycodone Screen, U POSITIVE (A) TOX COMMENT THE ABOVE SCREENING RESULTS ARE PRESUMPTIVE AND CAN ONLY BE USED FOR MEDICAL PURPOSES. POSITIVE RESULTS REFLEX TO CONFIRMATORY TESTING. Cutoff Concentration Patient Phone Numbers [facility] [phone] Labs: Lab Results Component Value Date/Time CREAT 0.8 09/10/2023 12:33 PM CREAT 0.9 10/20/2019 09:05 AM POTASSIUM 3.7 09/10/2023 12:33 PM POTASSIUM 4.0 10/20/2019 09:05 AM TSH 2.65 07/05/2017 09:21 AM LDL 88 10/03/2023 12:11 PM LDL 102 09/27/2019 03:40 PM LDL NOT APPLICABLE 09/27/2019 03:40 PM ALT 16 09/10/2023 12:33 PM ALT 37 (H) 09/27/2019 03:40 PM HGBA1C 7.2 (H) 03/15/2024 10:36 AM HGBA1C 6.6 (H) 10/20/2019 09:05 AM documented in this encounter Plan of Treatment Upcoming Encounters Date Type Department Care Team (Late st Contact Info) Description 02/11/2025 9:00 AM EDT Office Visit [facility] [place] [address] [facility] [address] Charlotte Malave, DO [address] [facility] [place] [address] Scheduled Orders Name Type Priority Associated Diagnoses Orde r Schedule COMPREHENSIVE METABOLIC PANEL Lab Routine Type 2 diabetes mellitus with hemoglobin A1c goal of less than 8.0% (HCC) HTN, goal below 130/80 Expected: 07/02/2024 (Approximate), Expires: 06/25/2025 ALBUMIN / CREATININE RATIO, URINE Lab Routine Type 2 diabetes mellitus with hemoglobin A1c goal of less than 8.0% (HCC) HTN, goal below 130/80 Expected: 06/25/2024, Expires: 06/25/2025 Health Maintenance Due Date Last Done Comments [...] this encounter Medical Devices Implanted Type Area Women'S Swim Coach Device Identifier Shelf Expiration Date Model / Serial / Lot Lens Intraoc 22.0 - [id number] - [id number] Implanted:Qty: 1 on 06/02/2018 by Wili Farmer MD at [facility] Right: Eye [employer] 12/12/2022 [id number] / [id number] / [id number] documented as of this encounter Visit Diagnoses Diagnosis Type 2 diabetes mellitus with hemoglobin A1c goal of less than 8.0% (HCC)- Primary HTN, goal below 130/80 Unspecified essential hypertension documented in this encounter Care Teams Aircraft Worker Relationship Specialty Start Date End Date Skyla Rowland MD [address] [place] [place] [address] PCP - General Family Medicine 07/29/20 documented as of this encounter
--- OUTSIDE RECORDS SUMMARY | 2024-07-15 08:57 | External Medical Summary | Summary of Care ---
Author Name Unknown Organization [facility] Address [address] [place] [address] Phone [phone] Care Team Providers Care Instrument Mechanics Supervisor Name Role Phone Jian Escalante MD Primary Care Provider [phone] Encounter Details Date Type Department Care Team (Latest Contact Info) Description 06/01/2024 11:17 AM EST - 06/01/2024 11:59 PM EST Hospital Encounter Radiology Film File [address] [place] [address] Arrived Discharge Disposition: Home - Self Care Allergies Active Allergy Reactions Criticality Noted Date Comments Metformin Nausea/vomiting 11/14/2011 Tramadol Nausea/vomiting 11/14/2011 documented as of this encounter (statuses as of 06/02/2024) Medications Glucose Blood (ONETOUCH ULTRA BLUE) STRP [...] as of this encounter (statuses as of 06/02/2024) Active Problems Problem Noted Date Diagnosed Date [...] Agreement, go to Action, Patient Files. Signed 2/3/15 [facility]. Dyslipidemia 11/06/2011 Type 2 diabetes mellitus wit h hemoglobin A1c goal of less than 8.0% 11/06/2011 Overview (08/08/2015): ICD-10 update of inactive term documented as of this encounter (statuses as of 06/02/2024) Resolved Problems Problem Noted Date Diagnosed Date [...] as of this encounter (statuses as of 06/02/2024) Immunizations Name Administration Dates Next Due COVID-19 [...] 08/30/2024 1:00 PM EDT Office Visit Orthopaedics [facility] [address] [place] [phone] Thanh Gonsales, [address] [place] [address] 02/11/2025 9:00 AM EDT Office Visit Neurology [facility] [place] [address] [facility] [address] Charlotte Malave, DO [address] [place] [address] Health Maintenance Due Date Last Done Comments [...] 07/05/2017, Additional history exists GFR 09/09/2024 09/10/2023, 2 07/2022, 01/24/2022, Additional history exists HbA1c 09/13/2024 03/15/2024, 2 12/2023, 03/12/2023, Additional history exists Colonoscopy 01/15/2025 [...] this encounter Medical Devices Implanted Type Area Crawler Tractor Operator Device Identifier Shelf Expiration Date Model / Serial / Lot Lens Intraoc 22.0 - [id number] - [id number] Implanted:Qty: 1 on 06/02/2018 by Wili Farmer MD at [facility] Right: Eye [employer] 12/12/2022 [id number] / [id number] / [id number] documented as of this encounter Procedures Procedure Name Priority Date/Time Associated Diagnosis Comments DERM EXAM - DERM (IMAGES ONLY, NO REPORT) Routine 06/01/2024 11:17 AM EST Facial rash documented in this encounter Results * DERM EXAM - DERM (IMAGES ONLY, NO REPORT) (06/01/2024 11:17 AM EST) Narrative Scheduling, Silent - 06/01/2024 11:17 AM EST This is an imaging study not interpreted or resulted by a [facility] or [facility] contracted radiologist. Lita Villanueva PA-C RADIOLOGY (RAD GENERAL) Final Result documented in this encounter Care Teams Instrument Mechanics Supervisor Relationship Specialty Start Date End Date Jian Escalante MD [address] [facility] [place] [address] PCP - General Family Medicine 07/29/20 documented as of this encounter
--- OUTSIDE RECORDS SUMMARY | 2024-07-15 08:57 | External Medical Summary | Summary of Care ---
Author Name Unknown Organization [facility] Address [address] [place] [address] Phone [phone] Care Team Providers Care Distance Education Faculty Liaison Name Role Phone Skyla Rowland MD Primary Care Provider [phone] Reason for Visit * Reason Comments eRx-Medication Refill Encounter Details Date Type Department Care Team ([facility] st Contact Info) Description 06/04/2024 Refill Family Practice [facility] [address] [facility] [place] [address] Skyla Rowland MD [address] [facility] [address] HTN, goal below 140/80 Allergies Active Allergy Reactions Criticality Noted Date Comments Metformin Nausea/vomiting 11/14/2011 Tramadol Nausea/vomiting 11/14/2011 documented as of this encounter (statuses as of 06/04/2024) Medications Glucose Blood (EnvirooTOUCH ULTRA BLUE) STRP Test blood sugars once [...] MORNING 90 Capsule 1 11/03/19 24 Active glipiZIDE 5 MG Oral Tablet (Glucotrol) TAKE 1 TABLET BY MOUTH EVERY DAY IN THE MORNING 90 Tablet 1 11/03/19 24 Active Rosuvastatin Calcium 20 [...] BEDTIME 180 Tablet 1 06/04/19 25 Active Carvedilol 12.5 MG Oral Tablet (Coreg)Indicatio ns:HTN, goal below 140/80 TAKE 1 TABLET BY MOUTH IN THE MORNING AND BEFORE BEDTIME 180 Tablet 1 11/03/19 24 025 Discontinued documented [...] encounter Miscellaneous Notes * Telephone Encounter - Alexa Elaine, [facility] - 06/04/2024 3:44 PM ESTSigned Prescriptions: Disp Refills Carvedilol 12.5 MG Oral Tablet (Coreg) 180 Ta*1 Sig: TAKE 1 TABLET BY MOUTH IN THE MORNING AND BEFORE BEDTIMEAuthorizing Provider: SKYLA ROWLAND User: ALEXA ELAINE documented in this encounter Plan of Treatment Upcoming Encounters Date Type Department Care Team (Late st Contact Info) Description 08/30/2024 1:00 PM EDT Office Visit Orthopaedics [facility] [address] [place] [phone] Thanh Gonsales DO [address] [place] [phone] 02/11/2025 9:00 AM EDT Office Visit Neurology [facility] [address] [facility], [place] [phone] Charlotte Malave [address] [place] [address] Health Maintenance Due Date Last Done Comments Diabetic Eye Exam 10/19/2020 10/20/2019, , 02/13/2012 Adult Wellness Visit 10/24/2021 10/24/2020 Depression Screening 10/24/2021 10/24/2020 Zoster Vaccines (2 of 2) 05/15/2022 03/20/2022 Diabetic Foot Exam 03/12/2024 03/12/2023, 0 10/24/2020, 02/23/2019, Additional history exists COVID-19 Vaccine ( season) 2024 02/21/2024, 02/11/2023, 02/07/2021, Additional history exists Albumin/Creatinine Ratio 09/09/20242 024, 01/24/2022, 07/05/2017, Additional history exists GFR [...] this encounter Medical Devices Implanted Type Area Office Machine Service Supervisor Device Identifier Shelf Expiration Date Model / Serial / Lot Lens Intraoc 22.0 - [id number] - [id number] Implanted:Qty: 1 on 06/02/2018 by Wili Farmer MD at [id number] Right: Eye [employer] 12/12/2022 [id number] / [id number] / [id number] documented as of this encounter Visit Diagnoses Diagnosis HTN, goal below 140/80 Unspecified essential hypertension documented in this encounter Care Teams Distance Education Faculty Liaison Relationship Specialty Start Date End Date Skyla Rowland MD [address] [place] [address] PCP - General Family Medicine 07/29/20 documented as of this encounter
--- OUTSIDE RECORDS SUMMARY | 2024-07-15 08:57 | External Medical Summary | Summary of Care ---
Author Name Unknown Organization [facility] Address [address] [place] [address] Phone [phone] Care Team Providers Care Collar Worker Name Role Phone Skyla Rowland MD Primary Care Provider [phone] Reason for Visit * Reason Comments eRx-Medication Refill Encounter Details Date Type Department Care Team ([facility] st Contact Info) Description 06/09/2024 Refill Family Practice [facility] [address] [facility] [place] [address] Skyla Rowland MD [address] [facility] [address] Allergies Active Allergy Reactions Criticality Noted Date Comments Metformin Nausea/vomiting 11/14/2011 Tramadol Nausea/vomiting 11/14/2011 documented as of this encounter (statuses as of 06/10/2024) Medications Glucose Blood (ONETOUCH ULTRA BLUE) STRP [...] MORNING 90 Tablet 1 06/10/19 25 Active glipiZIDE 5 MG Oral Tablet (Glucotrol) TAKE 1 TABLET BY MOUTH EVERY DAY IN THE MORNING 90 Tablet 1 11/03/19 24 025 Discontinued documented as of this encounter (statuses as of 06/10/2024) Active Problems Problem Noted Date Diagnosed Date [...] as of this encounter (statuses as of 06/10/2024) Resolved Problems Problem Noted Date Diagnosed Date [...] as of this encounter (statuses as of 06/10/2024) Immunizations Name Administration Dates Next Due COVID-19 [...] encounter Miscellaneous Notes * Telephone Encounter - Larissa Pozo, [facility] - 06/10/2024 2:57 PM ESTSigned Prescriptions: Disp Refills glipiZIDE 5 MG Oral Tablet (Glucotrol) 90 Tab*1 Sig: TAKE 1 TABLET BY MOUTH EVERY DAY IN THE MORNINGAuthorizing Provider: SKYLA ROWLAND User: LARISSA POZO Electronically signed by Larissa Pozo, [facility] at 06/10/2024 2:57 PM EST documented in this encounter Plan of Treatment Upcoming Encounters Date Type Department Care Team (Late st Contact Info) Description 02/11/2025 9:00 AM EDT Office Visit Neurology [facility] Toshia Ely [address] [place], [place] [phone] Charlotte Malave, DO [address] [place] [address] Health Maintenance Due Date Last [...] encounter Medical Devices Implanted Type Area Pipe Smoker Machine Operator Device Identifier Shelf Expiration Date Model / Serial / Lot Lens Intraoc 22.0 - [id number] - [id number] Implanted:Qty: 1 on 06/02/2018 by Wili Farmer MD at OR [facility] Right: Eye [employer] 12/12/2022 [id number] / [id number] / [id number] documented as of this encounter Care Teams Collar Worker Relationship Specialty Start Date End Date Skyla Rowland MD [address] [facility] [place] [address] PCP - General Family Medicine 07/29/20 documented as of this encounter
--- OUTSIDE RECORDS SUMMARY | 2024-07-15 08:58 | External Medical Summary | Summary of Care ---
Author Name Unknown Organization [facility] Address [address] [place] [address] Phone [phone] Care Team Providers Care Utility Aide Name Role Phone Jian Escalante MD Primary Care Provider [phone] Reason for Referral * Precert (Within 10 days (routine)) - Authorized Specialty Diagnoses / Procedures Referred By Contac t Referred To Contact Pain Medicine Diagnoses Primary osteoarthritis of both knees Procedures INJECT MAJOR JX/BURSA W/O US GUIDE Thanh Gonsales DO [address] [place] [address] Phone: tel: fax: Referral ID Status Reason Start Date Expiration Date V isits Requested Visits Authorized [id number] Authorized 05/24/2024 [id number] Reason for Visit * Reason Comments Follow Up Bilateral knee Encounter Details Date Type Department Care Team (Latest Contact Info) Description 05/24/2024 2:45 PM EST Office Visit Orthopaedics [facility] [address] [place] [address] Thanh Gonsales DO [address] [place] [address] Primary osteoarthritis of both knees* Allergies Active Allergy Reactions Criticality Noted Date Comments Metformin Nausea/vomiting 11/14/2011 Tramadol Nausea/vomiting 11/14/2011 documented as of this encounter (statuses as of 05/24/2024) Medications Glucose Blood (Turpitude ULTRA BLUE) STRP Test blood sugars once [...] the morning. 90 Tablet 3 4 Active Hospital, Clinic, or Other Facility Administered Medication Ordered Dose Route Frequency Start Date End Date Status lidocaine 1% 1 mL - triamcinolone acetonide 40 mg/mL 1 mL inj 2 mLIndications:Primary osteoarthritis of both knees 2 mL IJ ONCE 05/24/2024 05/24/2024 Ended lidocaine 1% 1 mL - triamcinolone acetonide 40 mg/mL 1 mL inj 2 mLIndications:Primary osteoarthritis of both knees 2 mL IJ ONCE 05/24/2024 05/24/2024 Ended documented as of this encounter (statuses as of 05/24/2024) Active Problems Problem Noted Date Diagnosed Date [...] USE AGREEMENT 09/29/2012 Overview (01/05/2015): Managed by [employer]. To view the Medication Usage Agreement, go to Action, Patient Files. Signed 05/17/14 Angela Amaro Dyslipidemia 11/06/2011 Type 2 diabetes mellitus wit h hemoglobin A1c goal of less than 8.0% 11/06/2011 Overview (08/08/2015): ICD-10 update of inactive term documented as of this encounter (statuses as of 05/24/2024) Resolved Problems Problem Noted Date Diagnosed Date [...] as of this encounter (statuses as of 05/24/2024) Immunizations Name Administration Dates Next Due COVID-19 [...] on file documented as of this encounter Progress Notes * Thanh Gonsales, DO - 05/24/2024 2:45 PM EST Annie Amin [id number] Annie Amin is a 79 year old female who presents for follow up to [facility] for BILATERAL knee injections. Annie Amin is here with family Date of Injury: no injury, pain x years TODAY: She would like injections on both knees, last injected 02/11/24 Current Outpatient Medications Medication Sig Dispense Refill Glucose Blood (SuperMamaTOUCH ULTRA BLUE) STRP Test blood sugars once daily as needed. Dx E11.9 50 Strip 11 Cilostazol 50 MG Oral Tablet (Pletal) Take 1 Tablet by mouth in the morning and 1 Tablet before bedtime. 180 Tablet 3 HYDROcodone-Acetaminophen 5-325 MG Oral Tablet Take 1 Tablet by mouth 3 times a day as needed for Pain, Severe. 90 Tablet 0 Ferrous Sulfate 325 (65 Fe) MG Oral Tablet (Feosol) Take 1 Tablet by mouth in the morning and 1 Tablet before bedtime. 60 Tablet 11 Donepezil HCl 5 MG Oral Tablet (Aricept) Take 1 Tablet by mouth at bedtime. 90 Tablet 3 Carvedilol 12.5 MG Oral Tablet (Coreg) TAKE 1 TABLET BY MOUTH IN THE MORNING AND BEFORE BEDTIME 180Tablet 1 DULoxetine HCl 60 MG Oral Capsule Delayed Release Particles (Cymbalta) TAKE 1 CAPSULE BY MOUTH EVERY MORNING 90 Capsule 1 glipiZIDE 5 MG Oral Tablet (Glucotrol) TAKE 1 TABLET BY MOUTH EVERY DAY IN THE MORNING 90 Tablet 1 Rosuvastatin Calcium 20 MG Oral Tablet (Crestor) TAKE 1 TABLET BY MOUTH IN THE MORNING. IN THE MORNING.. 90 Tablet 1 hydroCHLOROthiazide 25 MG Oral Tablet (Hydrodiuril) TAKE 1 TABLET BY MOUTH IN THE MORNING. 90 Tablet 1 metroNIDAZOLE 0.75 % External Cream (MetroCream) Apply thin layer to face twice daily 45 g 1 Pantoprazole Sodium 40 MG Oral Tablet Delayed Release (Protonix) Take 1 Tablet by mouth in the morning. 90 Tablet 3 No current facility-administered medications for this visit. Hemoglobin AIC Results: Lab Results Component Value Date/Time HEMOGLOBIN A1C - [facility] 7.2 (H) 03/15/2024 10:36 AM HEMOGLOBIN A1C - [facility] 8.5 (H) 09/10/2023 12:33 PM HEMOGLOBIN A1C - [facility] 8.5 (H) 03/12/2023 09:51 AM HEMOGLOBIN A1C - [facility] 6.6 (H) 10/20/2019 09:05 AM HEMOGLOBIN A1C - [facility] 6.9 (H) 05/23/2018 02:44 PM HEMOGLOBIN A1C - [facility] 6.1 07/05/2017 09:21 AM Physical Exam General: in no acute distress Mood and Affect: normal Gait and Station: mildly antalgic No effusion Tender to palpation bilateral medial joint lines Assessment and Plan: See procedure note follow up in 3-6 months. Please monitor glucose closely given recent A1c, although is improved from last visit. Primary osteoarthritis of both knees (Primary) - lidocaine 1% 1 mL - triamcinolone acetonide 40 mg/mL 1 mL inj 2 mL - lidocaine 1% 1 mL - triamcinolone acetonide 40 mg/mL 1 mL inj 2 mL - INJECT MAJOR JX/BURSA W/O US GUIDE Thanh Gonsales, DO [facility] Orth[facility] [address] [address] This chart was completed in part utilizing [employer] Speech Voice Recognition Software. Grammatical errors, random word insertions, pronoun errors, and incomplete sentences are an occasional consequence of this system due to software limitations, ambient noise, and hardware issues. Any formal questions or concerns about the content, text, or information contained within the body of this dictation should be directly addressed to the provider for clarification. Procedure note (knee injection), bilateral Time out: Prior to injection, a time out was called to confirm the administration of appropriate medicine, patient name, procedure and confirm to the best of our ability and knowledge the presence of any necessary risks and benefits. Patient verbalizes understanding. proper approach defined Sterile techinique applied. Skin sterilized with alcohol swab. Knee injected using 1.5 inch, 22 gauge needle. Injected with lidocaine 1% 1 mL - triamcinolone acetonide 40 mg/mL 1 mL inj 2 mL . Patient tolerated procedure with no significant bleeding or adverse reaction. Patient instructed to call or return to clinic for fever or warmth and redness at injection site for potential infection. Patient also advised as to potential for steroid flare reaction including increased pain and redness at injection site which should be treated with ice and resolve within 24 hours. Thanh Gonsales DO documented in this encounter Nursing Notes * Chela Osborne MED ASSIST - 05/24/2024 2:34 PM EST Follow up Patient Follow up: Knee Side: Bilateral Date of last visit: Improvement since last office visit: 0 percent. Prior Treatment: Injection Here for Test Results: No Goals for this appointment: inj documented in this encounter Plan of Treatment Upcoming Encounters Date Type Department Care Team (Late st Contact Info) Description 06/01/2024 11:00 AM EST Office Visit Dermatology, [facility] [address] [place] [address] [address] Lita Villanueva PA-C [address] [place] [address] 08/30/2024 1:00 PM EDT Office Visit Orthopaedics [facility] [address] [place] [phone] Thanh Gonsales DO [address] [place] [phone] 02/11/2025 9:00 AM EDT Office Visit [facility] [address] [facility] [address] Charlotte Malave, DO [address] [place] [address] Scheduled Orders Name Type Priority Associated Diagnoses Orde r Schedule INJECT MAJOR JX/BURSA W/O US GUIDE Procedures Routine Primary osteoarthritis of both knees Ordered: 05/24/2024 Health Maintenance Due Date Last Done Comments Diabetic Eye Exam 10/19/2020 10/20/2019, , 02/13/2012 Adult Wellness Visit 10/24/2021 10/24/2020 Depression Screening 10/24/2021 10/24/2020 Zoster Vaccines (2 of 2) 05/15/2022 03/20/2022 Diabetic Foot Exam 03/12/2024 03/12/2023, 0 10/24/2020, 02/23/2019, Additional history exists Albumin/Creatinine Ratio 09/09/2024 024, 01/24/2022, 07/05/2017, Additional history exists GFR 09/09/2024 09/10/2023, 052 07/2022, 01/24/2022, Additional history exists HbA1c 09/13/2024 03/15/2024, 052 12/2023, 03/12/2023, Additional history exists Colonoscopy 01/15/2025 01/15/2023, 09/12, 10/01/2019, Additional history exists DTap/Tdap Vaccines (2 - Td or Tdap) 05/02/2025 05/02/2015 DXA Scan 11/21/2026 11/22/2019, 07/0 05/2012, 10/13/2012, Additional history exists Pneumococcal Vaccine: 50+ Years Completed 07/03/2017, 03/26/2016, 03/17/2008 RETIRED - COLONOSCOPY-EVERY 2 YRS AGES 18-100 Discontinued 01/15/2023, 10/01/2019, 10/01/2019, Additional history exists COVID-19 Vaccine Completed 02/21/2024, , 02/07/2021, Additional history exists Influenza Vaccine (FLU shot) [...] this encounter Medical Devices Implanted Type Area Sheet Metal Roofer Device Identifier Shelf Expiration Date Model / Serial / Lot Lens Intraoc 22.0 - [id number] - [id number] Implanted:Qty: 1 on 06/02/2018 by Wili Farmer MD at [facility] Right: Eye [employer] 12/12/2022 [id number] / [id number] / [id number] documented as of this encounter Visit Diagnoses Diagnosis Primary osteoarthritis of both knees- Primary Primary localized osteoarthrosis, lower leg documented in this encounter Administered Medications Inactive Administered Medications - up to 3 most recent administrations Medication Order MAR Action Action Date Dose Rate Site lidocaine 1% 1 mL - triamcinolone acetonide 40 mg/mL 1 mL inj 2 mL 2 mL, Injection, ONCE, On Fri05/24/24 at 1545, For 1 dose, Lidocaine 1% 1mL Triamcinolone Acetonide 40 mg/mL 1 mL (Final concentration = 20 mg/mL) REFRIGERATE and SHAKE WELLIndications:Primary osteoarthritis of both knees Given 05/24/2024 3:30 PM EST 2 mL Knee Right lidocaine 1% 1 mL - triamcinolone acetonide 40 mg/mL 1 mL inj 2 mL 2 mL, Injection, ONCE, On Fri05/24/24 at 1545, For 1 dose, Lidocaine 1% 1mL Triamcinolone Acetonide 40 mg/mL 1 mL (Final concentration = 20 mg/mL) REFRIGERATE and SHAKE WELLIndications:Primary osteoarthritis of both knees Given 05/24/2024 3:29 PM EST 2 mL Knee Left documented in this encounter Care Teams Utility Aide Relationship Specialty Start Date End Date Jian Escalante MD [address] [facility] [place] [address] PCP - General Family Medicine 07/29/20 documented as of this encounter
--- OUTSIDE RECORDS SUMMARY | 2024-07-15 08:58 | External Medical Summary | Summary of Care ---
Author Name Unknown Organization [facility] Address [address] [place] [address] Phone [phone] Care Team Providers Care Student Truck Driver Name Role Phone Jian Escalante MD Primary Care Provider [phone] Reason for Visit * Reason Comments Follow Up 3 month return for r sasha on face. Admits to picking at the areas. Feels it has worsened; however, doesn't recall if she's taking medications as prescribed. Encounter Details Date Type Department Care Team ([facility] Contact Info) Description 06/01/2024 11:00 AM EST Office Visit Dermatology, [facility] [address] [place] [address] [address] Lita Villanueva PA-C [address] [place] [address] Facial rash* Allergies Active Allergy Reactions Criticality Noted Date Comments Metformin Nausea/vomiting 11/14/2011 Tramadol Nausea/vomiting 11/14/2011 documented as of this encounter (statuses as of 06/01/2024) Medications Glucose Blood (ONETOUCH ULTRA BLUE) STRP [...] 4 Active Carvedilol 12.5 MG Oral Tablet (Coreg)Indicatio [...] then stop. 60 Capsule 1 5 Active Cefdinir 300 MG Oral Capsule (Omnicef) Take 1 Capsule by mouth in the morning and 1 Capsule before bedtime. 4 06/01/19 25 Discontinu ed(Medicat ion List Clean Up) documented as of this encounter (statuses as of 06/01/2024) Active Problems Problem Noted Date Diagnosed Date [...] USE AGREEMENT 09/29/2012 Overview (01/05/2015): Managed by [employer]. To view the Medication Usage Agreement, go to Action, Patient Files. Signed 05/17/14 Angela Amaro Dyslipidemia 11/06/2011 Type 2 diabetes mellitus wit h hemoglobin A1c goal of less than 8.0% 11/06/2011 Overview (08/08/2015): ICD-10 update of inactive term documented as of this encounter (statuses as of 06/01/2024) Resolved Problems Problem Noted Date Diagnosed Date [...] as of this encounter (statuses as of 06/01/2024) Immunizations Name Administration Dates Next Due COVID-19 [...] as of this encounter Progress Notes * Lita Villanueva PA-C - 06/01/2024 11:00 AM EST SUBJECTIVE: CC: Chief Complaint Patient presents with Follow Up 3 month return for rash on face. Admits to picking at the areas. Feels it has worsened; however, doesn't recall if she's taking medications as prescribed. HPI: Annie Amin is a 79 year old female who is an established patient presenting for follow-up of perioral dermatitis. Last dermatology clinic visit: 01/01/24. She was prescribed DCN last visit to take 100 mg BID for 1 month, then QD for a month then stop; she did take the DCN as directed. Howerver, she did not keep up with the Metrocream. She feels her face is worse and she admits to picking; she denies itch, burning or tingling. Deniesusing any other products on face. HPI from 01/01/24 OV: Rash onset 2-3 months ago after hospitalized for AMS at [facility]-suffers from some mild dementia. Rash located on bilateral brows, cheeks and chin. She states it paulino mildly. finds her picking at spots, although patient denies. She has been applying Neosporin, but has not seen any change. 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 H/o skin cancer: no REVIEW OF SYSTEMS: See HPI- all other findings negative Constitutional: (-) fever, chills, sweats, weight loss Skin: (-) no rash or new or changing moles or skin lesions Past Medical History: Diagnosis Date Chronic pain syndrome 01/30/2022 Chronic Steroid Use 06/14/2008 issue resolved Dyslipidemia 11/06/2011 Gastroesophageal reflux disease without esophagitis 01/31/2021 HTN, goal below 130/80 09/25/2015 Per HTN Protocol HTN, goal below 140/90 Hypertension, benign INFORMATION enlarged heart INFORMATION pre ulcer Mild dementia (HCC) 10/03/2023 Multiple gastric ulcers 03/15/2024 Obesity, Class I, BMI 30.0-34.9 (see actual BMI) 07/27/20[address] bermudez. Spinal stenosis of lumbar region with neurogenic claudication 09/30/2017 Type 2 diabetes mellitus with hemoglobin A1c goal of less than 8.0% ([facility]) 11/06/2011 ICD-10 update of inactive term Patient Active Problem List Diagnosis Dyslipidemia Type 2 diabetes mellitus with hemoglobin A1c goal of less than 8.0% ([facility]) MEDICATION USE AGREEMENT HTN, goal below 130/80 Spinal stenosis of lumbar region with neurogenic claudication Gastroesophageal reflux disease without esophagitis Obesity, Class I, BMI 30.0-34.9 (see actual BMI) Chronic pain syndrome Claudication of both lower extremities ([facility]) Mild dementia ([facility]) Multiple gastric ulcers SOCIAL HISTORY: Social History Tobacco Use Smoking status: Never Smokeless tobacco: Never Substance Use Topics Alcohol use: No Vaping/E-Cigarette Use Vaping/E-Cigarette Use Never User Vaping/E-Cigarette Substances Vaping/E-Cigarette Devices MEDICATIONS: Current Outpatient Medications Medication Sig Dispense Refill Glucose Blood ([employer] ULTRA BLUE) STRP Test blood sugars once [...] No current facility-administered medications for this visit. ALLERGIES: Metformin and Tramadol OBJECTIVE: GEN: Healthy, alert, no distress, appears oriented, pleasant, and cooperative. PSYCH: Appropriate mood and affect, alert SKIN: Problem focused exam of the face was completed and are within normal limits with the following exceptions: 1. [place] excoriated papules-across forehead and chin ASSESSMENT/PLAN: Favor perioral dermatitis vs rosacea vs contact dermatitis - DERM EXAM - DERM (IMAGES ONLY, NO REPORT) - Doxycycline Monohydrate 100 MG Oral Capsule; Take 1 capsule twice daily for 1 month, then decrease to once daily for a month, then stop. - Recommend restart doxycycline 100mg BID for 1 month, then decrease to QD for 1 month then stop. SE's reviewed. - Restart metronidazole 0.75% cream BID to face. - Discussed may take up to several weeks for resolution - Will f/u in 6 weeks with phone call Remind Me message set Patient with today. Follow-up: per plan above Photos taken, patient consented to photos. Applicable photos (if any) and chart reviewed by Dr. Xavier Parnell. The patient was encouraged to contact me with any further questions or concerns. Lita Villanueva PA-C 06/01/24 * Deni Parnell MD - 06/01/2024 11:00 AM EST I have reviewed the relevant notes and photographs taken by Lita Villanueva PA-C. I have reviewed and agree with the assessment and plan. Deni Parnell MD documented in this encounter Nursing Notes * Fina Plata, MED ASSIST - 06/01/2024 11:00 AM EST Chief Complaint Patient presents with Follow Up 3 month return for rash on face. Admits to picking at the areas. Feels it has worsened; however, doesn't recall if she's taking medications as prescribed. documented in this encounter Plan of Treatment Upcoming Encounters Date Type Department Care Team (Late st Contact Info) Description 08/30/2024 1:00 PM EDT Office Visit Orthopaedics [facility] [address] [place] [phone] Thanh Gonsales, DO [address] [place] [address] 02/11/2025 9:00 AM EDT Office Visit [facility] [address] [facility] [address] Charlotte Malave, DO [address] [place] [address] Health Maintenance Due Date Last [...] this encounter Medical Devices Implanted Type Area Manager Editorial Device Identifier Shelf Expiration Date Model / Serial / Lot Lens Intraoc 22.0 - [id number] - [id number] Implanted:Qty: 1 on 06/02/2018 by Wili Farmer MD at [facility] Right: Eye [employer] 12/12/2022 [id number] / [id number] / [id number] documented as of this encounter Procedures Procedure [...] study not interpreted or resulted by a [facility] or [facility] contracted radiologist. Lita Villanueva PA-C RADIOLOGY (RAD GENERAL) Final Result documented in this encounter Visit Diagnoses Diagnosis Facial rash- Primary Rash and other nonspecific skin eruption documented in this encounter Care Teams Student Truck Driver Relationship Specialty Start Date End Date Jian Escalante MD [address] [facility] [place] [address] PCP - General Family Medicine 07/29/20 documented as of this encounter
--- OUTSIDE RECORDS SUMMARY | 2024-07-15 08:58 | External Medical Summary | Summary of Care ---
Author Name Unknown Organization [facility] Address [address] [place] [address] Phone [phone] Care Team Providers Care Family Consumer Science Teacher Name Role Phone Jian Escalante MD Primary Care Provider [phone] Reason for Referral * Precert (Within 10 days (routine)) - Authorized Specialty Diagnoses / Procedures Referred By Contac t Referred To Contact Pain Medicine Diagnoses Primary osteoarthritis of both knees Procedures INJECT MAJOR JX/BURSA W/O US GUIDE Thanh Gonsales DO [address] [place] [address] Phone: tel: fax: Referral ID Status Reason Start Date Expiration Date V isits Requested Visits Authorized [id number] Authorized 05/24/2024 999 999 Reason for Visit * Reason Comments Follow Up Bilateral knee Encounter Details Date Type Department Care Team (Latest Contact Info) Description 05/24/2024 2:45 PM EST Office Visit Orthopaedics [facility] [address] [place] [phone] Thanh Gonsales DO [address] [place] [phone] Primary osteoarthritis of both knees* Allergies Active Allergy Reactions Criticality Noted Date Comments Metformin Nausea/vomiting 11/14/2011 Tramadol Nausea/vomiting 11/14/2011 documented as of this encounter (statuses as of 05/25/2024) Medications Glucose Blood (discoapi ULTRA BLUE) STRP Test blood sugars once [...] as of this encounter (statuses as of 05/25/2024) Active Problems Problem Noted Date Diagnosed Date [...] USE AGREEMENT 09/29/2012 Overview (01/05/2015): Managed by [employer]. To view the Medication Usage Agreement, go to Action, Patient Files. Signed 05/17/14 Angela Amaro Dyslipidemia 11/06/2011 Type 2 diabetes mellitus wit h hemoglobin A1c goal of less than 8.0% 11/06/2011 Overview (08/08/2015): ICD-10 update of inactive term documented as of this encounter (statuses as of 05/25/2024) Resolved Problems Problem Noted Date Diagnosed Date [...] as of this encounter (statuses as of 05/25/2024) Immunizations Name Administration Dates Next Due COVID-19 [...] - 05/24/2024 2:45 PM EST Annie Amin [phone] Annie Amin is a 79 year old female who presents for follow up to [facility] for BILATERAL knee injections. Annie Amin is here with family Date of Injury: no injury, pain x years TODAY: She would like injections on both knees, last injected 02/11/24 Current Outpatient Medications Medication Sig Dispense Refill Glucose Blood (Reframed.tvTOUCH ULTRA BLUE) STRP Test blood sugars once [...] Gonsales, DO Primary Care Sports Medicine Orthopaedics [address] [address] This chart was completed in part utilizing [employer] Speech Voice Recognition Software. Grammatical errors, random [...] [address] [place] [address] [address] Lita Villanueva PA-C [address] [place] [address] 08/30/2024 1:00 PM EDT Office Visit Orthopaedics [facility] [address] [place] [phone] Thanh Gonsales DO [address] [place] [phone] 02/11/2025 9:00 AM EDT Office Visit [facility] [address] [facility] [address] Charlotte Malave, DO [address] [place] [address] Scheduled Orders Name Type Priority Associated Diagnoses [...] this encounter Medical Devices Implanted Type Area Preparation Supervisor Freezing Device Identifier Shelf Expiration Date Model / Serial / Lot Lens Intraoc 22.0 - [id number] - [id number] Implanted:Qty: 1 on 06/02/2018 by Wili Farmer MD at [facility] Right: Eye [employer] 12/12/2022 [id number] / [id number] / [id number] documented as of this encounter Visit Diagnoses [...] Left documented in this encounter Care Teams Family Consumer Science Teacher Relationship Specialty Start Date End Date Jian Escalante MD [address] [facility] [place] [address] PCP - General Family Medicine 07/29/20 documented as of this encounter
--- OUTSIDE RECORDS SUMMARY | 2024-07-15 08:58 | External Medical Summary | Summary of Care ---
Author Name Unknown Organization [facility] Address [address] [place] [address] Phone [phone] Care Team Providers Care Supervisor Facepiece Line Name Role Phone Jian Escalante MD Primary Care Provider [phone] Reason for Referral * Precert (Within 10 days (routine)) - Authorized Specialty Diagnoses / Procedures Referred By Contac t Referred To Contact Pain Medicine Diagnoses Primary osteoarthritis of both knees Procedures INJECT MAJOR JX/BURSA W/O US GUIDE Thanh Gonsales DO [address] [place] [address] Phone: tel: fax: Referral ID Status Reason Start Date Expiration Date V isits Requested Visits Authorized [id number] Authorized 05/24/2024 999 999 Reason for Visit * Reason Comments Follow Up Bilateral knee Encounter Details Date Type Department Care Team (Latest Contact Info) Description 05/24/2024 2:45 PM EST Office Visit Orthopaedics [facility] [address] [place] [phone] Thanh Gonsales DO [address] [place] [address] Primary osteoarthritis of both knees* Allergies Active Allergy Reactions Criticality Noted Date Comments Metformin Nausea/vomiting 11/14/2011 Tramadol Nausea/vomiting 11/14/2011 documented as of this encounter (statuses as of 05/25/2024) Medications Glucose Blood (Gamestaq ULTRA BLUE) STRP Test blood sugars once [...] USE AGREEMENT 09/29/2012 Overview (01/05/2015): Managed by [email or web address]. To view the Medication Usage Agreement, go [...] - 05/24/2024 2:45 PM EST Annie Amin [id number] Annie Amin is a 79 year old female who presents for follow up to [facility] for BILATERAL knee injections. Annie Amin is here with family Date of Injury: no injury, pain x years TODAY: She would like injections on both knees, last injected 02/11/24 Current Outpatient Medications Medication Sig Dispense Refill Glucose Blood (Xtreme PowerTOUCH ULTRA BLUE) STRP Test blood sugars once [...] Gonsales, DO Primary Care Sports Medicine Orthopaedics [address] [address] This chart was completed in part utilizing [employer] Speech Voice Recognition Software. Grammatical errors, random [...] [address] [place] [address] [address] Lita Villanueva PA-C [address] [place] [address] 08/30/2024 1:00 PM EDT Office Visit Orthopaedics [facility] [address] [place] [phone] Thanh Gonsales DO [address] [place] [phone] 02/11/2025 9:00 AM EDT Office Visit Neurology [facility] [address] [facility] [address] Charlotte Malave, DO [address] [place] [address] Scheduled Orders Name Type Priority Associated Diagnoses [...] this encounter Medical Devices Implanted Type Area Fiberglass Tube Molder Device Identifier Shelf Expiration Date Model / Serial / Lot Lens Intraoc 22.0 - [id number] - [id number] Implanted:Qty: 1 on 06/02/2018 by Wili Farmer MD at [facility] Right: Eye [employer] 12/12/2022 [id number] / [id number] / [id number] documented as of this encounter Visit Diagnoses [...] Left documented in this encounter Care Teams Supervisor Facepiece Line Relationship Specialty Start Date End Date Jian Escalante MD [address] [facility] [place] [address] PCP - General Family Medicine 07/29/20 documented as of this encounter
--- OUTSIDE RECORDS SUMMARY | 2024-07-15 08:58 | External Medical Summary | Summary of Care ---
Author Name Unknown Organization [facility] Address [address] [place] [address] Phone [phone] Care Team Providers Care Plaster Helper Name Role Phone Jian Escalante MD Primary Care Provider [phone] Reason for Visit * Reason Comments Follow Up 3 month return for r sasha on face. Admits to picking at the areas. Feels it has worsened; however, doesn't recall if she's taking medications as prescribed. Encounter Details Date Type Department Care Team ([facility] Contact Info) Description 06/01/2024 11:00 AM EST Office Visit Dermatology, [facility] [address] [place] [address] [address] Lita Villanueva PA-C [address] [place] [address] Facial rash* Allergies Active Allergy Reactions Criticality [...] USE AGREEMENT 09/29/2012 Overview (01/05/2015): Managed by [employer]. To view the Medication Usage Agreement, go [...] months ago after hospitalized for AMS at [facility]-suffers from some mild dementia. Rash located [...] goal of less than 8.0% ([facility]) 11/06/2011 ICD-10 update of inactive term Patient Active Problem List Diagnosis Dyslipidemia Type 2 diabetes mellitus with hemoglobin A1c goal of less than 8.0% ([facility]) MEDICATION USE AGREEMENT HTN, goal below 130/80 Spinal stenosis of lumbar region with neurogenic claudication Gastroesophageal reflux disease without esophagitis Obesity, Class I, BMI 30.0-34.9 (see actual BMI) Chronic pain syndrome Claudication of both lower extremities ([facility]) Mild dementia ([facility]) Multiple gastric ulcers SOCIAL HISTORY: Social History Tobacco Use Smoking status: Never Smokeless tobacco: Never Substance Use Topics Alcohol use: No Vaping/E-Cigarette Use Vaping/E-Cigarette Use Never User Vaping/E-Cigarette Substances Vaping/E-Cigarette Devices MEDICATIONS: Current Outpatient Medications Medication Sig Dispense Refill Glucose Blood (Air Button ULTRA BLUE) STRP Test blood sugars once [...] normal limits with the following exceptions: 1. Athalia excoriated papules-across forehead and chin ASSESSMENT/PLAN: Favor [...] PM EDT Office Visit Orthopaedics [facility] [address] [place] [phone] Thanh Gonsales, DO [address] [place] [address] 02/11/2025 9:00 AM EDT Office Visit [facility] [address] [facility] [address] Charlotte Malave, DO [address] [place] [address] Health Maintenance Due Date Last [...] this encounter Medical Devices Implanted Type Area Microfabrication Engineer Manager Device Identifier Shelf Expiration Date Model / Serial / Lot Lens Intraoc 22.0 - [id number] - [id number] Implanted:Qty: 1 on 06/02/2018 by Wili Farmer MD at OR [facility] Right: Eye [employer] 12/12/2022 [id number] / [id number] / [id number] documented as of this encounter Procedures Procedure [...] interpreted or resulted by a [facility] or [employer] contracted radiologist. Lita Villanueva PA-C RADIOLOGY (RAD GENERAL) Final Result documented in this encounter Visit Diagnoses Diagnosis Facial rash- Primary Rash and other nonspecific skin eruption documented in this encounter Care Teams Plaster Helper Relationship Specialty Start Date End Date Jian Escalante MD [address] [facility] [place] [address] PCP - General Family Medicine 07/29/20 documented as of this encounter
--- OUTSIDE RECORDS SUMMARY | 2024-07-15 08:59 | External Medical Summary ---
Author Name Unknown Address Unknown Organization [id number]:[facility] [address] [place] [address] Laboratory Report Ordering Provider Test Date Status JESSI SANTIAGO 03/17/2024 10:15:29 Final Observation Date Value Abnormality Reference (Units ) Status Color of Urine by Auto 03/17/2024 10:15:29 Yellow Light Yellow, Yellow, Dark Yellow Final Clarity, Urine 03/17/2024 10:15:29 Cloudy Abnormal Clear Final Glucose [Mass/volume] in Urine by Automated test strip 03/17/2024 10:15:29 Negative Negative (mg/dL) Final Bilirubin.total [Presence] in Urine by Automated test strip 03/17/2024 10:15:29 Negative Negative Final Ketones [Mass/volume] in Urine by Automated test strip 03/17/2024 10:15:29 Negative Negative (mg/dL) Final Specific gravity, Urine 03/17/2024 10:15:29 1.025 1.003-1.030 Final Hemoglobin [Presence] in Urine by Automated test strip 03/17/2024 10:15:29 Moderate Abnormal Negative Final pH, Urine 03/17/2024 10:15:29 6.0 5.0-7.5 (Units) Final Protein [Mass/volume] in Urine by Automated test strip 03/17/2024 10:15:29 30 Abnormal Negative (mg/dL) Final Urobilinogen [Mass/volume] in Urine by Automated test strip 03/17/2024 10:15:29 0.2 0.2, 1.0 (mg/dL) Final Nitrite [Presence] in Urine by Automated test strip 03/17/2024 10:15:29 Negative Negative Final Leukocyte esterase [Presence] in Urine by Automated test strip 03/17/2024 10:15:29 Large Abnormal Negative Final RBC, Urine 03/17/2024 10:15:29 10-19 Abnormal 0-2 (/HPF) Final WBC, Urine 03/17/2024 10:15:29 50+ Abnormal 0-2 (/HPF) Final Bacteria [#/area] in Urine sediment by Microscopy high power field 03/17/2024 10:15:29 >200 Abnormal 0-25 (/HPF) Final Performing Location LABORATORY [address] - [address] [facility] [address]
--- OUTSIDE RECORDS SUMMARY | 2024-07-15 08:59 | External Medical Summary | Summary of Care ---
Author Name Unknown Organization [facility] Address [address] [place] [address] Phone [phone] Care Team Providers Care Receiving Operator Name Role Phone Jian Escalante MD Primary Care Provider [phone] Reason for Visit * Reason Onset Date Comments Test Results 04/26/2024 Encounter Details Date Type Department Care Team ([facility] Contact Info) Description 04/26/2024 Telephone Family Practice [facility] [address] [facility] [place] [address] Jian Escalante MD [address] [facility] [place] [id number] Test Results Allergies Active Allergy Reactions Criticality Noted Date Comments Metformin Nausea/vomiting 11/14/2011 Tramadol Nausea/vomiting 11/14/2011 documented as of this encounter (statuses as of 05/03/2024) Medications Glucose Blood (ONETOUCH ULTRA BLUE) STRP [...] the morning. 90 Tablet 3 4 Active documented as of this encounter (statuses as of 05/03/2024) Active Problems Problem Noted Date Diagnosed Date [...] USE AGREEMENT 09/29/2012 Overview (01/05/2015): Managed by [employer]. To view the Medication Usage Agreement, go to Action, Patient Files. Signed 2/3/15 [facility]. Dyslipidemia 11/06/2011 Type 2 diabetes mellitus wit h hemoglobin A1c goal of less than 8.0% 11/06/2011 Overview (08/08/2015): ICD-10 update of inactive term documented as of this encounter (statuses as of 05/03/2024) Resolved Problems Problem Noted Date Diagnosed Date [...] as of this encounter (statuses as of 05/03/2024) Immunizations Name Administration Dates Next Due COVID-19 [...] Telephone Encounter - Margarita Cole LPN - 04/26/2024 11:07 AM EST Verbal review given by PCP, echo stable and no further work up needed Spoke with pts , aware and verbalized understanding. * Telephone Encounter - Umm Briggs OSA - 04/26/2024 11:01 AM EST Who is Requesting Test Results: Rosales Primary Care Provider : Jian Escalante MD Tests Results Requested : Echo Date of Test : 04/09/24 Location of Test: [facility] Ordering Provider: Ava Patient has been made aware that the [...] Care Team (Late st Contact Info) Description 05/17/2024 10:30 AM EST Office Visit Orthopaedics [facility] [address] [place] [phone] Thanh Gonsales, [address] [place] [address] 06/01/2024 11:00 AM EST Office Visit Dermatology, Isauro Eaton [address] [place] [address] [address] Lita Villanueva, PAMicheleC [address] [place] [address] 07/16/2024 9:00 AM EDT Office Visit Neurology [facility] [address] [place] [facility] [place] [address] Charlotte Malave, DO [address] [facility] [place] [address] Health Maintenance Due Date Last Done [...] this encounter Medical Devices Implanted Type Area Gill Tender Device Identifier Shelf Expiration Date Model / Serial / Lot Lens Intraoc 22.0 - [id number] - [id number] Implanted:Qty: 1 on 06/02/2018 by Wili Farmer MD at OR [facility] Right: Eye [employer] 12/12/2022 [id number] / [id number] / [id number] documented as of this encounter Care Teams Receiving Operator Relationship Specialty Start Date End Date Jian Escalante MD [address] [place] [address] PCP - General Family Medicine 07/29/20 documented as of this encounter
--- OUTSIDE RECORDS SUMMARY | 2024-07-15 08:59 | External Medical Summary | Summary of Care ---
Author Name Unknown Organization [facility] Address [address] [place] [address] Phone [phone] Care Team Providers Care Line Therapist Name Role Phone Jian Escalante MD Primary Care Provider [phone] Encounter Details Date Type Department Care Team ([facility] Contact Info) Description 05/03/2024 Population Health External Data Unspecified Department Allergies Active Allergy Reactions Criticality Noted Date Comments Metformin Nausea/vomiting 11/14/2011 Tramadol Nausea/vomiting 11/14/2011 documented as of this encounter (statuses as of 05/03/2024) Medications Glucose Blood (UltraSoC TechnologiesUCH ULTRA BLUE) STRP Test blood sugars [...] USE AGREEMENT 09/29/2012 Overview (01/05/2015): Managed by [employer]. 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 Not on file Not on file documented as of this encounter Plan of Treatment Upcoming Encounters Date Type Department Care Team (Late st Contact Info) Description 05/17/2024 10:30 AM EST Office Visit Orthopaedics [facility] [address] [place] [phone] Thanh Gonsales, [address] [place] [address] 06/01/2024 11:00 AM EST Office Visit Dermatology, Isauro Eaton [address] [place] [address] [address] Lita Villanueva PA-C [address] [place] [phone] 07/16/2024 9:00 AM EDT Office Visit Neurology [facility] [address] [place], [place] [address] Charlotte Malave DO [address] [place] [address] Health Maintenance Due Date Last Done Comments [...] this encounter Medical Devices Implanted Type Area Theatre Director Device Identifier Shelf Expiration Date Model / Serial / Lot Lens Intraoc 22.0 - [id number] - [id number] Implanted:Qty: 1 on 06/02/2018 by Wili Farmer MD at [facility] Right: Eye [employer] 12/12/2022 [id number] / [id number] / [id number] documented as of this encounter Care Teams Line Therapist Relationship Specialty Start Date End Date Jian Escalante MD [address] [place] [address] PCP - General Family Medicine 07/29/20 documented as of this encounter
--- OUTSIDE RECORDS SUMMARY | 2024-07-15 08:59 | External Medical Summary ---
Author Name Unknown Address Unknown Organization K01:[facility] - [address] [facility] [address] Laboratory Report Ordering Provider Test Date Status JESSI SANTIAGO 03/17/2024 10:15:29 Final <10,000 colonies/ml mixed no rmal endy Observation Date Value Abnormality Reference (Units ) Status Bacteria identified in Specimen by Culture 03/17/2024 10:15:29 [id number]^ESCHE RICHIA COLI Abnormal Final >100,000 colonies/mL Escheri joe coli Performing Location [facility] - [address] [facility] [address] Ordering Provider Test Date Status JESSI SANTIAGO 03/17/2024 10:15:29 Final Observation Date Value Abnormality Reference (Units ) Status Ampicillin 03/17/2024 10:15:29 >=32 Resistant Final Ampicillin + Sulbactam 03/17/2024 10:15:29 8 Susceptible Final Cefazolin 03/17/2024 10:15:29 <=4 Susceptible Final Cefepime susceptibility 03/17/2024 10:15:29 <=1 Susceptible Final Ceftriaxone suceptibility 03/17/2024 10:15:29 <=1 Susceptible Final Ciprofloxacin 03/17/2024 10:15:29 <=0.25 Susceptible Final Due to serious side effects, the FDA has advised against using Ciprofloxacin to treat uncomplicated UTIs and respiratory tract infections unless there are no alternative treatment options. Gentamicin susceptibility 03/17/2024 10:15:29 <=1 Susc eptible Final Levofloxacin susceptibility 03/17/2024 10:15:29 1 In termediate Final Due to serious side effects, the FDA has advised against using Levofloxacin to treat uncomplicated UTIs and respiratory tract infections unless there are no alternative treatment options. Nitrofurantoin susceptibility 03/17/2024 10:15:29 <=16 Susceptible Final Piperacillin + Tazobactamsusceptibility 03/17/2024 10:15:29 <=4 Susceptible Final TMP-SMZ susceptibility 03/17/2024 10:15:29 >=320 Resista nt Final Test: Culture, Urine, Quanti tative
Specimen Source: Urine, Clean Catch
Specimen Type: Urine
Specimen Date: 03/17/2024 1015
Result Date: 03/20/2024 0955
Result Status: Final result
Abnormal: Yes
Resulting Lab: [facility]
[address]
[place] [address]

CULTURE

>100,000 colonies/mL Escherichia coli (Abnormal)

<10,000 colonies/ml mixed normal endy

SUSCEPTIBILITY

Escherichia coli
METHOD MICROBROTH DILUTIONS

AMPICILLIN >=32 Resistant
AMPICILLIN/SULBACTAM 8 Susceptible
CEFAZOLIN <=4 Susceptible
CEFEPIME <=1 Susceptible
CEFTRIAXONE <=1 Susceptible
CIPROFLOXACIN <=0.25 Susceptible
[1]
GENTAMICIN <=1 Susceptible
LEVOFLOXACIN 1 Intermediate
[2]
NITROFURANTOIN <=16 Susceptible
PIPERACILLIN TAZOBACTAM <=4 Susceptible
TRIMETH/SULFAMETHOXAZOLE >=320 Resistant

[1] Due to serious side effects, the FDA has advised against using
Ciprofloxacin to treat uncomplicated UTIs and respiratory tract infections
unless there are no alternative treatment options.

[2] Due to serious side effects, the FDA has advised against using
Levofloxacin to treat uncomplicated UTIs and respiratory tract infections
unless there are no alternative treatment options.

null Performing Location LABORATORY [facility] - [address] [place] [address]
--- OUTSIDE RECORDS SUMMARY | 2024-07-15 08:59 | External Medical Summary | Summary of Care ---
Author Name Unknown Organization [facility] Address [address] [place] [address] Phone [phone] Care Team Providers Care Talend Developer Name Role Phone Jian Escalante MD Primary Care Provider [phone] Reason for Visit * Reason Comments Follow Up Encounter Details Date Type Department Care Team ([facility] Contact Info) Description 03/30/2024 9:00 AM EST Office Visit Podiatry [facility] [address] [facility] [place] [address] Chela Case DPM [address] [facility] [place] [address] Right foot pain*; Callus; History of foot surgery; Frequent falls Allergies Active Allergy Reactions Criticality Noted Date Comments Metformin Nausea/vomiting 11/14/2011 Tramadol Nausea/vomiting 11/14/2011 documented as of this encounter (statuses as of 03/30/2024) Medications Glucose Blood (ONETOUCH ULTRA BLUE) STRP [...] as of this encounter (statuses as of 03/30/2024) Active Problems Problem Noted Date Diagnosed Date [...] as of this encounter (statuses as of 03/30/2024) Resolved Problems Problem Noted Date Diagnosed Date [...] as of this encounter (statuses as of 03/30/2024) Immunizations Name Administration Dates Next Due COVID-19 [...] as of this encounter Progress Notes * Chela Case DPM - 03/30/2024 9:10 AM EST Podiatry Established Patient Note [facility] Name: Annie Amin : 1945 Date: 03/30/2024 CHIEF COMPLAINT: Frequent falling HISTORY OF PRESENT ILLNESS: This patient is a 79 year old female who presents today with complaintsof falling. Pt states several years ago she had surgery with Dr. Sanchez for a bunion and hammertoe. She has no pain to her feet today. present and providing much of her history of today. He is concerned that she continues to fall and this is how people start dying. Denies any other complaints. She is a diabetic. Past Medical History: Diagnosis Date Chronic pain [...] A1c goal of less than 8.0% (HCC) 11/06/2011 ICD-10 update of inactive term Past Surgical History: Procedure Laterality Date DELIVERY 1968, 1970, 1972 X 3 COLONOSCOPY W/ BIOPSY (RECTUM) 10/07/08 diverticulosis COLONOSCOPY, DIAGNOSTIC (RECTUM) 12/08/2009 divertic COLONOSCOPY, DIAGNOSTIC (RECTUM) 10/01/2019 distal descending scattered diverticulosis/patent end to side colo-colonic anastomosis/internal hemorrhoids/biopsies show hyperplastic and adenomatous changes/recall 2-3 years depending health status/COLONOSCOPY FLEXIBLE PROXIMAL DIAGNOSTIC performed by Kait Lewis MD at ENDOSCOPY [facility] INFORMATION 05/2007 Spinal Stenosis INFORMATION 02/2012 spine surgery --Dr. Tijerina INFORMATION Right 05/24/2015 hammertoe repair and foot surgery LAP;W/HYSTERECTOMY 1994 Hysterectomy Complete OTHER 11/17/08 exploratory laparotomy, lysis of adhesions, sigmoid colectomy with primary anastomosis: proctoscopy: repair of bladder fistula 11/17/08, [facility], Dr. Robb REMOVE CATARACT, INSERT LENS PROSTH Right 06/02/2018 right EXTRACAPSULAR CATARACT REMOVAL WITH INTRAOCULAR LENS performed by Wili Farmer MD at OR [facility] SPINE SURGERY PROCEDURE NEC 2007 spinal stenosis, Dr. Tijerina UOC TOTAL ABD HYSTERECTOMY W/WO REMOVAL OF TUBE(S) early 40s Family History Problem Relation Name Age of Onset Alcohol and Other Disorders Associated Mother Diabetes Mother Arthritis Mother Heart Disorder Father Cancer No significant family history Thyroid Disorder No significant family history Stroke No significant family history Social History Socioeconomic History Marital status: Spouse name: Rommel Number of children: 3 Occupational History Occupation: BOOK KEEPING Employer: [employer] Tobacco Use Smoking status: Never Smokeless tobacco: Never Vaping Use Vaping status: Never Used Substance and Sexual Activity Alcohol use: No Drug use: No Sexual activity: Yes Partners: Male Other Topics Concern Seat Belt Yes Social Needs Food Insecurity: No Food Insecurity (11/24/2021) Hunger Vital Sign Worried About Running Out of Food in the Last Year: Never true Ran Out of Food in the Last Year: Never true Current Outpatient Medications Medication Sig Dispense Refill Glucose Blood (Telespree ULTRA BLUE) STRP Test blood sugars once [...] current facility-administered medications for this visit. ALLERGIES: Review of patient's allergies indicates: Allergen Reactions Metformin Nausea/vomiting Tramadol Nausea/vomiting REVIEW OF SYSTEMS: CONSTITUTIONAL: No change in weight, No weakness, No fatigue, and No fevers, sweats, or chills EYE: No recent significant change in vision and No eye pain, redness, discharge EARS: No ear pain and No recent change in hearing NOSE: No history of frequent colds or sinusitis and No nasal stuffiness PULMONARY: No cough, sputum, or hemoptysis and No recent change in breathing CARDIOVASCULAR: No chest pain and No shortness of breath EXTREMITIES: Right 3rd toe pain SKIN/INTEGUMENTARY: No edema, No rash, and No itching NEUROLOGIC: Normal balance, No headaches, No seizures, and No weakness PSYCHIATRIC: No depression, No anxiety, and No psychosis RIGHT FOCUSED PODIATRIC EXAM: Vitals: There were no vitals filed for this visit. General: Patient is awake alert oriented to person place time. No apparent distress. Vascular: DP/PT pulses palpable. CFT < 3 sec 1-5. No edema noted. Temperature gradient is normal warm to cold. Neurologic: Protective sensation intact to light touch. Sensation to sharp/dull is intact.There is no babinski response elicited. Ankle clonus is absent. Dermatological: Skin is thin in appearance with no open lesions or interdigital macerations. Nails 1-5 are elongated and thickened. Pedal hair is absent. Well healed surgical incisions noted. Dislocated PIPJ of the 3rd toe with plantar callus noted. Musculoskeletal: POP noted to the 3rd toe. No pain with active or passive ROM of the digits or ankle joint. Muscle strength is 5/5 for all muscle groups of the lower extremity. DIAGNOSTIC STUDIES: No new ASSESSMENT: Right foot pain Hx of foot surgery, right Callus Frequent fallts PLAN: - Xrays personally reviewed and discussed with the pt. All questions answered. - Callus debrided to the appropriate level with the use of a 15 blade x1. - Nails 1-5, adrianna were trimmed with a nail nipper and debrided with an electric bur to appropriate thickness. I did explain we are not currently seeing any new nail care patients and the list of localnail care providers was given. - Continue to wear good, supportive shoes. - Pt being worked up by PCP for falls and dementia. - Pt to RTC PRN. Instructed to call with any problems or questions. Chela Case DPM documented in this encounter Nursing Notes * Kelsea Orona LPN - 03/30/2024 9:02 AM EST Pt presents for follow up visit, states she 'does not know what this appointment is for', when asked denies foot pain. Thinks 'it may be a check up, I don't know'. Pt's arrived in the room, states 'the number one reason our friends are dying is due to falls'. States pt falls often, he is asking if there's anything we can do to 'eliminate some of these falls. He states she's had horrible bunions, surgery 10 years ago 'that did not work out well'. documented in this encounter Plan of Treatment Upcoming Encounters Date Type Department Care Team (Late st Contact Info) Description 04/05/2024 1:20 PM EST Office Visit Family Practice [facility] [address] [address] Jian Escalante MD [address] [place] [address] 04/09/2024 1:00 PM EST Cardiac Studies Cardiac Studies, [facility] [address] [place] [address] 05/17/2024 10:30 AM EST Office Visit Orthopaedics [facility] [address] [place] [address] Thanh Gonsales, [address] [place] [address] 06/01/2024 11:00 AM EST Office Visit Dermatology, [facility] [place] [address] [place] [address] [address] Lita Villanueva, ELLENC [address] [place] [address] 07/16/2024 9:00 AM EDT Office Visit Neurology [facility] [place] [address] [place] [address] Charlotte Malave, DO [address] [place] [address] Health Maintenance Due Date Last Done Comments [...] 05/2012, 10/13/2012, Additional history exists Pneumococcal Vaccine: 65+ Years Completed 07/03/2017, 03/26/2016, 03/17/2008 RETIRED - COLONOSCOPY-EVERY 2 YRS AGES 18-100 Discontinued 01/15/2023, 10/01/2019, 10/01/2019, Additional history exists COVID-19 Vaccine Completed 02/21/2024, , 02/07/2021, Additional history exists Influenza Vaccine (FLU shot) Completed 02/21/2024, 02/11/2023, 01/30/2022, Additional history exists HPV (Gardasil) Vaccine Aged Out No lo nger eligible based on patient's age to complete this topic Hepatitis B Vaccine Aged Out No longe r eligible based on patient's age to complete this topic MENINGOCOCCAL (MENACTRA/MENVEO) Aged Out No longer eligible based on patient's age to complete this topic documented as of this encounter Medical Devices Implanted Type Area Transportation Modeler Device Identifier Shelf Expiration Date Model / Serial / Lot Lens Intraoc 22.0 - [id number] - [id number] Implanted:Qty: 1 on 06/02/2018 by Wili Farmer MD at OR [facility] Right: Eye [employer] 12/12/2022 [id number] / [id number] / [id number] documented as of this encounter Visit Diagnoses Diagnosis Right foot pain- Primary Pain in limb Callus Corns and callosities History of foot surgery Personal history of surgery to other organs Frequent falls Personal history of fall documented in this encounter Care Teams Talend Developer Relationship Specialty Start Date End Date Jian Escalante MD [address] [facility] [place] [address] PCP - General Family Medicine 07/29/20 documented as of this encounter
--- OUTSIDE RECORDS SUMMARY | 2024-07-15 08:59 | External Medical Summary | Summary of Care ---
Author Name Unknown Organization [facility] Address [address] [place] [address] Phone [phone] Care Team Providers Care System Designer Name Role Phone Jian Escalante MD Primary Care Provider [phone] Reason for Visit * Reason Onset Date Comments Advice 02/03/2024 Encounter Details Date Type Department Care Team ([facility] Contact Info) Description 02/03/2024 Telephone Family Practice [facility] [address] [place] [address] Jian Escalante MD [address] [place] [address] Advice Allergies Active Allergy Reactions Criticality Noted Date Comments Metformin Nausea/vomiting 11/14/2011 Tramadol Nausea/vomiting 11/14/2011 documented as of this encounter (statuses as of 05/04/2024) Medications Glucose Blood (ONETOUCH ULTRA BLUE) STRP [...] twice daily 45 g 1 4 Active documented as of this encounter (statuses as of 05/04/2024) Active Problems Problem Noted Date Diagnosed Date [...] as of this encounter (statuses as of 05/04/2024) Resolved Problems Problem Noted Date Diagnosed Date [...] as of this encounter (statuses as of 05/04/2024) Immunizations Name Administration Dates Next Due COVID-19 [...] Telephone Encounter - Margarita Cole LPN - 02/03/2024 3:09 PM EDT Called and spoke with pts Believes it may be related to amount of water pt is not drinking Will try to drink more water, will get up slowly Will call if worsens or persists * Telephone Encounter - Belkis Guevara OSA - 02/03/2024 12:33 PM EDT Roslaes is calling wanting to make aware pt has been sleeping a lot more than normal. When pt goes toget up she gets very dizzy. Patient has been having headaches as well. Rosales is requesting a returncall from Dr. Escalante or Dr. Hammond. Please advise Thank you SHORTY Ashraf documented in this encounter Plan of Treatment Upcoming Encounters Date Type Department Care Team (Late st Contact Info) Description 05/17/2024 10:30 AM EST Office Visit Orthopaedics [facility] [address] [place] [phone] Thanh Gonsales DO [address] [place] [phone] 06/01/2024 11:00 AM EST Office Visit Dermatology, Isauro Eaton [address] [place] [address] [address] Lita Villanueva PA-C [address] [place] [address] 07/16/2024 9:00 AM EDT Office Visit Neurology [facility] [address] [place] [address] Charlotte Malave, DO [address] [place] [address] Health Maintenance Due Date Last [...] Tdap) 05/02/2025 05/02/2015 DXA Scan 11/21/2026 11/22/2019, 07/05/2012, 10/13/2012, Additional [...] this encounter Medical Devices Implanted Type Area Sdv Pilot/Navigator/Dds Operator Device Identifier Shelf Expiration Date Model / Serial / Lot Lens Intraoc 22.0 - [id number] - [id number] Implanted:Qty: 1 on 06/02/2018 by Wili Farmer MD at OR [facility] Right: Eye [employer] 12/12/2022 [id number] / [id number] / [id number] documented as of this encounter Care Teams System Designer Relationship Specialty Start Date End Date Jian Escalante MD [address] [place] [address] PCP - General Family Medicine 07/29/20 documented as of this encounter
--- OUTSIDE RECORDS SUMMARY | 2024-07-15 08:59 | External Medical Summary | Summary of Care ---
Author Name Unknown Organization [facility] Address [address] [place] [address] Phone [phone] Care Team Providers Care Operations Research Group Manager Name Role Phone Jian Escalante MD Primary Care Provider [phone] Reason for Visit * Reason Comments Outpatient Testing Encounter Details Date Type Department Care Team ([facility] st Contact Info) Description 03/17/2024 10:20 AM EST Laboratory Laboratory, [facility] [address] [place] [address] [facility] [address] [place] [address] Suspected urinary tract infection Allergies Active Allergy Reactions Criticality Noted Date Comments Metformin Nausea/vomiting 11/14/2011 Tramadol Nausea/vomiting 11/14/2011 documented as of this encounter (statuses as of 03/17/2024) Medications Glucose Blood (ONETOUCH ULTRA BLUE) STRP [...] as of this encounter (statuses as of 03/17/2024) Active Problems Problem Noted Date Diagnosed Date [...] USE AGREEMENT 09/29/2012 Overview (01/05/2015): Managed by [employer]. To view the Medication Usage Agreement, go to Action, Patient Files. Signed 2/3/15 [facility] Adan. Dyslipidemia 11/06/2011 Type 2 diabetes mellitus wit h hemoglobin A1c goal of less than 8.0% 11/06/2011 Overview (08/08/2015): ICD-10 update of inactive term documented as of this encounter (statuses as of 03/17/2024) Resolved Problems Problem Noted Date Diagnosed Date [...] as of this encounter (statuses as of 03/17/2024) Immunizations Name Administration Dates Next Due COVID-19 [...] Care Team (Late st Contact Info) Description 03/30/2024 9:00 AM EST Office Visit Podiatry [facility] [address] [place] [address] Chela Case DPM [address] [place] [address] 04/05/2024 1:20 PM EST Office Visit Family Practice [facility] [address] [place] [address] Jian Escalante MD [address] [place] [address] 04/09/2024 1:00 PM EST Cardiac Studies [facility], [facility] [place] [address] 05/17/2024 10:30 AM EST Office Visit Orthopaedics [facility] [address] [facility] [place] [address] Thanh Gonsales, DO [address] [facility] [place] [address] 06/01/2024 11:00 AM EST Office Visit Dermatology, Kenyatta LozanoIsauro [address] [place] [phone] Lita Villanueva, PAMicheleC [address] [place], [place] [phone] 07/16/2024 9:00 AM EDT Office Visit Neurology [facility] [address] [facility] [place] [address] Charlotte Malave, DO [address] [place] [address] Pending Results Name Type Priority Associated Diagnoses Date /Time CULTURE, URINE, QUANTITATIVE Lab Routine Suspected urinary tract infection 03/17/2024 10:15 AM EST Health Maintenance Due Date Last Done Comments Diabetic Eye Exam 10/19/2020 10/20/2019, , 02/13/2012 Adult Wellness Visit 10/24/2021 10/24/2020 Depression Screening 10/24/2021 10/24/2020 Zoster Vaccines (2 of 2) 05/15/2022 03/20/2022 Diabetic Foot Exam 03/12/2024 03/12/2023, 0 10/24/2020, 02/23/2019, Additional history exists Albumin/Creatinine Ratio 09/09/202409/09/ 024, 01/24/2022, 07/05/2017, Additional history exists GFR [...] this encounter Medical Devices Implanted Type Area Hr Clerk Device Identifier Shelf Expiration Date Model / Serial / Lot Lens Intraoc 22.0 - [id number] - [id number] Implanted:Qty: 1 on 06/02/2018 by Wili Farmer MD at OR [facility] Right: Eye [employer] 12/12/2022 [id number] / [id number] / [id number] documented as of this encounter Procedures Procedure Name Priority Date/Time Associated Diagnosis Comments URINALYSIS WITH MICROSCOPIC EXAM Routine 03/17/2024 10:15 AM EST Suspected urinary tract infection documented in this encounter Results * (ABNORMAL) URINALYSIS WITH MICROSCOPIC EXAM (03/17/2024 10:15 AM EST) Color, Urine Yellow Light Yellow, Yellow, Dark Yellow 03/17/2024 10:30 AM EST [facility] Clarity, Urine Cloudy(A) Clear 03/17/2024 10:30 AM EST [facility] Glucose, Urine Negative Negative mg/dL 03/17/2024 10:30 AM EST [facility] [place] [facility]10 Bilirubin, Urine Negative Negative 03/17/2024 10:30 AM EST [facility] [place] [facility]10 Ketone, Urine Negative Negative mg/dL 03/17/2024 10:30 AM EST [facility] Specific [place], Urine 1.025 1.003 - 1.030 03/17/2024 10:30 AM EST [facility] [place] [facility] [facility]10 Blood, Urine Moderate(A) Negative 03/17/2024 10:30 AM EST [facility] [place] [facility]10 pH, Urine 6.0 5.0 - 7.5 Units 03/17/2024 10:30 AM EST [facility] [place] [facility]10 Protein, Urine 30(A) Negative mg/dL 03/17/2024 10:30 AM EST [facility] [place] [facility] [facility] Urobilinogen, Urine 0.2 0.2, 1.0 mg/dL 03/17/2024 10:30 AM EST [facility] [place] [facility] [facility] Nitrite, Urine Negative Negative 03/17/2024 10:30 AM EST [facility]10 Esterase, Urine Large(A) Negative 03/17/2024 10:30 AM EST [facility] RBC, Urine 10-19(A) 0 - 2 /HPF 03/17/2024 10:30 AM EST [facility] WBC, Urine 50+(A) 0 - 2 /HPF 03/17/2024 10:30 AM EST [facility] Bacteria, Urine >200(A) 0 - 25 /HPF 03/17/2024 10:30 AM EST [facility] Urine Urine specimen obtained by clean catch procedure / Unknown Non-blood Collection / Unknown 03/17/2024 10:15 AM EST 03/17/2024 10:15 AM EST us Kelsea T Leticiajazzminestephanie [facility] LAB URINE ORDERABLES Final Result [facility] [place] [facility] [facility] [place] [address] documented in this encounter Visit Diagnoses Diagnosis Suspected urinary tract infection documented in this encounter Care Teams Operations Research Group Manager Relationship Specialty Start Date End Date Jian Escalante MD [address] [place] [address] PCP - General Family Medicine 07/29/20 documented as of this encounter
--- OUTSIDE RECORDS SUMMARY | 2024-07-15 08:59 | External Medical Summary | Summary of Care ---
Author Name Unknown Organization [facility] Address [address] [place] [address] Phone [phone] Care Team Providers Care Body Work Auto Trimmer Name Role Phone Jian Escalante MD Primary Care Provider [phone] Reason for Visit * Reason Comments Follow Up Pt here with to discuss anxiety medication Encounter Details Date Type Department Care Team ([facility] st Contact Info) Description 04/05/2024 1:20 PM EST Office Visit Family Practice [facility] [address] [facility] [place] [address] Jian Escalante MD [address] [facility] [place] [address] Mild dementia without behavioral disturbance, psychotic disturbance, mood disturbance, or anxiety, unspecified dementia type (HCC)* Allergies Active Allergy Reactions Criticality Noted Date Comments Metformin Nausea/vomiting 11/14/2011 Tramadol Nausea/vomiting 11/14/2011 documented as of this encounter (statuses as of 04/05/2024) Medications Glucose Blood (ONETOUCH ULTRA BLUE) STRP [...] as of this encounter (statuses as of 04/05/2024) Active Problems Problem Noted Date Diagnosed Date [...] as of this encounter (statuses as of 04/05/2024) Resolved Problems Problem Noted Date Diagnosed Date [...] as of this encounter (statuses as of 04/05/2024) Immunizations Name Administration Dates Next Due COVID-19 [...] Sign Reading Time Taken Comments Blood Pressure 120/72 04/05/2024 1:30 PM EST Pulse 80 04/05/2024 1:30 PM EST Temperature 36.9 °C (98.4 °F) 04/05/2024 1:30 PM ES T Respiratory Rate 18 04/05/2024 1:30 PM EST Oxygen Saturation - - Inhaled Oxygen Concentration - - Weight 66.2 kg (146 lb) 04/05/2024 1:30 PM EST Height 144.8 cm (4' 9") 04/05/2024 1:30 PM EST Body Mass Index 31.59 04/05/2024 1:30 PM EST documented in this encounter Progress Notes * Jian Escalante MD - 04/05/2024 2:00 PM EST SUBJECTIVE: Annie Amin is a 79 year old female. Chief Complaint Patient presents with Follow Up Pt here with to discuss anxiety medication HPI: Here with to discuss some concerns their daughter who lives in [place] has. Apparently shewas visiting them earlier this month and wanted them to come talk to me about "starting depression medication." Per patient's , daughter specifically wanted patient to try wellbutrin. Long discussion with patient and . Patient is happy and functioning well at home. She is tired a lot of the time and I think daughter likely just wants to make sure all bases are being covered. In the final analysis, we are not going to change any medications. She is doing fine on Cymbalta and Aricept. In fact, we spent much of the past year getting her OFF of most of her unnecessary medication. Patient and agreeable to this plan. Patient Active Problem List Diagnosis Dyslipidemia Type [...] Medications Medication Sig Dispense Refill Glucose Blood (ActiveOTOUCH ULTRA BLUE) STRP Test blood sugars once [...] No current facility-administered medications for this visit. Allergy: Review of patient's allergies indicates: Allergen Reactions Metformin Nausea/vomiting Tramadol Nausea/vomiting OBJECTIVE: BP 120/72 | Pulse 80 | Temp 98.4 °F (36.9 °C) | Resp 18 | Ht 4' 9" (1.448 m) | Wt 146 lb (66.2 kg) | BMI 31.59 kg/m² | BSA 1.63 m² Gen: nad ASSESSMENT AND PLAN: (F03.A0) Mild dementia without behavioral disturbance, psychotic disturbance, mood disturbance, or anxiety, unspecified dementia type (HCC) (primary encounter diagnosis) Plan: no med changes Follow up as needed. No other complaints were offered at this time. Jian Escalante MD documented in this encounter Plan of Treatment Upcoming Encounters Date Type Department Care Team (Late st Contact Info) Description 04/09/2024 1:00 PM EST Cardiac Studies Cardiac Studies, [facility] [address] [facility] [place] [address] 05/17/2024 10:30 AM EST Office Visit Orthopaedics [facility] [address] [facility] [place] [address] Thanh Gonsales, 132 [facility] [place] [address] 06/01/2024 11:00 AM EST Office Visit Dermatology, [place] [address] [place] [address] [address] Lita Villanueva PA-C [address] [place] [address] 07/16/2024 9:00 AM EDT Office Visit Neurology [facility] [place] [address] [facility], [place] [address] Charlotte Malave, DO [address] [place] [facility] [place] [address] Health Maintenance Due Date Last Done [...] this encounter Medical Devices Implanted Type Area Powerhouse Engineer Device Identifier Shelf Expiration Date Model / Serial / Lot Lens Intraoc 22.0 - [id number] - [id number] Implanted:Qty: 1 on 06/02/2018 by Wili Farmer MD at OR [facility] Right: Eye [employer] 12/12/2022 [id number] / [id number] / [id number] documented as of this encounter Visit Diagnoses Diagnosis Mild dementia without behavioral disturbance, psychotic disturbance, mood disturbance, or anxiety, unspecified dementia type (HCC)- Primary documented in this encounter Care Teams Body Work Auto Trimmer Relationship Specialty Start Date End Date Jian Escalante MD 132 [facility] [place] [address] PCP - General Family Medicine 07/29/20 documented as of this encounter
--- OUTSIDE RECORDS SUMMARY | 2024-07-15 08:59 | External Medical Summary | Summary of Care ---
Author Name Unknown Organization [facility] Address [address] [place] [address] Phone [phone] Care Team Providers Care Manager Data Center Name Role Phone Jian Escalante MD Primary Care Provider [phone] Reason for Visit * Reason Onset Date Comments Referral 12/18/2023 Encounter Details Date Type Department Care Team ([facility] Contact Info) Description 12/18/2023 Telephone Family Practice [facility] [address] [place] [address] Jian Escalante MD [address] [facility] [place] [address] Referral Allergies Active Allergy Reactions Criticality Noted Date Comments Metformin Nausea/vomiting 11/14/2011 Tramadol Nausea/vomiting 11/14/2011 documented as of this encounter (statuses as of 03/18/2024) Medications Glucose Blood (ONETOUCH ULTRA BLUE) STRP [...] bedtime. 90 Tablet 3 10/28/19 24 Active Carvedilol 12.5 MG Oral Tablet (Coreg)Indicatio ns:HTN, goal below 140/80 TAKE 1 TABLET BY MOUTH IN THE MORNING AND BEFORE BEDTIME 180 Tablet 1 11/03/19 24 Active DULoxetine HCl 60 MG Oral [...] MORNING. 90 Tablet 1 11/03/19 24 Active Cefdinir 300 MG Oral Capsule (Omnicef) Take 1 Capsule by mouth in the morning and 1 Capsule before bedtime. 09/30/19 24 024 Discontinued documented as of this encounter (statuses as of 03/18/2024) Active Problems Problem Noted Date Diagnosed Date [...] USE AGREEMENT 09/29/2012 Overview (01/05/2015): Managed by [employer]. To view the Medication Usage Agreement, go to Action, Patient Files. Signed 05/17/14 Angela Amaro Dyslipidemia 11/06/2011 Type 2 diabetes mellitus wit h hemoglobin A1c goal of less than 8.0% 11/06/2011 Overview (08/08/2015): ICD-10 update of inactive term documented as of this encounter (statuses as of 03/18/2024) Resolved Problems Problem Noted Date Diagnosed Date [...] as of this encounter (statuses as of 03/18/2024) Immunizations Name Administration Dates Next Due COVID-19 [...] Telephone Encounter - Margarita Cole LPN - 12/24/2023 4:56 PM EDT Addressed at appt today * Telephone Encounter - Shawnee Barrera LPN - 12/23/2023 10:32 AM EDT Attempted to call patient, there was no answer, left voicemail. When patient returns call--transfer to dedicated nurse line. Need more information regarding rash. Is this acute? If so when did it start? Etc * Telephone Encounter - Lynnette Aggarwal OSA - 12/18/2023 2:47 PM EDT Has the patient been seen for this problem? (Y/N)?: yes If No, an appt needs to be scheduled before a referral will be placed (exception: proceed with referral request if referral request is for a yearly routine appointment with speciality) Patient Name: Annie Amin Patient Primary care provider: Jian Escalante MD Does this need to be an insurance referral (Y/N)?: no If Yes, does the insurance referral need to be placed into the [employer] system? Name of preferred specialist: delmi Type of specialist: Dermatology Location of specialist: na Specialist's Phone #: na Specialist's Fax #: na Reason for visit: rash on face Date of visit: na documented in this encounter Plan of Treatment Upcoming Encounters Date Type Department Care Team (Late st Contact Info) Description 03/30/2024 9:00 AM EST Office Visit Podiatry [facility] [address] [place] [address] Chela Case DPM [address] [place] [address] 04/05/2024 1:20 PM EST Office Visit Family Practice [facility] [address] [place] [address] Jian Escalante MD [address] [place] [address] 04/09/2024 1:00 PM EST Cardiac Studies Cardiac Studies, [facility] [address] [place] [address] 05/17/2024 10:30 AM EST Office Visit Orthopaedics [facility] [address] [place] [address] Thanh Gonsales, DO [address] [place] [address] 06/01/2024 11:00 AM EST Office Visit Dermatology, [place] [address] [place] [address] [address] Lita Villanueva PA-C [address] [place] [address] [address] 07/16/2024 9:00 AM EDT Office Visit Neurology [facility] [address] [place] [address] Charlotte Malave, DO [address] [facility] [place] [address] Health Maintenance Due Date Last Done [...] 07/05/2012, 10/13/2012, Additional history exists Pneumococcal Vaccine: 65+ [...] this encounter Medical Devices Implanted Type Area Broadcast Field Supervisor Device Identifier Shelf Expiration Date Model / Serial / Lot Lens Intraoc 22.0 - [id number] - [id number] Implanted:Qty: 1 on 06/02/2018 by Wili Farmer MD at OR [facility] Right: Eye [employer] 12/12/2022 [id number] / [id number] / [id number] documented as of this encounter Care Teams Manager Data Center Relationship Specialty Start Date End Date Jian Escalante MD 132 [facility] [place] [address] PCP - General Family Medicine 07/29/20 documented as of this encounter
--- OUTSIDE RECORDS SUMMARY | 2024-07-15 08:59 | External Medical Summary | Summary of Care ---
Author Name Unknown Organization [facility] Address [address] [place] [address] Phone [phone] Care Team Providers Care Vice President Of Finance Name Role Phone Jian Escalante MD Primary Care Provider [phone] Reason for Referral * Evaluate & Treat - Unlimited Visits (Within 10 days (routine)) - Authorized Specialty Diagnoses / Procedures Referred By Marisa sanabria Referred To Contact Dermatology Diagnoses Multiple nevi Jian Escalante MD [address] [facility] [place] [address] Phone: tel: fax: Referral ID Status Reason Start Date Expiration Date Visits Requested Visits Authorized [id number] Authorized Specialty Services Required 12/30/2023 999 999 Question Answer Referral Priority Within 10 days (routine) Where should this appointment be scheduled? [facility] Are you referring the patient for Mohs Surgery and have a current positive skin cancer biopsy result? No What is the reason for the patient referral? Rash/Skin Check/Eval of Lesion or Mole Reason for Visit * Reason Onset Date Comments Advice 12/29/2023 Encounter Details Date Type Department Care Team (Late st Contact Info) Description 12/29/2023 Telephone Family Practice [facility] [address] [place] [address] Jian Escalante MD [address] [place] [address] Advice Allergies Active Allergy Reactions Criticality Noted Date Comments Metformin Nausea/vomiting 11/14/2011 Tramadol Nausea/vomiting 11/14/2011 documented as of this encounter (statuses as of 03/29/2024) Medications Glucose Blood (ActivIdentityUCH ULTRA BLUE) STRP Test blood sugars once daily as needed. Dx E11.9 50 Strip 11 020 Active Cilostazol 50 MG Oral Tablet (Pletal) Take 1 Tablet by mouth in the morning and 1 Tablet before bedtime. 180 Tablet 3 024 Active HYDROcodone-Michele taminophen 5-325 MG Oral TabletIndicatio ns:Spinal stenosis of lumbar region without neurogenic claudication Take 1 Tablet by mouth 3 times a day as needed for Pain, Severe. 90 Tablet 024 Active Ferrous Sulfate 325 (65 Fe) MG Oral Tablet (Feosol) Take 1 Tablet by mouth in the morning and 1 Tablet before bedtime. 60 Tablet 11 024 Active Donepezil HCl 5 MG Oral Tablet (Aricept) Take 1 Tablet by mouth at bedtime. 90 Tablet 3 024 Active Carvedilol 12.5 MG Oral Tablet (Coreg)Indicati ons:HTN, goal below 140/80 TAKE 1 TABLET BY MOUTH IN THE MORNING AND BEFORE BEDTIME 180 Tablet 1 024 Active DULoxetine HCl 60 MG Oral Capsule Delayed Release Particles (Cymbalta) TAKE 1 CAPSULE BY MOUTH EVERY MORNING 90 Capsule 1 024 Active glipiZIDE 5 MG Oral Tablet (Glucotrol) TAKE 1 TABLET BY MOUTH EVERY DAY IN THE MORNING 90 Tablet 1 024 Active Rosuvastatin Calcium 20 MG Oral Tablet (Crestor)Indica tions:Dyslipide joel, goal LDL below 100 TAKE 1 TABLET BY MOUTH IN THE MORNING. IN THE MORNING.. 90 Tablet 1 024 Active hydroCHLOROthia zide 25 MG Oral Tablet (Hydrodiuril) TAKE 1 TABLET BY MOUTH IN THE MORNING. 90 Tablet 1 024 Active Cefdinir 300 MG Oral Capsule (Omnicef) Take 1 Capsule by mouth in the morning and 1 Capsule before bedtime. 024 2023 Discontinued Pantoprazole Sodium 40 MG Oral Tablet Delayed Release (Protonix) Take 1 Tablet by mouth in the morning and 1 Tablet before bedtime. 024 2023 Discontinued(R efill) Nirmatrelvir&Ri tonavir 300/100 20 x 150 MG & 10 x 100MG Oral Tablet Therapy Pack (Paxlovid (300/100)) Take 2 pink tablets of Nirmatrelvir and 1 white tablet of Ritonavir two times a day by mouth. 30 Tablet 024 2023 Discontinued(P atient preference/dis continuation) documented as of this encounter (statuses as of 03/29/2024) Active Problems Problem Noted Date Diagnosed Date [...] as of this encounter (statuses as of 03/29/2024) Resolved Problems Problem Noted Date Diagnosed Date [...] as of this encounter (statuses as of 03/29/2024) Immunizations Name Administration Dates Next Due COVID-19 [...] encounter Miscellaneous Notes * Telephone Encounter - Jian Escalante MD - 12/30/2023 5:39 PM EDT Please schedule derm * Telephone Encounter - Marcela Westbrook MED ASSIST - 12/30/2023 3:27 PM EDT Please add appropriate DX code -- for general skin check * Telephone Encounter - Faith Carey OSA - 12/30/2023 3:05 PM EDT Good afternoon, Pt's calling regarding above msg. He would like an update. Please advise. Faith Feliciano * Telephone Encounter - Digna Tijerina OSA - 12/29/2023 10:30 AM EDT Has the patient been seen for this problem? (Y/N)?: yes If No, an appt needs to be scheduled before a referral will be placed (exception: proceed with referral request if referral request is for a yearly routine appointment with speciality) Patient Name: Annie Amin Patient Primary care provider: Jian Escalante MD Does this need to be an insurance referral (Y/N)?: yes If Yes, does the insurance referral need to be placed into the [employer] system? Name of preferred specialist: delmi Type of specialist: na Location of specialist: na Specialist's Phone #: na Specialist's Fax #: na Reason for visit: dermatology Date of visit: na Patient's is calling because Annie would like a referral for dermatology placed so she can make an appt zoe. Called around 12/17 originally about the referral. Im not seeing any referrals. I looked in all places. If you can put it in again and call Rosales at [phone] so he can call dermatology to schedule an appt for annie then. Thank you documented in this encounter Plan of Treatment Upcoming Encounters Date Type Department Care Team (Late st Contact Info) Description 03/30/2024 9:00 AM EST Office Visit Podiatry [facility] [address] [place] [address] Chela Case DPM [address] [place] [address] 04/05/2024 1:20 PM EST Office Visit Family Practice [facility] [address] [place] [address] Jian Escalante MD [address] [place] [address] 04/09/2024 1:00 PM EST Cardiac Studies Cardiac Studies, [facility] [address] [place] [address] 05/17/2024 10:30 AM EST Office Visit Orthopaedics [facility] [address] [place] [address] Thanh Gonsales, DO [address] [place] [address] 06/01/2024 11:00 AM EST Office Visit Dermatology, [place] [place] [address] [address] Lita Villanueva PA-C [address] [place] [address] [address] 07/16/2024 9:00 AM EDT Office Visit Neu[facility] [place] [facility] [address] Charlotte Malave, DO [address] [address] [facility] [place] [address] Scheduled Referrals Name Type Priority Associated Diagnoses Orde r Schedule DERMATOLOGY REFERRAL OP Referral Within 10 days (routine) Multiple nevi Ordered: 12/30/2023 Health Maintenance Due Date Last Done Comments [...] this encounter Medical Devices Implanted Type Area Barrel Ribs Solderer Device Identifier Shelf Expiration Date Model / Serial / Lot Lens Intraoc 22.0 - [id number] - [id number] Implanted:Qty: 1 on 06/02/2018 by Wili Farmer MD at OR [facility] Right: Eye [employer] 12/12/2022 [id number] / [id number] / [id number] documented as of this encounter Visit Diagnoses Diagnosis Multiple nevi- Primary Benign neoplasm of skin, site unspecified documented in this encounter Care Teams Vice President Of Finance Relationship Specialty Start Date End Date Jian Escalanet MD [address] [facility] [place] [address] PCP - General Family Medicine 07/29/20 documented as of this encounter
[2024-07-15] MEDS ORDERED: carvediloL 3.125 MG TAB PO SCH (09:00)
--- OUTSIDE RECORDS SUMMARY | 2024-07-15 09:00 | External Medical Summary | Summary of Care ---
Author Name Unknown Organization [facility] Address [address] [place] [address] Phone [phone] Care Team Providers Care Colon And Rectal Surgeon Name Role Phone Jian Escalante MD Primary Care Provider [phone] Reason for Visit * Reason Comments Outpatient Testing Encounter Details Date Type Department Care Team ([facility] st Contact Info) Description 03/15/2024 10:50 AM EST Laboratory Laboratory, [facility] [address] [place] [address] [facility] [address] [place] [address] Type 2 diabetes mellitus with hemoglobin A1c goal of less than 8.0% ([facility]); Multiple gastric ulcers Allergies Active Allergy Reactions Criticality Noted Date Comments Metformin Nausea/vomiting 11/14/2011 Tramadol Nausea/vomiting 11/14/2011 documented as of this encounter (statuses as of 03/15/2024) Medications Glucose Blood (ONETOUCH ULTRA BLUE) STRP [...] as of this encounter (statuses as of 03/15/2024) Active Problems Problem Noted Date Diagnosed Date [...] as of this encounter (statuses as of 03/15/2024) Resolved Problems Problem Noted Date Diagnosed Date [...] as of this encounter (statuses as of 03/15/2024) Immunizations Name Administration Dates Next Due COVID-19 [...] 03/30/2024 9:00 AM EST Office Visit Podiatry [facility] [address] [address] Chela Case DPM [address] [place] [address] 04/05/2024 1:20 PM EST Office Visit Family Practice [facility] [address] [place] [address] Jian Escalante MD [address] [place] [address] 04/09/2024 1:00 PM EST Cardiac Studies Cardiac Studies, [facility] [address] [facility] [place] [address] 05/17/2024 10:30 AM EST Office Visit Orthopaedics [facility] [address] [facility] [place] [address] Thanh Gonsales, 132 [facility] [place] [address] 06/01/2024 11:00 AM EST Office Visit Dermatology, [place] [address] [place] [address] [address] Lita Villanueva PA-C [address] [place] [address] 07/16/2024 9:00 AM EDT Office Visit Neurology [facility] 200 [facility], [place] [address] Charlotte Malave, DO [address], [place] [address] Pending Results Name Type Priority Associated Diagnoses Date /Time HEMOGLOBIN A1C Lab Routine Type 2 diabetes mellitus with hemoglobin A1c goal of less than 8.0% ([facility]) 03/15/2024 10:36 AM EST CBC WITH WBC DIFFERENTIAL AND ANEMIA REFLEX WORKUP Lab Routine Multiple gastric ulcers 03/15/2024 10:36 AM EST ANEMIA CBC Lab Routine Multiple gastric ulcers 03/15/2024 10:36 AM EST DIFFERENTIAL, AUTOMATED Lab Routine Multiple gastric ulcers 03/15/2024 10:36 AM EST ANEMIA REFLEX CHEMISTRY HOLD Lab Routine Multiple gastric ulcers 03/15/2024 10:36 AM EST Health Maintenance Due Date Last Done Comments Diabetic Eye Exam 10/19/2020 10/20/2019, , 02/13/2012 Adult Wellness Visit 10/24/2021 10/24/2020 Depression Screening 10/24/2021 10/24/2020 Zoster Vaccines (2 of 2) 05/15/2022 03/20/2022 Diabetic Foot Exam 03/12/2024 03/12/2023, 0 10/24/2020, 02/23/2019, Additional history exists HbA1c 03/12/2024 09/10/2023, 02/13, 09/04/2022, Additional history exists Albumin/Creatinine Ratio 09/09/2024 024, 01/24/2022, 07/05/2017, Additional history exists GFR 09/09/2024 09/10/2023, 08/13, 01/24/2022, Additional history exists Colonoscopy 01/15/2025 01/15/2023, 09/12, 10/01/2019, Additional history exists DTap/Tdap Vaccines (2 - Td or Tdap) 05/02/2025 05/02/2015 DXA Scan 11/21/2026 11/22/2019, 070 05/2012, 10/13/2012, Additional history exists Pneumococcal Vaccine: [...] this encounter Medical Devices Implanted Type Area Heel Sander Device Identifier Shelf Expiration Date Model / Serial / Lot Lens Intraoc 22.0 - [id number] - [id number] Implanted:Qty: 1 on 06/02/2018 by Wili Farmer MD at OR [facility] Right: Eye [employer] 12/12/2022 [id number] / [id number] / [id number] documented as of this encounter Visit Diagnoses Diagnosis Type 2 diabetes mellitus with hemoglobin A1c goal of less than 8.0% (HCC) Multiple gastric ulcers documented in this encounter Care Teams Colon And Rectal Surgeon Relationship Specialty Start Date End Date Jian Escalante MD [address] [place] [address] PCP - General Family Medicine 07/29/20 documented as of this encounter
--- OUTSIDE RECORDS SUMMARY | 2024-07-15 09:00 | External Medical Summary ---
Author Name Unknown Address Unknown Organization K01:[facility] - [address] [facility] [address] Laboratory Report Ordering Provider Test Date Status JANETT CRUM 03/15/2024 10:36:37 Final Observation Date Value Abnormality Reference (Units ) Status HbA1C 03/15/2024 10:36:37 7.2 Above high normal 4. 0-5.6 (%) Final The use of HbA1c to monitor glycemic status is based on normal hemoglobin and HbA composition. This test should not be used in patients with abnormal hemoglobin that affects the half life of the red blood cell or the in vivo glycation rates. Glucose, estimated average 03/15/2024 10:36:37 160 Above high normal <126 (mg/dL) Jonny schafer Performing Location [facility] - [address] [facility] [address]
--- OUTSIDE RECORDS SUMMARY | 2024-07-15 09:00 | External Medical Summary ---
Author Name Unknown Address Unknown Organization K01:[facility] - [address] [facility] [address] Laboratory Report Ordering Provider Test Date Status SKYLAJANETT 03/15/2024 10:36:37 Final Observation Date Value Abnormality Reference (Units ) Status SYNC LEUKOCYTES IN BLOOD BY AUTOMATED COUNT 03/15/2024 10:36:37 17.28 Above high normal 4.00-10.80 (K/uL) Final Segs 03/15/2024 10:36:37 72.1 40.0-75.0 (%) Final Lymphs % 03/15/2024 10:36:37 19.3 18.0-42.0 (%) Final Monos 03/15/2024 10:36:37 7.1 1.0-11.0 (%) Final Eosinophils 03/15/2024 10:36:37 0.9 0.0-6.0 (%) Final Basos 03/15/2024 10:36:37 0.2 0.0-2.0 (%) Final Immature Granulocyte, Percent 03/15/2024 10:36:37 0.4 0.0-2.0 (%) Final Absolute Segs 03/15/2024 10:36:37 12.47 Above high normal 1.80-7.70 (K/uL) Final Lymphs, absolute 03/15/2024 10:36:37 3.33 1.00-4.80 (K/ul) Final Monos, Abs 03/15/2024 10:36:37 1.22 Above high normal 0.00-1.10 (K/uL) Final Eos, Abs 03/15/2024 10:36:37 0.15 0.00-0.70 (K/uL) Final Basos, Abs 03/15/2024 10:36:37 0.04 0.00-0.20 (K/uL) Final Immature Granulocytes, Number 03/15/2024 10:36:37 0.07 0.00-0.20 (K/uL) Final Performing Location [facility] [place] - [address] [facility] [address]
--- OUTSIDE RECORDS SUMMARY | 2024-07-15 09:00 | External Medical Summary | Summary of Care ---
Author Name Unknown Organization [facility] Address [address] [place] [address] Phone [phone] Care Team Providers Care Weatherization And Housing Inspector Name Role Phone Jian Escalante MD Primary Care Provider [phone] Reason for Referral * Precert (Diagnostic Medical) (Within 10 days (routine)) - Authorized Specialty Diagnoses / Procedures Referred By Contac t Referred To Contact Cardiac Studies Diagnoses Postural dizziness with presyncope Procedures ECHO, COMPLETE (2D), TRANS-THORACIC Jian Escalante MD [address] [place] [address] Phone: tel: fax: Referral ID Status Reason Start Date Expiration Date V isits Requested Visits Authorized [id number] Authorized Precert 03/15/2024 999 999 Reason for Visit * Reason Comments Follow Up Pt here for 6 month follow up, urinary urgency and dizziness. Encounter Details Date Type Department Care Team ([facility] Contact Info) Description 03/15/2024 9:20 AM EST Office Visit Family Practice [facility] [address] [place] [address] Jian Escalante MD [address] [place] [address] Type 2 diabetes mellitus with hemoglobin A1c goal of less than 8.0% ([facility])*; HTN, goal below 130/80; Dyslipidemia; Gastroesophageal reflux disease without esophagitis; Multiple gastric ulcers; Spinal stenosis of lumbar region with neurogenic claudication; Claudication of both lower extremities (HCC); Mild dementia without behavioral disturbance, psychotic disturbance, mood disturbance, or anxiety, unspecified dementia type (HCC); Chronic pain syndrome; Obesity, Class I, BMI 30.0-34.9 (see actual BMI); Postural dizziness with presyncope Allergies Active Allergy Reactions Criticality Noted Date Comments Metformin Nausea/vomiting 11/14/2011 Tramadol Nausea/vomiting 11/14/2011 documented as of this encounter (statuses as of 03/15/2024) Medications Glucose Blood (Total Boox BLUE) STRP Test blood sugars once daily [...] EVERY DAY IN THE MORNING 90 Tablet 11/03/19 24 Active Rosuvastatin Calcium 20 MG [...] morning. 90 Tablet 3 02/25/20 24 Active Cefdinir 300 MG Oral Capsule (Omnicef) Take 1 Capsule by mouth in the morning and 1 Capsule before bedtime. 09/30/19 24 024 Discontinued Doxycycline Monohydrate 100 MG Oral CapsuleIndicatio ns:Perioral dermatitis Take 1 capsule twice daily for 1 month, then decrease to once daily for a month, then stop. 60 Capsule 1 01/01/20 24 024 Discontinued documented as of this [...] Sign Reading Time Taken Comments Blood Pressure 132/80 03/15/2024 9:34 AM EST Pulse 80 03/15/2024 9:34 AM EST Temperature 36.3 °C (97.3 °F) 03/15/2024 9:34 AM ES T Respiratory Rate 18 03/15/2024 9:34 AM EST Oxygen Saturation - - Inhaled Oxygen Concentration - - Weight 66.2 kg (146 lb) 03/15/2024 9:34 AM EST Height 144.8 cm (4' 9") 03/15/2024 9:34 AM EST Body Mass Index 31.59 03/15/2024 9:34 AM EST documented in this encounter Progress Notes * Jian Escalante MD - 03/15/2024 10:35 AM EST SUBJECTIVE: Annie Amin is a 79 year old female. Chief Complaint Patient presents with Follow Up Pt here for 6 month follow up, urinary urgency and dizziness. HPI: Annie is a medically complex but very stable 79 year old female here today accompanied by her for a routine follow up. She suffered a mechanical fall and also had an acute GI bleed over the summer but has recovered well. She still has some orthostatic symptoms that she describes as feeling "off balance" with positional changes. She denies chest pain or shortness of breath. She has very mild dementia and is doing well on aricept 5 mg daily. Patient Active Problem List Diagnosis Dyslipidemia Type 2 diabetes mellitus with hemoglobin A1c goal of less than 8.0% ([facility]) MEDICATION USE AGREEMENT HTN, goal below 130/80 Spinal stenosis of lumbar region with neurogenic claudication Gastroesophageal reflux disease without esophagitis Obesity, Class I, BMI 30.0-34.9 (see actual BMI) Chronic pain syndrome Claudication of both lower extremities ([facility]) Mild dementia ([facility]) Multiple gastric ulcers Current Outpatient Medications Medication Sig Dispense Refill Cilostazol 50 MG Oral Tablet (Pletal) Take [...] MOUTH IN THE MORNING. 90 Tablet 1 Pantoprazole Sodium 40 MG Oral Tablet Delayed Release (Protonix) Take 1 Tablet by mouth in the morning. 90 Tablet 3 Glucose Blood (DipJarTOUCH ULTRA BLUE) STRP Test blood sugars once daily as needed. Dx E11.9 50 Strip 11 metroNIDAZOLE 0.75 % External Cream (MetroCream) Apply thin layer to face twice daily 45 g 1 No current facility-administered medications for this visit. Allergy: Review of patient's allergies indicates: Allergen Reactions Metformin Nausea/vomiting Tramadol Nausea/vomiting OBJECTIVE: BP 132/80 | Pulse 80 | Temp 97.3 °F (36.3 °C) | Resp 18 | Ht 4' 9" (1.448 m) | Wt 146 lb (66.2 kg) | BMI 31.59 kg/m² | BSA 1.63 m² General: alert, healthy, and no distress Head: Normocephalic, No masses, lesions, tenderness or abnormalities Neck: supple, no adenopathy, no bruits, thyroid normal size, non-tender, without nodularity Lungs: chest symmetric with normal AP diameter, no chest deformities noted, no chest wall tenderness, lungs clear to auscultation Heart: regular rate & rhythm, no murmur, and no gallops Abdomen: abdomen soft, non-tender, normal bowel sounds, and no masses or organomegaly Extremities: less than 2 second capillary refill, no joint deformities, effusion, or inflammation Neuro Exam: alert & oriented x 3 with fluent speech, no focal motor/sensory deficits, gait normal, reflexes normal and symmetric Skin: skin color, texture, turgor are normal, no rashes or significant lesions ASSESSMENT AND PLAN: (E11.9) Type 2 diabetes mellitus with hemoglobin A1c goal of less than 8.0% ([facility]) (primary encounter diagnosis) Plan: HEMOGLOBIN A1C -continue rx (I10) HTN, goal below 130/80 Plan: @ goal (E78.5) Dyslipidemia Plan: continue statin (K21.9) Gastroesophageal reflux disease without esophagitis Plan: quiescent (K25.9) Multiple gastric ulcers Plan: CBC WITH WBC DIFFERENTIAL AND ANEMIA REFLEX WORKUP -continue PPI; follows with GI (M48.062) Spinal stenosis of lumbar region with neurogenic claudication Plan: quiescent (I73.9) Claudication of both lower extremities (HCC) Plan: continue pletal (F03.A0) Mild dementia without behavioral disturbance, psychotic disturbance, mood disturbance, or anxiety, unspecified dementia type (HCC) Plan: continue aricept (G89.4) Chronic pain syndrome Plan: resolved (E66.811) Obesity, Class I, BMI 30.0-34.9 (see actual BMI) Plan: stable (R42, R55) Postural dizziness with presyncope Plan: ECHO, COMPLETE (2D), TRANS-THORACIC Follow up as needed. No other complaints were offered at this time. Jian Escalante MD documented in this encounter Nursing Notes * Margarita Cole LPN - 03/15/2024 9:34 AM EST The patient has been properly identified by confirmation of name and date of . Chief Complaint Patient presents with Follow Up Pt here for 6 month follow up, urinary urgency and dizziness. documented in this encounter Plan of Treatment Upcoming Encounters Date Type Department Care Team (Late st Contact Info) Description 03/30/2024 9:00 AM EST Office Visit Podiatry [facility] [address] [address] Chela Case DPM [address] [place] [address] 04/05/2024 1:20 PM EST Office Visit Family Practice [facility] [address] [place] [address] Jian Escalante MD [address] [place] [address] 04/09/2024 1:00 PM EST Cardiac Studies Cardiac Studies, [facility] [address] [place] [address] 05/17/2024 10:30 AM EST Office Visit Orthopaedics [facility] [address] [address] Thanh Gonsales, [address] [place] [address] 06/01/2024 11:00 AM EST Office Visit Dermatology, [place] [address] [address] Lita Villanueva PA-C [address] [address] 07/16/2024 9:00 AM EDT Office Visit [facility] [place] [address] [facility] [address] Charlotte Malave Flor[place]ma, DO [address] [facility] [address] Pending Results Name Type Priority Associated Diagnoses Date /Time HEMOGLOBIN A1C Lab Routine Type 2 diabetes mellitus with hemoglobin A1c goal of less than 8.0% (HCC) 03/15/2024 10:36 AM EST CBC WITH WBC DIFFERENTIAL AND ANEMIA REFLEX WORKUP Lab Routine Multiple gastric ulcers 03/15/2024 10:36 AM EST Scheduled Orders Name Type Priority Associated Diagnoses Orde r Schedule HEMOGLOBIN A1C Lab Routine Type 2 diabetes mellitus with hemoglobin A1c goal of less than 8.0% (HCC) Expected: 03/15/2024 (Approximate), Expires: 03/15/2025 CBC WITH WBC DIFFERENTIAL AND ANEMIA REFLEX WORKUP Lab Routine Multiple gastric ulcers Expected: 03/15/2024 (Approximate), Expires: 03/15/2025 ECHO, COMPLETE (2D), TRANS-THORACIC Echocardiology Routine Postural dizziness with presyncope Expected: 03/15/2024, Expires: 04/15/2026 Health Maintenance Due Date Last Done Comments [...] this encounter Medical Devices Implanted Type Area Housing Management Representative Device Identifier Shelf Expiration Date Model / Serial / Lot Lens Intraoc 22.0 - [id number] - [id number] Implanted:Qty: 1 on 06/02/2018 by Wili Farmer MD at [facility] Right: Eye [employer] 12/12/2022 [id number] / [id number] / [id number] documented as of this encounter Visit Diagnoses Diagnosis Type 2 diabetes mellitus with hemoglobin A1c goal of less than 8.0% (HCC)- Primary HTN, goal below 130/80 Unspecified essential hypertension Dyslipidemia Other and unspecified hyperlipidemia Gastroesophageal reflux disease without esophagitis Esophageal reflux Multiple gastric ulcers Spinal stenosis of lumbar region with neurogenic claudication Spinal stenosis, lumbar region, with neurogenic claudication Claudication of both lower extremities (HCC) Mild dementia without behavioral disturbance, psychotic disturbance, mood disturbance, or anxiety, unspecified dementia type (HCC) Chronic pain syndrome Obesity, Class I, BMI 30.0-34.9 (see actual BMI) Obesity, unspecified Postural dizziness with presyncope documented in this encounter Care Teams Weatherization And Housing Inspector Relationship Specialty Start Date End Date Jian Escalante MD [address] [address] PCP - General Family Medicine 07/29/20 documented as of this encounter
--- OUTSIDE RECORDS SUMMARY | 2024-07-15 09:00 | External Medical Summary ---
Author Name Unknown Address Unknown Organization K01:[facility] [place] - [address] [place] [address] Laboratory Report Ordering Provider Test Date Status JANETT CRUM 03/15/2024 10:36:37 Final Observation Date Value Abnormality Reference (Units ) Status WBC, Total 03/15/2024 10:36:37 17.28 Above high normal 4 .00-10.80 (K/uL) Final RBC 03/15/2024 10:36:37 5.02 3.85-5.15 (M/uL) Final Hemoglobin 03/15/2024 10:36:37 15.9 Above high normal 1 2.0-15.3 (g/dL) Final Anemia reflex testing trigge rs on a HGB < 12.0 for Females and HGB < 13.0 for Males in accordance with the WHO Anemia Guidelines
Anemia reflex testing triggers on a HGB < 12.0 for Females and HGB < 13.0 for Males in accordance with the WHO Anemia Guidelines HCT 03/15/2024 10:36:37 46.4 Above hi gh normal 36.0-45.2 (%) Final MCV 03/15/2024 10:36:37 92.4 81.5-97.5 (fL) Final MCH 03/15/2024 10:36:37 31.7 27.0-34.0 (pg) Final MCHC 03/15/2024 10:36:37 34.3 32.0-36.0 (g/dL) Final RDW 03/15/2024 10:36:37 14.1 11.5-15.5 (%) Final Platelets 03/15/2024 10:36:37 392 140-400 (K /uL) Final MPV 03/15/2024 10:36:37 9.5 6.6-11.1 ( fL) Final Nucleated erythrocytes/100 leukocytes [Ratio] in Blood by Automated count 03/15/2024 10:36:37 0 <=0 (/100 WBCs) Final Performing Location [facility] - [facility] [address] [facility] [address]
--- OUTSIDE RECORDS SUMMARY | 2024-07-15 09:00 | External Medical Summary | Summary of Care ---
Author Name Unknown Organization [facility] Address [address] [place] [address] Phone [phone] Care Team Providers Care Java Project Manager Name Role Phone Jian Escalante MD Primary Care Provider [phone] Reason for Visit * Reason Comments eRx-Medication Refill Encounter Details Date Type Department Care Team ([facility] Contact Info) Description 03/02/2024 Refill Dermatology, Isauro [address] [address] Gabriel Gresham PA-C [address] [address] Perioral dermatitis* Allergies Active Allergy Reactions Criticality Noted Date Comments Metformin Nausea/vomiting 11/14/2011 Tramadol Nausea/vomiting 11/14/2011 documented as of this encounter (statuses as of 03/04/2024) Medications Glucose Blood (ONETOUCH ULTRA BLUE) STRP Test blood sugars once daily as needed. Dx E11.9 50 Strip 11 0 Active Cilostazol 50 MG Oral Tablet (Pletal) Take 1 Tablet by mouth in the morning and 1 Tablet before bedtime. 180 Tablet 3 4 Active Additional Information Patient not taking.Reported on 02/25/2024 HYDROcodone-Acet aminophen 5-325 MG Oral TabletIndication s:Spinal stenosis of lumbar region without neurogenic claudication Take 1 Tablet by mouth 3 times a day as needed for Pain, Severe. 90 Tablet 4 Active Additional Information Patient not taking.Reported on 02/25/2024 Ferrous Sulfate 325 (65 Fe) MG Oral [...] THE MORNING. 90 Tablet 1 4 Active Doxycycline Monohydrate 100 MG Oral CapsuleIndicatio ns:Perioral dermatitis Take 1 capsule twice daily for 1 month, then decrease to once daily for a month, then stop. 60 Capsule 1 4 Active Additional Information Patient not taking.Reported on 02/25/2024 metroNIDAZOLE 0.75 % External Cream (MetroCream)Reta cations:Perioral dermatitis Apply thin layer to face twice daily 45 g 1 4 Active Pantoprazole Sodium 40 MG Oral Tablet Delayed Release (Protonix) Take 1 Tablet by mouth in the morning. 90 Tablet 3 4 Active documented as of this encounter (statuses as of 03/04/2024) Active Problems Problem Noted Date Diagnosed Date Mild dementia 10/03/2023 Claudication of both lower [...] go to Action, Patient Files. Signed 05/17/14 Cassye Meir Amaro Dyslipidemia 11/06/2011 Type 2 diabetes mellitus wit h hemoglobin A1c goal of less than 8.0% 11/06/2011 Overview (08/08/2015): ICD-10 update of inactive term documented as of this encounter (statuses as of 03/04/2024) Resolved Problems Problem Noted Date Diagnosed Date [...] as of this encounter (statuses as of 03/04/2024) Immunizations Name Administration Dates Next Due COVID-19 [...] encounter Miscellaneous Notes * Telephone Encounter - Gabriel Gresham PA-C - 03/04/2024 7:24 AM EST Refused Prescriptions: Disp Refills Doxycycline Monohydrate 100 MG Oral [id number] Cap*1 Sig: TAKE 1CAPSULE TWICE DAILY FOR 1 MONTH, THEN DECREASE TO ONCE DAILY FOR A MONTH, THEN STOP.Refused By: GABRIEL GRESHAM for Refusal: Course of treatment complete * Telephone Encounter - Fina Plata, [employer] - 03/02/2024 7:24 AM ESTPending Prescriptions: Disp Refills Doxycycline Monohydrate 100 MG Oral [id number] Cap*1 Sig: TAKE 1 CAPSULE TWICE DAILY FOR 1 MONTH, THEN DECREASE TO ONCE DAILY FOR A MONTH, THEN STOP. * Telephone Encounter - Fina Plata, [employer] - 03/02/2024 7:23 AM EST Pending Prescriptions: Disp Refills Doxycycline Monohydrate 100 MG Oral Capsu*60 Cap*1 Sig: TAKE 1 CAPSULE TWICE DAILY FOR 1 MONTH, THEN DECREASE TO ONCE DAILY FOR A MONTH, THEN STOP. 01/01/2024 (in office), Visit date not found (telemedicine) 06/01/2024 If no future appointments scheduled, and last appointment is greater than a year ago, please schedule patient for a follow-up appointment Last date the medication was ordered: 01.01.2024 Patient Phone Numbers Labs: Lab Results Component Value Date/Time CREAT 0.8 09/10/2023 12:33 PM CREAT 0.9 10/20/2019 09:05 AM POTASSIUM 3.7 09/10/2023 12:33 PM POTASSIUM 4.0 10/20/2019 09:05 AM TSH 2.65 07/05/2017 09:21 AM LDL 88 10/03/2023 12:11 PM LDL 102 09/27/2019 03:40 PM LDL NOT APPLICABLE 09/27/2019 03:40 PM ALT 16 09/10/2023 12:33 PM ALT 37 (H) 09/27/2019 03:40 PM HGBA1C 8.5 (H) 09/10/2023 12:33 PM HGBA1C 6.6 (H) 10/20/2019 09:05 AM documented in this encounter Plan of Treatment Upcoming Encounters Date Type Department Care Team (Late st Contact Info) Description 03/15/2024 9:20 AM EST Office Visit [facility] [address] [place] [address] Jian Escalante MD [address] [place] [address] 03/25/2024 1:20 PM EST Office Visit Podiatry [facility] [address] [place] [address] Chela Case DPM [address] [place] [address] 04/05/2024 1:20 PM EST Office Visit [facility] [address] [place] [address] Jian Escalante MD [address] [place] [address] 05/17/2024 10:30 AM EST Office Visit Orthopaedics [facility] [address] [place] [address] Thanh Gonsales DO [address] [place] [address] 06/01/2024 11:00 AM EST Office Visit Dermatology, KenyattaIsauro Bhardwaj [address] [address] Gabriel Gresham PAMicheleC [address] [address] 07/16/2024 9:00 AM EDT Office Visit Neurology [facility] [address] [facility], [place] [address] Charlotte Malave, DO [address] [place] [place] [address] Health Maintenance Due Date Last Done [...] this encounter Medical Devices Implanted Type Area Primer Inserting Machine Adjuster Device Identifier Shelf Expiration Date Model / Serial / Lot Lens Intraoc 22.0 - [id number] - [id number] Implanted:Qty: 1 on 06/02/2018 by Wili Farmer MD at OR [facility] Right: Eye [employer] 12/12/2022 [id number] / [id number] / [id number] documented as of this encounter Visit Diagnoses Diagnosis Perioral dermatitis- Primary Rosacea documented in this encounter Care Teams Java Project Manager Relationship Specialty Start Date End Date Jian Escalante MD [address] [address] PCP - General Family Medicine 07/29/20 documented as of this encounter
--- OUTSIDE RECORDS SUMMARY | 2024-07-15 09:01 | External Medical Summary | Summary of Care ---
Author Name Unknown Organization [facility] Address [address] [place] [address] Phone [phone] Care Team Providers Care Dental Patient Coordinator Name Role Phone Jian Escalante MD Primary Care Provider [phone] Reason for Visit * Reason Comments NEW PATIENT New patient; pt and state that they are unsure why this appointment was set up; per patient, no GI symptoms * Evaluate & Treat - Unlimited Visits (Within 10 days (routine)) - Authorized Specialty Diagnoses / Procedures Referred By Marisa sanabria Referred To Contact Gastroenterology Diagnoses Gastroesophageal reflux disease without esophagitis Jian Escalante MD [address] [place] [address] Phone: tel: fax: Referral ID Status Reason Start Date Expiration Date Visits Requested Visits Authorized [id number] Authorized Specialty Services Required 10/03/2023 [id number] Encounter Details Date Type Department Care Team (Latest Contact Info) Description 02/25/2024 1:00 PM EST Office Visit Gastroenterology, [facility] [address] [place] [address] Mavis Omalley CRNP [address] [place] [address] Gastroesophageal reflux disease without esophagitis*; Gastric ulcer, unspecified chronicity, unspecified whether gastric ulcer hemorrhage or perforation present Allergies Active Allergy Reactions Criticality Noted Date Comments Metformin Nausea/vomiting 11/14/2011 Tramadol Nausea/vomiting 11/14/2011 documented as of this encounter (statuses as of 02/25/2024) Medications Glucose Blood ([employer] ULTRA BLUE) STRP Test blood sugars once daily as needed. Dx E11.9 50 Strip 09/07/19 Active Cilostazol 50 MG Oral Tablet (Pletal) Take 1 Tablet by mouth in the morning and 1 Tablet before bedtime. 180 Tablet 3 08/06/19 Active Additional Information Patient not taking.Reported on 02/25/2024 HYDROcodone-Acet aminophen 5-325 MG Oral TabletIndication s:Spinal stenosis of lumbar region without neurogenic claudication Take 1 Tablet by mouth 3 times a day as needed for Pain, Severe. 90 Tablet 08/07/19 Active Additional Information Patient not taking.Reported on 02/25/2024 Ferrous Sulfate 325 (65 Fe) MG Oral Tablet (Feosol) Take 1 Tablet by mouth in the morning and 1 Tablet before bedtime. 60 Tablet 10/05/19 24 Active Donepezil HCl 5 MG Oral Tablet (Aricept) Take 1 Tablet by mouth at bedtime. 90 Tablet 3 10/28/19 24 Active Carvedilol 12.5 MG Oral Tablet (Coreg)Indicatio ns:HTN, goal below 140/80 TAKE 1 TABLET BY MOUTH IN THE MORNING AND BEFORE BEDTIME 180 Tablet 11/03/19 24 Active DULoxetine HCl 60 MG Oral Capsule Delayed Release Particles (Cymbalta) TAKE 1 CAPSULE BY MOUTH EVERY MORNING 90 Capsule 11/03/19 24 Active glipiZIDE 5 MG Oral Tablet (Glucotrol) TAKE 1 TABLET BY MOUTH EVERY DAY IN THE MORNING 90 Tablet 11/03/19 24 Active Rosuvastatin Calcium 20 MG Oral Tablet (Crestor)Indicat ions:Dyslipidemi a, goal LDL below 100 TAKE 1 TABLET BY MOUTH IN THE MORNING. IN THE MORNING.. 90 Tablet 11/03/19 24 Active hydroCHLOROthiaz bev 25 MG Oral Tablet (Hydrodiuril) TAKE 1 TABLET BY MOUTH IN THE MORNING. 90 Tablet 11/03/19 24 Active Doxycycline Monohydrate 100 MG Oral CapsuleIndicatio ns:Perioral dermatitis Take 1 capsule twice daily for 1 month, then decrease to once daily for a month, then stop. 60 Capsule 01/01/20 24 Active Additional Information Patient not taking.Reported on 02/25/2024 metroNIDAZOLE 0.75 % External Cream (MetroCream)Reta cations:Perioral dermatitis Apply thin layer to face twice daily 45 g 1 01/01/20 Active Pantoprazole Sodium 40 MG Oral Tablet Delayed Release (Protonix) Take 1 Tablet by mouth in the morning. 90 Tablet 3 02/25/20 24 Active Pantoprazole Sodium 40 MG Oral Tablet Delayed Release (Protonix) Take 1 Tablet by mouth in the morning and 1 Tablet before bedtime. 90 Tablet 3 01/05/20 24 024 Discontin ued(Refil l) documented as of this encounter (statuses as of 02/25/2024) Active Problems Problem Noted Date Diagnosed Date [...] Action, Patient Files. Signed 05/17/14 [facility] Adan. Dyslipidemia 11/06/2011 Type 2 diabetes mellitus wit h hemoglobin A1c goal of less than 8.0% 11/06/2011 Overview (08/08/2015): ICD-10 update of inactive term documented as of this encounter (statuses as of 02/25/2024) Resolved Problems Problem Noted Date Diagnosed Date [...] as of this encounter (statuses as of 02/25/2024) Immunizations Name Administration Dates Next Due COVID-19 [...] Sign Reading Time Taken Comments Blood Pressure 128/68 02/25/2024 1:11 PM EST Pulse 82 02/25/2024 1:11 PM EST Temperature - - Respiratory Rate 18 02/25/2024 1:11 PM EST Oxygen Saturation 93% 02/25/2024 1:11 PM EST Inhaled Oxygen Concentration - - Weight 66.2 kg (146 lb) 02/25/2024 1:11 PM EST Height - - Body Mass Index 31.59 10/03/2023 11:12 AM EDT documented in this encounter Progress Notes * Mavis Omalley CRNP - 02/25/2024 2:05 PM EST DATE OF SERVICE: 02/25/2024 REFERRING PHYSICIAN: Jian Escalante MD CC: GERD HPI: Annie Amin is a 78 year old female, referred by Jian Escalante MD for evaluation of GERD. Pt was admitted at [facility] in September for confusion, anemia, melena. EGD performed by Dr. Abad during thatadmission showed erosions in the gastric antrum, nonbleeding gastric ulcers. Biopsy showed no signsof H. pylori. Patient has had gastric ulcers in the past as well in fall. She was placed onpantoprazole 40 mg twice daily. Still on this dose now. She takes Anacin which contains 400 mg of aspirin per tablets. She takes 2 tablets as needed for headaches. She currently feels well, denies any chest pain, shortness of breath, abdominal pain, nausea or vomiting, heartburn or acid reflux. She takes oral iron supplement daily and her stools may be darker in color but she denies any rectal bleeding or tarry looking stools. EGD 09/2023: - Normal esophagus. - Small hiatal hernia. - Gastritis, characterized by erosions. Biopsied. - Non-bleeding gastric ulcers with no stigmata of bleeding. - Normal examined duodenum. FINAL DIAGNOSIS Stomach, biopsy: - Focal active gastritis - Negative for Helicobacter pylori organisms EGD 01/2023: - Normal esophagus. - Non-bleeding gastric ulcers with no stigmata of bleeding. Biopsied. - Gastritis. Biopsied. - Small hiatal hernia. - Normal examined duodenum - Preparation of the colon was fair. - Three 2 to 4 mm polyps in the transverse colon, removed with a cold snare. Resected and retrieved. - Diverticulosis in the sigmoid colon. - Non-bleeding internal hemorrhoid FINAL DIAGNOSIS A. Stomach, antrum, biopsy: - Changes consistent with reactive gastropathy. Minimal chronic inflammation. - See comment. B. Colon, transverse, polyps, polypectomy: - Multiple fragments of tubular adenoma. Comment: The biopsy shows no significant inflammation and therefore a Helicobacter pylori immunohistochemical stain is not performed. No H. pylori organisms are noted on the routine H&E stain, however this is less sensitive than the immunohistochemical stain, and may not detect small numbers of organisms. If there is a clinical indication that warrants a Helicobacter pylori immunohistochemical stain (ex. ulcer not sampled, follow-up for recent H. pylori treatment), then testing may be ordered through the laboratory and an addendum will be issued to this report upon completion Past Medical History: Diagnosis Date Chronic pain syndrome 01/30/2022 Chronic Steroid Use 06/14/2008 issue resolved Dyslipidemia 11/06/2011 Gastroesophageal reflux disease without esophagitis 01/31/2021 HTN, goal below 130/80 09/25/2015 Per HTN Protocol HTN, goal below 140/90 Hypertension, benign INFORMATION enlarged heart INFORMATION pre ulcer Mild dementia (HCC) 10/03/2023 Obesity, Class I, BMI 30.0-34.9 (see actual BMI) 07/27/20[address] bermudez. Spinal stenosis of lumbar region with neurogenic claudication 09/30/2017 Type 2 diabetes mellitus with hemoglobin A1c goal of less than 8.0% (HCC) 11/06/2011 ICD-10 update of inactive term Family History Problem Relation Name Age of Onset Alcohol and Other Disorders Associated Mother Diabetes Mother Arthritis Mother Heart Disorder Father Cancer No significant family history Thyroid Disorder No significant family history Stroke No significant family history Past Surgical History: Procedure Laterality Date DELIVERY 1968, 1970, 1973 X 3 COLONOSCOPY W/ BIOPSY (RECTUM) 10/07/08 diverticulosis COLONOSCOPY, DIAGNOSTIC (RECTUM) 12/08/2009 divertic COLONOSCOPY, DIAGNOSTIC (RECTUM) 10/01/2019 distal descending scattered diverticulosis/patent end to side colo-colonic anastomosis/internal hemorrhoids/biopsies show hyperplastic and adenomatous changes/recall 2-3 years depending health status/COLONOSCOPY FLEXIBLE PROXIMAL DIAGNOSTIC performed by Kait Lewis MD at ENDOSCOPY [facility] INFORMATION 05/2007 Spinal Stenosis INFORMATION 02/2012 spine surgery --Dr. Tijerina INFORMATION Right 05/24/2015 hammertoe repair and foot surgery LAP;W/HYSTERECTOMY 1994 Hysterectomy Complete OTHER 11/17/08 exploratory laparotomy, lysis of adhesions, sigmoid colectomy with primary anastomosis: proctoscopy: repair of bladder fistula 11/17/08, [facility], Dr. Robb REMOVE CATARACT, INSERT LENS PROSTH Right 06/02/2018 right EXTRACAPSULAR CATARACT REMOVAL WITH INTRAOCULAR LENS performed by Wili Farmer MD at OR [facility] SPINE SURGERY PROCEDURE NEC 2007 spinal stenosis, Dr. Tijerina UOC TOTAL ABD HYSTERECTOMY W/WO REMOVAL OF TUBE(S) early 40s Social History Tobacco Use Smoking status: Never Smokeless tobacco: Never Vaping Use Vaping status: Never Used Substance Use Topics Alcohol use: No Drug use: No Review of patient's allergies indicates: Allergen Reactions Metformin Nausea/vomiting Tramadol Nausea/vomiting Current Outpatient Medications Medication Sig Dispense Refill Ferrous Sulfate 325 (65 Fe) MG Oral [...] the morning. 90 Tablet 3 Glucose Blood ([employer] ULTRA BLUE) STRP Test blood sugars once daily as needed. Dx E11.9 50 Strip 11 Cilostazol 50 MG Oral Tablet (Pletal) Take 1 Tablet by mouth in the morning and 1 Tablet before bedtime. (Patient not taking: Reported on 02/25/2024) 180 Tablet 3 HYDROcodone-Acetaminophen 5-325 MG Oral Tablet Take 1 Tablet by mouth 3 times a day as needed for Pain, Severe. (Patient not taking: Reported on 02/25/2024) 90 Tablet 0 Doxycycline Monohydrate 100 MG Oral Capsule Take 1 capsule twice daily for 1 month, then decrease to once daily for a month, then stop. (Patient not taking: Reported on 02/25/2024) 60 Capsule 1 No current facility-administered medications for this visit. REVIEW OF SYSTEMS: See HPI above; All other findings negative. EXAM: Filed Vitals: 02/25/24 1311 BP: 128/68 Pulse: 82 Resp: 18 SpO2: 93% Weight: 66.2 kg (146 lb) GENERAL: Well developed and well nourished in no acute distress. SKIN: No rashes, ulcers, jaundice or spider angiomata. HEENT: Normocephalic, sclera clear. NECK: Supple, trachea midline, no JVD noted. LUNGS: Clear to auscultation bilaterally, no respiratory distress or accessory muscles used. HEART: Regular rate & rhythm, no murmurs and no gallops. ABDOMEN: Normal bowel sounds, soft and nontender. EXTREMITIES: No palmar erythema, no ankle edema, no skin discoloration, no clubbing, no cyanosis. NEURO: No lateralizing findings. Sensory/Motor grossly normal. ASSESSMENT AND PLAN: Annie Amin is a 78 year old female w hx of GERD (controlled), was admitted at [facility] about 5 months ago for confusion, anemia, melena, source of GI bleeding rightly related to gastric ulcers. She also has had findings of gastric ulcers last fall. Suspect maybe related to aspirin use for HAs. - Avoid high dose ASA or NSAIDs - Decrease Pantoprazole to 40mg daily - May continue Fe Sulfate 325mg bid I spent a total of 30 minutes on the date of service in review of patient's record, and previously obtained information in person and appropriate medical visit, discussion and education of plan, withpatient and/or caregiver, placing orders for tests/referral/procedures as medically necessary and documentation of pertinent clinical information in patient's medical records for their visit today. RETURN TO CLINIC: [facility]ology, [facility] R: 02/25/2024 documented in this encounter Nursing Notes * Yara Gray RN - 02/25/2024 1:15 PM EST Chief Complaint Patient presents with NEW PATIENT New patient; pt and state that they are unsure why this appointment was set up; per patient, no GI symptoms documented in this encounter Plan of Treatment Upcoming Encounters Date Type Department Care Team (Late st Contact Info) Description 03/15/2024 9:20 AM EST Office Visit [facility] [address] [address] Jian Escalante MD [address] [id number] 03/25/2024 1:20 PM EST Office Visit Podiatry [facility] [address] [address] Chela Case DPM [address] [address] 04/05/2024 1:20 PM EST Office Visit Family Practice [facility] [address] [facility] [place] [address] Jian Escalante MD [address] [place] [address] 05/17/2024 10:30 AM EST Office Visit Orthopaedics [facility] [address] [facility] [place] [address] Thanh Gonsales, DO [address] [facility] [place] [address] 06/01/2024 11:00 AM EST Office Visit Dermatology, [facility] [address] [address] [address] Lita Villanueva PA-C [address] [place] [address] 07/16/2024 9:00 AM EDT Office Visit Neurology [facility] [address] [place] [address] Charlotte Malave, DO [address] [place] [address] Health Maintenance Due Date Last [...] this encounter Medical Devices Implanted Type Area Clinical Courier Device Identifier Shelf Expiration Date Model / Serial / Lot Lens Intraoc 22.0 - [id number] - [id number] Implanted:Qty: 1 on 06/02/2018 by Wili Farmer MD at OR [facility] Right: Eye [employer] 12/12/2022 [id number] / [id number] / [id number] documented as of this encounter Visit Diagnoses Diagnosis Gastroesophageal reflux disease without esophagitis- Primary Esophageal reflux Gastric ulcer, unspecified chronicity, unspecified whether gastric ulcer hemorrhage or perforation present documented in this encounter Care Teams Dental Patient Coordinator Relationship Specialty Start Date End Date Jian Escalante MD [address] [facility] [place] [address] PCP - General Family Medicine 07/29/20 documented as of this encounter
--- OUTSIDE RECORDS SUMMARY | 2024-07-15 09:01 | External Medical Summary | Summary of Care ---
Author Name Unknown Organization [facility] Address [address] [place] [address] Phone [phone] Care Team Providers Care Barrel Liner Name Role Phone Jian Escalante MD Primary Care Provider [phone] Reason for Referral * Precert (Within 10 days (routine)) - Authorized Specialty Diagnoses / Procedures Referred By Contac t Referred To Contact Pain Medicine Diagnoses Primary osteoarthritis of both knees Procedures INJECT MAJOR JX/BURSA W/O US GUIDE Thanh Gonsales DO [address] [place] [address] Referral ID Status Reason Start Date Expiration Date V isits Requested Visits Authorized [id number] Authorized 02/11/2024 999 999 Reason for Visit * Reason Comments Follow Up Bilateral knee Encounter Details Date Type Department Care Team (Latest Contact Info) Description 02/11/2024 9:45 AM EDT Office Visit Orthopaedics [facility] [address] [place] [address] Thanh Gonsales DO [address] [place] [address] Primary osteoarthritis of both knees* Allergies Active Allergy Reactions Criticality Noted Date Comments Metformin Nausea/vomiting 11/14/2011 Tramadol Nausea/vomiting 11/14/2011 documented as of this encounter (statuses as of 02/11/2024) Medications Medication Sig Dispensed Refills Start Date End Date Status Glucose Blood (ONETOUCH ULTRA BLUE) STRP Test blood sugars once daily as needed. Dx E11.9 50 Strip 11 09/07/2019 Active Cilostazol 50 MG Oral Tablet (Pletal) Take 1 Tablet by mouth in the morning and 1 Tablet before bedtime. 180 Tablet 3 08/06/2023 Active HYDROcodone-Acetamino phen 5-325 MG Oral TabletIndications:Spi nal stenosis of lumbar region without neurogenic claudication Take 1 Tablet by mouth 3 times a day as needed for Pain, Severe. 90 Tablet 08/07/2023 Active Ferrous Sulfate 325 (65 Fe) MG Oral Tablet (Feosol) Take 1 Tablet by mouth in the morning and 1 Tablet before bedtime. 60 Tablet 11 10/05/2023 Active Donepezil HCl 5 MG Oral Tablet (Aricept) Take 1 Tablet by mouth at bedtime. 90 Tablet 3 10/28/2023 Active Carvedilol 12.5 MG Oral Tablet (Coreg)Indications:HT N, goal below 140/80 TAKE 1 TABLET BY MOUTH IN THE MORNING AND BEFORE BEDTIME 180 Tablet 1 11/03/2023 Active DULoxetine HCl 60 MG Oral Capsule Delayed Release Particles (Cymbalta) TAKE 1 CAPSULE BY MOUTH EVERY MORNING 90 Capsule 11/03/2023 Active glipiZIDE 5 MG Oral Tablet (Glucotrol) TAKE 1 TABLET BY MOUTH EVERY DAY IN THE MORNING 90 Tablet 11/03/2023 Active Rosuvastatin Calcium 20 MG Oral Tablet (Crestor)Indications: Dyslipidemia, goal LDL below 100 TAKE 1 TABLET BY MOUTH IN THE MORNING. IN THE MORNING.. 90 Tablet 11/03/2023 Active hydroCHLOROthiazide 25 MG Oral Tablet (Hydrodiuril) TAKE 1 TABLET BY MOUTH IN THE MORNING. 90 Tablet 11/03/2023 Active Doxycycline Monohydrate 100 MG Oral CapsuleIndications:Pe rioral dermatitis Take 1 capsule twice daily for 1 month, then decrease to once daily for a month, then stop. 60 Capsule 01/01/2024 Active metroNIDAZOLE 0.75 % External Cream (MetroCream)Indicatio ns:Perioral dermatitis Apply thin layer to face twice daily 45 g 01/01/2024 Active Pantoprazole Sodium 40 MG Oral Tablet Delayed Release (Protonix) Take 1 Tablet by mouth in the morning and 1 Tablet before bedtime. 90 Tablet 3 01/05/2024 Active Hospital, Clinic, or Other Facility Administered Medication Ordered Dose Route Frequency Start Date End Date Status lidocaine 1% 1 mL - triamcinolone acetonide 40 mg/mL 1 mL inj 2 mLIndications:Primary osteoarthritis of both knees 2 mL IJ ONCE 02/11/2024 02/11/2024 Ended lidocaine 1% 1 mL - triamcinolone acetonide 40 mg/mL 1 mL inj 2 mLIndications:Primary osteoarthritis of both knees 2 mL IJ ONCE 02/11/2024 02/11/2024 Ended documented as of this encounter (statuses as of 02/11/2024) Active Problems Problem Noted Date Diagnosed Date Mild dementia 10/03/2023 Claudication of both lower extremities Chronic pain syndrome 01/30/2022 Obesity, Class I, BMI 30.0-34.9 (see actual BMI) 07/27/2021 Gastroesophageal reflux disease without esophagi tis 01/31/2021 Spinal stenosis of lumbar re gion with neurogenic claudication 09/30/2017 HTN, goal below 130/80 09/25/2015 Overview: Per HTN Protocol MEDICATION USE AGREEMENT 09/29/2012 Overview: Managed by C-Note. To view the Medication Usage Agreement, go to Action, Patient Files. Signed 05/17/14 Angela Amaro Dyslipidemia 11/06/2011 Type 2 diabetes mellitus wit h hemoglobin A1c goal of less than 8.0% 11/06/2011 Overview: ICD-10 update of inactive term documented as of this encounter (statuses as of 02/11/2024) Resolved Problems Problem Noted Date Diagnosed Date [...] as of this encounter (statuses as of 02/11/2024) Immunizations Name Administration Dates Next Due COVID-19 [...] money to get more. Never true 11/24/2021 Utilities Answer Date Recorded Do you have trouble paying y our heating, water, or electric bill? (Adult - for ages 18 years and over) Not on file 09/30/2023 Is your family able to pay t he heat, water, or electric bill? (Household - for ages 0-17 years) Not on file 09/30/2023 Does your family have access to good internet? (Household - for ages 0-17 years) Not on file 09/30/2023 Social Connections Answer Date Recorded How often do you feel lonely or isolated from those around you? (Adult - for ages 18 years and over) Not on file 09/30/2023 Sex and Gender Information Value Date Recorded Sex Assigned at Female 11/24/2021 2:26 PM EDT Gender Identity Female 11/24/2021 2:26 PM EDT Sexual Orientation Straight 11/24/2021 2: 26 PM EDT Job Start Date Occupation Industry Not on file Not on file Not on file documented as of this encounter Progress Notes * Thanh Gonsales, DO - 02/11/2024 9:45 AM EDT Annie Amin [id number] Annie Amin is a 78 year old female who presents for follow up to [facility] for BILATERAL knee injections. Annie Amin is here with her Date of Injury: no injury, pain x years TODAY: She would like injections on both knees, last injected 11/10/23 Current Outpatient Medications Medication Sig Dispense Refill Glucose Blood (ONETOUCH ULTRA BLUE) STRP Test [...] MOUTH IN THE MORNING. 90 Tablet 1 Doxycycline Monohydrate 100 MG Oral Capsule Take 1 capsule twice daily for 1 month, then decrease to once daily for a month, then stop. 60 Capsule 1 metroNIDAZOLE 0.75 % External Cream (MetroCream) Apply thin layer to face twice daily 45 g 1 Pantoprazole Sodium 40 MG Oral Tablet Delayed Release (Protonix) Take 1 Tablet by mouth in the morning and 1 Tablet before bedtime. 90 Tablet 3 No current facility-administered medications for this visit. Hemoglobin AIC Results: Lab Results Component Value Date/Time HEMOGLOBIN A1C - [facility] 8.5 (H) 09/10/2023 12:33 PM HEMOGLOBIN A1C - [facility] 8.5 (H) 03/12/2023 09:51 AM HEMOGLOBIN A1C - [facility] 7.2 (H) 09/04/2022 09:22 AM HEMOGLOBIN A1C - [facility] 6.6 (H) 10/20/2019 09:05 AM HEMOGLOBIN A1C - [facility] 6.9 (H) 05/23/2018 02:44 PM HEMOGLOBIN A1C - [facility] 6.1 07/05/2017 09:21 AM Physical Exam General: in no acute distress Mood and Affect: normal Gait and Station: mildly antalgic No effusion Tender to palpation bilateral medial joint lines Assessment and Plan: See procedure note follow up in 3-6 months. Needs to monitor glucose closely given recent A1c Primary osteoarthritis of both knees (Primary) - lidocaine 1% 1 mL - triamcinolone acetonide 40 mg/mL 1 mL inj 2 mL - lidocaine 1% 1 mL - triamcinolone acetonide 40 mg/mL 1 mL inj 2 mL - INJECT MAJOR JX/BURSA W/O US GUIDE Thanh S Gonsales, DO Primary Care Sports Medicine Orthopaedics [address] [address] This chart was completed in part utilizing [employer] Speech Voice Recognition Software. Grammatical errors, random [...] Notes * Chela Osborne MED ASSIST - 02/11/2024 9:50 AM EDT Follow up Patient Follow up: Knee Side: Bilateral Date of last visit: 11/10/23 Improvement since last office visit: 0 percent. Prior Treatment: Injection Here for Test Results: No Goals for this appointment: inj documented in this encounter Plan of Treatment Upcoming Encounters Date Type Department Care Team (Late st Contact Info) Description 02/25/2024 1:00 PM EST Office Visit Gastroenterology, [address] [place] [address] Mavis Omalley CRNP [address] [place] [address] 03/15/2024 9:20 AM EST Office Visit [facility] [address] [place] [address] Jian Escalante MD [address] [place] [address] 03/25/2024 1:20 PM EST Office Visit Podiatry [facility] [address] [place] [address] Chela Case DPM [address] [place] [address] 04/05/2024 1:20 PM EST Office Visit [facility] [address] [place] [address] Jian Escalante MD [address] [place] [address] 05/17/2024 10:30 AM EST Office Visit Orthopaedics [facility] [address] [place] [address] Thanh Gonsales DO [address] [place] [address] 06/01/2024 11:00 AM EST Office Visit Dermatology, [facility] [address] [place] [address] [address] Lita Villanueva, PAMicheleC [address] [place] [id number] 07/16/2024 9:00 AM EDT Office Visit [facility] [address] [facility] [address] Charlotte Malave, DO [address] [place] [address] Scheduled Orders Name Type Priority Associated Diagnoses Orde r Schedule INJECT MAJOR JX/BURSA W/O US GUIDE Procedures Routine Primary osteoarthritis of both knees Ordered: 02/11/2024 Health Maintenance Due Date Last Done Comments Diabetic Eye Exam 10/19/2020 10/20/2019, , 02/13/2012 Adult Wellness Visit 10/24/2021 10/24/2020 Depression Screening 10/24/2021 10/24/2020 Zoster Vaccines (2 of 2) 05/15/2022 03/20/2022 COVID-19 Vaccine ( season) 2023 02/11/2023, 02/07/2021, 05/16/2020, Additional history exists Influenza Vaccine (FLU shot) (#1) 2023 02/11/2023, 01/30/2022, 01/31/2021, Additional history exists Diabetic Foot Exam 03/12/2024 03/12/2023, 0 10/24/2020, [...] Discontinued 01/15/2023, 10/01/2019, 10/01/2019, Additional history exists HPV (Gardasil) Vaccine Aged Out No lo nger eligible based on patient's age to complete this topic Hepatitis B Vaccine Aged Out No longe r eligible based on patient's age to complete this topic MENINGOCOCCAL (MENACTRA/MENVEO) Aged Out No longer eligible based on patient's age to complete this topic documented as of this encounter Medical Devices Implanted Type Area Switch Tender Device Identifier Shelf Expiration Date Model / Serial / Lot Lens Intraoc 22.0 - [id number] - [id number] Implanted:Qty: 1 on 06/02/2018 by Wili Farmer MD at OR [facility] Right: Eye [employer] 12/12/2022 [id number] / [id number] / [id number] documented as of this encounter Visit Diagnoses Diagnosis Primary osteoarthritis of both knees- Primary Primary localized osteoarthrosis, lower leg documented in this encounter Administered Medications Inactive Administered Medications - up to 3 most recent administrations Medication Order MAR Action Action Date Dose Rate Site lidocaine 1% 1 mL - triamcinolone acetonide 40 mg/mL 1 mL inj 2 mL 2 mL, Injection, ONCE, On Fri02/11/24 at 1045, For 1 dose, Lidocaine 1% 1mL Triamcinolone Acetonide 40 mg/mL 1 mL (Final concentration = 20 mg/mL) REFRIGERATE and SHAKE WELL Given 02/11/2024 10:10 AM EDT 2 mL Knee Right lidocaine 1% 1 mL - triamcinolone acetonide 40 mg/mL 1 mL inj 2 mL 2 mL, Injection, ONCE, On Fri02/11/24 at 1045, For 1 dose, Lidocaine 1% 1mL Triamcinolone Acetonide 40 mg/mL 1 mL (Final concentration = 20 mg/mL) REFRIGERATE and SHAKE WELL Given 02/11/2024 10:10 AM EDT 2 mL Knee Left documented in this encounter Care Teams Barrel Liner Relationship Specialty Start Date End Date Jian Escalante MD [address] [facility] [place] [address] PCP - General Family Medicine 07/29/20 documented as of this encounter
--- OUTSIDE RECORDS SUMMARY | 2024-07-15 09:01 | External Medical Summary | Summary of Care ---
Author Name Unknown Organization [facility] Address [address] [place] [address] Phone [phone] Care Team Providers Care Stage Electrician Helper Name Role Phone Jian Escalante MD Primary Care Provider [phone] Reason for Referral * Precert (Within 10 days (routine)) - Authorized Specialty Diagnoses / Procedures Referred By Contac t Referred To Contact Pain Medicine Diagnoses Primary osteoarthritis of both knees Procedures INJECT MAJOR JX/BURSA W/O US GUIDE Thanh Gonsales DO [address] [place] [address] Referral ID Status Reason Start Date Expiration Date V isits Requested Visits Authorized [id number] Authorized 02/11/2024 999 999 Reason for Visit * Reason Comments Follow Up Bilateral knee Encounter Details Date Type Department Care Team (Latest Contact Info) Description 02/11/2024 9:45 AM EDT Office Visit Orthopaedics [facility] [address] [place] [address] Thanh Gonsales DO [address] [place] [address] Primary osteoarthritis of both knees* Allergies Active [...] MEDICATION USE AGREEMENT 09/29/2012 Overview: Managed by [employer]. To view the Medication Usage Agreement, go [...] - 02/11/2024 9:45 AM EDT Annie Amin [id number] Annie Amin is a 78 year old female who presents for follow up to [facility] for BILATERAL knee injections. Annie [...] Gonsales, DO Primary Care Sports Medicine Orthopaedics [address] [address] This chart was completed in part utilizing [employer] Speech Voice Recognition Software. Grammatical errors, random [...] 02/25/2024 1:00 PM EST Office Visit Gastroenterology, [address] [place] [address] Mavis Omalley CRNP [address] [place] [address] 03/15/2024 9:20 AM EST Office Visit [facility] [address] [place] [address] Jian Escalante MD [address] [place] [address] 03/25/2024 1:20 PM EST Office Visit Podiatry [facility] [address] [place] [address] Chela Case DPM [address] [place] [address] 04/05/2024 1:20 PM EST Office Visit [facility] [address] [place] [address] Jian Escalante MD [address] [place] [address] 05/17/2024 10:30 AM EST Office Visit Orthopaedics [facility] [address] [place] [address] Thanh Gonsales DO [address] [place] [address] 06/01/2024 11:00 AM EST Office Visit Dermatology, [facility] [address] [place] [address] [address] Lita Villanueva, PAMicheleC [address] [place] [phone] 07/16/2024 9:00 AM EDT Office Visit [facility] [address] Charlotte Malave, DO [address] [place] [address] Scheduled Orders Name Type Priority [...] this encounter Medical Devices Implanted Type Area Job Estimator Device Identifier Shelf Expiration Date Model / Serial / Lot Lens Intraoc 22.0 - [id number] - [id number] Implanted:Qty: 1 on 06/02/2018 by Wili Farmer MD at OR [facility] Right: Eye [employer] 12/12/2022 [id number] / [id number] / [id number] documented as of this encounter Visit Diagnoses [...] Left documented in this encounter Care Teams Stage Electrician Helper Relationship Specialty Start Date End Date Jian Escalante MD [address] [facility] [place] [address] PCP - General Family Medicine 07/29/20 documented as of this encounter
--- OUTSIDE RECORDS SUMMARY | 2024-07-15 09:01 | External Medical Summary | Summary of Care ---
Author Name Unknown Organization [facility] Address [address] [place] [address] Phone [phone] Care Team Providers Care Spindle Tester Name Role Phone Jian Escalante MD Primary Care Provider [phone] Reason for Referral * Precert (Within 10 days (routine)) - Authorized Specialty Diagnoses / Procedures Referred By Contac t Referred To Contact Pain Medicine Diagnoses Primary osteoarthritis of both knees Procedures INJECT MAJOR JX/BURSA W/O US GUIDE Thanh Gonsales DO [address] [place] [address] Referral ID Status Reason Start Date Expiration Date V isits Requested Visits Authorized [id number] Authorized 02/11/2024 999 999 Reason for Visit * Reason Comments Follow Up Bilateral knee Encounter Details Date Type Department Care Team (Latest Contact Info) Description 02/11/2024 9:45 AM EDT Office Visit Orthopaedics [facility] [address] [place] [address] Thanh Gonsales DO [address] [place] [address] Primary osteoarthritis of both knees* Allergies Active [...] MEDICATION USE AGREEMENT 09/29/2012 Overview: Managed by [email or web address]. To view the Medication Usage Agreement, go [...] - 02/11/2024 9:45 AM EDT Annie Amin [id number] Annie Amin is a 78 year old female who presents for follow up to [facility] for BILATERAL knee injections. Annie [...] Gonsales, DO Primary Care Sports Medicine Orthopaedics [address] [address] This chart was completed in part utilizing [employer] Speech Voice Recognition Software. Grammatical errors, random [...] 02/25/2024 1:00 PM EST Office Visit Gastroenterology, [address] [place] [address] Mavis Omalley CRNP [address] [place] [address] 03/15/2024 9:20 AM EST Office Visit [facility] [address] [place] [address] Jian Escalante MD [address] [place] [address] 03/25/2024 1:20 PM EST Office Visit Podiatry [facility] [address] [place] [address] Chela Case DPM [address] [place] [address] 04/05/2024 1:20 PM EST Office Visit [facility] [address] [place] [address] Jian Escalante MD [address] [place] [address] 05/17/2024 10:30 AM EST Office Visit Orthopaedics [facility] [address] [place] [address] Thanh Gonsales DO [address] [place] [address] 06/01/2024 11:00 AM EST Office Visit Dermatology, [facility] [place] [address] [place] [address] [address] Lita Villanueva, PAMicheleC [address] [place] [phone] 07/16/2024 9:00 AM EDT Office Visit [facility] [address] Charlotte Malave, DO [address] [place] [address] Scheduled Orders Name Type Priority [...] this encounter Medical Devices Implanted Type Area Central Office Associate Device Identifier Shelf Expiration Date Model / Serial / Lot Lens Intraoc 22.0 - [id number] - [id number] Implanted:Qty: 1 on 06/02/2018 by Wili Farmer MD at OR [facility] Right: Eye [employer] 12/12/2022 [id number] / [id number] / [id number] documented as of this encounter Visit Diagnoses [...] Left documented in this encounter Care Teams Spindle Tester Relationship Specialty Start Date End Date Jian Escalante MD [address] [facility] [place] [address] PCP - General Family Medicine 07/29/20 documented as of this encounter
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
--- OUTSIDE RECORDS SUMMARY | 2024-07-15 09:02 | External Medical Summary | Summary of Care ---
Author Name Unknown Organization [facility] Address [address] [place] [address] Phone [phone] Care Team Providers Care Flight Manager Name Role Phone Jian Escalante MD Primary Care Provider [phone] Reason for Visit * Reason Onset Date Comments Appointment 01/26/2024 Encounter Details Date Type Department Care Team ([facility] Contact Info) Description 01/26/2024 Telephone Family Practice [facility] [address] [facility] [place] [id number] Rosa Elena Hammond MD [address] [place] [address] Appointment Allergies Active Allergy Reactions Criticality Noted Date Comments Metformin Nausea/vomiting 11/14/2011 Tramadol Nausea/vomiting 11/14/2011 documented as of this encounter (statuses as of 01/27/2024) Medications Medication Sig Dispensed Refills Start Date [...] BY MOUTH EVERY MORNING 90 Capsule 1 11/03/2023 Active glipiZIDE 5 MG Oral Tablet (Glucotrol) TAKE 1 TABLET BY MOUTH EVERY DAY IN THE MORNING 90 Tablet 1 11/03/2023 Active Rosuvastatin Calcium 20 MG Oral Tablet (Crestor)Indications: Dyslipidemia, goal LDL below 100 TAKE 1 TABLET BY MOUTH IN THE MORNING. IN THE MORNING.. 90 Tablet 1 11/03/2023 Active hydroCHLOROthiazide 25 MG Oral Tablet (Hydrodiuril) TAKE 1 TABLET BY MOUTH IN THE MORNING. 90 Tablet 1 11/03/2023 Active Doxycycline Monohydrate 100 MG Oral CapsuleIndications:Pe rioral dermatitis Take 1 capsule twice daily for 1 month, then decrease to once daily for a month, then stop. 60 Capsule 1 01/01/2024 Active metroNIDAZOLE 0.75 % External Cream (MetroCream)Indicatio ns:Perioral dermatitis Apply thin layer to face twice daily 45 g 1 01/01/2024 Active Pantoprazole Sodium 40 MG Oral Tablet Delayed Release (Protonix) Take 1 Tablet by mouth in the morning and 1 Tablet before bedtime. 90 Tablet 3 01/05/2024 Active documented as of this encounter (statuses as of 01/27/2024) Active Problems Problem Noted Date Diagnosed Date Mild dementia 10/03/2023 Claudication of both lower extremities 3 Chronic pain syndrome 01/30/2022 Obesity, Class I, BMI 30.0-34.9 (see actual BMI) 07/27/2021 Gastroesophageal reflux disease without esophagi tis 01/31/2021 Spinal stenosis of lumbar re gion with neurogenic claudication 09/30/2017 HTN, goal below 130/80 09/25/2015 Overview: Per HTN Protocol MEDICATION USE AGREEMENT 09/29/2012 Overview: Managed by maría elena. To view the Medication Usage Agreement, go to Action, Patient Files. Signed 05/17/[address] Dyslipidemia 11/06/2011 Type 2 diabetes mellitus wit h hemoglobin A1c goal of less than 8.0% 11/06/2011 Overview: ICD-10 update of inactive term documented as of this encounter (statuses as of 01/27/2024) Resolved Problems Problem Noted Date Diagnosed Date [...] as of this encounter (statuses as of 01/27/2024) Immunizations Name Administration Dates Next Due COVID-19 [...] encounter Miscellaneous Notes * Telephone Encounter - Kelsea Morales OSA - 01/27/2024 8:07 AM EDT Pt aware and accepted * Telephone Encounter - Kelsea Morales OSA - 01/27/2024 7:55 AM EDT LM for pt to call for date and time will try again in a little bit * Telephone Encounter - Kelsea Morales OSA - 01/27/2024 6:[address] today at 1pm Will call pt in a little while * Telephone Encounter - Rosa Elena Hammond MD - 01/26/2024 8:06 PM EDT Please arrange for stat head CT on Friday. If we are unable to accommodate at [facility], please send her over to [facility] She gets up early, no worries about waking her documented in this encounter Plan of Treatment Upcoming Encounters Date Type Department Care Team (Late st Contact Info) Description 01/27/2024 1:00 PM EDT Imaging Radiology [facility] 1st Floor, [address] [place] [address] 02/11/2024 9:45 AM EDT Office Visit Orthopaedics [address] [place] [address] Thanh Gonsales, [address] [place] [address] [place] [address] 02/25/2024 1:00 PM EST Office Visit Gastroenterology, [address] [place] [address] Mavis Omalley CRNP [address] [facility] [address] 03/15/2024 9:20 AM EST Office Visit [facility] [address] [facility] [place] [address] Jian Escalante MD [address] [facility] [place] [address] 04/05/2024 1:20 PM EST Office Visit [facility] [address] [facility] [place] [address] Jian Escalante MD [address] [facility] [address] 06/01/2024 11:00 AM EST Office Visit Dermatology, [place] [address] [address] Lita Villanueva, PAMicheleC [address] [address] 07/16/2024 9:00 AM EDT Office Visit Neurology [facility] [address] [facility] [place] [address] Charlotte Malave, DO [address] [facility] [place] [address] Health Maintenance Due Date Last Done Comments [...] this encounter Medical Devices Implanted Type Area National Investigative Producer Device Identifier Shelf Expiration Date Model / Serial / Lot Lens Intraoc 22.0 - [id number] - [id number] Implanted:Qty: 1 on 06/02/2018 by Wili Farmer MD at OR [facility] Right: Eye [employer] 12/12/2022 [id number] / [id number] / [id number] documented as of this encounter Care Teams Flight Manager Relationship Specialty Start Date End Date Jian Escalante MD [address] [address] PCP - General Family Medicine 07/29/20 documented as of this encounter
[2024-07-15] MEDS: LANTUS PER UNIT CHARGE SQ SCH (09:22)
--- NOTE | 2024-07-15 09:55 | Electrocardiogram Report ---
Test Reason : Blood Pressure : */* mmHG Vent. Rate : 95 BPM Atrial Rate : 95 BPM P-R Int : 148 ms QRS Dur : 90 ms QT Int : 372 ms P-R-T Axes : 32 -42 94 degrees QTcB Int : 467 ms Normal sinus rhythm Left axis deviation Left ventricular hypertrophy with repolarization abnormality ( R in aVL , Spurger product ) Poor R wave progression, consider anterior MT vs. lead placement vs. LVH Abnormal ECG When compared with ECG of 23-Sep-2023 12:33, No significant change was found Confirmed by Jian Harry ([id number]) on 07/15/2024 9:55:03 AM Referred By: REFERRED SELF Confirmed By: Jian Harry
--- NOTE | 2024-07-15 10:28 | Pharmacy Report ---
- Date of Service July 15, 2024 - Pharmacy CVA/TIA Medication Review Medications to Prevent Stroke handout has been added to the patients discharge packet. Antiplatelet(s) * Aspirin 81 mg daily Cholesterol * High intensity statin: rosuvastatin 20 mg daily DVT Prophylaxis * Enoxaparin SQ Therapeutic Anticoagulation * No history of Afib/Aflutter noted Type 2 Diabetes * Patient has T2DM, a diabetes medication with proven CVD benefit will be deferred to their outpatient provider due to familiarity with risks/benefits of such therapies. "Medications to prevent stroke" handout has already been added to the patient's discharge packet, which instructs the patient to follow up with their outpatient provider to evaluate which diabetes medication with proven CVD benefit is best for them
--- NOTE | 2024-07-15 13:09 | Hospitalist Progress Note ---
Date of Service July 15, 2024 Assessment & Plan (1) Encephalopathy acute: (2) Hypertension, uncontrolled: (3) White matter abnormality on MRI of brain: (4) Diffuse cerebral atrophy: (5) Vascular dementia: (6) Type 2 diabetes mellitus: Plan Patient presented with transient confusion/encephalopathy. No evidence of acute ischemic event on MRI. Patient does have significant cerebral vascular disease and cerebral atrophy. History from the daughter raises concern for possible partial seizure. Continue to observe in a monitored setting Consult neurology EEG Replace potassium Continue to monitor blood pressure, increase Coreg to 12.5 mg, this appears to be what her home dose was. Case management assisting patient with setting up home care and plans for discharge Continue insulin coverage while in the hospital for diabetes. Follow laboratory studies. Admission and Anticipated Discharge Date Admission Date: July 14, 2024 Subjective Patient appears to be back to her baseline cognition per the patient as well as her 2 daughters at bedside. Denies any other complaints. Physical Exam Physical Exam: Constitutional: Alert, nontoxic HEENT: Mucous membranes moist. Lungs: Clear to auscultation, decreased, no wheezes rales or rhonchi CV: S1-S2, regular Abdomen: Soft, nontender, nondistended Extremities: No significant edema Neuro: No focal deficits, oriented Psych: Cooperative, normal mood Results & Data Results & Data Vital Signs (Past 12 Hours) Vital Signs Temp Pulse Pulse Resp BP BP Pulse Ox 07/15/24 11:51 85 17 07/15/24 11:42 83 16 07/15/24 11:36 79 20 07/15/24 11:24 83 18 07/15/24 11:15 79 21 07/15/24 11:09 140/95 07/15/24 11:09 140/95 07/15/24 11:09 140/95 07/15/24 11:09 140/95 07/15/24 11:09 140/95 07/15/24 11:09 140/95 07/15/24 11:09 140/95 07/15/24 11:09 140/95 07/15/24 11:09 140/95 07/15/24 11:09 140/95 07/15/24 11:09 140/95 07/15/24 11:09 140/95 07/15/24 11:09 140/95 07/15/24 11:09 140/95 07/15/24 11:09 140/95 07/15/24 11:09 140/95 07/15/24 11:09 140/95 07/15/24 11:09 93 H 22 07/15/24 11:09 140/95 07/15/24 10:30 94 H 18 07/15/24 10:30 150/91 H 07/15/24 10:30 150/91 H 07/15/24 10:30 150/91 H 07/15/24 10:30 150/91 H 07/15/24 10:30 150/91 H 07/15/24 10:30 150/91 H 07/15/24 10:30 150/91 H 07/15/24 10:30 150/91 H 07/15/24 10:30 150/91 H 07/15/24 10:30 150/91 H 07/15/24 10:30 150/91 H 07/15/24 10:30 150/91 H 07/15/24 10:30 150/91 H 07/15/24 10:21 94 H 13 07/15/24 10:12 87 19 07/15/24 10:00 156/95 H 07/15/24 10:00 156/95 H 07/15/24 10:00 156/95 H 07/15/24 10:00 156/95 H 07/15/24 10:00 156/95 H 07/15/24 10:00 156/95 H 07/15/24 10:00 156/95 H 07/15/24 10:00 156/95 H 07/15/24 10:00 156/95 H 07/15/24 10:00 156/95 H 07/15/24 10:00 156/95 H 07/15/24 10:00 156/95 H 07/15/24 10:00 156/95 H 07/15/24 10:00 156/95 H 07/15/24 10:00 156/95 H 07/15/24 09:51 81 15 07/15/24 09:48 85 20 07/15/24 09:30 163/98 H 07/15/24 09:30 163/98 H 07/15/24 09:30 163/98 H 07/15/24 09:30 163/98 H 07/15/24 09:30 163/98 H 07/15/24 09:30 163/98 H 07/15/24 09:30 163/98 H 07/15/24 09:30 163/98 H 07/15/24 09:30 163/98 H 07/15/24 09:30 163/98 H 07/15/24 09:30 92 H 18 07/15/24 09:12 94 H 14 07/15/24 09:03 106 H 14 07/15/24 09:00 146/85 H 07/15/24 09:00 146/85 H 07/15/24 09:00 146/85 H 07/15/24 09:00 146/85 H 07/15/24 09:00 146/85 H 07/15/24 09:00 146/85 H 07/15/24 09:00 146/85 H 07/15/24 09:00 146/85 H 07/15/24 09:00 146/85 H 07/15/24 09:00 146/85 H 07/15/24 09:00 146/85 H 07/15/24 09:00 146/85 H 07/15/24 09:00 146/85 H 07/15/24 09:00 146/85 H 07/15/24 08:57 108 H 21 07/15/24 08:33 86 18 07/15/24 08:30 148/82 H 07/15/24 08:30 148/82 H 07/15/24 08:30 148/82 H 07/15/24 08:30 148/82 H 07/15/24 08:30 148/82 H 07/15/24 08:30 148/82 H 07/15/24 08:30 148/82 H 07/15/24 08:30 148/82 H 07/15/24 08:21 92 H 16 07/15/24 08:03 82 18 07/15/24 08:00 136/76 07/15/24 08:00 136/76 07/15/24 08:00 136/76 07/15/24 08:00 136/76 07/15/24 08:00 136/76 07/15/24 07:48 84 19 07/15/24 07:45 88 17 07/15/24 07:30 161/90 H 07/15/24 07:30 161/90 H 07/15/24 07:30 161/90 H 07/15/24 07:30 161/90 H 07/15/24 07:30 161/90 H 07/15/24 07:30 161/90 H 07/15/24 07:30 161/90 H 07/15/24 07:30 161/90 H 07/15/24 07:30 161/90 H 07/15/24 07:30 161/90 H 07/15/24 07:30 161/90 H 07/15/24 07:30 161/90 H 07/15/24 07:30 161/90 H 07/15/24 07:30 93 H 20 07/15/24 07:27 95 H 16 07/15/24 07:12 91 H 17 07/15/24 07:09 105 H 22 07/15/24 07:01 154/65 H 07/15/24 07:01 154/65 H 07/15/24 07:01 154/65 H 07/15/24 07:01 154/65 H 07/15/24 07:01 154/65 H 07/15/24 07:01 154/65 H 07/15/24 07:01 154/65 H 07/15/24 07:01 154/65 H 07/15/24 06:57 86 15 07/15/24 06:30 90 17 119/95 92 07/15/24 06:26 89 07/15/24 06:00 82 16 137/64 92 07/15/24 05:30 81 15 125/70 92 07/15/24 05:00 81 15 131/71 91 07/15/24 04:30 88 18 150/88 H 91 07/15/24 04:00 87 17 135/68 92 07/15/24 03:30 80 17 134/88 07/15/24 03:00 82 17 141/77 H 93 07/15/24 02:30 81 17 144/78 H 95 07/15/24 02:11 36.8 C 93 H 20 141/83 H 94 07/15/24 02:00 93 H 15 156/86 H 94 O2 Del Method 07/15/24 11:51 07/15/24 11:42 07/15/24 11:36 07/15/24 11:24 07/15/24 11:15 07/15/24 11:09 07/15/24 11:09 07/15/24 11:09 07/15/24 11:09 07/15/24 11:09 07/15/24 11:07/15/24 11:09 07/15/24 11:07/15/24 11:07/15/24 11:09 07/15/24 11:09 07/15/24 11:09 07/15/24 11:09 07/15/24 11:09 07/15/24 11:09 07/15/24 11:09 07/15/24 11:09 07/15/24 11:09 07/15/24 11:09 07/15/24 10:30 07/15/24 10:30 07/15/24 10:30 07/15/24 10:30 07/15/24 10:30 07/15/24 10:30 07/15/24 10:30 07/15/24 10:30 07/15/24 10:30 07/15/24 10:30 07/15/24 10:30 07/15/24 10:30 07/15/24 10:30 07/15/24 10:30 07/15/24 10:21 07/15/24 10:12 07/15/24 10:00 07/15/24 10:00 07/15/24 10:00 07/15/24 10:00 07/15/24 10:00 07/15/24 10:00 07/15/24 10:00 07/15/24 10:00 07/15/24 10:00 07/15/24 10:00 07/15/24 10:00 07/15/24 10:00 07/15/24 10:00 07/15/24 10:00 07/15/24 10:00 07/15/24 09:51 07/15/24 09:48 07/15/24 09:30 07/15/24 09:30 07/15/24 09:30 07/15/24 09:30 07/15/24 09:30 07/15/24 09:30 07/15/24 09:30 07/15/24 09:30 07/15/24 09:30 07/15/24 09:30 07/15/24 09:30 07/15/24 09:12 07/15/24 09:03 07/15/24 09:00 07/15/24 09:00 07/15/24 09:00 07/15/24 09:00 07/15/24 09:00 07/15/24 09:00 07/15/24 09:00 07/15/24 09:00 07/15/24 09:00 07/15/24 09:00 07/15/24 09:00 07/15/24 09:00 07/15/24 09:00 07/15/24 09:00 07/15/24 08:57 07/15/24 08:33 07/15/24 08:30 07/15/24 08:30 07/15/24 08:30 07/15/24 08:30 07/15/24 08:30 07/15/24 08:30 07/15/24 08:30 07/15/24 08:30 07/15/24 08:21 07/15/24 08:03 07/15/24 08:00 07/15/24 08:00 07/15/24 08:00 07/15/24 08:00 07/15/24 08:00 07/15/24 07:48 07/15/24 07:45 07/15/24 07:30 07/15/24 07:30 07/15/24 07:30 07/15/24 07:30 07/15/24 07:30 07/15/24 07:30 07/15/24 07:30 07/15/24 07:30 07/15/24 07:30 07/15/24 07:30 07/15/24 07:30 07/15/24 07:30 07/15/24 07:30 07/15/24 07:30 07/15/24 07:27 07/15/24 07:12 07/15/24 07:09 07/15/24 07:01 07/15/24 07:01 07/15/24 07:01 07/15/24 07:01 07/15/24 07:01 07/15/24 07:01 07/15/24 07:01 07/15/24 07:01 07/15/24 06:57 07/15/24 06:30 07/15/24 06:26 07/15/24 06:00 07/15/24 05:30 07/15/24 05:00 07/15/24 04:30 07/15/24 04:00 07/15/24 03:30 07/15/24 03:00 07/15/24 02:30 07/15/24 02:11 Room Air 07/15/24 02:00 Diagnostic Findings Reviewed imaging, laboratory and diagnostic studies. Pertinent findings as below. Echocardiogram reviewed, normal ejection fraction, no PFO MRI of the brain negative for acute ischemia, significant cerebral white matter disease and atrophy MRI of the brain negative for occlusive lesions Urinalysis unremarkable Respiratory viral panel negative Hemoglobin A1c 8.4% Potassium 3.4
[2024-07-15] MEDS: POTASSIUM CHLORIDE CRTAB 20 MEQ TABCR PO STA (13:23)
--- NOTE | 2024-07-15 16:11 | Neurology Consultation ---
Date of Consultation July 15, 2024 Assessment & Plan (1) Seizure disorder, focal sensory: 79-year-old female patient with cognitive deficits maintained on Aricept, presenting with an episode is concerning for a focal sensory seizure. The patient does have occasional agitation and OCD behavior such as talking her eyebrows and picking on her face. Plan MRI of the brain was reviewed and shows no acute ischemia. Continue aspirin and statin for stroke prevention. EEG is pending. Recommend starting Depakote 500 mg twice daily to help with increasing her seizure threshold, help with agitated behavior and with her OCD behavior. The patient is to follow-up with outpatient neurology Telehealth Consultation Telehealth Information Telehealth Information: I performed this visit using a real-time telehealth connection between my location and the patients location ([facility]). After connecting through interactive tele-video, patient was identified by name and date of and/or wristband check.Patient (or authorized healthcare quality audit representative) was informed that this was a telemedicine visit and it was being conducted confidentially over secure lines. My office door was closed and no one else was present in the room with me.Patient (or authorized healthcare quality audit representative) provided consent to proceed with the visit, expressed an u nderstanding of privacy and security of the telemedicine visit, and gave permission to have a hospital quality audit representative in the room in order to assist with the visit and to conduct portions of the visit, as needed. I informed the patient (or authorized healthcare quality audit representative) that I reviewed their record and presented the opportunity for them to ask any questions regarding the visit today. The patient agreed to participate. History of Present Illness Reason for Consultation: Possible seizure Requesting Physician: Gerald Fernandez DO Attending Physician: Gerald Fernandez DO History of Present Illness 79-year-old female patient with PMH of cognitive decline previously seen for acute encephalopathy in September 2023 and was started on Aricept also PMH of HTN, depression, DM, HLP. Previous history of acute encephalopathy in the setting of UTIs. History today is obtained from the daughter who reports that yesterday she was having dinner with her mother and the patient was trying to eat with a fork but kept missing the food, then tried to use her fingers then she was speaking with nonsensical speech without any facial droop or motor weakness afterwards the patient was sleepy and disoriented could not answer any questions however as time passed she was more responsive by the time the ambulance arrived the patient was able to perform all of the orders and then will go back to sleep. Today she is doing much better she had no recurrent events. She has no complaints to offer. Denies any numbness or weakness. The patient was noted to have multiple injuries within her face and the daughter attributes them to her picking her face frequently. No other complaints MRI of the brain was reviewed no recent major illnesses reported by the daughter. Allergies Allergy/AdvReac Type Severity Reaction Status Date / Time metformin AdvReac Intermediate NAUSEA/VOMI Verified 07/14/24 23:00 TING tramadol AdvReac Intermediate NAUSEA/VOMI Verified 07/14/24 23:00 TING Home Medications Medication Instructions Recorded Confirmed Type carvedilol 12.5 mg tablet 12.5 mg PO BID 09/23/23 07/14/24 History cilostazol 50 mg tablet 50 mg PO BID 09/23/23 07/14/24 History duloxetine 60 mg capsule,delayed 60 mg PO DAILY 09/23/23 07/14/24 History release glipizide 5 mg tablet 5 mg PO DAILY 09/23/23 07/14/24 History hydrochlorothiazide 25 mg tablet 25 mg PO DAILY 09/23/23 07/14/24 History rosuvastatin 20 mg tablet 20 mg PO DAILY 09/23/23 07/14/24 History donepezil 5 mg tablet 5 mg PO HS #30 tabs 09/30/23 07/14/24 Rx pantoprazole 40 mg tablet,delayed 40 mg PO BID #60 tabs 09/30/23 07/14/24 Rx release doxycycline monohydrate 100 mg 100 mg PO DAILY 07/14/24 07/14/24 History capsule ferrous sulfate 325 mg (65 mg 325 mg PO BID 07/14/24 07/14/24 History iron) tablet potassium chloride 20 mEq 20 meq PO BID 07/14/24 07/14/24 History tablet,extended release(part/cryst) Patient History Medical History HTN (hypertension) History of gout Back problem DM type 2 (diabetes mellitus, type 2) Poor historian HLD (hyperlipidemia) Recurrent UTI Obesity Colovesical fistula hx Surgical History History of bowel resection sigmoid resection for a colo-vesical fistula per record History of colonoscopy with polypectomy History of hysterectomy History of Personal history of spine surgery Hx of cataract surgery Family History Mother Diabetes Father Heart disease Social History Smoking Status: Never smoker Second Hand Exposure: No; Do You Dip or Chew Tobacco: No; Hx Alcohol Use: Yes Hx Substance Use: No Preferred Language: [place] Communication Ability: Effective Visual Impairment: No Limitations Hearing Ability: Hard of Hearing Budget Director Required: No Beliefs That Will Affect Care: None marital status: Current Living Situation: Spouse How many Children do You have: 3 Feels Safe at Home: Yes Assistive Devices: Walker Review of Systems Negative except for the points mentioned in HPI Physical Exam General Constitutional: Appearance normally developed Head and face: normocephalic and atraumatic Eyes: no ptosis, no anisocoria, and no dysconjugate gaze Respiratory: normal effort Cardiovascular: regular rhythm and regular rate Abdomen: non distended Skin: no rashes, lesions, or ulcers noted Psychiatric: normal judgement and insight, normal mood, and normal affect NEUROLOGIC EXAMINATION: Mental Status:alert, oriented to , place, person, not to time, with apparent cognitive deficits difficulty with focus and recall of recent events Cranial Nerves: CN 2 - no visual defect on confrontation and pupils round, equal, reactive to light CN 3, 4, 6 - extra-ocular movements intact and no nystagmus CN 5 - facial sensation intact CN 7 - no facial asymmetry CN 8 - intact hearing CN 9, 10 - palate symmetric, normal gag CN 11 - good shoulder shrug CN 12 - tongue midline MOTOR: Strength was at least antigravity throughout, Pronator drift was absent and There were no abnormal movements SENSATION: intact and symmetric to pinprick, light touch, vibration and joint position GAIT: Deferred COORDINATION: no ataxia with finger to nose testing and heel to pena testing REFLEXES: cannot assess over telemedicine Results & Data Vital Signs (Past 12 Hours) Vital Signs Pulse Resp BP Pulse Ox O2 Del Method 07/15/24 13:38 Room Air 07/15/24 11:51 85 17 07/15/24 11:42 83 16 07/15/24 11:36 79 20 07/15/24 11:24 83 18 07/15/24 11:15 79 21 07/15/24 11:09 140/95 07/15/24 11:09 140/95 07/15/24 11:09 140/95 07/15/24 11:09 140/95 07/15/24 11:09 140/95 07/15/24 11:09 140/95 07/15/24 11:09 140/95 07/15/24 11:09 140/95 07/15/24 11:09 140/95 07/15/24 11:09 140/95 07/15/24 11:09 140/95 07/15/24 11:09 140/95 07/15/24 11:09 140/95 07/15/24 11:09 140/95 07/15/24 11:09 140/95 07/15/24 11:09 140/95 07/15/24 11:09 140/95 07/15/24 11:09 93 H 22 07/15/24 11:09 140/95 07/15/24 10:30 94 H 18 07/15/24 10:30 150/91 H 07/15/24 10:30 150/91 H 07/15/24 10:30 150/91 H 07/15/24 10:30 150/91 H 07/15/24 10:30 150/91 H 07/15/24 10:30 150/91 H 07/15/24 10:30 150/91 H 07/15/24 10:30 150/91 H 07/15/24 10:30 150/91 H 07/15/24 10:30 150/91 H 07/15/24 10:30 150/91 H 07/15/24 10:30 150/91 H 07/15/24 10:30 150/91 H 07/15/24 10:21 94 H 13 07/15/24 10:12 87 19 07/15/24 10:00 156/95 H 07/15/24 10:00 156/95 H 07/15/24 10:00 156/95 H 07/15/24 10:00 156/95 H 07/15/24 10:00 156/95 H 07/15/24 10:00 156/95 H 07/15/24 10:00 156/95 H 07/15/24 10:00 156/95 H 07/15/24 10:00 156/95 H 07/15/24 10:00 156/95 H 07/15/24 10:00 156/95 H 07/15/24 10:00 156/95 H 07/15/24 10:00 156/95 H 07/15/24 10:00 156/95 H 07/15/24 10:00 156/95 H 07/15/24 09:51 81 15 07/15/24 09:48 85 20 07/15/24 09:30 163/98 H 07/15/24 09:30 163/98 H 07/15/24 09:30 163/98 H 07/15/24 09:30 163/98 H 07/15/24 09:30 163/98 H 07/15/24 09:30 163/98 H 07/15/24 09:30 163/98 H 07/15/24 09:30 163/98 H 07/15/24 09:30 163/98 H 07/15/24 09:30 163/98 H 07/15/24 09:30 92 H 18 07/15/24 09:12 94 H 14 07/15/24 09:03 106 H 14 07/15/24 09:00 146/85 H 07/15/24 09:00 146/85 H 07/15/24 09:00 146/85 H 07/15/24 09:00 146/85 H 07/15/24 09:00 146/85 H 07/15/24 09:00 146/85 H 07/15/24 09:00 146/85 H 07/15/24 09:00 146/85 H 07/15/24 09:00 146/85 H 07/15/24 09:00 146/85 H 07/15/24 09:00 146/85 H 07/15/24 09:00 146/85 H 07/15/24 09:00 146/85 H 07/15/24 09:00 146/85 H 07/15/24 08:57 108 H 21 07/15/24 08:33 86 18 07/15/24 08:30 148/82 H 07/15/24 08:30 148/82 H 07/15/24 08:30 148/82 H 07/15/24 08:30 148/82 H 07/15/24 08:30 148/82 H 07/15/24 08:30 148/82 H 07/15/24 08:30 148/82 H 07/15/24 08:30 148/82 H 07/15/24 08:21 92 H 16 07/15/24 08:03 82 18 07/15/24 08:00 136/76 07/15/24 08:00 136/76 07/15/24 08:00 136/76 07/15/24 08:00 136/76 07/15/24 08:00 136/76 07/15/24 07:48 84 19 07/15/24 07:45 88 17 07/15/24 07:30 161/90 H 07/15/24 07:30 161/90 H 07/15/24 07:30 161/90 H 07/15/24 07:30 161/90 H 07/15/24 07:30 161/90 H 07/15/24 07:30 161/90 H 07/15/24 07:30 161/90 H 07/15/24 07:30 161/90 H 07/15/24 07:30 161/90 H 07/15/24 07:30 161/90 H 07/15/24 07:30 161/90 H 07/15/24 07:30 161/90 H 07/15/24 07:30 161/90 H 07/15/24 07:30 93 H 20 07/15/24 07:27 95 H 16 07/15/24 07:12 91 H 17 07/15/24 07:09 105 H 22 07/15/24 07:01 154/65 H 07/15/24 07:01 154/65 H 07/15/24 07:01 154/65 H 07/15/24 07:01 154/65 H 07/15/24 07:01 154/65 H 07/15/24 07:01 154/65 H 07/15/24 07:01 154/65 H 07/15/24 07:01 154/65 H 07/15/24 06:57 86 15 07/15/24 06:30 90 17 119/95 92 07/15/24 06:26 89 07/15/24 06:00 82 16 137/64 92 07/15/24 05:30 81 15 125/70 92 07/15/24 05:00 81 15 131/71 91 07/15/24 04:30 88 18 150/88 H 91 Laboratory Results Laboratory Results - last 24 hr 07/14/24 07/14/24 07/14/24 21:09 21:59 22:10 WBC 11.07 H RBC 5.06 Hgb 15.9 Hct 45.9 MCV 90.7 MCH 31.4 MCHC 34.6 RDW Std Deviation 43.9 RDW Coeff of [place] 13.2 Plt Count 284 MPV 9.3 L Immature Gran % (Auto) 0.4 Neut % (Auto) 60.5 Lymph % (Auto) 29.9 [place] % (Auto) 7.5 Eos % (Auto) 1.4 Baso % (Auto) 0.3 Neut # (Auto) 6.71 H Lymph # (Auto) 3.31 [place] # (Auto) 0.83 H Eos # (Auto) 0.15 Baso # (Auto) 0.03 Immature Gran # (Auto) 0.04 PT 10.4 INR 1.0 Sodium 139 Potassium 3.5 Chloride 100 Carbon Dioxide 32 Anion Gap 7 BUN 12 Creatinine 0.69 Est Cr Clr Drug Dosing 60.5 eGFR 88.78 BUN/Creatinine Ratio 17.4 Glucose 204 H POC Glucose Estimat Average Glucose Hemoglobin A1c Calcium 9.9 Magnesium 1.6 L Total Bilirubin 0.7 AST 19 ALT 28 Alkaline Phosphatase 30 L Total Creatine Kinase 42 Troponin I High Sens 10.3 Total Protein 7.2 Albumin 4.4 Globulin 2.8 Albumin/Globulin Ratio 1.6 Triglycerides Cholesterol LDL Cholesterol, Calc VLDL Cholesterol, Calc HDL Cholesterol Cholesterol/HDL Ratio TSH 5.202 H Free T4 0.81 Urine Color Yellow Urine Appearance Clear Urine pH 5.5 Ur Specific [place] 1.018 Urine Protein Negative Urine Glucose (UA) 1+ H Urine Ketones Negative Urine Blood Negative Urine Nitrite Negative Urine Bilirubin Negative Urine Urobilinogen Negative Ur Leukocyte Esterase Negative Adenovirus (PCR) Not Detected B. pertussis DNA (PCR) Not Detected B.parapertussis DNA PCR Not Detected C. pneumoniae DNA (PCR) Not Detected Coronavirus OC43 (PCR) Not Detected Coronavirus HKU1 (PCR) Not Detected Coronavirus 229E (PCR) Not Detected SARS-CoV-2 (PCR) Not Detected Coronavirus NL63 (PCR) Not Detected Human Metapneumovir PCR Not Detected Influenza Type A (PCR) Not Detected Influenza Type B (PCR) Not Detected M. pneumoniae (PCR) Not Detected Parainfluenza 1 (PCR) Not Detected Parainfluenza 2 (PCR) Not Detected Parainfluenza 3 (PCR) Not Detected Parainfluenza 4 (PCR) Not Detected RSV (PCR) Not Detected Entero/Rhino (PCR) Not Detected 07/15/24 07/15/24 07/15/24 00:14 04:43 08:40 WBC 10.97 H RBC 4.31 Hgb 13.8 Hct 38.9 MCV 90.3 MCH 32.0 MCHC 35.5 RDW Std Deviation 43.7 RDW Coeff of [place] 13.2 Plt Count 250 MPV 8.9 L Immature Gran % (Auto) 0.4 Neut % (Auto) 56.0 Lymph % (Auto) 30.9 [place] % (Auto) 10.3 Eos % (Auto) 1.9 Baso % (Auto) 0.5 Neut # (Auto) 6.15 Lymph # (Auto) 3.39 [place] # (Auto) 1.13 H Eos # (Auto) 0.21 Baso # (Auto) 0.05 Immature Gran # (Auto) 0.04 PT INR Sodium 140 Potassium 3.4 L Chloride 103 Carbon Dioxide 31 Anion Gap 6 BUN 11 Creatinine 0.69 Est Cr Clr Drug Dosing 54.3 eGFR 88.78 BUN/Creatinine Ratio 15.9 Glucose 117 H POC Glucose 177 H 142 H Estimat Average Glucose 194 Hemoglobin A1c 8.4 H Calcium 9.0 Magnesium 1.8 Total Bilirubin AST ALT Alkaline Phosphatase Total Creatine Kinase Troponin I High Sens Total Protein Albumin Globulin Albumin/Globulin Ratio Triglycerides 147 Cholesterol 188 LDL Cholesterol, Calc 87 VLDL Cholesterol, Calc 29 HDL Cholesterol 72 Cholesterol/HDL Ratio 2.6 TSH Free T4 Urine Color Urine Appearance Urine pH Ur Specific [place] Urine Protein Urine Glucose (UA) Urine Ketones Urine Blood Urine Nitrite Urine Bilirubin Urine Urobilinogen Ur Leukocyte Esterase Adenovirus (PCR) B. pertussis DNA (PCR) B.parapertussis DNA PCR C. pneumoniae DNA (PCR) Coronavirus OC43 (PCR) Coronavirus HKU1 (PCR) Coronavirus 229E (PCR) SARS-CoV-2 (PCR) Coronavirus NL63 (PCR) Human Metapneumovir PCR Influenza Type A (PCR) Influenza Type B (PCR) M. pneumoniae (PCR) Parainfluenza 1 (PCR) Parainfluenza 2 (PCR) Parainfluenza 3 (PCR) Parainfluenza 4 (PCR) RSV (PCR) Entero/Rhino (PCR) 07/15/24 11:23 WBC RBC Hgb Hct MCV MCH MCHC RDW Std Deviation RDW Coeff of [place] Plt Count MPV Immature Gran % (Auto) Neut % (Auto) Lymph % (Auto) [place] % (Auto) Eos % (Auto) Baso % (Auto) Neut # (Auto) Lymph # (Auto) [place] # (Auto) Eos # (Auto) Baso # (Auto) Immature Gran # (Auto) PT INR Sodium Potassium Chloride Carbon Dioxide Anion Gap BUN Creatinine Est Cr Clr Drug Dosing eGFR BUN/Creatinine Ratio Glucose POC Glucose 157 H Estimat Average Glucose Hemoglobin A1c Calcium Magnesium Total Bilirubin AST ALT Alkaline Phosphatase Total Creatine Kinase Troponin I High Sens Total Protein Albumin Globulin Albumin/Globulin Ratio Triglycerides Cholesterol LDL Cholesterol, Calc VLDL Cholesterol, Calc HDL Cholesterol Cholesterol/HDL Ratio TSH Free T4 Urine Color Urine Appearance Urine pH Ur Specific [place] Urine Protein Urine Glucose (UA) Urine Ketones Urine Blood Urine Nitrite Urine Bilirubin Urine Urobilinogen Ur Leukocyte Esterase Adenovirus (PCR) B. pertussis DNA (PCR) B.parapertussis DNA PCR C. pneumoniae DNA (PCR) Coronavirus OC43 (PCR) Coronavirus HKU1 (PCR) Coronavirus 229E (PCR) SARS-CoV-2 (PCR) Coronavirus NL63 (PCR) Human Metapneumovir PCR Influenza Type A (PCR) Influenza Type B (PCR) M. pneumoniae (PCR) Parainfluenza 1 (PCR) Parainfluenza 2 (PCR) Parainfluenza 3 (PCR) Parainfluenza 4 (PCR) RSV (PCR) Entero/Rhino (PCR) Diagnostic Findings MRI of the brain was reviewed and showed no acute intracranial process, no diffusion restriction, chronic atrophy and chronic white matter changes, minimal changes on GRE. MRA of the head was done and shows no flow-limiting stenosis. Echocardiogram: Shows LVEF of 60 to 65%, normal left atrial size, no intra-atrial shunt. Medications Administered see chart
[2024-07-15] MEDS: carvediloL 12.5 MG TAB PO SCH (17:45)
[2024-07-15] MEDS: ACETAMINOPHEN 325 MG TAB PO PRN (20:47)
[2024-07-15] MEDS: DONEPEZIL HCL 5 MG TAB PO SCH (20:49)
[2024-07-15] MEDS: DIVALPROEX EXTENDED RELEASE 500 MG TAB PO SCH (20:55)
[2024-07-16 07:36] VITALS: RESP 16; TEMP 97.9
[2024-07-16 07:42] LABS: Basophils # (auto) 0.04 K/uL (0.00-0.20); Basophils % (auto) 0.4 %; Eosinophils # (auto) 0.19 K/uL (0.00-0.50); Eosinophils % (auto) 1.9 %; Hematocrit (blood only) 41.7 % (37.0-47.0); Hemoglobin 14.7 g/dl (12.0-16.0); Immature Granulocytes # (auto) 0.04 K/uL (0.01-0.20); Immature Granulocytes % (auto) 0.4 %; Lymphocytes # (auto) 2.69 K/uL (1.20-3.40); Lymphocytes % (auto) 27.2 %; Mean Corpuscular Hemoglobin 32.5 pg (25.0-34.0); Mean Corpuscular Hgb Conc 35.3 g/dL (32.0-36.0); Mean Corpuscular Volume 92.1 fL (80.0-100.0); Mean Platelet Volume 9.2 fL (9.4-12.4); Monocytes # (auto) 0.86 K/uL (0.11-0.59); Monocytes % (auto) 8.7 %; Neutrophils # (auto) 6.07 K/uL (1.40-6.50); Neutrophils % (auto) 61.4 %; Platelet Count 281 K/uL (130-400); RDW Standard Deviation 43.9 fL (36.4-46.3); Red Blood Count 4.53 M/uL (4.20-5.40); White Blood Count 9.89 K/ul (4.8-10.8)
[2024-07-16 07:47] LABS: Calcium 9.3 mg/dl (8.6-10.3); Potassium 3.6 mmol/L (3.5-5.1)
[2024-07-16 07:53] LABS: BUN Creatinine Ratio 16.2 (10-20); Creatinine Clr Calc Pharmacy 49.2 ml/min
[2024-07-16 08:18] LABS: Folate (Folic Acid),Ser orPlas 11.42 ng/ml (>5.38)
[2024-07-16] MEDS: ASPIRIN 81 MG ECTAB PO SCH (09:31)
[2024-07-16] MEDS ORDERED: STROKE PATIENT DISCHARGE STA (11:31)
--- NOTE | 2024-07-16 11:40 | Discharge Summary ---
Discharge Summary Date of Service July 16, 2024 Principal Dx & Hospital Course #1 = Principal Diagnosis (1) Seizure disorder, focal sensory: (2) Hypertension, uncontrolled: (3) White matter abnormality on MRI of brain: (4) Diffuse cerebral atrophy: (5) Vascular dementia: (6) Type 2 diabetes mellitus: Plan Patient is 71-year-old female presents to the emergency room with a acute encephalopathy and altered mental status. Evaluation in the emergency room initially unremarkable for acute findings but was referred for further evaluation. Patient was monitored in the hospital. There was no arrhythmias on telemetry monitoring. MRI of the brain showed extensive cerebral atrophy and white matter disease but no evidence of acute ischemia. She returned to her baseline mental status shortly after presenting to the emergency room. On extensive review of the event with the patient's daughter at the bedside and the findings of MRI of significant cerebrovascular disease raises a question of possible seizure. Neurology consultation was obtained. EEG was ordered. Patient was evaluated by neurology and agree that this presentation could very well be presentation of a focal sensory seizure. With the patient's known vas cular dementia and at times having some behavioral issues consistent with OCD as evidenced by her picking at her skin recommended trial of Depakote. Patient was started on Depakote. She tolerated this well. There was no recurrent episodes. Her blood pressure overall was controlled on the Coreg. Her risk of becoming dehydrated and significant electrolyte abnormalities on the hydrochlorothiazide is recommend that she discontinue that medication. With her extensive cerebrovascular white matter disease recommended she does stay on a daily aspirin. She continue other home medications. She will follow-up with outpatient neurology and her PCP. Would recommend checking Depakote level in approxi-1 to 2 weeks. Notes For Next Care Provider Check Depakote level in 1 to 2 weeks Consider repeat TSH in 4 to 6 weeks Follow-up with neurology May need additional treatment for diabetes May need additional treatment for hypertension, however well-controlled on the Coreg here in the hospital. Medication Changes From Visit Depakote 2 times daily Hydrochlorothiazide and supplemental potassium discontinued Admission HPI Per Admitting Provider History obtained from patient, family, and records. Limited history from patient secondary to dementia. Medical history significant for hypertension, hyperlipidemia, claudication on cilostazol, GERD, DM2 on oral medications, dementia, polymyalgia rheumatic as per records, chronic pain. Last confinement September 2023 for UGIB attributed to gastritis and nonbleeding gastric ulcers on EGD. Hemoglobin 8.9 at time of discharge. Patient discharged on Protonix and iron home medications. Patient seen at PCP's last week for recurrent falls at home while ambulating. Facial trauma resulting from fall. Outpatient CT head negative for bleed. Patient daughter visiting from [place] mentioned rib fractures from fall. Patient /caregiver currently out of town visiting family in [place]. Last night around 8 PM, patient noted to be acting strangely by her daughter. Patient gave daughter two forks for her to eat with. Patient later started eating beans with her hands which daughter found unusual. Patient started scooping food with her right hand. Patient overshooting her mouth with spoon as per daughter. Transient slurred speech noted at home and patient eyes noted to be heavy. Patient denies headache, chest pain, SOB, or cough symptoms. Patient brought to ER for evaluation. Patient has no recollection of events. Medical History as above Surgical History : section, back surgery, hammertoe/foot surgery, hysterectomy, bowel surgery, bladder fistula repair, cataract surgery Family History : Heart disease Personal/Social history : Non-smoker, no EtOH intake, retired clinical research nurse Admission Exam Per Admitting Provider See H&P Discharge Exam Constitutional: Alert, nontoxic, seen ambulating the halls HEENT: Mucous membranes moist. Lungs: Clear to auscultation, decreased, no wheezes rales or rhonchi CV: S1-S2, regular Abdomen: Soft, nontender, nondistended Extremities: No significant edema Neuro: No focal deficits, some mild memory deficits Psych: Cooperative, normal mood Updated Medication List Medication Instructions Recorded Confirmed Type carvedilol 12.5 mg tablet 12.5 mg PO BID 09/23/23 07/14/24 History cilostazol 50 mg tablet 50 mg PO BID 09/23/23 07/14/24 History duloxetine 60 mg capsule,delayed 60 mg PO DAILY 09/23/23 07/14/24 History release glipizide 5 mg tablet 5 mg PO DAILY 09/23/23 07/14/24 History hydrochlorothiazide 25 mg tablet 25 mg PO DAILY 09/23/23 07/14/24 History rosuvastatin 20 mg tablet 20 mg PO DAILY 09/23/23 07/14/24 History donepezil 5 mg tablet 5 mg PO HS #30 tabs 09/30/23 07/14/24 Rx pantoprazole 40 mg tablet,delayed 40 mg PO BID #60 tabs 09/30/23 07/14/24 Rx release doxycycline monohydrate 100 mg 100 mg PO DAILY 07/14/24 07/14/24 History capsule ferrous sulfate 325 mg (65 mg 325 mg PO BID 07/14/24 07/14/24 History iron) tablet potassium chloride 20 mEq 20 meq PO BID 07/14/24 07/14/24 History tablet,extended release(part/cryst) aspirin 81 mg tablet,delayed 81 mg PO DAILY #365 tabs 07/16/24 Rx release divalproex 500 mg tablet,extended 500 mg PO BID #60 tabs 07/16/24 Rx release 24 hr Hospital Stay Data Consultations 07/14/24 23:17 ED Decision to Admit Stat 07/15/24 12:57 Consult Neurology Routine Diagnostic Imagining Performed 07/14/24 21:15 CT head/brain wo con Stat 07/15/24 00:15 MR angio head wo con Routine MR brain wo con Routine Reviewed imaging, laboratory and diagnostic studies. Pertinent findings as below. CBC within normal ranges, stable Electrolytes within normal range Creatinine 0.74 B12 341 Folate 11.4 RPR negative TSH 5.2 Free T4 0.81 Hemoglobin A1c 8.4% MRI of the head unremarkable on for any occlusive events MRI of the brain showed significant cerebral atrophy and white matter disease but no acute ischemia Echocardiogram showed normal ejection fraction, no ASD. I refer to the full report for details Pending Results Patient Have Any Pending Studies at Discharge: Yes Discharge Instructions Given to Patient (Per Discharging Provider) Follow-up with neurology as coordinated Follow-up with your PCP, discuss whether you need additional treatment for your diabetes Home Health Attestation I certify that this patient is under my care and that I, or a physicians office clerk assistant working with me, had a face to-face encounter that meets the formerly [facility] [id number] encounter requirements with this patient. The encounter with the patient was in whole, or in part, for the following medical condition, which is the primary reason for home health care (list medical condition): Two recent falls. Hospitalized for possible TIA. I certify that, based on my findings, the following services are medically necessary home health services: My clinical findings support the need for the above services because: Home Safety Assessment OT Assess ADL Status and Restore Function w ADLs PT Assessment for Endurance / Balance / Strength PT Eval for Safety and Mobility PT Eval for Safety, Gait Training, Assistive Devices PT Gait and Balance Training, Strengthening and Safety Safety Further, I certify that my clinical findings support that this patient is homebound (i.e. absences from home require considerable and taxing effort and are for medical reasons or [facility] or infrequently or of short duration when for other reasons) because: Supportive Aid - Walker Certification for Home Health Services: Based on the above findings, I certify that this patient is confined to the home and needs intermittent longterm care, physical therapy and/or speech therapy or continues to need occupational therapy. The patient is under my care, and I have initiated the establishment of the plan of care. This patient will be followed by a physician who will periodically review the plan of care. Total Time Total Time Spent Total Time Spent (In Minutes): 40
[2024-07-16 11:49] VITALS: O2SAT 95
[2024-07-16 11:58] VITALS: BP 141/83; PULSE 93
== END 2024-07-16 14:30 | disposition home health service (06) | DRG 101 ==
LOC: ED 20:52 → EDINP 20:52 → 2N 23:50